=== PATIENT | male | born 1935 | race Asian ===

== ENCOUNTER 2016-11-10 13:08 | Inpatient (IN) | payer MEDICARE, OTHER ==
[~2016-11-10] VITALS: Ht 162.6 cm; Wt 56.8 kg
[2016-11-10] MEDS ORDERED: SOD CHLORIDE 0.9% 1,000 ML IV STA ×3 (13:12→15:03)
[2016-11-10] MEDS ORDERED: CEFEPIME 2GM/50 ML (PMX) 50 ML IVPB STA (13:12)
[2016-11-10] MEDS ORDERED: ACETAMINOPHEN 325 MG SUPP PR ONE (13:30)
[2016-11-10] MEDS ORDERED: ACETAMINOPHEN 650 MG SUPP PR ONE (13:30)
[2016-11-10] MEDS ORDERED: VANCOMYCIN 1 GM (PMX) 250 ML IVPB ONE (13:30)
[2016-11-10] MEDS ORDERED: ACET-2047 PO (13:56)
[2016-11-10] MEDS ORDERED: HYDR-906 PO (13:58)
[2016-11-10 13:59] LABS: ADD SCAN DIFF NO
[2016-11-10] MEDS ORDERED: MAG355OR14 PO (14:00)
[2016-11-10] MEDS ORDERED: ALBU2.5V3 NEB (14:00)
[2016-11-10] MEDS ORDERED: BISA5TAB6 PO (14:01)
[2016-11-10] MEDS ORDERED: CLON0.252 PO (14:02)
[2016-11-10] MEDS ORDERED: ESCI10TA PO (14:02)
[2016-11-10] MEDS ORDERED: ETHA400T25 PO (14:03)
[2016-11-10 14:04] LABS: ABNORMAL IP MESSAGE 1; HEMATOCRIT 39.6 % (42.0-52.0); MEAN CORPUSCULAR HEMOGLOBIN 32.9 pg (29.0-33.0); MEAN CORPUSCULAR HGB CONC 30.3 g/dl (32.0-37.0); MEAN CORPUSCULAR VOLUME 108.5 fl (82.0-101.0); MEAN PLATELET VOLUME 10.3 fl (7.4-10.4); PLATELET COUNT 328 10^3/UL (140-415); RED BLOOD COUNT 3.65 10^6/ul (4.70-6.10); RED CELL DISTRIBUTION WIDTH 15.4 % (11.5-14.5)
[2016-11-10] MEDS ORDERED: HAL1 PO (14:05)
[2016-11-10] MEDS ORDERED: INSU100V3 IJ (14:06)
[2016-11-10] MEDS ORDERED: IPRA3AMP INHALATION (14:08)
[2016-11-10] MEDS ORDERED: TEMA7.5C PO (14:10)
[2016-11-10 14:12] LABS: ADD UMIC YES; URINE BILIRUBIN (Dip) 1+ (NEGATIVE); URINE BLOOD (Dip) NEGATIVE (NEGATIVE); URINE COLOR AMBER (YELLOW); URINE GLUCOSE (Dip) NEGATIVE (NEGATIVE); URINE KETONES (Dip) NEGATIVE (NEGATIVE); URINE LEUKOCYTE ESTERASE (Dip) NEGATIVE (NEGATIVE); URINE NITRITE (Dip) NEGATIVE (NEGATIVE); URINE TOTAL PROTEIN (Dip) 1+ (NEGATIVE); URINE UROBILINOGEN (Dip) 1.0 E.U./dL (0.1-1.0)
[2016-11-10] MEDS ORDERED: ONDA4TAB8 PO (14:14)
[2016-11-10] MEDS ORDERED: POTA10TA37 PO (14:14)
[2016-11-10] MEDS ORDERED: [UNRECOGNIZED DRUG - CODE] PO (14:16)
[2016-11-10] MEDS ORDERED: SELE5CAP8 PO (14:17)
[2016-11-10 14:18] LABS: INR 1.07; PROTIME 13.9 Sec (12.2-14.2); PT RATIO 1.1
[2016-11-10] MEDS ORDERED: MAGN400O4 PO (14:18)
[2016-11-10 14:19] LABS: PARTIAL THROMBOPLASTIN TIME 32.5 Sec (25.0-35.0)
[2016-11-10] MEDS ORDERED: LEVA1.25 INHALATION (14:19)
[2016-11-10] MEDS ORDERED: LACT20SO2 PO (14:19)
[2016-11-10 14:20] LABS: AMMONIA < 9 umol/l (9-30)
[2016-11-10] MEDS ORDERED: POLY17PO6 PO (14:21)
[2016-11-10] MEDS ORDERED: PYRI50TA14 PO (14:22)
[2016-11-10] MEDS ORDERED: [UNRECOGNIZED DRUG - CODE] IVPB (14:22)
[2016-11-10 14:23] LABS: ALBUMIN/GLOBULIN RATIO 1.21; BILIRUBIN,INDIRECT 0.8 mg/dl (0-1.1); BILIRUBIN,TOTAL 0.8 mg/dl (0.2-1.3); CALCIUM 9.5 mg/dl (8.4-10.2); CREATININE 2.02 mg/dl (0.61-1.24); POTASSIUM 4.8 mmol/L (3.5-5.1); TOTAL PROTEIN 7.3 g/dl (6.1-8.1)
[2016-11-10] MEDS ORDERED: METF500T4 PO (14:23)
[2016-11-10] MEDS ORDERED: PYRA500T11 PO (14:23)
[2016-11-10] MEDS ORDERED: ISON300T72 PO (14:26)
[2016-11-10] MEDS ORDERED: ESOM40CA PO (14:30)
[2016-11-10 14:33] LABS: TROPONIN-I 0.028 ng/ml (0.00-0.12)
--- NOTE | 2016-11-10 14:39 | RADRPT ---
PROCEDURE: XR Chest. CLINICAL INDICATION: Shortness of breath. TECHNIQUE: A single portable view of the chest was obtained. COMPARISON: None FINDINGS: The aorta is tortuous and atherosclerotic. The cardiomediastinal silhouette is otherwise within nor mal limits. Prominence of the pulmonary vascularity is seen. Bibasilar air space disease is noted. No pleural effusion or pneumothorax is identified. The soft tissues and osseous structures demonst rate benign age related senescent changes. IMPRESSION: 1. Bibasilar air space disease which may represent infiltrates. Continued chest x-ray follow-up to resolution is suggested. 2. Prominence of the pulmonary vascularity. RPTAT: HPNM Physician Pino Date Time Electronically viewed and signed by Physician Pino on 11/10/2016 14:38 /
[2016-11-10 14:48] LABS: BACTERIA,URINE FEW; ICTOTEST NEGATIVE (NEGATIVE); URINE RBCS NONE SEEN /HPF (0)
--- NOTE | 2016-11-10 15:00 | RADRPT ---
PROCEDURE: CT Head without contrast. CLINICAL INDICATION: Sepsis with headaches TECHNIQUE: The study was performed utilizing a GE 64-slice multidetector CT scanner. Direct spiral axial CT images of the brain were obtained from the vertex to the skull base without contrast. Karoline nal and sagittal reformatted images are provided. The CTDI vol is 86.76 mGy and the DLP is 900.2 a m Gy-cm. The images were reviewed on a PACS workstation. COMPARISON: No prior studies are available for comparison. FINDINGS: Mild to moderate diffuse atrophy is seen with a compensatory ventricular enlargement. Mild white ma tter disease in the periventricular and deep white matter is seen. The castellon-white matter differenti ation is maintained. No intra or extra-axial fluid collection or mass effect or shift in the midlin e structures is seen. The visualized paranasal sinuses, mastoid air cells, orbits, and calvarium ar e unremarkable. Vascular calcifications are seen. IMPRESSION: 1. No acute intracranial pathology. 2. Mild to moderate diffuse volume loss and mild chronic microvascular ischemic changes. RPTAT: HPNM Physician Pino Date Time Electronically viewed and signed by Physician Pino on 11/10/2016 15:00 /
[2016-11-10 15:15] VITALS: TEMP 97.6
[2016-11-10 15:24] LABS: ANISOCYTOSIS 1+; MONOCYTE # 0.4 10^3/ul (0.3-0.9); NEUTROPHIL # 3.9 10^3/ul (1.6-7.5); PLATELET ESTIMATE PLT APPEAR ADEQUATE
[2016-11-10] MEDS ORDERED: LIDOCAINE 1% (MDV) 20 ML INJ SC ONE (15:30)
--- NOTE | 2016-11-10 16:34 | ERA ---
ER Documentation Chief Complaint Date/Time DATE: 11/10/16 TIME: 16:34 Chief Complaint FROM [facility], C/O ALTERED MORE THAN USUSAL HPI Patient is a 81-year-old male who presents altered. Please note that the history and physical exam is limited secondary to the patient's altered mental status. The patient was brought in by ambulance from [facility]. The patient was more altered than usual as of 1 hour ago. I cannot obtain history otherwise. ROS All systems reviewed and are negative except as per history of present illness. Medications Home Meds Reported Medications Esomeprazole Mag Trihydrate (Nexium) 40 Mg Capsule.dr, 40 MG PO DAILY, #30 CAP 11/10/16 Isoniazid* (Isoniazid*) 300 Mg Tablet, 300 MG PO DAILY, TAB 11/10/16 Metformin Hcl* (Metformin Hcl*) 500 Mg Tablet, 500 MG PO WITH BREAKFAST DINNE, # 30 TAB 11/10/16 Pyrazinamide* (Pyrazinamide*) 500 Mg Tablet, 1500 MG PO DAILY, TAB 11/10/16 Pyridoxine Hcl* (Pyridoxine Hcl*) 50 Mg Tablet, 50 MG PO DAILY, TAB 11/10/16 Rifampin* (Rifampin*) 600 Mg Vial, 600 MG IVPB Q24H, VIAL DILUTE IN NS 100 ML 11/10/16 Polyethylene Glycol* (Miralax*) 17 Gm Powd.pack, 17 GM PO DAILY Y for CONSTIPATION, #30 PACKET 11/10/16 Lactulose* (Lactulose*) 20 Gm/30 Ml Solution, 20 GM PO DAILY Y for CONSTIPATION , ML 11/10/16 Levalbuterol Hcl* (Levalbuterol Hcl*) 1.25 Mg/0.5 Ml Vial.neb, 1.25 MG INHALATION Q6 Y for SHORTNESS OF BREATH, VIAL 11/10/16 Magnesium Hydroxide* (Milk Of Magnesia*) 400 Mg/5 Ml Oral.susp, 30 ML PO Q12H Y for CONSTIPATION, ML 11/10/16 Selegiline Hcl* (Selegiline Hcl*) 5 Mg Capsule, 5 MG PO WITH BREAKFAST LUNCH, CAP 11/10/16 Nut.tx.gluc.intoler,Lac-Fr,Reg (BOOST GLUCOSE CONTROL) 237 Ml Liquid, 237 ML PO TID LACTOSE FREE 11/10/16 Ondansetron Hcl* (Zofran*) 4 Mg Tablet, 4 MG PO Q6H Y for NAUSEA AND OR VOMITING , TAB 11/10/16 Potassium Chloride* (K-Dur*) 10 Meq Tab.prt.sr, 10 MEQ PO DAILY, TAB 11/10/16 Temazepam* (Temazepam*) 7.5 Mg Capsule, 7.5 MG PO HS Y for INSOMNIA, CAP 11/10/16 Ipratropium-Albuterol (Ipratropium-Albuterol) 0.5-3 Mg/3 Ml Ampul.neb, 3 ML INHALATION Q6 Y for SHORTNESS OF BREATH, #30 VIAL 11/10/16 Insulin Regular, Human (Humulin R) 100 Unit/1 Ml Vial, 0 IJ AC MEALS AND BEDTIME , VIAL SLIDING SCALE NO SCALE PROVIDED 11/10/16 Haloperidol* (Haldol*) 1 Mg Tab, 3 MG PO TID, TAB IM IF PT REFUSES ORAL 11/10/16 Ethambutol HCl* (Myambutol*) 400 Mg Tablet, 400 MG PO DAILY 11/10/16 Escitalopram Oxalate* (Lexapro*) 10 Mg Tablet, 10 MG PO DAILY, #30 TAB 11/10/16 Clonazepam (Clonazepam) 0.25 Mg Tab.rapdis, 0.25 MG PO Q6 Y for ANXIETY 11/10/16 Bisacodyl* (Bisacodyl*) 5 Mg Tablet.dr, 5 MG PO DAILY Y for CONSTIPATION, TAB 11/10/16 Albuterol Sulfate* (Albuterol Sulfate* Neb) 0.083%-3 Ml Neb, 2.5 MG NEB Q4 Y for WHEEZING AND SOB, #30 VIAL 11/10/16 Mag Hydrox/Al Hydrox/Simeth (Maalox Advanced Suspension) 355 Ml Oral.susp, 30 ML PO Q4 Y for INDIGESTION 11/10/16 Hydrocodone/Acetaminophen ([place] 5-325 Tablet) 1 Each Tablet, 1 EACH PO Q6 Y for PAIN LEVEL 6-10, TAB 11/10/16 Acetaminophen* (Acetaminophen*) 650 Mg Tablet, 650 MG PO Q6H Y for MILD PAIN LEVEL 1-3, #30 TAB 11/10/16 Allergies Allergies: Coded Allergies: No Known Allergy (Unverified , 11/10/16) PMhx/Soc Medical and Surgical Hx: Unable to obtain Hx Alcohol Use: No Hx Substance Use: No Hx Tobacco Use: No Smoking Status: Former smoker FmHx Unable to obtain Physical Exam Vitals Vital Signs Date Time Temp Pulse Resp B/P Pulse Ox O2 Delivery O2 Flow Rate FiO2 11/10/16 15:15 97.6 107 14 90/63 97 Nasal Cannula 2.0 11/10/16 14:15 101.5 117 26 92/59 100 Nasal Cannula 2.0 11/10/16 13:45 129 21 68/51 100 Room Air 11/10/16 13:30 Nasal Cannula 2 11/10/16 13:22 101.5 129 27 127/101 94 Physical Exam Const: Ill-appearing Head: Atraumatic Eyes: Normal Conjunctiva ENT: Normal External Ears, Nose and Mouth. Neck: Full range of motion..~ No meningismus. Resp: Decreased breath sounds bilaterally, tachypnea Cardio: Regular rate and rhythm, no murmurs Abd: Soft, non tender, non distended. Normal bowel sounds Skin: Pale Back: No midline or flank tenderness Ext: No cyanosis, or edema Neur: Awake but not following commands or speaking Result Diagram: 11/10/16 1335 11/10/16 1335 Results 24 hrs Laboratory Tests Test 11/10/16 13:35 11/10/16 13:45 White Blood Count 6.010^3/ul Red Blood Count 3.6510^6/ul Hemoglobin 12.0g/dl Hematocrit 39.6% Mean Corpuscular Volume 108.5fl Mean Corpuscular Hemoglobin 32.9pg Mean Corpuscular Hemoglobin Concent 30.3g/dl Red Cell Distribution Width 15.4% Platelet Count 85200^3/UL Mean Platelet Volume 10.3fl Neutrophils % 65.0% Band Neutrophils % 9.0% Lymphocytes % 17.0% Reactive Lymphocytes % 3.0% Monocytes % 6.0% Eosinophils % % Neutrophils # 3.910^3/ul Lymphocytes # 1.010^3/ul Monocytes # 0.410^3/ul Eosinophils # 10^3/ul Platelet Estimate PLT APPEAR ADEQUATE Anisocytosis 1+ Macrocytosis 2+ Prothrombin Time 13.9Sec Prothrombin Time Ratio 1.1 INR International Normalized Ratio 1.07 Activated Partial Thromboplast Time 32.5Sec Sodium Level 149mmol/L Potassium Level 4.8mmol/L Chloride Level 110mmol/L Carbon Dioxide Level 19mmol/L Anion Gap 25 Blood Urea Nitrogen 65mg/dl Creatinine 2.02mg/dl Glucose Level 193mg/dl Lactic Acid Level 12.0mmol/L Calcium Level 9.5mg/dl Total Bilirubin 0.8mg/dl Direct Bilirubin 0.00mg/dl Indirect Bilirubin 0.8mg/dl Aspartate Amino Transf (AST/SGOT) 47IU/L Alanine Aminotransferase (ALT/SGPT) 14IU/L Alkaline Phosphatase 82IU/L Ammonia < 9umol/l Troponin I 0.028ng/ml Total Protein 7.3g/dl Albumin 4.0g/dl Globulin 3.30g/dl Albumin/Globulin Ratio 1.21 Urine Color WENDY Urine Clarity SLIGHTLY CLOUDY Urine pH 5.0 Urine Specific [place] 1.025 Urine Ketones NEGATIVE Urine Nitrite NEGATIVE Urine Bilirubin 1+ Urine Ictotest NEGATIVE Urine Urobilinogen 1.0 E.U./dL Urine Leukocyte Esterase NEGATIVE Urine Microscopic RBC NONE SEEN/HPF Urine Microscopic WBC 0-2/HPF Urine Epithelial Cells OCCASIONAL Urine Bacteria FEW Urine Hemoglobin NEGATIVE Urine Glucose NEGATIVE% Urine Total Protein 1+ Current Medications Medications (Trade) Dose Ordered Sig/Evin Route PRN Reason Start Time Stop Time Status Last Admin Dose Admin Cefepime HCl 50 ml @ 100 mls/hr ONCE STAT IVPB 11/10/16 13:12 11/10/16 13:41 DC 11/10/16 13:38 Vancomycin HCl 250 ml @ 125 mls/hr ONCE ONCE IVPB 11/10/16 13:30 11/10/16 15:29 DC 11/10/16 14:16 Sodium Chloride 1,000 ml @ 1,000 mls/hr Q1H STAT IV 11/10/16 13:12 11/10/16 14:11 DC 11/10/16 13:31 Sodium Chloride (NS) 1,000 ml @ 1,000 mls/hr Q1H STAT IV 11/10/16 13:12 11/10/16 14:11 DC 11/10/16 13:31 Acetaminophen (Tylenol Supp) 650 mg ONCE ONCE AR 11/10/16 13:30 11/10/16 13:31 DC 11/10/16 13:32 Acetaminophen 325 mg 325 mg STK-MED ONCE AR 11/10/16 13:30 11/10/16 13:31 DC Sodium Chloride (NS) 1,000 ml @ 1,000 mls/hr Q1H STAT IV 11/10/16 15:03 11/10/16 16:02 DC 11/10/16 15:23 Lidocaine (Xylocaine 1% (Mdv) 20 ml) 20 ml ONCE ONCE SC 11/10/16 15:30 11/10/16 15:31 DC Procedures/MDM EKG read by me: Rate/Rhythm: Regular rate and rhythm at a normal rate Intervals: Normal Impression: No evidence of ischemia or arrhythmia Chest x-ray shows pneumonia per radiology. CT head negative per radiology. Admit MDM: Patient's infectious symptoms have not stabilized and the patient is at risk of rapid decompensation. The patient will be admitted for careful hydration, antibiotic therapy, and infectious source control. Severe Sepsis criteria: Infectious source: Pneumonia End organ damage indicated by: Lactate greater than 2 Sepsis Management: Time of recognition of sepsis: 13:35 Within 3 hours of recognition: Blood cultures x 2 before broad-spectrum antibiotics: Yes 30 ml/kg NS bolus Completed Initial lactate 12.0 Repeat lactate pending Time of recognition of septic shock: 13:35 Septic Shock Assessment: Any lactic acid > 4.0 yes Persistent hypotension (SBP < 90 or 40 mmHg drop, MAP < 65) despite 30 mL/kg IV fluid bolus No Volume Re-assessment for Septic Shock (post 30 ml/kg bolus): Temp 97.6, BP 90/63, HR 107, RR 14, Pox 97% Heart tachycardic rate Lungs decreased breath sounds bilaterally Skin pale Cap Refill Less than 2 seconds Peripheral pulses Radially present Persistent Hypotension Treatment: Comfort care No Central line PICC line placed Vasopressor started Not required I considered further perfusion assessment with CVP measurement, SCVO2, bedside ultrasound volume assessment, passive leg raise, trial of further fluid bolus. And proceeded with 30 ml/kg fluid bolus of NSS, broad spectrum antibiotics, and admission. Accepting Care Team Current data and ongoing care discussed. Admitting Physician: Dr. Gaytan General Dentist(s): None Outstanding Data: Culture results and repeat lactic acid Critical Care: Critical care time 45 minutes excluding all billable procedures Emergent fluid management while maintaining close respiratory support. Provision of immediate and broad-spectrum antibiotic therapy. Simultaneous assessment for possible sources in order to direct targeted therapy. Consideration for invasive and chemical support to prevent cardiopulmonary collapse. Departure Diagnosis: Primary Impression: Pneumonia Qualified Code: J18.9 - Pneumonia of both lungs due to infectious organism, unspecified part of lung Additional Impressions: Altered level of consciousness Septic shock Anemia Qualified Code: D64.9 - Anemia, unspecified type Acute renal failure Qualified Code: N17.9 - Acute renal failure, unspecified acute renal failure type Dehydration Condition: Serious JOSHUA BERGERON MD Nov 10, 2016 16:34
--- NOTE | 2016-11-10 16:48 | CONS ---
DATE OF ADMISSION: 11/10/2016 DATE OF CONSULTATION: 11/10/2016 TYPE OF CONSULTATION: Pulmonary. REASON FOR CONSULTATION: Bilateral pneumonia. HISTORY OF PRESENT ILLNESS: This is an elderly 81-year-old gentleman transferred from [facility] for increasing shortness of breath, orthopnea, PND, found to have worsening mentation on admission. Chest x-ray demonstrating bilateral pneumonia with also a component of vascular congest ion. The patient is nonverbal, unable to give me further details. Makes eye contact but history is limited. PAST MEDICAL HISTORY: Per chart includes history of UTIs, possible dementia, questionable dysphagia . MEDICATIONS: Per chart. ALLERGIES: NONE. SOCIAL HISTORY: Nonsmoker, no alcohol, no history of drug use. FAMILY HISTORY: Noncontributory. SYSTEMS REVIEW: A 12-point review of systems currently unable to perform. PHYSICAL EXAMINATION: GENERAL: Elderly-appearing gentleman, comfortable at rest, no acute distress. VITAL SIGNS: Temperature 98, temperature max however was 101.5, pulse is 100, blood pressure 90/63, O2 saturation 96% on 2 L nasal cannula. HEENT: Dry mucous membranes. Pupils equal and reactive to light. NECK: Supple. CARDIAC: S1, S2, no added sounds or murmurs. CHEST: Diminished air entry bilaterally. ABDOMEN: Soft, nontender. No guarding or rebound. EXTREMITIES: No cyanosis, clubbing, or edema. NEUROLOGIC: Generalized weakness. LABORATORY DATA: White count 6, hemoglobin 12, platelets of 328. Lactic acid was 12. BUN 65, crea tinine 2.01. INR was 1.07. Urinalysis was unremarkable. Chest x-ray was reviewed, shows bilateral infiltrates. IMPRESSION AND PLAN: 1. Severe lactic acidosis. 2. Likely healthcare-associated pneumonia. 3. Mild hypoxemia. 4. History of possible underlying dementia. 5. History of urinary tract infections, UA is unremarkable. Patient will need: 1. Aggressive volume resuscitation. 2. Broad-spectrum antibiotic coverage. 3. Aspiration precautions. 4. Speech therapy evaluation. 5. DVT and GI prophylaxis. 6. In addition, the patient will need serial lactic acid and as stated aggressive volume resuscitat ion. Dictated By: DESHAUN SALGADO MD SV/PITER Conf#: [id number] DID#: [id number]
[2016-11-10] MEDS: SOD CHLORIDE 0.9% 1,000 ML IV SCH ×2 (17:13→20:00)
[2016-11-10] MEDS ORDERED: IPRATROPIUM (HFA) 12.9 GM INHALER INH PRN (17:30)
[2016-11-10] MEDS ORDERED: ALBUTEROL HFA 8 GM INHALER INH PRN (17:30)
[2016-11-10] MEDS ORDERED: HYDROCODONE/APAP (5/325) TAB PO PRN ×2 (17:30)
[2016-11-10] MEDS ORDERED: LEVALBUTEROL (NEB) 1.25 MG/0.5 ML AMP INH PRN (17:30)
[2016-11-10] MEDS ORDERED: ALBUTEROL 0.083% (NEB) 2.5 MG/3 ML AMP NEB PRN (17:30)
[2016-11-10] MEDS ORDERED: ACETAMINOPHEN 325 MG TAB PO PRN ×2 (17:30)
[2016-11-10] MEDS ORDERED: ONDANSETRON 4 MG INJ IV PRN (17:30)
[2016-11-10] MEDS ORDERED: SOD CHLORIDE 0.9% 500 ML IV ONE (17:30)
[2016-11-10] MEDS ORDERED: morphine 2 MG INJ IV PRN (17:30)
[2016-11-10] MEDS ORDERED: DOCUSATE SODIUM 100 MG CAP PO PRN (17:30)
[2016-11-10] MEDS ORDERED: BISACODYL (EC) 5 MG TAB PO PRN (17:30)
[2016-11-10] MEDS ORDERED: LORAZEPAM 2 MG INJ IV PRN (17:30)
[2016-11-10] MEDS ORDERED: NITROGLYCERIN (SL) 0.4 MG TAB SL PRN (17:30)
[2016-11-10] MEDS ORDERED: ALBUTEROL/IPRATROPIUM (NEB) 3 ML AMP INH PRN (17:30)
[2016-11-10] MEDS ORDERED: RIFAMPIN 600 MG IVPB SCH (17:30)
[2016-11-10 18:45] LABS: ADD SCAN DIFF NO
[2016-11-10 18:52] LABS: ABNORMAL IP MESSAGE 1; HEMATOCRIT 29.8 % (42.0-52.0); HEMOGLOBIN 9.8 g/dl (14.0-18.0); MEAN CORPUSCULAR HEMOGLOBIN 34.5 pg (29.0-33.0); MEAN CORPUSCULAR HGB CONC 32.9 g/dl (32.0-37.0); MEAN CORPUSCULAR VOLUME 104.9 fl (82.0-101.0); MEAN PLATELET VOLUME 9.9 fl (7.4-10.4); PLATELET COUNT 273 10^3/UL (140-415); RED BLOOD COUNT 2.84 10^6/ul (4.70-6.10); RED CELL DISTRIBUTION WIDTH 15.2 % (11.5-14.5); WHITE BLOOD COUNT 6.4 10^3/ul (4.8-10.8)
--- NOTE | 2016-11-10 18:58 | RADRPT ---
PROCEDURE: XR Chest. CLINICAL INDICATION: Check PICC line position. TECHNIQUE: Single frontal view. COMPARISON: 11/10/2016. 1427 hours. FINDINGS: There is a left arm PICC line with the tip in the lower superior vena cava. There is mild patchy ai r space disease at both lung bases, unchanged. The lungs are otherwise clear. The heart size is normal. There is calcification in the aorta consistent with atherosclerosis. There is no pleural effusion. There is no pneumothorax. IMPRESSION: 1. Satisfactory position of left arm PICC line. 2. Unchanged appearance of the lungs. 3. Atherosclerosis. RPTAT: QQ .Matthias Justin MD, MD Date Time Electronically viewed and signed by .Matthias Justin MD, MD on 11/10/2016 18:58 .R/
[2016-11-10 19:11] LABS: INR 1.13; PROTIME 14.5 Sec (12.2-14.2); PT RATIO 1.1
[2016-11-10 19:17] LABS: ALBUMIN 2.8 g/dl (3.3-4.9); ALBUMIN/GLOBULIN RATIO 0.96; BILIRUBIN,INDIRECT 0.4 mg/dl (0-1.1); BILIRUBIN,TOTAL 0.4 mg/dl (0.2-1.3); CALCIUM 7.9 mg/dl (8.4-10.2); CREATININE 1.46 mg/dl (0.61-1.24); POTASSIUM 3.5 mmol/L (3.5-5.1); TOTAL PROTEIN 5.7 g/dl (6.1-8.1)
[2016-11-10 19:28] LABS: TROPONIN-I 0.018 ng/ml (0.00-0.12)
[2016-11-10 19:38] LABS: AADO2 Arterial 57.6 mmHg (7.0-24.0); Allen Test ACCEPTAB; Arterial Base Excess -5.1 mmol/L (-3.0-3); Arterial COHb 0.3 % (0.0-3.0); Arterial Fraction of Oxyhgb 84.2 % (93.0-99.0); Arterial MetHb 0.3 % (0.0-1.5); MODE ROOM AIR
[2016-11-10 19:44] LABS: ANISOCYTOSIS 1+; HYPOCHROMASIA 1+; LYMPHOCYTES # 0.4 10^3/ul (0.8-2.9); MONOCYTE # 0.3 10^3/ul (0.3-0.9); NEUTROPHIL # 3.3 10^3/ul (1.6-7.5); PLATELET ESTIMATE PLT APPEAR ADEQUATE
[2016-11-10] MEDS: RIFAMPIN 600 MG in SOD CHLORIDE 0.9% 100 ML IVPB SCH (19:50)
[2016-11-10] MEDS ORDERED: SOD CHLORIDE 0.9% 100 ML ONE (20:01)
[2016-11-10] MEDS ORDERED: DOBUTamine/D5W 1 MG/ML DRIP 250 ML IV SCH (20:45)
--- NOTE | 2016-11-10 20:56 | RADRPT ---
PROCEDURE: Ultrasound guidance for placement of needle in left upper extremity vein. CLINICAL INDICATION: PICC placement. TECHNIQUE: Limited sonography of the left upper extremity was performed. Ultrasound images were recorded and st ored in the patient's medical record. COMPARISON: Chest radiograph of the same day. FINDINGS: The ultrasound images demonstrate a patent left upper extremity vein. The PICC line was inserted by the PICC line nurse. IMPRESSION: 1. Ultrasound guidance for a needle placement in a left upper extremity vein. 2. The visualized left upper extremity vein is patent. RPTAT: HH .Leyla Bishop MD, Date Time Electronically viewed and signed by .Leyla Bishop MD, on 11/10/2016 20:55 .N/
[2016-11-10] MEDS: HALOPERIDOL 1 MG TAB PO SCH (21:00)
[2016-11-10] MEDS ORDERED: SOD CHLORIDE 0.9% 500 ML IV STA (21:01)
[2016-11-10] MEDS ORDERED: CEFEPIME 2GM/50 ML (PMX) 50 ML IVPB SCH (22:00)
[2016-11-10] MEDS: SOD CHLORIDE 0.45% 1,000 ML IV SCH (22:49)
[2016-11-11] VITALS (32 sets, daily range): BP systolic 70–108; BP diastolic 51–83; PULSE 80–115; RESP 14–23; Ht 162.6 cm; Wt 56.8 kg
--- NOTE | 2016-11-11 04:06 | HP ---
DATE OF ADMISSION: 11/10/2016 CONSULTATIONS: 1. Nephrology. 2. Infectious disease. REASON FOR ADMISSION: Altered mental status. NOTATION: Great amount of information was obtained from the patient's chart, ER doctor and EMS. Th is is the first time the patient has been admitted to [facility]. The patient is not able to provide me with any information. HISTORY OF PRESENT ILLNESS: This is an 81-year-old gentleman with past medical history of debility, depression, GERD, TB, diabetes mellitus, hypertension, chronic constipation, and insomnia who was t [facility] the [facility] for debility, continued medical manage ment and physical therapy and was found to have decreased p.o. intake. The patient has been found t o become more altered than usual and was transferred to [facility] for evaluation. Upon arrival to ER, the patient was found to have a temperature of 101.5, pulse 129, respiration 2 1, blood pressure 68/51, oxygen saturation 100%. He was treated with IV fluid bolus, cefepime, vanc omycin and normal saline. His chest x-ray demonstrated pulmonary vascularity infiltrate bilaterally . Pulmonology was consulted. CT of the brain showed no acute intracranial pathology, mild to moder ate diffuse volume loss, and mild chronic microvascular ischemic changes. No family at the bedside. At this time, the patient is lying in bed comfortably without any acute distress. He is awake, al ert, but not responding to any questions or following commands. PAST MEDICAL AND SURGICAL HISTORY: As above per HPI. MEDICATIONS: 1. Tylenol. 2. Albuterol. 3. DuoNeb. 4. Bisacodyl. 5. Klonopin. 6. Lexapro. 7. Nexium 8. Myambutol. 9. Haldol. 10. [place]. 11. Insulin. 12. Isoniazid. 13. Lactulose. 14. Maalox. 15. Milk of magnesia. 16. Metformin. 17. Boost glucose 18. Zofran. 19. MiraLax. 20. K-Dur. 21. Pyrazinamide. 22. Pyridoxine. 23. Rifampin. 24. Selegiline. 25. Temazepam. ALLERGIES: NO KNOWN DRUG ALLERGIES. FAMILY HISTORY: Noncontributory secondary to advanced age. SOCIAL HISTORY: He resides at a [facility] facility. Former smoker. REVIEW OF SYSTEMS: Not obtainable except what was stated above. PHYSICAL EXAMINATION: VITAL SIGNS: At this time, temperature 97.6, pulse 101, respirations 16, blood pressure 80/58, oxyg en 94%. GENERAL APPEARANCE: The patient is lying in bed comfortably. He is very cachectic and underweight. EYES AND ENT: Conjunctivae and lids are normal. Pupils are normal. Extraocular normal. Hearing g rossly normal. Lips, teeth and gums are normal. Oral mucosa is mildly dry. NECK: Supple. Trachea is midline. No lymphadenopathy. RESPIRATORY: Effort is normal. Clear to auscultation bilaterally. CARDIOVASCULAR: Normal S1, S2. Regular rhythm and rate. No murmur, no bruits, no edema. Peripher al pulses and radial pulses palpable. Cap refill is normal. CHEST: Normal expansion of thorax during inspiration. The patient is very cachectic and underweigh t that all the ribs are seen during the examination. GASTROINTESTINAL: Abdomen is soft, nontender, not distended. Bowel sounds present. No guarding, n o rebound. GENITOURINARY: Leal in place. The patient wears diaper. MUSCULOSKELETAL: Upper and lower extremities with severe muscle wasting and very frail. NEUROLOGIC: He is awake, alert. LABORATORY WORK: WBC 6.0, hemoglobin 12.0, hematocrit 39.6, MCV 108.5, platelets 328. Sodium 149, potassium 4.8, chloride 110, bicarbonate 19, BUN 65, creatinine 2.02, glucose 193, lactic acid 12, A ST 47. Ammonia level less than 9. ASSESSMENT AND PLAN: 1. Encephalopathy, likely secondary to pneumonia versus severe dehydration. CT of the brain does n ot show any acute finding. 2. Severe dehydration, likely secondary to decreased p.o. intake. 3. Acute renal insufficiency as above. 4. Sepsis. Infectious disease doctor has been consulted. He has been placed on cefepime. 5. History of tuberculosis. Continue TB medications. Infectious disease doctor has been consulted . 6. Bilateral pneumonia, on cefepime. Pulmonology has been consulted. 7. History of essential hypertension. Blood pressure medication has been placed on hold secondary to patient's sepsis and hypotension. 8. Cachexia. We will consult social service and have a family meeting and then possible PEG tube p lacement versus hospice. 9. Major depression. Continue Lexapro. 10. Diabetes mellitus. Place the patient on insulin sliding scale. At this time, we will hold met formin secondary to sepsis and elevated lactic acid. 11. Deep venous thrombosis prophylaxis on SCDs. We will continue to monitor patient closely. Furt her recommendations, management, and treatment as per clinical course. PROGNOSIS: Poor. Dictated By: JOSE DE JESUS KNOWLES/PITER Conf#: [id number] DID#: [id number]
[2016-11-11 05:12] LABS: ADD SCAN DIFF NO
[2016-11-11 05:17] LABS: ABNORMAL IP MESSAGE 1; HEMATOCRIT 30.1 % (42.0-52.0); HEMOGLOBIN 9.5 g/dl (14.0-18.0); MEAN CORPUSCULAR HEMOGLOBIN 33.5 pg (29.0-33.0); MEAN CORPUSCULAR HGB CONC 31.6 g/dl (32.0-37.0); MEAN PLATELET VOLUME 10.1 fl (7.4-10.4); PLATELET COUNT 271 10^3/UL (140-415); RED BLOOD COUNT 2.84 10^6/ul (4.70-6.10); RED CELL DISTRIBUTION WIDTH 15.3 % (11.5-14.5); WHITE BLOOD COUNT 7.9 10^3/ul (4.8-10.8)
[2016-11-11 05:40] LABS: ALBUMIN 2.6 g/dl (3.3-4.9)
[2016-11-11 05:41] LABS: POTASSIUM 3.3 mmol/L (3.5-5.1)
[2016-11-11 05:42] LABS: CALCIUM 8.1 mg/dl (8.4-10.2); CREATININE 1.17 mg/dl (0.61-1.24)
[2016-11-11 05:43] LABS: ALBUMIN/GLOBULIN RATIO 1.04; BILIRUBIN,DIRECT 0.6 mg/dl (0.00-0.20); BILIRUBIN,INDIRECT 0.8 mg/dl (0-1.1); BILIRUBIN,TOTAL 1.4 mg/dl (0.2-1.3); CREATININE 1.13 mg/dl (0.61-1.24); TOTAL PROTEIN 5.1 g/dl (6.1-8.1)
[2016-11-11 05:44] LABS: CALCIUM 7.9 mg/dl (8.4-10.2)
--- NOTE | 2016-11-11 05:48 | CONS ---
DATE OF ADMISSION: 11/10/2016 DATE OF CONSULTATION: 11/10/2016 TYPE OF CONSULTATION: Infectious disease. REASON FOR CONSULTATION: Antibiotic management. HISTORY OF PRESENT ILLNESS: Dragan Slade is an 81-year-old gentleman admitted with bilateral pneumoni a and being seen for antibiotic management. The patient was transferred from a senior care faci l[facility] for increasing shortness of breath, orthopnea and PND, as well as worsening mentation. Chest x -ray shows bilateral pneumonia and also a component of vascular congestion. He is nonverbal. He young s a history of UTIs, dementia and questionable dysphagia. The patient is also on antituberculous me dications including INH, pyrazinamide, rifampin, and he is taking Pyridoxine as well. The patient w as not taking medication and was brought to the hospital. PAST MEDICAL HISTORY: Operations unknown. FAMILY HISTORY: Noncontributory. SOCIAL HISTORY: He does not smoke, drink or abuse drugs. He was a former smoker. ALLERGIES: NONE TO PENICILLIN, SULFA OR FOODS. MEDICATIONS: Per chart. REVIEW OF SYSTEMS: As per HPI. PHYSICAL EXAMINATION: GENERAL: The patient is an elderly-appearing male, who has an altered level of consciousness and is nonverbal. SKIN: Without generalized rash. HEENT: Within normal limits. NECK: Supple. LYMPH NODES: None palpable. CHEST: Decreased breath sounds at the bases. HEART: Without murmur or gallop. ABDOMEN: Soft, nontender, without organosplenomegaly or masses. EXTREMITIES: Without cyanosis, clubbing, or edema. RECTAL AND GENITAL EXAM: Deferred. NEUROLOGIC EVALUATION: No focal neurological abnormalities. Unable to follow commands or to speak. LABORATORY: On admission his white count was 6.0, H and H of 12 and 39.6, platelet count 328,000. B UN and creatinine 65/2.02. The patient was started on vancomycin and cefepime. He should also be on INH, rifampin, and pyrazi namide. His chest x-ray shows bibasilar air space disease which may represent infiltrates. Continu e chest x-ray and followup to resolution is suggested. Prominence of pulmonary vascular congestion. His medications include, as noted, INH, pyrazinamide and rifampin. Will continue him on his curre nt therapy. I will dictate my findings to the hospitalist and to Dr. Gutierrez. Dictated By: TANISHA LAZO MD, JD/PITER Conf#: [id number] [facility]#: [id number]
[2016-11-11] MEDS: PANTOPRAZOLE (EC) 40 MG TAB PO SCH (06:30)
[2016-11-11] MEDS ORDERED: NORepinephrine 8MG/250 ML (PMX 250 ML IV SCH (07:30)
[2016-11-11] MEDS ORDERED: SOD CHLORIDE 0.9% 1,000 ML IV ONE (07:30)
[2016-11-11] MEDS: POTASSIUM CHLORIDE 250 ML IVPB SCH ×2 (08:14→13:03)
[2016-11-11] MEDS: SOD CHLORIDE 0.45% 1,000 ML IV SCH (08:15)
[2016-11-11] MEDS ORDERED: PYRAZINAMIDE 500 MG TAB PO SCH (09:00)
[2016-11-11] MEDS: ESCITALOPRAM 10 MG TAB PO SCH (09:47)
[2016-11-11] MEDS: ETHAMBUTOL 400 MG TAB PO SCH (09:47)
[2016-11-11] MEDS: PYRIDOXINE 50 MG TAB PO SCH (09:48)
[2016-11-11] MEDS: ISONIAZID 300 MG TAB PO SCH (09:48)
[2016-11-11] MEDS: HALOPERIDOL 1 MG TAB PO SCH ×3 (09:48→20:20)
[2016-11-11 09:51] LABS: IRON 11 ug/dl (35-150)
--- NOTE | 2016-11-11 09:53 | CONS ---
Date/Time of Note Date/Time of Note DATE: 11/11/16 TIME: 09:53 Assessment/Plan Assessment/Plan Chief Complaint/Hosp Course ID PROGRESS NOTE CURRENT ABX=> "(Rifampin+ INH + Ethambutol + Pyridoxine) [NOTE: [facility] TB DC' D PYRAZINAMIDE]. s/p Vanco IV + Cefepime * Patient is known to me from lengthy admission where he was diagnosed, remained many weeks on TB isolation, initiated on anti-TB meds, had NGT placed due to refusal to take PO Meds (severe Psych/Dementia debility). Eventually, was cleared for DC to SNF on TB meds, now admitted for recurrent pulmonary sxs, SOB, pulm edema, orthopnea, acute encephalopathy * CT BRAIN: IMPRESSION:1. No acute intracranial pathology. 2. Mild to moderate diffuse volume loss and mild chronic microvascular ischemic changes. 24H INTERVAL SUMMARY * Resting comfortably, no fevers VSS, 81 yo M, nonverbal PHYSICAL EXAMINATION: GENERAL: VSS, NAD, Afebrile HEENT: Unremarkable NECK: Supple, trachea midline. CHEST: Rise symmetrical, without dyspnea on observation HEART: Pulse RRR ABDOMEN: Soft EXTREMITIES: Warm ID ASSESSMENT 81 yo Irish M PMHx Psych/Schizophrenia/MDD w/paranoid/agitative features + vascular dementia w/ grave disability/debility admit with: 1. Acute hypoxic respiratory distress w/pulmonary sepsis and severe lactic acidosis 2. Acute encephalopathy on chronic Psych debility + microvascular dementia w/ refusal to take PO Meds at [facility] 3. Pulmonary Edema, Recurrent HCAP, Hx of tobacco - suspect underlying COPD exacerbation as well 4. (+)Recent Dx MTB work up completed at [facility]-> Due to his refusal to take PO Meds, NGT was placed for [facility] TB compliance. 5. Dehydration w/Cachexia => hx of refusal of PO intake requiring NGT in past 6. Acute renal failure 7. Hx of UTI 8. Anemia MRSA Nares -> pending INVASIVES: PIV ABX ALLERGY: KNDA CURRENT ABX: Rifampin+ INH + Ethambutol + Pyridoxine =>NOTE: [facility] TB DC'D PYRAZINAMIDE ID RECOMMENDATIONS 1. Continue current ABX -> Cefepime DC'd by renal ? Will defer to pulmonary * Patient is well-known to Dr. Kathleen's ID team s/p lengthy admission to [facility] where he was Dx with MTB and remained on isolation for many weeks with NGT placed for TB med compliance prior to being cleared by [facility] TB for DC to SNF. [facility] TB with recs to continue: Rifampin+ INH + Ethambutol + Pyridoxine =>NOTE: [facility] TB DC'D PYRAZINAMIDE 2. PROGNOSIS: Poor per hospitalist notes Palliative care consulted Transferred to telemetry floor . Problems: Consultation Date/Type/Reason Admit Date/Time Nov 10, 2016 at 15:06 Initial Consult Date Exam/Review of Systems Vital Signs Vitals Vital Signs Date Time Temp Pulse Resp B/P Pulse Ox O2 Delivery O2 Flow Rate FiO2 11/11/16 08:00 99.6 101 19 87/54 100 Nasal Cannula 11/11/16 02:00 4.0 Intake and Output 11/10/16 11/10/16 11/11/16 15:00 23:00 07:00 Intake Total 50 ml 2000 ml 320 ml Output Total 275 ml Balance 50 ml 2000 ml 45 ml Results Result Diagram: 11/11/16 0415 11/11/16 0415 Results 24 hrs Laboratory Tests Test 11/10/16 13:30 11/10/16 13:34 11/10/16 13:35 11/10/16 13:45 Urine Osmolality 517 Urine Random Sodium Blood Gas Specimen Source Blood arterial Arterial Blood Date Drawn 11/10/2016 1:27:00 PM Arterial Blood pH (Temp corrected) 7.381 Arterial Blood pCO2 (Temp correct) 32.8 L Arterial Blood pO2 (Temp corrected) 52.9 *L Arterial Blood HCO3 19.0 L Arterial Blood Base Excess -5.1 L Arterial Blood Oxygen Saturation 84.7 L Rolando Test ACCEPTAB Arterial Blood Gas Puncture Site Right Brachial Arterial Blood Carboxyhemoglobin 0.3 Arterial Blood Methemoglobin 0.3 Blood Gas A-a O2 Differential 57.6 H Oxyhemoglobin Percent 84.2 L Total Hemoglobin 13.0 Blood Gas Temperature 37.0 Blood Gas Modality ROOM AIR FiO2 21.0 Blood Gas Critical Value Read Back DR. BERGERON Blood Gas Notified Whom Gina Blood Gas Notified Time 11/10/2016 1:41:00 PM White Blood Count 6.0 Red Blood Count 3.65 L Hemoglobin 12.0 L Hematocrit 39.6 L Mean Corpuscular Volume 108.5 H Mean Corpuscular Hemoglobin 32.9 Mean Corpuscular Hemoglobin Concent 30.3 L Red Cell Distribution Width 15.4 H Platelet Count 328 Mean Platelet Volume 10.3 Neutrophils % 65.0 Band Neutrophils % 9.0 H Lymphocytes % 17.0 Reactive Lymphocytes % 3.0 Monocytes % 6.0 Eosinophils % Neutrophils # 3.9 Lymphocytes # 1.0 Monocytes # 0.4 Eosinophils # Platelet Estimate PLT APPEAR ADEQUATE Anisocytosis 1+ Macrocytosis 2+ Prothrombin Time 13.9 Prothrombin Time Ratio 1.1 INR International Normalized Ratio 1.07 Activated Partial Thromboplast Time 32.5 Sodium Level 149 H Potassium Level 4.8 Chloride Level 110 Carbon Dioxide Level 19 L Anion Gap 25 H Blood Urea Nitrogen 65 H Creatinine 2.02 H Glucose Level 193 Lactic Acid Level 12.0 *H Calcium Level 9.5 Total Bilirubin 0.8 Direct Bilirubin 0.00 Indirect Bilirubin 0.8 Aspartate Amino Transf (AST/SGOT) 47 H Alanine Aminotransferase (ALT/SGPT) 14 Alkaline Phosphatase 82 Ammonia < 9 L Troponin I 0.028 Total Protein 7.3 Albumin 4.0 Globulin 3.30 H Albumin/Globulin Ratio 1.21 Urine Color WENDY Urine Clarity SLIGHTLY CLOUDY Urine pH 5.0 Urine Specific [place] 1.025 Urine Ketones NEGATIVE Urine Nitrite NEGATIVE Urine Bilirubin 1+ H Urine Ictotest NEGATIVE Urine Urobilinogen 1.0 E.U./dL Urine Leukocyte Esterase NEGATIVE Urine Microscopic RBC NONE SEEN Urine Microscopic WBC 0-2 Urine Epithelial Cells OCCASIONAL Urine Bacteria FEW Urine Hemoglobin NEGATIVE Urine Glucose NEGATIVE Urine Total Protein 1+ H Test 11/10/16 18:40 11/10/16 20:15 11/10/16 20:30 11/10/16 23:50 White Blood Count 6.4 Red Blood Count 2.84 #L Hemoglobin 9.8 L Hematocrit 29.8 #L Mean Corpuscular Volume 104.9 H Mean Corpuscular Hemoglobin 34.5 H Mean Corpuscular Hemoglobin Concent 32.9 Red Cell Distribution Width 15.2 H Platelet Count 273 Mean Platelet Volume 9.9 Neutrophils % 51.0 Band Neutrophils % 38.0 H Lymphocytes % 6.0 L Reactive Lymphocytes % 1.0 Monocytes % 4.0 Eosinophils % Neutrophils # 3.3 Lymphocytes # 0.4 L Monocytes # 0.3 Eosinophils # Platelet Estimate PLT APPEAR ADEQUATE Hypochromasia 1+ Anisocytosis 1+ Macrocytosis 1+ Prothrombin Time 14.5 H Prothrombin Time Ratio 1.1 INR International Normalized Ratio 1.13 Activated Partial Thromboplast Time 37.0 H Sodium Level 149 H Potassium Level 3.5 Chloride Level 118 H Carbon Dioxide Level 24 Anion Gap 11 # Blood Urea Nitrogen 57 H Creatinine 1.46 H Glucose Level 141 # Lactic Acid Level 1.4 1.7 1.6 Calcium Level 7.9 L Total Bilirubin 0.4 Direct Bilirubin 0.00 Indirect Bilirubin 0.4 Aspartate Amino Transf (AST/SGOT) 40 Alanine Aminotransferase (ALT/SGPT) 28 Alkaline Phosphatase 65 Lactate Dehydrogenase 499 Troponin I 0.018 Total Protein 5.7 #L Albumin 2.8 #L Globulin 2.90 Albumin/Globulin Ratio 0.96 Prostate Specific Antigen 0.3 Test 11/11/16 04:15 White Blood Count 7.9 # Red Blood Count 2.84 L Hemoglobin 9.5 L Hematocrit 30.1 L Mean Corpuscular Volume 106.0 H Mean Corpuscular Hemoglobin 33.5 H Mean Corpuscular Hemoglobin Concent 31.6 L Red Cell Distribution Width 15.3 H Platelet Count 271 Mean Platelet Volume 10.1 Neutrophils % Eosinophils % Neutrophils # Eosinophils # Sodium Level 154 H Potassium Level 3.0 L Chloride Level 117 H Carbon Dioxide Level 23 Anion Gap 17 H Blood Urea Nitrogen 45 H Creatinine 1.17 Glucose Level 107 Calcium Level 8.1 L Magnesium Level 2.0 Total Bilirubin 1.4 H Direct Bilirubin 0.60 #H Indirect Bilirubin 0.8 Aspartate Amino Transf (AST/SGOT) 47 H Alanine Aminotransferase (ALT/SGPT) 23 Alkaline Phosphatase 60 Total Protein 5.1 L Albumin 2.6 L Globulin 2.50 Albumin/Globulin Ratio 1.04 Medications Medications Current Medications Sodium Chloride (1/2 NS) 1,000 ml @ 120 mls/hr Q8H20M IV Last administered on 11/10/16t 22:49; Admin Dose 80 MLS/HR; Start 11/10/16 at 17:13 Ondansetron HCl (Zofran Inj) 4 mg Q6H PRN IV NAUSEA AND/OR VOMITING; Start 11/10 at 17:30 Nitroglycerin (Nitroglycerin (Sl Tab) 0.4 Mg) 1 tab Q5M PRN SL CHEST PAIN; Start 11/10/16 at 17:30 Acetaminophen (Tylenol Tab) 650 mg Q6H PRN PO PAIN LEVEL 1-3 OR FEVER; Start at 17:30 Acetaminophen/ Hydrocodone Bitart ([place] (5/325)) 1 tab Q6H PRN PO PAIN LEVEL 4 -6; Start 11/10/16 at 17:30 Morphine Sulfate (morphine) 2 mg Q4H PRN IV PAIN LEVEL 7-10; Start 11/10/16 at 17:30 Lorazepam (Ativan) 1 mg Q2H PRN IV ANXIETY; Start 11/10/16 at 17:30 Docusate Sodium (Colace) 100 mg Q12H PRN PO CONSTIPATION; Start 11/10/16 at 17: 30 Pantoprazole (Protonix Tab) 40 mg DAILY@06 PO Last administered on 11/11/16 06: 30; Admin Dose 40 MG; Start 11/11/16 at 06:00 Bisacodyl (Dulcolax) 5 mg DAILY PRN PO CONSTIPATION; Start 11/10/16 at 17:30 Escitalopram Oxalate (Lexapro) 10 mg DAILY PO Last administered on 11/11/16 09: 47; Admin Dose 10 MG; Start 11/11/16 at 09:00 Ethambutol HCl (Myambutol) 400 mg DAILY PO Last administered on 11/11/16 09:47 ; Admin Dose 400 MG; Start 11/11/16 at 09:00 Haloperidol (Haldol) 3 mg TID PO Last administered on 11/11/16 09:48; Admin Dose 3 MG; Start 11/10/16 at 21:00 Isoniazid (Isoniazid) 300 mg DAILY PO Last administered on 11/11/16 09:48; Admin Dose 300 MG; Start 11/11/16 at 09:00 Pyrazinamide (Pyrazinamide) 1,500 mg DAILY PO Last administered on 11/11/16 09: 49; Admin Dose 1,500 MG; Start 11/11/16 at 09:00 Pyridoxine HCl (Vitamin B6) 50 mg DAILY PO Last administered on 11/11/16 09:48 ; Admin Dose 50 MG; Start 11/11/16 at 09:00 Clonazepam 0.25 mg 0.25 mg Q6H PRN PO ANXIETY; Start 11/10/16 at 17:30 Rifampin/Sodium Chloride (Rifampin/NS) 100 ml @ 200 mls/hr Q24H IVPB Last administered on 11/10/16 19:50; Admin Dose 200 MLS/HR; Start 11/10/16 at 20:00 IV Flush 10 ml 10 ml PRN PRN IV IV PROTOCOL; Start 11/10/16 at 19:30 Potassium Chloride 250 ml @ 62.5 mls/hr Q4H IVPB Last administered on 08:14; Admin Dose 62.5 MLS/HR; Start 11/11/16 at 07:00; Stop 11/11/16 at 14: 59 Norepinephrine 250 ml @ 1.875 mls/ hr TITRATE IV ; Start 11/11/16 at 07:30; Stop 11/11/16 at 12:00 Norepinephrine/ Dextrose (Levophed/D5W) 500 ml @ 1.87 mls/hr TITRATE IV ; Start 11/11/16 at 12:00 PALMIRA ALFARO NP Nov 11, 2016 09:53
[2016-11-11 10:00] LABS: TOTAL IRON BINDING CAPACITY 173 ug/dl (241-421)
[2016-11-11] MEDS ORDERED: DEXTROSE 5% 1,000 ML IV SCH (10:00)
[2016-11-11 10:04] LABS: LYMPHOCYTES # 0.8 10^3/ul (0.8-2.9); MONOCYTE # 0.2 10^3/ul (0.3-0.9); MYELOCYTES # 0.1; NEUTROPHIL # 2.6 10^3/ul (1.6-7.5)
--- NOTE | 2016-11-11 10:17 | CONS ---
DATE OF ADMISSION: 11/10/2016 DATE OF CONSULTATION: 11/11/2016 TYPE OF CONSULTATION: Nephrology. Dear Dr. Gaytan: Thank you for allowing us to participate in the care of this 81-year-old male who is unable to provide history. Information obtained from the hospital record. The patient apparently has carried diagnosis of dementia and was presented to the emergency room yesterday with altered mental status. He has been a resident of the long term where he has been maintained on INH, pyrazinamide, pyridoxine, rifampin, Lactulose, MiraLax, [place], albuterol, magnesium hydroxide Temazepam, Haldol, Bisacodyl and some other p.r.n. medications. Workup has shown patient to have elevated BUN and creatinine. Nephrology consultation therefore kindly requested. Hospital records reveal a urinalysis specific gravity 1.025, bilirubin is 1+ and there is 0 to 2 white cells, 1+ protein, urine osmolarity is 517 and urine sodium is sent out. The rest of the past history is elicited from the patient's chart. The patient' s current regimen includes initially dobutamine which has been since discontinued. He is on antibiotic therapy, cefepime, and rifampin and IV fluids at 80 mL per hour, vancomycin, Klonopin, Haldol, Protonix and pyridoxine. The additional workup done here so far includes white count initially of 6000 and presently 7.9, hematocrit has dropped from 39.6 to 30 and the BUN and creatinine was 65 and 2.02 at the time of admission with a lactic acid being very high of 12 which has since normalized. His BUN and creatinine today is 45 and 1.17. The sodium has risen to 154. The bilirubin is 1.4 and albumin is 2.6 , magnesium 2, calcium is 8.1. Intake and output has been closely monitored. The patient although very little urine volume was elicited via Leal catheter. Weight is 56.82 kilograms. PHYSICAL EXAMINATION: GENERAL: The patient is rather nonverbal, does not answer any questions is awake, however. VITAL SIGNS: His blood pressure has been on the low side presently in the range of 85/65. He is not on any pressors. Heart rate is up to 112, the respiration is 22. HEENT: EAR, NOSE, THROAT: Unremarkable. NECK: Supple. No jugular venous distention. CHEST: Increased AP diameter. LUNGS: Clear. HEART: Regular rhythm, S1 unremarkable. ABDOMEN: Flat, soft. G-tube is in place. GENITALIA: Leal catheter draining urine. EXTREMITIES: No cyanosis, clubbing, edema. SKIN: sacral decubitii. IMPRESSION: 1. Dementia. 2. Question of pneumonia. 3. Rule out sepsis, may be improving. 4. Acute kidney injury, most likely prerenal in nature. See discussion below. 5. Anemia. This patient has been well hydrated with the hematocrit dropping from 39% to 30% , suggesting a picture of dilution, and although this may represent his real hemoglobin and hematocrit status. Serum sodium, however, has risen and presently is 154 with potassium being 3.0, which is being replaced. His albumin is 2..6 and I would urgently start the patient on the tube feeding at this point. The patient also will need careful fluid management and I will increase the IV fluids for the time being to improve the serum sodium as well as the blood pressures, especially since the possibility of initial sepsis syndrome cannot be ruled out at the present time. Hopefully, this patient's condition will continue to improve, although his baseline status may be marginal at best, and I will be happy to follow the patient along with you. Please allow me to thank you once again. Sincerely, Dictated By: JORI PALM/PITER Conf#: [id number] DID#: [id number] MTDD
--- NOTE | 2016-11-11 11:11 | PN ---
Date/Time of Note Date/Time of Note DATE: 11/11/16 TIME: 11:02 Assessment/Plan VTE Prophylaxis VTE Prophylaxis Intervention: SCD's Lines/Catheters IV Catheter Type (from [facility] PICC Line Central line still needed: Yes Urinary Cath still in place: Yes Reason Cath still needed: other (indicate) Assessment/Plan Chief Complaint/Hosp Course ASSESSMENT AND PLAN: 1. Encephalopathy, likely secondary to pneumonia versus severe dehydration. CT of the brain does not show any acute finding. Improving 2. Severe dehydration, likely secondary to decreased p.o. intake. Continue IV fluids, improving 3. Acute renal insufficiency as above. 4. Sepsis. Infectious disease doctor has been consulted. Continue cefepime. 5. History of tuberculosis. Continue TB medications. Infectious disease doctor has been consulted. 6. Bilateral pneumonia, on cefepime. Pulmonology has been consulted. 7. History of essential hypertension. Blood pressure medication has been placed on hold secondary to patient's sepsis and hypotension. 8. Cachexia. We will consult social service and have a family meeting and then possible PEG tube placement versus hospice. 9. Major depression. Continue Lexapro. 10. Diabetes mellitus. Place the patient on insulin sliding scale. At this time, we will hold metformin secondary to sepsis and elevated lactic acid. 11. Deep venous thrombosis prophylaxis on SCDs. We will continue to monitor patient closely. Further recommendations, management, and treatment as per clinical course. PROGNOSIS: Poor. Palliative care consulted Transferred to telemetry floor Problems: Subjective 24 Hr Interval Summary Free Text/Dictation Patient is more awake and alert Minimal p.o. intake Vitals are stable Has not required any pressors Exam/Review of Systems Vital Signs Vitals Vital Signs Date Time Temp Pulse Resp B/P Pulse Ox O2 Delivery O2 Flow Rate FiO2 11/11/16 10:00 97 19 93/56 100 Nasal Cannula 11/11/16 08:00 99.6 11/11/16 02:00 4.0 Intake and Output 11/10/16 11/10/16 11/11/16 15:00 23:00 07:00 Intake Total 50 ml 2000 ml 320 ml Output Total 275 ml Balance 50 ml 2000 ml 45 ml Exam General: The patient is cachectic, Not in acute distress. HEENT: Atraumatic, normocephalic. The pupils are equal and round . Neck: Supple with full range of motion. Chest: Normal expansion of the thorax during inspiration Lungs: Clear to auscultation bilaterally Heart: Normal S1-S2, Regular rhythm and rate. Abdomen: Soft , nontender, nondistended , bowel sounds are present. Extremities: Severe muscle wasting, no edema no cyanosis Neurologic: The patient is awake, alert Results Result Diagram: 11/11/16 0415 11/11/16 0415 Results 24 hrs Laboratory Tests Test 11/10/16 13:30 11/10/16 13:34 11/10/16 13:35 11/10/16 13:45 Urine Osmolality 517 Urine Random Sodium Blood Gas Specimen Source Blood arterial Arterial Blood Date Drawn 11/10/2016 1:27:00 PM Arterial Blood pH (Temp corrected) 7.381 Arterial Blood pCO2 (Temp correct) 32.8 L Arterial Blood pO2 (Temp corrected) 52.9 *L Arterial Blood HCO3 19.0 L Arterial Blood Base Excess -5.1 L Arterial Blood Oxygen Saturation 84.7 L Rolando Test ACCEPTAB Arterial Blood Gas Puncture Site Right Brachial Arterial Blood Carboxyhemoglobin 0.3 Arterial Blood Methemoglobin 0.3 Blood Gas A-a O2 Differential 57.6 H Oxyhemoglobin Percent 84.2 L Total Hemoglobin 13.0 Blood Gas Temperature 37.0 Blood Gas Modality ROOM AIR FiO2 21.0 Blood Gas Critical Value Read Back DR. BERGERON Blood Gas Notified Whom Gina Blood Gas Notified Time 11/10/2016 1:41:00 PM White Blood Count 6.0 Red Blood Count 3.65 L Hemoglobin 12.0 L Hematocrit 39.6 L Mean Corpuscular Volume 108.5 H Mean Corpuscular Hemoglobin 32.9 Mean Corpuscular Hemoglobin Concent 30.3 L Red Cell Distribution Width 15.4 H Platelet Count 328 Mean Platelet Volume 10.3 Neutrophils % 65.0 Band Neutrophils % 9.0 H Lymphocytes % 17.0 Reactive Lymphocytes % 3.0 Monocytes % 6.0 Eosinophils % Neutrophils # 3.9 Lymphocytes # 1.0 Monocytes # 0.4 Eosinophils # Platelet Estimate PLT APPEAR ADEQUATE Anisocytosis 1+ Macrocytosis 2+ Prothrombin Time 13.9 Prothrombin Time Ratio 1.1 INR International Normalized Ratio 1.07 Activated Partial Thromboplast Time 32.5 Sodium Level 149 H Potassium Level 4.8 Chloride Level 110 Carbon Dioxide Level 19 L Anion Gap 25 H Blood Urea Nitrogen 65 H Creatinine 2.02 H Glucose Level 193 Lactic Acid Level 12.0 *H Calcium Level 9.5 Total Bilirubin 0.8 Direct Bilirubin 0.00 Indirect Bilirubin 0.8 Aspartate Amino Transf (AST/SGOT) 47 H Alanine Aminotransferase (ALT/SGPT) 14 Alkaline Phosphatase 82 Ammonia < 9 L Troponin I 0.028 Total Protein 7.3 Albumin 4.0 Globulin 3.30 H Albumin/Globulin Ratio 1.21 Urine Color WENDY Urine Clarity SLIGHTLY CLOUDY Urine pH 5.0 Urine Specific [place] 1.025 Urine Ketones NEGATIVE Urine Nitrite NEGATIVE Urine Bilirubin 1+ H Urine Ictotest NEGATIVE Urine Urobilinogen 1.0 E.U./dL Urine Leukocyte Esterase NEGATIVE Urine Microscopic RBC NONE SEEN Urine Microscopic WBC 0-2 Urine Epithelial Cells OCCASIONAL Urine Bacteria FEW Urine Hemoglobin NEGATIVE Urine Glucose NEGATIVE Urine Total Protein 1+ H Test 11/10/16 18:40 11/10/16 20:15 11/10/16 20:30 11/10/16 23:50 White Blood Count 6.4 Red Blood Count 2.84 #L Hemoglobin 9.8 L Hematocrit 29.8 #L Mean Corpuscular Volume 104.9 H Mean Corpuscular Hemoglobin 34.5 H Mean Corpuscular Hemoglobin Concent 32.9 Red Cell Distribution Width 15.2 H Platelet Count 273 Mean Platelet Volume 9.9 Neutrophils % 51.0 Band Neutrophils % 38.0 H Lymphocytes % 6.0 L Reactive Lymphocytes % 1.0 Monocytes % 4.0 Eosinophils % Neutrophils # 3.3 Lymphocytes # 0.4 L Monocytes # 0.3 Eosinophils # Platelet Estimate PLT APPEAR ADEQUATE Hypochromasia 1+ Anisocytosis 1+ Macrocytosis 1+ Prothrombin Time 14.5 H Prothrombin Time Ratio 1.1 INR International Normalized Ratio 1.13 Activated Partial Thromboplast Time 37.0 H Sodium Level 149 H Potassium Level 3.5 Chloride Level 118 H Carbon Dioxide Level 24 Anion Gap 11 # Blood Urea Nitrogen 57 H Creatinine 1.46 H Glucose Level 141 # Lactic Acid Level 1.4 1.7 1.6 Calcium Level 7.9 L Total Bilirubin 0.4 Direct Bilirubin 0.00 Indirect Bilirubin 0.4 Aspartate Amino Transf (AST/SGOT) 40 Alanine Aminotransferase (ALT/SGPT) 28 Alkaline Phosphatase 65 Lactate Dehydrogenase 499 Troponin I 0.018 Total Protein 5.7 #L Albumin 2.8 #L Globulin 2.90 Albumin/Globulin Ratio 0.96 Prostate Specific Antigen 0.3 Test 11/11/16 04:15 11/11/16 09:24 White Blood Count 7.9 # Red Blood Count 2.84 L Hemoglobin 9.5 L Hematocrit 30.1 L Mean Corpuscular Volume 106.0 H Mean Corpuscular Hemoglobin 33.5 H Mean Corpuscular Hemoglobin Concent 31.6 L Red Cell Distribution Width 15.3 H Platelet Count 271 Mean Platelet Volume 10.1 Neutrophils % 33.0 L Band Neutrophils % 53.0 H Lymphocytes % 10.0 L Monocytes % 2.0 Eosinophils % Metamyelocytes % 1.0 H Myelocytes % 1.0 H Neutrophils # 2.6 Lymphocytes # 0.8 Monocytes # 0.2 L Eosinophils # Metamyelocytes # 0.1 Myelocytes # 0.1 Macrocytosis 1+ Sodium Level 154 H Potassium Level 3.0 L Chloride Level 117 H Carbon Dioxide Level 23 Anion Gap 17 H Blood Urea Nitrogen 45 H Creatinine 1.17 Glucose Level 107 Calcium Level 8.1 L Magnesium Level 2.0 Total Bilirubin 1.4 H Direct Bilirubin 0.60 #H Indirect Bilirubin 0.8 Aspartate Amino Transf (AST/SGOT) 47 H Alanine Aminotransferase (ALT/SGPT) 23 Alkaline Phosphatase 60 Total Protein 5.1 L Albumin 2.6 L Globulin 2.50 Albumin/Globulin Ratio 1.04 Iron Level 11 L Total Iron Binding Capacity 173 L Percent Iron Saturation 6 L Medications Medications Current Medications Ondansetron HCl (Zofran Inj) 4 mg Q6H PRN IV NAUSEA AND/OR VOMITING; Start 11/10 at 17:30 Nitroglycerin (Nitroglycerin (Sl Tab) 0.4 Mg) 1 tab Q5M PRN SL CHEST PAIN; Start 11/10/16 at 17:30 Acetaminophen (Tylenol Tab) 650 mg Q6H PRN PO PAIN LEVEL 1-3 OR FEVER; Start at 17:30 Acetaminophen/ Hydrocodone Bitart ([place] (5/325)) 1 tab Q6H PRN PO PAIN LEVEL 4 -6; Start 11/10/16 at 17:30 Morphine Sulfate (morphine) 2 mg Q4H PRN IV PAIN LEVEL 7-10; Start 11/10/16 at 17:30 Lorazepam (Ativan) 1 mg Q2H PRN IV ANXIETY; Start 11/10/16 at 17:30 Docusate Sodium (Colace) 100 mg Q12H PRN PO CONSTIPATION; Start 11/10/16 at 17: 30 Pantoprazole (Protonix Tab) 40 mg DAILY@06 PO Last administered on 11/11/16 06: 30; Admin Dose 40 MG; Start 11/11/16 at 06:00 Bisacodyl (Dulcolax) 5 mg DAILY PRN PO CONSTIPATION; Start 11/10/16 at 17:30 Escitalopram Oxalate (Lexapro) 10 mg DAILY PO Last administered on 11/11/16 09: 47; Admin Dose 10 MG; Start 11/11/16 at 09:00 Ethambutol HCl (Myambutol) 400 mg DAILY PO Last administered on 11/11/16 09:47 ; Admin Dose 400 MG; Start 11/11/16 at 09:00 Haloperidol (Haldol) 3 mg TID PO Last administered on 11/11/16 09:48; Admin Dose 3 MG; Start 11/10/16 at 21:00 Isoniazid (Isoniazid) 300 mg DAILY PO Last administered on 11/11/16 09:48; Admin Dose 300 MG; Start 11/11/16 at 09:00 Pyrazinamide (Pyrazinamide) 1,500 mg DAILY PO Last administered on 11/11/16 09: 49; Admin Dose 1,500 MG; Start 11/11/16 at 09:00 Pyridoxine HCl (Vitamin B6) 50 mg DAILY PO Last administered on 11/11/16 09:48 ; Admin Dose 50 MG; Start 11/11/16 at 09:00 Clonazepam 0.25 mg 0.25 mg Q6H PRN PO ANXIETY; Start 11/10/16 at 17:30 Rifampin/Sodium Chloride (Rifampin/NS) 100 ml @ 200 mls/hr Q24H IVPB Last administered on 11/10/16 19:50; Admin Dose 200 MLS/HR; Start 11/10/16 at 20:00 IV Flush 10 ml 10 ml PRN PRN IV IV PROTOCOL; Start 11/10/16 at 19:30 Potassium Chloride 250 ml @ 62.5 mls/hr Q4H IVPB Last administered on 08:14; Admin Dose 62.5 MLS/HR; Start 11/11/16 at 07:00; Stop 11/11/16 at 14: 59 Norepinephrine 250 ml @ 1.875 mls/ hr TITRATE IV ; Start 11/11/16 at 07:30; Stop 11/11/16 at 12:00 Norepinephrine 16 mg/Dextrose 500 ml @ 1.87 mls/hr TITRATE IV ; Start 11/11/16 at 12:00 Potassium Chloride/Dextrose (D5W + KCl 20 Meq) 1,000 ml @ 100 mls/hr Q10H IV ; Start 11/11/16 at 11:00; Status UNJOSE DE JESUS RYAN MD Nov 11, 2016 11:11
[2016-11-11 14:30] LABS: CALCIUM 7.6 mg/dl (8.4-10.2); CREATININE 1.02 mg/dl (0.61-1.24); POTASSIUM 3.7 mmol/L (3.5-5.1)
[2016-11-11] MEDS: D5W + KCL 20 MEQ 1,000 ML IV SCH (16:02)
--- NOTE | 2016-11-11 17:35 | CONS ---
DATE OF ADMISSION: 11/10/2016 DATE OF CONSULTATION: 11/11/2016 HISTORY OF PRESENT ILLNESS: This is an 81-year-old gentleman who was admitted to the intensive care unit at [facility] altered secondary to pneumonia. Neurological workup has been done which shows no acute pathology. He has had multiple fluid and electrolyte abnormalities which have been corrected by Dr. Earle Gaytan. He is on broad spectrum IV antibiotic coverage. PAST MEDICAL HISTORY: Significant for patient who has a history of baseline dementia and debility, type 2 diabetes, hypertension. All this information is obtained from the patient's medical record. The patient is a non-historian. MEDICATIONS: Please refer to reconciliation sheets. ALLERGIES: NO KNOWN DRUG ALLERGIES. MAJOR MEDICAL PROBLEMS IN THE PAST: As per history of present illness. SOCIAL HISTORY: [facility] a [facility] facility. There are no family members that are dameon ilable at his bedside at this time. FAMILY HISTORY: Unknown. REVIEW OF SYSTEMS: Cannot be obtained from the patient. PHYSICAL EXAMINATION: GENERAL: Shows a cachectic-appearing male who is in no major acute distress, who is somnolent on ex amination, but easily arousable. VITAL SIGNS: Blood pressure 97/66, pulse 90 and regular, respirations of 17, temperature 98.1 degre es, 100% saturation on 2 liters FIO2. HEENT: He is normocephalic, atraumatic. Anicteric, acyanotic. CHEST: Shows bilateral clear breath sounds throughout both lung elizabeth. COR: S1, S2, without S3, S4, murmur, gallop, rub. Normal rate, normal rhythm. ABDOMEN: Grossly benign. LABORATORY TESTS: White blood cell count 7.9, hemoglobin 9.5, hematocrit 30.1, MCV of 106, platelet count 271,000. Chemistries: Serum sodium 148, potassium 3.7, chloride 121, bicarbonate 22, BUN of 36, creatinine 1.02, blood sugar 212. ASSESSMENT AND PLAN: This is an elderly gentleman with advanced dementia, appears to be delirium on dementia, who was admitted to [facility] in the intensive care unit with physical findings and laboratory tests consistent with pneumonia. 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 Goals of care will be discussed. I will contact family memcarol rs and schedule a family conference. On the chart next of kin is listed as being Basil Perez. Psyc hosocial issues unknown at this time. The patient is a full code. There is no that are read nancy available. There is no obvious pain management issue at this time. [employer]ish affiliation unkno [email or web address]. Cultural unknown at this time. I will contact family members and outline a plan of care. A fo llowup note will be done at that time. Dictated By: NALLELY GRAY MD LP/NTS Conf#: [id number] DID#: [id number]
--- NOTE | 2016-11-11 19:32 | CONS ---
Date/Time of Note Date/Time of Note DATE: 11/11/16 TIME: 19:30 Consult Date/Type/Reason Admit Date/Time Nov 10, 2016 at 15:06 Initial Consult Date Subjective No events. Objective Vital Signs Date Time Temp Pulse Resp B/P Pulse Ox O2 Delivery O2 Flow Rate FiO2 11/11/16 18:00 85 15 97/59 100 Nasal Cannula 11/11/16 16:51 2.0 28 11/11/16 16:00 98.1 Intake and Output 11/10/16 11/10/16 11/11/16 15:00 23:00 07:00 Intake Total 50 ml 2000 ml 320 ml Output Total 275 ml Balance 50 ml 2000 ml 45 ml Exam HEENT: Neck supple; no JVD; no LAD CVS: RRR, S1 and S2 CHEST: rhonchi b/l ABD: Soft, NT, + BS EXT: No c/c/e Results/Medications Result Diagram: 11/11/16 0415 11/11/16 1405 Results 24 hrs Laboratory Tests Test 11/10/16 20:15 11/10/16 20:30 11/10/16 23:50 11/11/16 04:15 Lactic Acid Level 1.7 1.6 Prostate Specific Antigen 0.3 White Blood Count 7.9 # Red Blood Count 2.84 L Hemoglobin 9.5 L Hematocrit 30.1 L Mean Corpuscular Volume 106.0 H Mean Corpuscular Hemoglobin 33.5 H Mean Corpuscular Hemoglobin Concent 31.6 L Red Cell Distribution Width 15.3 H Platelet Count 271 Mean Platelet Volume 10.1 Neutrophils % 33.0 L Band Neutrophils % 53.0 H Lymphocytes % 10.0 L Monocytes % 2.0 Eosinophils % Metamyelocytes % 1.0 H Myelocytes % 1.0 H Neutrophils # 2.6 Lymphocytes # 0.8 Monocytes # 0.2 L Eosinophils # Metamyelocytes # 0.1 Myelocytes # 0.1 Macrocytosis 1+ Sodium Level 154 H Potassium Level 3.0 L Chloride Level 117 H Carbon Dioxide Level 23 Anion Gap 17 H Blood Urea Nitrogen 45 H Creatinine 1.17 Glucose Level 107 Calcium Level 8.1 L Magnesium Level 2.0 Total Bilirubin 1.4 H Direct Bilirubin 0.60 #H Indirect Bilirubin 0.8 Aspartate Amino Transf (AST/SGOT) 47 H Alanine Aminotransferase (ALT/SGPT) 23 Alkaline Phosphatase 60 Total Protein 5.1 L Albumin 2.6 L Globulin 2.50 Albumin/Globulin Ratio 1.04 Test 11/11/16 09:24 11/11/16 14:05 Iron Level 11 L Total Iron Binding Capacity 173 L Percent Iron Saturation 6 L Sodium Level 148 H Potassium Level 3.7 Chloride Level 121 H Carbon Dioxide Level 22 Anion Gap 9 # Blood Urea Nitrogen 36 H Creatinine 1.02 Glucose Level 212 # Calcium Level 7.6 L Medications Current Medications Ondansetron HCl (Zofran Inj) 4 mg Q6H PRN IV NAUSEA AND/OR VOMITING; Start 11/10 at 17:30 Nitroglycerin (Nitroglycerin (Sl Tab) 0.4 Mg) 1 tab Q5M PRN SL CHEST PAIN; Start 11/10/16 at 17:30 Acetaminophen (Tylenol Tab) 650 mg Q6H PRN PO PAIN LEVEL 1-3 OR FEVER; Start at 17:30 Acetaminophen/ Hydrocodone Bitart ([place] (5/325)) 1 tab Q6H PRN PO PAIN LEVEL 4 -6; Start 11/10/16 at 17:30 Morphine Sulfate (morphine) 2 mg Q4H PRN IV PAIN LEVEL 7-10; Start 11/10/16 at 17:30 Lorazepam (Ativan) 1 mg Q2H PRN IV ANXIETY; Start 11/10/16 at 17:30 Docusate Sodium (Colace) 100 mg Q12H PRN PO CONSTIPATION; Start 11/10/16 at 17: 30 Pantoprazole (Protonix Tab) 40 mg DAILY@06 PO Last administered on 11/11/16 06: 30; Admin Dose 40 MG; Start 11/11/16 at 06:00 Bisacodyl (Dulcolax) 5 mg DAILY PRN PO CONSTIPATION; Start 11/10/16 at 17:30 Escitalopram Oxalate (Lexapro) 10 mg DAILY PO Last administered on 11/11/16 09: 47; Admin Dose 10 MG; Start 11/11/16 at 09:00 Ethambutol HCl (Myambutol) 400 mg DAILY PO Last administered on 11/11/16 09:47 ; Admin Dose 400 MG; Start 11/11/16 at 09:00 Haloperidol (Haldol) 3 mg TID PO Last administered on 11/11/16 12:50; Admin Dose 3 MG; Start 11/10/16 at 21:00 Isoniazid (Isoniazid) 300 mg DAILY PO Last administered on 11/11/16 09:48; Admin Dose 300 MG; Start 11/11/16 at 09:00 Pyridoxine HCl (Vitamin B6) 50 mg DAILY PO Last administered on 11/11/16 09:48 ; Admin Dose 50 MG; Start 11/11/16 at 09:00 Clonazepam 0.25 mg 0.25 mg Q6H PRN PO ANXIETY; Start 11/10/16 at 17:30 Rifampin/Sodium Chloride (Rifampin/NS) 100 ml @ 200 mls/hr Q24H IVPB Last administered on 11/10/16 19:50; Admin Dose 200 MLS/HR; Start 11/10/16 at 20:00 IV Flush 10 ml 10 ml PRN PRN IV IV PROTOCOL; Start 11/10/16 at 19:30 Norepinephrine 16 mg/Dextrose 500 ml @ 1.87 mls/hr TITRATE IV ; Start 11/11/16 at 12:00 Potassium Chloride/Dextrose (D5W + KCl 20 Meq) 1,000 ml @ 100 mls/hr Q10H IV Last administered on 11/11/16 16:02; Admin Dose 100 MLS/HR; Start 11/11/16 at 12: 30 Assessment/Plan Additional Assessment/Plan IMPRESSION: 1. Severe lactic acidosis. 2. Likely healthcare-associated pneumonia. 3. Mild hypoxemia. 4. Dementia. RECS: 1. Aspiration precautions 2. Broad-spectrum antibiotic coverage. 3. Aspiration precautions. 4. Speech therapy evaluation. 5. Palliative Care CARMELA GOMEZ MD Nov 11, 2016 19:31
[2016-11-11] MEDS: RIFAMPIN 600 MG in SOD CHLORIDE 0.9% 100 ML IVPB SCH (20:20)
[2016-11-12] VITALS (24 sets, daily range): BP systolic 90–130; BP diastolic 56–82; PULSE 73–104; RESP 12–22
[2016-11-12] MEDS: D5W + KCL 20 MEQ 1,000 ML IV SCH (01:18)
[2016-11-12 04:43] LABS: ADD SCAN DIFF NO
[2016-11-12 04:53] LABS: ABNORMAL IP MESSAGE 1; HEMATOCRIT 27.8 % (42.0-52.0); HEMOGLOBIN 9.1 g/dl (14.0-18.0); MEAN CORPUSCULAR HEMOGLOBIN 34.1 pg (29.0-33.0); MEAN CORPUSCULAR HGB CONC 32.7 g/dl (32.0-37.0); MEAN CORPUSCULAR VOLUME 104.1 fl (82.0-101.0); MEAN PLATELET VOLUME 10.2 fl (7.4-10.4); PLATELET COUNT 253 10^3/UL (140-415); RED BLOOD COUNT 2.67 10^6/ul (4.70-6.10); RED CELL DISTRIBUTION WIDTH 15.2 % (11.5-14.5); WHITE BLOOD COUNT 11.7 10^3/ul (4.8-10.8)
[2016-11-12 04:58] LABS: POTASSIUM 3.2 mmol/L (3.5-5.1)
[2016-11-12 05:00] LABS: ALBUMIN 2.2 g/dl (3.3-4.9); POTASSIUM 3.5 mmol/L (3.5-5.1)
[2016-11-12 05:01] LABS: CREATININE 0.84 mg/dl (0.61-1.24)
[2016-11-12 05:02] LABS: BILIRUBIN,INDIRECT 0.6 mg/dl (0-1.1); BILIRUBIN,TOTAL 0.6 mg/dl (0.2-1.3); CALCIUM 8.2 mg/dl (8.4-10.2); CREATININE 0.78 mg/dl (0.61-1.24)
[2016-11-12 05:03] LABS: ALBUMIN/GLOBULIN RATIO 0.88; CALCIUM 8.1 mg/dl (8.4-10.2); TOTAL PROTEIN 4.7 g/dl (6.1-8.1)
[2016-11-12] MEDS ORDERED: POTASSIUM CHLORIDE 250 ML IVPB ONE (06:00)
[2016-11-12] MEDS: PANTOPRAZOLE (EC) 40 MG TAB PO SCH (06:09)
[2016-11-12] MEDS ORDERED: POTASSIUM CHLORIDE 40 MEQ in SOD CHLORIDE 0.9% 1,000 ML IV SCH (08:00)
[2016-11-12] MEDS: PYRIDOXINE 50 MG TAB PO SCH (09:57)
[2016-11-12] MEDS: HALOPERIDOL 1 MG TAB PO SCH ×3 (09:57→20:59)
[2016-11-12] MEDS: ESCITALOPRAM 10 MG TAB PO SCH (09:57)
[2016-11-12] MEDS: ISONIAZID 300 MG TAB PO SCH (09:57)
[2016-11-12] MEDS: ETHAMBUTOL 400 MG TAB PO SCH (09:57)
[2016-11-12 10:16] LABS: EOSINOPHILS # 0.2 10^3/ul (0.0-0.5); LYMPHOCYTES # 0.5 10^3/ul (0.8-2.9); MONOCYTE # 0.1 10^3/ul (0.3-0.9); NEUTROPHIL # 9.8 10^3/ul (1.6-7.5)
--- NOTE | 2016-11-12 10:42 | PN ---
Date/Time of Note Date/Time of Note DATE: 11/12/16 TIME: 10:33 Assessment/Plan VTE Prophylaxis VTE Prophylaxis Intervention: SCD's Lines/Catheters IV Catheter Type (from Nrs): PICC Line Central line still needed: Yes Urinary Cath still in place: Yes Reason Cath still needed: other (indicate) Assessment/Plan Chief Complaint/Hosp Course ASSESSMENT AND PLAN: 1. Encephalopathy, likely secondary to pneumonia versus severe dehydration. CT of the brain does not show any acute finding. 2. Severe dehydration, likely secondary to decreased p.o. intake. Continue IV fluids, improving 3. Acute renal insufficiency as above. 4. Diabetes mellitus. Continue insulin sliding scale. hold metformin secondary to sepsis and elevated lactic acid. 5. History of tuberculosis. Continue TB medications. Infectious disease doctor has been consulted. Continue current antibiotics: Rifampin+ INH + Ethambutol + Pyridoxine =>NOTE: [facility] TB DC'D PYRAZINAMIDE 6. Bilateral pneumonia, cefepime has been discontinued by renal. Pulmonology has been consulted. 7. History of essential hypertension. Blood pressure medication has been placed on hold secondary to patient's sepsis and hypotension. 8. Cachexia. We will consult social service , continue PEG tube feeding, versus hospice. 9. Major depression. Continue Lexapro. Deep venous thrombosis prophylaxis on SCDs. We will continue to monitor patient closely. Further recommendations, management, and treatment as per clinical course. PROGNOSIS: Guarded Palliative care consulted Continue to monitor in ICU secondary to hypotension Problems: Subjective 24 Hr Interval Summary Free Text/Dictation No acute changes Patient continues to be aphasic and does not respond to verbal stimuli He is easily arousable and awake , response to pain stimuli sternal rub Tolerating PEG tube feeding at 30 cc/h Exam/Review of Systems Vital Signs Vitals Vital Signs Date Time Temp Pulse Resp B/P Pulse Ox O2 Delivery O2 Flow Rate FiO2 11/12/16 08:00 85 11/12/16 06:00 20 99/63 98 Nasal Cannula 11/12/16 05:51 2.0 11/12/16 04:00 97.3 11/11/16 16:51 28 Intake and Output 11/11/16 11/11/16 11/12/16 15:00 23:00 07:00 Intake Total 1000 ml 1510 ml 1180 ml Output Total 600 ml 800 ml 750 ml Balance 400 ml 710 ml 430 ml Exam General: The patient is cachectic, Not in acute distress. HEENT: Atraumatic, normocephalic. The pupils are equal and round . Neck: Supple Chest: Normal Lungs: Clear to auscultation bilaterally Heart: Normal S1-S2, Regular rhythm and rate. Abdomen: Soft , nontender, nondistended , bowel sounds are present. PEG tube in place Extremities: Normal to inspection, no edema no cyanosis Neurologic: The patient is awake, Results Result Diagram: 11/12/16 0400 11/12/16 0400 Results 24 hrs Laboratory Tests Test 11/11/16 14:05 11/12/16 04:00 Sodium Level 148 H 146 H Potassium Level 3.7 3.2 L Chloride Level 121 H 113 H Carbon Dioxide Level 22 22 Anion Gap 9 # 14 Blood Urea Nitrogen 36 H 28 H Creatinine 1.02 0.84 Glucose Level 212 # 171 Calcium Level 7.6 L 8.2 L White Blood Count 11.7 #H Red Blood Count 2.67 L Hemoglobin 9.1 L Hematocrit 27.8 L Mean Corpuscular Volume 104.1 H Mean Corpuscular Hemoglobin 34.1 H Mean Corpuscular Hemoglobin Concent 32.7 Red Cell Distribution Width 15.2 H Platelet Count 253 Mean Platelet Volume 10.2 Neutrophils % 84.0 H Band Neutrophils % 9.0 H Lymphocytes % 4.0 L Monocytes % 1.0 Eosinophils % 2.0 Neutrophils # 9.8 H Lymphocytes # 0.5 L Monocytes # 0.1 L Eosinophils # 0.2 Differential Comment MANUAL DIFF Total Bilirubin 0.6 Direct Bilirubin 0.00 # Indirect Bilirubin 0.6 Aspartate Amino Transf (AST/SGOT) 28 Alanine Aminotransferase (ALT/SGPT) 28 Alkaline Phosphatase 104 # Total Protein 4.7 L Albumin 2.2 L Globulin 2.50 Albumin/Globulin Ratio 0.88 Medications Medications Current Medications Ondansetron HCl (Zofran Inj) 4 mg Q6H PRN IV NAUSEA AND/OR VOMITING; Start 11/10 at 17:30 Nitroglycerin (Nitroglycerin (Sl Tab) 0.4 Mg) 1 tab Q5M PRN SL CHEST PAIN; Start 11/10/16 at 17:30 Acetaminophen (Tylenol Tab) 650 mg Q6H PRN PO PAIN LEVEL 1-3 OR FEVER; Start at 17:30 Acetaminophen/ Hydrocodone Bitart ([place] (5/325)) 1 tab Q6H PRN PO PAIN LEVEL 4 -6; Start 11/10/16 at 17:30 Morphine Sulfate (morphine) 2 mg Q4H PRN IV PAIN LEVEL 7-10; Start 11/10/16 at 17:30 Lorazepam (Ativan) 1 mg Q2H PRN IV ANXIETY; Start 11/10/16 at 17:30 Docusate Sodium (Colace) 100 mg Q12H PRN PO CONSTIPATION; Start 11/10/16 at 17: 30 Pantoprazole (Protonix Tab) 40 mg DAILY@06 PO Last administered on 11/12/16 06: 09; Admin Dose 40 MG; Start 11/11/16 at 06:00 Bisacodyl (Dulcolax) 5 mg DAILY PRN PO CONSTIPATION; Start 11/10/16 at 17:30 Escitalopram Oxalate (Lexapro) 10 mg DAILY PO Last administered on 11/12/16 09: 57; Admin Dose 10 MG; Start 11/11/16 at 09:00 Ethambutol HCl (Myambutol) 400 mg DAILY PO Last administered on 11/12/16 09:57 ; Admin Dose 400 MG; Start 11/11/16 at 09:00 Haloperidol (Haldol) 3 mg TID PO Last administered on 11/12/16 09:57; Admin Dose 3 MG; Start 11/10/16 at 21:00 Isoniazid (Isoniazid) 300 mg DAILY PO Last administered on 11/12/16 09:57; Admin Dose 300 MG; Start 11/11/16 at 09:00 Pyridoxine HCl (Vitamin B6) 50 mg DAILY PO Last administered on 11/12/16 09:57 ; Admin Dose 50 MG; Start 11/11/16 at 09:00 Clonazepam 0.25 mg 0.25 mg Q6H PRN PO ANXIETY; Start 11/10/16 at 17:30 Rifampin/Sodium Chloride (Rifampin/NS) 100 ml @ 200 mls/hr Q24H IVPB Last administered on 11/11/16 20:20; Admin Dose 200 MLS/HR; Start 11/10/16 at 20:00 IV Flush 10 ml 10 ml PRN PRN IV IV PROTOCOL; Start 11/10/16 at 19:30 Norepinephrine 16 mg/Dextrose 500 ml @ 1.87 mls/hr TITRATE IV ; Start 11/11/16 at 12:00 Potassium Chloride/Sodium Chloride (KCl/NS) 1,020 ml @ 100 mls/hr [id number] IV Last administered on 11/12/16t 08:00; Admin Dose 100 MLS/HR; Start 11/12/16 at 08: 00 JOSE DE JESUS OMER MD Nov 12, 2016 10:42
[2016-11-12] MEDS ORDERED: POTASSIUM CHLORIDE (SR) 20 MEQ TAB PO SCH (11:00)
[2016-11-12] MEDS: 1/2 NS + KCL 20 MEQ 1,000 ML IV SCH ×2 (11:52→20:36)
--- NOTE | 2016-11-12 13:44 | CONS ---
Date/Time of Note Date/Time of Note DATE: 11/12/16 TIME: 13:41 Consult Date/Type/Reason Admit Date/Time Nov 10, 2016 at 15:06 Type of Consultation: Pulm/CCM Subjective No events overnight. Objective Vital Signs Date Time Temp Pulse Resp B/P Pulse Ox O2 Delivery O2 Flow Rate FiO2 11/12/16 12:00 78 11/12/16 08:00 Nasal Cannula 3.0 11/12/16 06:00 20 99/63 98 11/12/16 04:00 97.3 11/11/16 16:51 28 Intake and Output 11/11/16 11/11/16 11/12/16 15:00 23:00 07:00 Intake Total 1000 ml 1510 ml 1180 ml Output Total 600 ml 800 ml 750 ml Balance 400 ml 710 ml 430 ml Exam HEENT: Neck supple; no JVD; no LAD CVS: RRR, S1 and S2 CHEST: rhonchi b/l ABD: Soft, NT, + BS EXT: No c/c/e Results/Medications Result Diagram: 11/12/16 0400 11/12/16 0400 Results 24 hrs Laboratory Tests Test 11/11/16 14:05 11/12/16 04:00 Sodium Level 148 H 146 H Potassium Level 3.7 3.2 L Chloride Level 121 H 113 H Carbon Dioxide Level 22 22 Anion Gap 9 # 14 Blood Urea Nitrogen 36 H 28 H Creatinine 1.02 0.84 Glucose Level 212 # 171 Calcium Level 7.6 L 8.2 L White Blood Count 11.7 #H Red Blood Count 2.67 L Hemoglobin 9.1 L Hematocrit 27.8 L Mean Corpuscular Volume 104.1 H Mean Corpuscular Hemoglobin 34.1 H Mean Corpuscular Hemoglobin Concent 32.7 Red Cell Distribution Width 15.2 H Platelet Count 253 Mean Platelet Volume 10.2 Neutrophils % 84.0 H Band Neutrophils % 9.0 H Lymphocytes % 4.0 L Monocytes % 1.0 Eosinophils % 2.0 Neutrophils # 9.8 H Lymphocytes # 0.5 L Monocytes # 0.1 L Eosinophils # 0.2 Differential Comment MANUAL DIFF Total Bilirubin 0.6 Direct Bilirubin 0.00 # Indirect Bilirubin 0.6 Aspartate Amino Transf (AST/SGOT) 28 Alanine Aminotransferase (ALT/SGPT) 28 Alkaline Phosphatase 104 # Total Protein 4.7 L Albumin 2.2 L Globulin 2.50 Albumin/Globulin Ratio 0.88 Medications Current Medications Ondansetron HCl (Zofran Inj) 4 mg Q6H PRN IV NAUSEA AND/OR VOMITING; Start 11/10 at 17:30 Nitroglycerin (Nitroglycerin (Sl Tab) 0.4 Mg) 1 tab Q5M PRN SL CHEST PAIN; Start 11/10/16 at 17:30 Acetaminophen (Tylenol Tab) 650 mg Q6H PRN PO PAIN LEVEL 1-3 OR FEVER; Start at 17:30 Acetaminophen/ Hydrocodone Bitart ([place] (5/325)) 1 tab Q6H PRN PO PAIN LEVEL 4 -6; Start 11/10/16 at 17:30 Morphine Sulfate (morphine) 2 mg Q4H PRN IV PAIN LEVEL 7-10; Start 11/10/16 at 17:30 Lorazepam (Ativan) 1 mg Q2H PRN IV ANXIETY; Start 11/10/16 at 17:30 Docusate Sodium (Colace) 100 mg Q12H PRN PO CONSTIPATION; Start 11/10/16 at 17: 30 Pantoprazole (Protonix Tab) 40 mg DAILY@06 PO Last administered on 11/12/16 06: 09; Admin Dose 40 MG; Start 11/11/16 at 06:00 Bisacodyl (Dulcolax) 5 mg DAILY PRN PO CONSTIPATION; Start 11/10/16 at 17:30 Escitalopram Oxalate (Lexapro) 10 mg DAILY PO Last administered on 11/12/16 09: 57; Admin Dose 10 MG; Start 11/11/16 at 09:00 Ethambutol HCl (Myambutol) 400 mg DAILY PO Last administered on 11/12/16 09:57 ; Admin Dose 400 MG; Start 11/11/16 at 09:00 Haloperidol (Haldol) 3 mg TID PO Last administered on 11/12/16 12:02; Admin Dose 3 MG; Start 11/10/16 at 21:00 Isoniazid (Isoniazid) 300 mg DAILY PO Last administered on 11/12/16 09:57; Admin Dose 300 MG; Start 11/11/16 at 09:00 Pyridoxine HCl (Vitamin B6) 50 mg DAILY PO Last administered on 11/12/16 09:57 ; Admin Dose 50 MG; Start 11/11/16 at 09:00 Clonazepam 0.25 mg 0.25 mg Q6H PRN PO ANXIETY; Start 11/10/16 at 17:30 Rifampin/Sodium Chloride (Rifampin/NS) 100 ml @ 200 mls/hr Q24H IVPB Last administered on 11/11/16 20:20; Admin Dose 200 MLS/HR; Start 11/10/16 at 20:00 IV Flush 10 ml 10 ml PRN PRN IV IV PROTOCOL; Start 11/10/16 at 19:30 Norepinephrine 16 mg/Dextrose 500 ml @ 1.87 mls/hr TITRATE IV ; Start 11/11/16 at 12:00 Potassium Chloride/Sodium Chloride (1/2 NS + KCl 20 Meq) 1,000 ml @ 100 mls/hr Q10H IV Last administered on 11/12/16 11:52; Admin Dose 100 MLS/HR; Start at 10:30 Potassium Chloride (Klor-Con 20) 20 meq BID PO Last administered on 11/12/16 11 :52; Admin Dose 20 MEQ; Start 11/12/16 at 11:00; Stop 11/14/16 at 10:59 Assessment/Plan Additional Assessment/Plan IMPRESSION: 1. Lactic acidosis due to intravascular volume depletion 2. Likely healthcare-associated pneumonia. 3. Mild hypoxemia. 4. Dementia. 5. H/O TB RECS: 1. Aspiration precautions 2. Broad-spectrum antibiotic coverage--> with plans to de-escalate 3. Nutrition consult 4. Speech therapy evaluation. 5. Palliative Care CARMELA GOMEZ MD Nov 12, 2016 13:44
[2016-11-12] MEDS ORDERED: GLUCAGON 1 MG INJ IM PRN (16:30)
[2016-11-12] MEDS ORDERED: HYPOGLYCEMIA PROTOCOL when Glucose is <70 mg/dL or symptomatic <90 mg/dL. XX ONE (16:30)
[2016-11-12] MEDS ORDERED: GLUCOSE GEL 15 GRAM TUBE PO PRN ×2 (16:30)
[2016-11-12] MEDS ORDERED: Discontinue Glyburide, Glipizide, and/or Glimepiride prior to starting Insulin XX ONE (16:30)
[2016-11-12] MEDS ORDERED: GLUCOSE GEL 15 GRAM TUBE BUCCAL PRN (16:30)
[2016-11-12] MEDS ORDERED: DEXTROSE 50% 50 ML SYRINGE IV PRN ×2 (16:30)
[2016-11-12] MEDS: INSULIN ASPART [NOVOLOG] 3 ML PEN SC SCH (18:13)
--- NOTE | 2016-11-12 18:58 | CONS ---
Date/Time of Note Date/Time of Note DATE: 11/12/16 TIME: 18:54 Assessment/Plan Assessment/Plan Additional Assessment/Plan Will continue present Rx for now. Pt is tolerating Tube Feeding Consultation Date/Type/Reason Admit Date/Time Nov 10, 2016 at 15:06 Initial Consult Date Type of Consultation: renal 24 HR Interval Summary Subjective hx not possible: pt non-verbal Constitutional: requiring O2 Exam/Review of Systems Vital Signs Vitals Vital Signs Date Time Temp Pulse Resp B/P Pulse Ox O2 Delivery O2 Flow Rate FiO2 11/12/16 18:00 76 17 108/65 100 Nasal Cannula 3.0 11/12/16 16:00 97.8 11/11/16 16:51 28 Intake and Output 11/11/16 11/11/16 11/12/16 15:00 23:00 07:00 Intake Total 1000 ml 1510 ml 1310 ml Output Total 600 ml 800 ml 850 ml Balance 400 ml 710 ml 460 ml Exam Eyes open but no further response Constitutional: non-verbal Psych: confusion Head: normocephalic Eyes: PERRL ENMT: nl external ears & nose Neck: supple Respiratory: normal air movement Cardiovascular: regular rate and rhythm Musculoskeletal: nl extremities to inspection Extremities: normal pulses Neurological: SECURITIES CLERK II-XII intact Additional Comments Renal fn continues to improve Results Result Diagram: 11/12/16 0400 11/12/16 0400 Results 24 hrs Laboratory Tests Test 11/12/16 04:00 11/12/16 18:12 White Blood Count 11.7 #H Red Blood Count 2.67 L Hemoglobin 9.1 L Hematocrit 27.8 L Mean Corpuscular Volume 104.1 H Mean Corpuscular Hemoglobin 34.1 H Mean Corpuscular Hemoglobin Concent 32.7 Red Cell Distribution Width 15.2 H Platelet Count 253 Mean Platelet Volume 10.2 Neutrophils % 84.0 H Band Neutrophils % 9.0 H Lymphocytes % 4.0 L Monocytes % 1.0 Eosinophils % 2.0 Neutrophils # 9.8 H Lymphocytes # 0.5 L Monocytes # 0.1 L Eosinophils # 0.2 Differential Comment MANUAL DIFF Sodium Level 146 H Potassium Level 3.2 L Chloride Level 113 H Carbon Dioxide Level 22 Anion Gap 14 Blood Urea Nitrogen 28 H Creatinine 0.84 Glucose Level 171 Calcium Level 8.2 L Total Bilirubin 0.6 Direct Bilirubin 0.00 # Indirect Bilirubin 0.6 Aspartate Amino Transf (AST/SGOT) 28 Alanine Aminotransferase (ALT/SGPT) 28 Alkaline Phosphatase 104 # Total Protein 4.7 L Albumin 2.2 L Globulin 2.50 Albumin/Globulin Ratio 0.88 Bedside Glucose 177 Medications Medications Current Medications Ondansetron HCl (Zofran Inj) 4 mg Q6H PRN IV NAUSEA AND/OR VOMITING; Start 11/10 at 17:30 Nitroglycerin (Nitroglycerin (Sl Tab) 0.4 Mg) 1 tab Q5M PRN SL CHEST PAIN; Start 11/10/16 at 17:30 Acetaminophen (Tylenol Tab) 650 mg Q6H PRN PO PAIN LEVEL 1-3 OR FEVER; Start at 17:30 Acetaminophen/ Hydrocodone Bitart ([place] (5/325)) 1 tab Q6H PRN PO PAIN LEVEL 4 -6; Start 11/10/16 at 17:30 Morphine Sulfate (morphine) 2 mg Q4H PRN IV PAIN LEVEL 7-10; Start 11/10/16 at 17:30 Lorazepam (Ativan) 1 mg Q2H PRN IV ANXIETY; Start 11/10/16 at 17:30 Docusate Sodium (Colace) 100 mg Q12H PRN PO CONSTIPATION; Start 11/10/16 at 17: 30 Pantoprazole (Protonix Tab) 40 mg DAILY@06 PO Last administered on 11/12/16 06: 09; Admin Dose 40 MG; Start 11/11/16 at 06:00 Bisacodyl (Dulcolax) 5 mg DAILY PRN PO CONSTIPATION; Start 11/10/16 at 17:30 Escitalopram Oxalate (Lexapro) 10 mg DAILY PO Last administered on 11/12/16 09: 57; Admin Dose 10 MG; Start 11/11/16 at 09:00 Ethambutol HCl (Myambutol) 400 mg DAILY PO Last administered on 11/12/16 09:57 ; Admin Dose 400 MG; Start 11/11/16 at 09:00 Haloperidol (Haldol) 3 mg TID PO Last administered on 11/12/16 12:02; Admin Dose 3 MG; Start 11/10/16 at 21:00 Isoniazid (Isoniazid) 300 mg DAILY PO Last administered on 11/12/16 09:57; Admin Dose 300 MG; Start 11/11/16 at 09:00 Pyridoxine HCl (Vitamin B6) 50 mg DAILY PO Last administered on 11/12/16 09:57 ; Admin Dose 50 MG; Start 11/11/16 at 09:00 Clonazepam 0.25 mg 0.25 mg Q6H PRN PO ANXIETY; Start 11/10/16 at 17:30 Rifampin/Sodium Chloride (Rifampin/NS) 100 ml @ 200 mls/hr Q24H IVPB Last administered on 11/11/16 20:20; Admin Dose 200 MLS/HR; Start 11/10/16 at 20:00 IV Flush 10 ml 10 ml PRN PRN IV IV PROTOCOL; Start 11/10/16 at 19:30 Norepinephrine 16 mg/Dextrose 500 ml @ 1.87 mls/hr TITRATE IV ; Start 11/11/16 at 12:00 Potassium Chloride/Sodium Chloride (1/2 NS + KCl 20 Meq) 1,000 ml @ 100 mls/hr Q10H IV Last administered on 11/12/16 11:52; Admin Dose 100 MLS/HR; Start at 10:30 Potassium Chloride (Klor-Con 20) 20 meq BID PO Last administered on 11/12/16 11 :52; Admin Dose 20 MEQ; Start 11/12/16 at 11:00; Stop 11/14/16 at 10:59 Insulin Aspart (Novolog Insulin Pen) NOVOLOG *MILD* ALGORI... Q6 SC Last administered on 11/12/16 18:13; Admin Dose 1 UNIT; Start 11/12/16 at 18:00 Miscellaneous Information 1 ea NOTE XX ; Start 11/12/16 at 16:30 Glucose (Glutose) 15 gm Q15M PRN PO DECREASED GLUCOSE; Start 11/12/16 at 16:30 Glucose (Glutose) 22.5 gm Q15M PRN PO DECREASED GLUCOSE; Start 11/12/16 at 16:30 Dextrose (D50w Syringe) 25 ml Q15M PRN IV DECREASED GLUCOSE; Start 11/12/16 at 16:30 Dextrose (D50w Syringe) 50 ml Q15M PRN IV DECREASED GLUCOSE; Start 11/12/16 at 16:30 Glucagon (Glucagen) 1 mg Q15M PRN IM DECREASED GLUCOSE; Start 11/12/16 at 16:30 Glucose (Glutose) 15 gm Q15M PRN BUCCAL DECREASED GLUCOSE; Start 11/12/16 at 16: 30 JORI LAUREN MD Nov 12, 2016 18:58
--- NOTE | 2016-11-12 19:21 | CONS ---
Date/Time of Note Date/Time of Note DATE: 11/12/16 TIME: 19:12 Assessment/Plan Assessment/Plan Chief Complaint/Hosp Course ID PROGRESS NOTE CURRENT ABX=> "(Rifampin+ INH + Ethambutol + Pyridoxine) [NOTE: [facility] TB DC' D PYRAZINAMIDE]. s/p Vanco IV s/p Cefepime-> DC'd 11/10/16 by renal ? NEW MICRO RESULTS: 11/10/16-1345 Rcvd: 11/10/16-1359 Source: CATHETER U Sp Descrip: URINE CULTURE Preliminary Organism 1 ENTEROCOCCUS SPECIES COLONY COUNT 30,000 - 40,000 CFU/ml * Patient is known to me from lengthy admission where he was diagnosed, remained many weeks on TB isolation, initiated on anti-TB meds, had NGT placed due to refusal to take PO Meds (severe Psych/Dementia debility). Eventually, was cleared for DC to SNF on TB meds, now admitted for recurrent pulmonary sxs, SOB, pulm edema, orthopnea, acute encephalopathy * CT BRAIN: IMPRESSION:1. No acute intracranial pathology. 2. Mild to moderate diffuse volume loss and mild chronic microvascular ischemic changes. 24H INTERVAL SUMMARY * Resting comfortably, no fevers VSS, 81 yo M, nonverbal PHYSICAL EXAMINATION: GENERAL: VSS, NAD, Afebrile HEENT: Unremarkable NECK: Supple, trachea midline. CHEST: Rise symmetrical, without dyspnea on observation HEART: Pulse RRR ABDOMEN: Soft EXTREMITIES: Warm ID ASSESSMENT 81 yo [place] M PMHx Psych/Schizophrenia/MDD w/paranoid/agitative features + vascular dementia w/ grave disability/debility admit with: 1. Acute hypoxic respiratory distress w/pulmonary sepsis and severe lactic acidosis 2. Acute encephalopathy on chronic Psych debility + microvascular dementia w/ refusal to take PO Meds at [facility] 3. Pulmonary Edema, Recurrent HCAP, Hx of tobacco - suspect underlying COPD exacerbation as well 4. (+)Recent Dx MTB work up completed at [facility]-> Due to his refusal to take PO Meds, NGT was placed for [facility] TB compliance. 5. Dehydration w/Cachexia => hx of refusal of PO intake requiring NGT in past 6. Acute renal failure 7. Hx of UTI -> Urine cx w/low colony count Enterococcus final ID pending ? prostatitis ? 8. Anemia MRSA Nares -> pending INVASIVES: PIV ABX ALLERGY: KNDA CURRENT ABX: Rifampin+ INH + Ethambutol + Pyridoxine =>NOTE: [facility] TB DC'D PYRAZINAMIDE START UNASYN to cover concern Enterococcal UTI HCAP GNR coverage w/Cefepime DC'd by renal - if no improvement, consider alternative GNR coverage Levaquin ? s/p Vanco IV s/p Cefepime-> DC'd 11/10/16 by renal ? ID RECOMMENDATIONS 1. Continue current ABX for MTB + Start Unasyn to cover Enterococcal UTI and PNA , HCAP Cefepime RX DC'd - consider alternative such as Levaquin IV if no improvement. * AVOID renal toxic meds -> Vanco DC'd -- Patient w/history of refusing PO MEDS -- would Rx IV ABX whenever possible which is more acceptable to the patient and leads to less agitation. * Patient is well-known to Dr. Kathleen's ID team s/p lengthy admission to [facility] where he was Dx with MTB and remained on isolation for many weeks with NGT placed for TB med compliance prior to being cleared by [facility] TB for DC to SNF. [facility] TB with recs to continue: Rifampin+ INH + Ethambutol + Pyridoxine =>NOTE: [facility] TB DC'D PYRAZINAMIDE 2. PROGNOSIS: Poor per hospitalist notes Palliative care consulted Transferred to telemetry floor . Problems: Consultation Date/Type/Reason Admit Date/Time Nov 10, 2016 at 15:06 Type of Consultation: ID Exam/Review of Systems Vital Signs Vitals Vital Signs Date Time Temp Pulse Resp B/P Pulse Ox O2 Delivery O2 Flow Rate FiO2 11/12/16 18:00 76 17 108/65 100 Nasal Cannula 3.0 11/12/16 16:00 97.8 11/11/16 16:51 28 Intake and Output 11/11/16 11/11/16 11/12/16 15:00 23:00 07:00 Intake Total 1000 ml 1510 ml 1310 ml Output Total 600 ml 800 ml 850 ml Balance 400 ml 710 ml 460 ml Results Result Diagram: 11/12/16 0400 11/12/16 0400 Results 24 hrs Laboratory Tests Test 11/12/16 04:00 11/12/16 18:12 White Blood Count 11.7 #H Red Blood Count 2.67 L Hemoglobin 9.1 L Hematocrit 27.8 L Mean Corpuscular Volume 104.1 H Mean Corpuscular Hemoglobin 34.1 H Mean Corpuscular Hemoglobin Concent 32.7 Red Cell Distribution Width 15.2 H Platelet Count 253 Mean Platelet Volume 10.2 Neutrophils % 84.0 H Band Neutrophils % 9.0 H Lymphocytes % 4.0 L Monocytes % 1.0 Eosinophils % 2.0 Neutrophils # 9.8 H Lymphocytes # 0.5 L Monocytes # 0.1 L Eosinophils # 0.2 Differential Comment MANUAL DIFF Sodium Level 146 H Potassium Level 3.2 L Chloride Level 113 H Carbon Dioxide Level 22 Anion Gap 14 Blood Urea Nitrogen 28 H Creatinine 0.84 Glucose Level 171 Calcium Level 8.2 L Total Bilirubin 0.6 Direct Bilirubin 0.00 # Indirect Bilirubin 0.6 Aspartate Amino Transf (AST/SGOT) 28 Alanine Aminotransferase (ALT/SGPT) 28 Alkaline Phosphatase 104 # Total Protein 4.7 L Albumin 2.2 L Globulin 2.50 Albumin/Globulin Ratio 0.88 Bedside Glucose 177 Medications Medications Current Medications Ondansetron HCl (Zofran Inj) 4 mg Q6H PRN IV NAUSEA AND/OR VOMITING; Start 11/10 at 17:30 Nitroglycerin (Nitroglycerin (Sl Tab) 0.4 Mg) 1 tab Q5M PRN SL CHEST PAIN; Start 11/10/16 at 17:30 Acetaminophen (Tylenol Tab) 650 mg Q6H PRN PO PAIN LEVEL 1-3 OR FEVER; Start at 17:30 Acetaminophen/ Hydrocodone Bitart ([place] (5/325)) 1 tab Q6H PRN PO PAIN LEVEL 4 -6; Start 11/10/16 at 17:30 Morphine Sulfate (morphine) 2 mg Q4H PRN IV PAIN LEVEL 7-10; Start 11/10/16 at 17:30 Lorazepam (Ativan) 1 mg Q2H PRN IV ANXIETY; Start 11/10/16 at 17:30 Docusate Sodium (Colace) 100 mg Q12H PRN PO CONSTIPATION; Start 11/10/16 at 17: 30 Pantoprazole (Protonix Tab) 40 mg DAILY@06 PO Last administered on 11/12/16 06: 09; Admin Dose 40 MG; Start 11/11/16 at 06:00 Bisacodyl (Dulcolax) 5 mg DAILY PRN PO CONSTIPATION; Start 11/10/16 at 17:30 Escitalopram Oxalate (Lexapro) 10 mg DAILY PO Last administered on 11/12/16 09: 57; Admin Dose 10 MG; Start 11/11/16 at 09:00 Ethambutol HCl (Myambutol) 400 mg DAILY PO Last administered on 11/12/16 09:57 ; Admin Dose 400 MG; Start 11/11/16 at 09:00 Haloperidol (Haldol) 3 mg TID PO Last administered on 11/12/16 12:02; Admin Dose 3 MG; Start 11/10/16 at 21:00 Isoniazid (Isoniazid) 300 mg DAILY PO Last administered on 11/12/16 09:57; Admin Dose 300 MG; Start 11/11/16 at 09:00 Pyridoxine HCl (Vitamin B6) 50 mg DAILY PO Last administered on 11/12/16 09:57 ; Admin Dose 50 MG; Start 11/11/16 at 09:00 Clonazepam 0.25 mg 0.25 mg Q6H PRN PO ANXIETY; Start 11/10/16 at 17:30 Rifampin/Sodium Chloride (Rifampin/NS) 100 ml @ 200 mls/hr Q24H IVPB Last administered on 11/11/16 20:20; Admin Dose 200 MLS/HR; Start 11/10/16 at 20:00 IV Flush 10 ml 10 ml PRN PRN IV IV PROTOCOL; Start 11/10/16 at 19:30 Norepinephrine 16 mg/Dextrose 500 ml @ 1.87 mls/hr TITRATE IV ; Start 11/11/16 at 12:00 Potassium Chloride/Sodium Chloride (1/2 NS + KCl 20 Meq) 1,000 ml @ 100 mls/hr Q10H IV Last administered on 11/12/16 11:52; Admin Dose 100 MLS/HR; Start at 10:30 Potassium Chloride (Klor-Con 20) 20 meq BID PO Last administered on 11/12/16 11 :52; Admin Dose 20 MEQ; Start 11/12/16 at 11:00; Stop 11/14/16 at 10:59 Insulin Aspart (Novolog Insulin Pen) NOVOLOG *MILD* ALGORI... Q6 SC Last administered on 11/12/16 18:13; Admin Dose 1 UNIT; Start 11/12/16 at 18:00 Miscellaneous Information 1 ea NOTE XX ; Start 11/12/16 at 16:30 Glucose (Glutose) 15 gm Q15M PRN PO DECREASED GLUCOSE; Start 11/12/16 at 16:30 Glucose (Glutose) 22.5 gm Q15M PRN PO DECREASED GLUCOSE; Start 11/12/16 at 16:30 Dextrose (D50w Syringe) 25 ml Q15M PRN IV DECREASED GLUCOSE; Start 11/12/16 at 16:30 Dextrose (D50w Syringe) 50 ml Q15M PRN IV DECREASED GLUCOSE; Start 11/12/16 at 16:30 Glucagon (Glucagen) 1 mg Q15M PRN IM DECREASED GLUCOSE; Start 11/12/16 at 16:30 Glucose (Glutose) 15 gm Q15M PRN BUCCAL DECREASED GLUCOSE; Start 11/12/16 at 16: 30 PALMIRA ALFARO NP Nov 12, 2016 19:21
[2016-11-12] MEDS: RIFAMPIN 600 MG in SOD CHLORIDE 0.9% 100 ML IVPB SCH (19:49)
[2016-11-12] MEDS: AMPICILLIN/SULB 3 GM/NS (PMX) 100 ML IVPB SCH (20:37)
[2016-11-12] MEDS: POTASSIUM CHLORIDE 20 MEQ POWDER FOR ORAL SOLN GTB SCH (21:39)
[2016-11-12] MEDS: clonAZEPAM 0.5 MG TAB PO PRN (22:08)
[2016-11-13] VITALS (19 sets, daily range): BP systolic 89–118; BP diastolic 52–81; PULSE 79–107; RESP 16–23
[2016-11-13] MEDS: INSULIN ASPART [NOVOLOG] 3 ML PEN SC SCH ×4 (00:42→18:00)
[2016-11-13] MEDS: AMPICILLIN/SULB 3 GM/NS (PMX) 100 ML IVPB SCH ×3 (01:52→11:28)
[2016-11-13] MEDS: clonAZEPAM 0.5 MG TAB PO PRN (04:21)
[2016-11-13 04:54] LABS: ADD SCAN DIFF NO
[2016-11-13 05:04] LABS: BASOPHILS % 0.1 % (0.0-2.0); EOSINOPHILS # 0.4 10^3/ul (0.0-0.5); EOSINOPHILS % 2.9 % (0.0-7.0); HEMATOCRIT 27.3 % (42.0-52.0); HEMOGLOBIN 8.9 g/dl (14.0-18.0); LYMPHOCYTES # 0.9 10^3/ul (0.8-2.9); LYMPHOCYTES % 6.3 % (15.0-51.0); MEAN CORPUSCULAR HEMOGLOBIN 33.6 pg (29.0-33.0); MEAN CORPUSCULAR HGB CONC 32.6 g/dl (32.0-37.0); MEAN PLATELET VOLUME 10.3 fl (7.4-10.4); MONOCYTE # 0.4 10^3/ul (0.3-0.9); MONOCYTES % 2.5 % (0.0-11.0); NEUTROPHIL # 12.5 10^3/ul (1.6-7.5); NEUTROPHILS % 87.4 % (39.0-77.0); PLATELET COUNT 202 10^3/UL (140-415); RED BLOOD COUNT 2.65 10^6/ul (4.70-6.10); WHITE BLOOD COUNT 14.3 10^3/ul (4.8-10.8)
[2016-11-13 05:20] LABS: POTASSIUM 3.4 mmol/L (3.5-5.1)
[2016-11-13 05:23] LABS: CREATININE 0.61 mg/dl (0.61-1.24)
[2016-11-13] MEDS: PANTOPRAZOLE (EC) 40 MG TAB PO SCH (06:14)
[2016-11-13] MEDS: 1/2 NS + KCL 20 MEQ 1,000 ML IV SCH ×2 (07:20→20:32)
[2016-11-13] MEDS ORDERED: INSULIN ASPART [NOVOLOG] 3 ML PEN SC SCH (07:35)
[2016-11-13] MEDS: HALOPERIDOL 1 MG TAB PO SCH ×3 (09:30→21:39)
[2016-11-13] MEDS: PYRIDOXINE 50 MG TAB PO SCH (09:30)
[2016-11-13] MEDS: ISONIAZID 300 MG TAB PO SCH (09:30)
[2016-11-13] MEDS: POTASSIUM CHLORIDE 20 MEQ POWDER FOR ORAL SOLN GTB SCH ×2 (09:30→21:40)
[2016-11-13] MEDS: ESCITALOPRAM 10 MG TAB PO SCH (09:30)
[2016-11-13] MEDS: ETHAMBUTOL 400 MG TAB PO SCH (09:30)
--- NOTE | 2016-11-13 09:55 | PN ---
Date/Time of Note Date/Time of Note DATE: 11/13/16 TIME: 09:49 Assessment/Plan VTE Prophylaxis VTE Prophylaxis Intervention: SCD's Lines/Catheters IV C[facility]ter Type (from [facility]): PICC Line Central line still needed: Yes Urinary Cath still in place: Yes Reason Cath still needed: other (indicate) Assessment/Plan Chief Complaint/Hosp Course ASSESSMENT AND PLAN: 1. Encephalopathy, likely secondary to pneumonia versus severe dehydration. CT of the brain does not show any acute finding. 2. Severe dehydration, likely secondary to decreased p.o. intake. Continue IV fluids, improving 3. Acute renal insufficiency as above. 4. Diabetes mellitus. Continue insulin sliding scale. hold metformin secondary to sepsis and elevated lactic acid. 5. History of tuberculosis. Continue TB medications. Infectious disease doctor has been consulted. Continue current antibiotics: Rifampin+ INH + Ethambutol + Pyridoxine =>NOTE: [facility] TB DC'D PYRAZINAMIDE 6. Bilateral pneumonia, cefepime has been discontinued by renal. Pulmonology has been consulted. 7. History of essential hypertension. Blood pressure medication has been placed on hold secondary to patient's sepsis and hypotension. 8. Cachexia. We will consult social service , continue PEG tube feeding, versus hospice. 9. Major depression. Continue Lexapro. Deep venous thrombosis prophylaxis on SCDs. We will continue to monitor patient closely. Further recommendations, management, and treatment as per clinical course. PROGNOSIS: Guarded Palliative care consulted Transfer to telemetry Problems: Subjective 24 Hr Interval Summary Free Text/Dictation Patient is more awake and alert Tolerating PEG tube feeding Exam/Review of Systems Vital Signs Vitals Vital Signs Date Time Temp Pulse Resp B/P Pulse Ox O2 Delivery O2 Flow Rate FiO2 11/13/16 08:00 87 11/13/16 07:00 23 108/68 100 Room Air 11/13/16 00:00 99.0 11/12/16 22:00 2.0 11/11/16 16:51 28 Intake and Output 11/12/16 11/12/16 11/13/16 15:00 23:00 07:00 Intake Total 1940 ml 1880 ml 1640 ml Output Total 795 ml 1070 ml 1170 ml Balance 1145 ml 810 ml 470 ml Exam General: The patient is cachectic, not in acute distress. HEENT: Atraumatic, normocephalic. The pupils are equal and round . Neck: Supple Chest: Normal expansion of the thorax during inspiration Lungs: Clear to auscultation bilaterally Heart: Normal S1-S2, Regular rhythm and rate. GI: Abdomen is soft, nontender, nondistended , PEG tube in place Extremities: Normal to inspection, no edema no cyanosis Neurologic: ,The patient is awake, alert Results Result Diagram: 11/13/16 0400 11/13/16 0400 Results 24 hrs Laboratory Tests Test 11/12/16 18:12 11/13/16 00:34 11/13/16 04:00 11/13/16 06:24 Bedside Glucose 177 148 190 White Blood Count 14.3 #H Red Blood Count 2.65 L Hemoglobin 8.9 L Hematocrit 27.3 L Mean Corpuscular Volume 103.0 H Mean Corpuscular Hemoglobin 33.6 H Mean Corpuscular Hemoglobin Concent 32.6 Red Cell Distribution Width 15.0 H Platelet Count 202 # Mean Platelet Volume 10.3 Neutrophils % 87.4 H Lymphocytes % 6.3 L Monocytes % 2.5 Eosinophils % 2.9 Basophils % 0.1 Nucleated Red Blood Cells % 0.0 Neutrophils # 12.5 H Lymphocytes # 0.9 Monocytes # 0.4 Eosinophils # 0.4 Basophils # 0.0 Nucleated Red Blood Cells # 0.0 Sodium Level 136 Potassium Level 3.4 L Chloride Level 107 Carbon Dioxide Level 22 Anion Gap 10 Blood Urea Nitrogen 18 # Creatinine 0.61 Glucose Level 157 Calcium Level 8.0 L Magnesium Level 1.7 Medications Medications Current Medications Ondansetron HCl (Zofran Inj) 4 mg Q6H PRN IV NAUSEA AND/OR VOMITING; Start 11/10 at 17:30 Nitroglycerin (Nitroglycerin (Sl Tab) 0.4 Mg) 1 tab Q5M PRN SL CHEST PAIN; Start 11/10/16 at 17:30 Acetaminophen (Tylenol Tab) 650 mg Q6H PRN PO PAIN LEVEL 1-3 OR FEVER; Start at 17:30 Acetaminophen/ Hydrocodone Bitart ([place] (5/325)) 1 tab Q6H PRN PO PAIN LEVEL 4 -6; Start 11/10/16 at 17:30 Morphine Sulfate (morphine) 2 mg Q4H PRN IV PAIN LEVEL 7-10; Start 11/10/16 at 17:30 Lorazepam (Ativan) 1 mg Q2H PRN IV ANXIETY; Start 11/10/16 at 17:30 Docusate Sodium (Colace) 100 mg Q12H PRN PO CONSTIPATION; Start 11/10/16 at 17: 30 Pantoprazole (Protonix Tab) 40 mg DAILY@06 PO Last administered on 11/13/16 06 :14; Admin Dose 40 MG; Start 11/11/16 at 06:00 Bisacodyl (Dulcolax) 5 mg DAILY PRN PO CONSTIPATION; Start 11/10/16 at 17:30 Escitalopram Oxalate (Lexapro) 10 mg DAILY PO Last administered on 11/13/16 09 :30; Admin Dose 10 MG; Start 11/11/16 at 09:00 Ethambutol HCl (Myambutol) 400 mg DAILY PO Last administered on 11/13/16 09:30 ; Admin Dose 400 MG; Start 11/11/16 at 09:00 Haloperidol (Haldol) 3 mg TID PO Last administered on 11/13/16 09:30; Admin Dose 3 MG; Start 11/10/16 at 21:00 Isoniazid (Isoniazid) 300 mg DAILY PO Last administered on 11/13/16 09:30; Admin Dose 300 MG; Start 11/11/16 at 09:00 Pyridoxine HCl (Vitamin B6) 50 mg DAILY PO Last administered on 11/13/16 09:30 ; Admin Dose 50 MG; Start 11/11/16 at 09:00 Clonazepam 0.25 mg 0.25 mg Q6H PRN PO ANXIETY Last administered on 11/13/16 04 :21; Admin Dose 0.25 MG; Start 11/10/16 at 17:30 Rifampin/Sodium Chloride (Rifampin/NS) 100 ml @ 200 mls/hr Q24H IVPB Last administered on 11/12/16 19:49; Admin Dose 200 MLS/HR; Start 11/10/16 at 20:00 IV Flush 10 ml 10 ml PRN PRN IV IV PROTOCOL; Start 11/10/16 at 19:30 Norepinephrine 16 mg/Dextrose 500 ml @ 1.87 mls/hr TITRATE IV ; Start 11/11/16 at 12:00 Potassium Chloride/Sodium Chloride (1/2 NS + KCl 20 Meq) 1,000 ml @ 60 mls/hr [id number] IV Last administered on 11/13/16 07:20; Admin Dose 100 MLS/HR; Start 11/12/16 at 10:30 Miscellaneous Information 1 ea NOTE XX ; Start 11/12/16 at 16:30 Glucose (Glutose) 15 gm Q15M PRN PO DECREASED GLUCOSE; Start 11/12/16 at 16:30 Glucose (Glutose) 22.5 gm Q15M PRN PO DECREASED GLUCOSE; Start 11/12/16 at 16:30 Dextrose (D50w Syringe) 25 ml Q15M PRN IV DECREASED GLUCOSE; Start 11/12/16 at 16:30 Dextrose (D50w Syringe) 50 ml Q15M PRN IV DECREASED GLUCOSE; Start 11/12/16 at 16:30 Glucagon (Glucagen) 1 mg Q15M PRN IM DECREASED GLUCOSE; Start 11/12/16 at 16:30 Glucose 15 gm 15 gm Q15M PRN BUCCAL DECREASED GLUCOSE; Start 11/12/16 at 16:30 Ampicillin Sodium/ Sulbactam Sodium (Unasyn 3gm/NS (Pmx)) 100 ml @ 100 mls/hr Q6 IVPB Last administered on 11/13/16 06:14; Admin Dose 100 MLS/HR; Start 11/12 at 20:10 Potassium Chloride (Potassium Chloride Pwd/Soln) 20 meq BID GTB Last administered on 11/13/16 09:30; Admin Dose 20 MEQ; Start 11/12/16 at 21:00; Stop 11/14/16 at 09:01 Insulin Glargine (Lantus) 10 unit DAILY@20 SC ; Start 11/13/16 at 20:00 Diagnostic Test (Pha) (Accu-Chek) 1 ea 02 XX ; Start 11/14/16 at 02:00 Insulin Aspart NOVOLOG *MILD* ALGORITHM Q6 SC ; Start 11/13/16 at 12:00 Potassium Chloride/Sodium Chloride (KCl/NS) 110 ml @ 55 mls/hr ONCE ONCE IVPB ; Start 11/13/16 at 10:00; Stop 11/13/16 at 11:59; Status JOSE DE JESUS CAMPOS MD Nov 13, 2016 09:54
[2016-11-13] MEDS ORDERED: POTASSIUM CHLORIDE 20 MEQ in SOD CHLORIDE 0.9% 100 ML IVPB ONE (10:00)
[2016-11-13] MEDS ORDERED: POTASSIUM CHLORIDE 50 ML IVPB SCH (10:00)
--- NOTE | 2016-11-13 11:48 | CONS ---
Date/Time of Note Date/Time of Note DATE: 11/13/16 TIME: 11:46 Assessment/Plan Assessment/Plan Additional Assessment/Plan Assessment and recommendations; patient admitted with intravascular volume depletion status post rehydration with stable hemodynamics. 2. History of pulmonary fibrosis. Currently on anti-tuberculosis medications 3. Dementia. 4. Ostomy superimposed bacterial pneumonia. Continue current treatment. Patient will transfer to the medical floor. Consultation Date/Type/Reason Admit Date/Time Nov 10, 2016 at 15:06 Initial Consult Date Type of Consultation: Pulmonary/critical care 24 HR Interval Summary Free Text/Dictation Condition remains stable. Has remained hemodynamically stable. Awake currently in no distress. General exam; elderly male, awake and currently in no distress. Exam/Review of Systems Vital Signs Vitals Vital Signs Date Time Temp Pulse Resp B/P Pulse Ox O2 Delivery O2 Flow Rate FiO2 11/13/16 09:00 89 21 106/72 100 Room Air 11/13/16 08:00 99.2 11/13/16 08:00 2.0 11/11/16 16:51 28 Intake and Output 11/12/16 11/12/16 11/13/16 15:00 23:00 07:00 Intake Total 1940 ml 1880 ml 1640 ml Output Total 795 ml 1070 ml 1170 ml Balance 1145 ml 810 ml 470 ml Exam H EENT exam is; supple neck, no G. No lymphadenopathy. Midline trachea. No thyromegaly. Patient has lower teeth but is edentulous in the upper jaw. Has bilateral intraocular lens implants. No thyromegaly. Chest examined; diminished but clear breath sounds bilaterally. No added sound. S1-S2 audible, no murmurs. Regular rhythm. Abdomen examination; soft, G-tube in place. Bowel sounds audible. Nondistended abdomen. Nontender. No organomegaly. Extremity exam is; no peripheral edema. No clubbing. Pulses 1+ bilaterally. PAYROLL TECHNICIAN examination; patient is awake. Results Result Diagram: 11/13/16 0400 11/13/16 0400 Results 24 hrs Laboratory Tests Test 11/12/16 18:12 11/13/16 00:34 11/13/16 04:00 11/13/16 06:24 Bedside Glucose 177 148 190 White Blood Count 14.3 #H Red Blood Count 2.65 L Hemoglobin 8.9 L Hematocrit 27.3 L Mean Corpuscular Volume 103.0 H Mean Corpuscular Hemoglobin 33.6 H Mean Corpuscular Hemoglobin Concent 32.6 Red Cell Distribution Width 15.0 H Platelet Count 202 # Mean Platelet Volume 10.3 Neutrophils % 87.4 H Lymphocytes % 6.3 L Monocytes % 2.5 Eosinophils % 2.9 Basophils % 0.1 Nucleated Red Blood Cells % 0.0 Neutrophils # 12.5 H Lymphocytes # 0.9 Monocytes # 0.4 Eosinophils # 0.4 Basophils # 0.0 Nucleated Red Blood Cells # 0.0 Sodium Level 136 Potassium Level 3.4 L Chloride Level 107 Carbon Dioxide Level 22 Anion Gap 10 Blood Urea Nitrogen 18 # Creatinine 0.61 Glucose Level 157 Calcium Level 8.0 L Magnesium Level 1.7 Test 11/13/16 11:38 Bedside Glucose 193 Medications Medications Current Medications Ondansetron HCl (Zofran Inj) 4 mg Q6H PRN IV NAUSEA AND/OR VOMITING; Start 11/10 at 17:30 Nitroglycerin (Nitroglycerin (Sl Tab) 0.4 Mg) 1 tab Q5M PRN SL CHEST PAIN; Start 11/10/16 at 17:30 Acetaminophen (Tylenol Tab) 650 mg Q6H PRN PO PAIN LEVEL 1-3 OR FEVER; Start at 17:30 Acetaminophen/ Hydrocodone Bitart ([place] (5/325)) 1 tab Q6H PRN PO PAIN LEVEL 4 -6; Start 11/10/16 at 17:30 Morphine Sulfate (morphine) 2 mg Q4H PRN IV PAIN LEVEL 7-10; Start 11/10/16 at 17:30 Lorazepam (Ativan) 1 mg Q2H PRN IV ANXIETY; Start 11/10/16 at 17:30 Docusate Sodium (Colace) 100 mg Q12H PRN PO CONSTIPATION; Start 11/10/16 at 17: 30 Pantoprazole (Protonix Tab) 40 mg DAILY@06 PO Last administered on 11/13/16 06 :14; Admin Dose 40 MG; Start 11/11/16 at 06:00 Bisacodyl (Dulcolax) 5 mg DAILY PRN PO CONSTIPATION; Start 11/10/16 at 17:30 Escitalopram Oxalate (Lexapro) 10 mg DAILY PO Last administered on 11/13/16 09 :30; Admin Dose 10 MG; Start 11/11/16 at 09:00 Ethambutol HCl (Myambutol) 400 mg DAILY PO Last administered on 11/13/16 09:30 ; Admin Dose 400 MG; Start 11/11/16 at 09:00 Haloperidol (Haldol) 3 mg TID PO Last administered on 11/13/16 09:30; Admin Dose 3 MG; Start 11/10/16 at 21:00 Isoniazid (Isoniazid) 300 mg DAILY PO Last administered on 11/13/16 09:30; Admin Dose 300 MG; Start 11/11/16 at 09:00 Pyridoxine HCl (Vitamin B6) 50 mg DAILY PO Last administered on 11/13/16 09:30 ; Admin Dose 50 MG; Start 11/11/16 at 09:00 Clonazepam 0.25 mg 0.25 mg Q6H PRN PO ANXIETY Last administered on 11/13/16 04 :21; Admin Dose 0.25 MG; Start 11/10/16 at 17:30 Rifampin/Sodium Chloride (Rifampin/NS) 100 ml @ 200 mls/hr Q24H IVPB Last administered on 11/12/16 19:49; Admin Dose 200 MLS/HR; Start 11/10/16 at 20:00 IV Flush 10 ml 10 ml PRN PRN IV IV PROTOCOL; Start 11/10/16 at 19:30 Norepinephrine 16 mg/Dextrose 500 ml @ 1.87 mls/hr TITRATE IV ; Start 11/11/16 at 12:00 Potassium Chloride/Sodium Chloride (1/2 NS + KCl 20 Meq) 1,000 ml @ 60 mls/hr [id number] IV Last administered on 11/13/16 07:20; Admin Dose 100 MLS/HR; Start 11/12/16 at 10:30 Miscellaneous Information 1 ea NOTE XX ; Start 11/12/16 at 16:30 Glucose (Glutose) 15 gm Q15M PRN PO DECREASED GLUCOSE; Start 11/12/16 at 16:30 Glucose (Glutose) 22.5 gm Q15M PRN PO DECREASED GLUCOSE; Start 11/12/16 at 16:30 Dextrose (D50w Syringe) 25 ml Q15M PRN IV DECREASED GLUCOSE; Start 11/12/16 at 16:30 Dextrose (D50w Syringe) 50 ml Q15M PRN IV DECREASED GLUCOSE; Start 11/12/16 at 16:30 Glucagon (Glucagen) 1 mg Q15M PRN IM DECREASED GLUCOSE; Start 11/12/16 at 16:30 Glucose 15 gm 15 gm Q15M PRN BUCCAL DECREASED GLUCOSE; Start 11/12/16 at 16:30 Ampicillin Sodium/ Sulbactam Sodium (Unasyn 3gm/NS (Pmx)) 100 ml @ 100 mls/hr Q6 IVPB Last administered on 11/13/16 11:28; Admin Dose 100 MLS/HR; Start 11/12 at 20:10 Potassium Chloride (Potassium Chloride Pwd/Soln) 20 meq BID GTB Last administered on 11/13/16 09:30; Admin Dose 20 MEQ; Start 11/12/16 at 21:00; Stop 11/14/16 at 09:01 Diagnostic Test (Pha) (Accu-Chek) 1 ea 02 XX ; Start 11/14/16 at 02:00 Insulin Aspart NOVOLOG *MILD* ALGORITHM Q6 SC Last administered on 11/13/16 11 :40; Admin Dose 2 UNIT; Start 11/13/16 at 12:00 Potassium Chloride (KCl 20 MEQ/50 ML SW) 50 ml @ 25 mls/hr ONCE IVPB Last administered on 11/13/16 11:27; Admin Dose 25 MLS/HR; Start 11/13/16 at 10:00; Stop 11/13/16 at 11:59 TEAGAN NAVAS Nov 13, 2016 11:48
[2016-11-13] MEDS ORDERED: VANCOMYCIN IV PER PHARMACY XX SCH (12:30)
--- NOTE | 2016-11-13 12:33 | PN ---
DATE: 11/13/2016 SUBJECTIVE: No acute events. The patient is lethargic, looks comfortable, no fevers. VITAL SIGNS: Temperature 99.2, pulse 89, respirations 20, blood pressure 113/81, saturation 100 on 2 liters nasal cannula. LABORATORY: WBC 14.8, H and H 8.9 and 27.3, platelets 202, neutrophils 87.4. No bands. BUN 18, cr eatinine 0.61. MICROBIOLOGY: Blood cultures remain negative. Urine culture growing enterococcus species susceptib le to ampicillin. INDWELLINGS: PEG, Leal and PICC lines placed on nasal #7. DIAGNOSTICS: CT of the chest on admission revealed no acute intracranial pathology. ANTIMICROBIALS: Patient is on: 1. Unasyn. 2. Ethambutol. 3. INH. 4. Pyridoxine. 5. Rifampin. PHYSICAL EXAMINATION: GENERAL: This is a fragile, elderly man who is in no distress. HEENT: Head atraumatic, normocephalic. Sclerae anicteric. Buccal mucosa dry. NECK: Supple. CHEST: Rise symmetrical. Breath sounds diminished at the bases. HEART: S1, S2. ABDOMEN: Soft. Bowel tones present. EXTREMITIES: Without cyanosis. ASSESSMENT: 1. Sepsis with acute encephalopathy. 2. Urinary tract infection. 3. Possible healthcare-associated pneumonia. 4. Pulmonary tuberculosis, patient is in treatment. 5. Failure to thrive. 6. Severe depression. PLAN: The patient remains stable. We are going to start him on vancomycin and Zosyn for healthcare -associated pneumonia. Continue anti-TB drugs, discontinue isolation. Follow pulmonary recommendat ions. Dictated By: FABI IRVING NUCLEAR POWERPLANT SUPERVISOR for TANISHA ADAIR/PITER Conf#: [id number] DID#: [id number]
[2016-11-13] MEDS ORDERED: VANCOMYCIN 1.5 GM in SOD CHLORIDE 0.9% 250 ML IVPB SCH (14:00)
[2016-11-13] MEDS: PIPER-TAZO 3.375 GM IV (PMX) 100 ML IVPB SCH ×2 (14:26→21:52)
[2016-11-13] MEDS ORDERED: INSULIN GLARGINE [LANtus] 3 ML PEN SC SCH (20:00)
[2016-11-13] MEDS: RIFAMPIN 600 MG in SOD CHLORIDE 0.9% 100 ML IVPB SCH (20:29)
[2016-11-14] VITALS (12 sets, daily range): BP systolic 94–137; BP diastolic 55–87; PULSE 78–109; RESP 16–18
[2016-11-14] MEDS ORDERED: ACCU-CHEK XX SCH (02:00)
[2016-11-14] MEDS: ACCU-CHEK XX SCH (02:01)
[2016-11-14] MEDS: PANTOPRAZOLE (EC) 40 MG TAB PO SCH (05:49)
[2016-11-14] MEDS: PIPER-TAZO 3.375 GM IV (PMX) 100 ML IVPB SCH ×3 (05:49→21:57)
[2016-11-14] MEDS: INSULIN ASPART [NOVOLOG] 3 ML PEN SC SCH ×5 (05:51→23:56)
[2016-11-14] MEDS: PYRIDOXINE 50 MG TAB PO SCH (08:42)
[2016-11-14] MEDS: POTASSIUM CHLORIDE 20 MEQ POWDER FOR ORAL SOLN GTB SCH (08:42)
[2016-11-14] MEDS: ISONIAZID 300 MG TAB PO SCH (08:42)
[2016-11-14] MEDS: ETHAMBUTOL 400 MG TAB PO SCH (08:42)
[2016-11-14] MEDS: HALOPERIDOL 1 MG TAB PO SCH ×3 (08:42→21:03)
[2016-11-14] MEDS: ESCITALOPRAM 10 MG TAB PO SCH (08:42)
[2016-11-14 10:45] LABS: ADD SCAN DIFF NO
[2016-11-14 10:49] LABS: BASOPHILS % 0.3 % (0.0-2.0); EOSINOPHILS # 0.1 10^3/ul (0.0-0.5); EOSINOPHILS % 0.8 % (0.0-7.0); HEMATOCRIT 26.5 % (42.0-52.0); HEMOGLOBIN 9.2 g/dl (14.0-18.0); LYMPHOCYTES % 8.6 % (15.0-51.0); MEAN CORPUSCULAR HEMOGLOBIN 34.6 pg (29.0-33.0); MEAN CORPUSCULAR HGB CONC 34.7 g/dl (32.0-37.0); MEAN CORPUSCULAR VOLUME 99.6 fl (82.0-101.0); MEAN PLATELET VOLUME 10.5 fl (7.4-10.4); MONOCYTE # 0.6 10^3/ul (0.3-0.9); MONOCYTES % 4.9 % (0.0-11.0); NEUTROPHIL # 9.6 10^3/ul (1.6-7.5); NEUTROPHILS % 84.5 % (39.0-77.0); PLATELET COUNT 193 10^3/UL (140-415); RED BLOOD COUNT 2.66 10^6/ul (4.70-6.10); RED CELL DISTRIBUTION WIDTH 14.4 % (11.5-14.5); WHITE BLOOD COUNT 11.3 10^3/ul (4.8-10.8)
[2016-11-14 11:03] LABS: CALCIUM 7.9 mg/dl (8.4-10.2); CREATININE 0.66 mg/dl (0.61-1.24); POTASSIUM 3.9 mmol/L (3.5-5.1)
[2016-11-14] MEDS: 1/2 NS + KCL 20 MEQ 1,000 ML IV SCH ×2 (13:37→22:00)
--- NOTE | 2016-11-14 13:40 | CONS ---
Date/Time of Note Date/Time of Note DATE: 11/14/16 TIME: 13:38 Assessment/Plan Assessment/Plan Chief Complaint/Hosp Course SUBJECTIVE: No acute events. The patient is awake, looks comfortable, no fevers. MICROBIOLOGY: Blood cultures remain negative. Urine culture growing enterococcus species susceptible to ampicillin. INDWELLINGS: PEG, Leal and PICC DIAGNOSTICS: CT of the chest on admission revealed no acute intracranial pathology. ANTIMICROBIALS: Patient is on: 1. Vanco and Zosyn. 2. Ethambutol. 3. INH. 4. Pyridoxine. 5. Rifampin. PHYSICAL EXAMINATION: GENERAL: This is a fragile, elderly man who is in no distress. HEENT: Head atraumatic, normocephalic. Sclerae anicteric. Buccal mucosa dry. NECK: Supple. CHEST: Rise symmetrical. Breath sounds diminished at the bases. HEART: S1, S2. ABDOMEN: Soft. Bowel tones present. EXTREMITIES: Without cyanosis. ASSESSMENT: 1. Sepsis with acute encephalopathy==> resolving. 2. Urinary tract infection. 3. Healthcare-associated pneumonia, possible aspiration. 4. Pulmonary tuberculosis, patient is in treatment. 5. Failure to thrive. 6. Severe depression. PLAN: Improving. Continue present care, abx and anti-TB drugs. Follow pulmonary recommendations. DW staff Problems: Consultation Date/Type/Reason Admit Date/Time Nov 10, 2016 at 15:06 Initial Consult Date Type of Consultation: ID Exam/Review of Systems Vital Signs Vitals Vital Signs Date Time Temp Pulse Resp B/P Pulse Ox O2 Delivery O2 Flow Rate FiO2 11/14/16 12:20 89 11/14/16 11:26 98.2 18 107/58 94 11/14/16 08:15 Nasal Cannula 2.0 11/11/16 16:51 28 Intake and Output 11/13/16 11/13/16 11/14/16 15:00 23:00 07:00 Intake Total 1240 ml 1170 ml 1540 ml Output Total 1275 ml 200 ml 480 ml Balance -35 ml 970 ml 1060 ml Results Result Diagram: 11/14/16 1025 11/14/16 1025 Results 24 hrs Laboratory Tests Test 11/13/16 19:15 11/14/16 00:35 11/14/16 05:51 11/14/16 10:25 Bedside Glucose 124 160 155 White Blood Count 11.3 #H Red Blood Count 2.66 L Hemoglobin 9.2 L Hematocrit 26.5 L Mean Corpuscular Volume 99.6 Mean Corpuscular Hemoglobin 34.6 H Mean Corpuscular Hemoglobin Concent 34.7 Red Cell Distribution Width 14.4 Platelet Count 193 Mean Platelet Volume 10.5 H Neutrophils % 84.5 H Lymphocytes % 8.6 L Monocytes % 4.9 Eosinophils % 0.8 Basophils % 0.3 Nucleated Red Blood Cells % 0.0 Neutrophils # 9.6 H Lymphocytes # 1.0 Monocytes # 0.6 Eosinophils # 0.1 Basophils # 0.0 Nucleated Red Blood Cells # 0.0 Sodium Level 133 L Potassium Level 3.9 Chloride Level 107 Carbon Dioxide Level 22 Anion Gap 8 Blood Urea Nitrogen 13 Creatinine 0.66 Glucose Level 152 Calcium Level 7.9 L Test 11/14/16 12:53 Bedside Glucose 180 Medications Medications Current Medications Ondansetron HCl (Zofran Inj) 4 mg Q6H PRN IV NAUSEA AND/OR VOMITING; Start 11/10 at 17:30 Nitroglycerin (Nitroglycerin (Sl Tab) 0.4 Mg) 1 tab Q5M PRN SL CHEST PAIN; Start 11/10/16 at 17:30 Acetaminophen (Tylenol Tab) 650 mg Q6H PRN PO PAIN LEVEL 1-3 OR FEVER; Start at 17:30 Acetaminophen/ Hydrocodone Bitart ([place] (5/325)) 1 tab Q6H PRN PO PAIN LEVEL 4 -6; Start 11/10/16 at 17:30 Morphine Sulfate (morphine) 2 mg Q4H PRN IV PAIN LEVEL 7-10; Start 11/10/16 at 17:30 Lorazepam (Ativan) 1 mg Q2H PRN IV ANXIETY; Start 11/10/16 at 17:30 Docusate Sodium (Colace) 100 mg Q12H PRN PO CONSTIPATION; Start 11/10/16 at 17: 30 Pantoprazole (Protonix Tab) 40 mg DAILY@06 PO Last administered on 11/14/16t 05 :49; Admin Dose 40 MG; Start 11/11/16 at 06:00 Bisacodyl (Dulcolax) 5 mg DAILY PRN PO CONSTIPATION; Start 11/10/16 at 17:30 Escitalopram Oxalate (Lexapro) 10 mg DAILY PO Last administered on 11/14/16 08 :42; Admin Dose 10 MG; Start 11/11/16 at 09:00 Ethambutol HCl (Myambutol) 400 mg DAILY PO Last administered on 11/14/16 08:42 ; Admin Dose 400 MG; Start 11/11/16 at 09:00 Haloperidol (Haldol) 3 mg TID PO Last administered on 11/14/16 13:02; Admin Dose 3 MG; Start 11/10/16 at 21:00 Isoniazid (Isoniazid) 300 mg DAILY PO Last administered on 11/14/16 08:42; Admin Dose 300 MG; Start 11/11/16 at 09:00 Pyridoxine HCl (Vitamin B6) 50 mg DAILY PO Last administered on 11/14/16 08:42 ; Admin Dose 50 MG; Start 11/11/16 at 09:00 Clonazepam 0.25 mg 0.25 mg Q6H PRN PO ANXIETY Last administered on 11/13/16 04 :21; Admin Dose 0.25 MG; Start 11/10/16 at 17:30 Rifampin/Sodium Chloride (Rifampin/NS) 100 ml @ 200 mls/hr Q24H IVPB Last administered on 11/13/16 20:29; Admin Dose 200 MLS/HR; Start 11/10/16 at 20:00 IV Flush 10 ml 10 ml PRN PRN IV IV PROTOCOL; Start 11/10/16 at 19:30 Norepinephrine 16 mg/Dextrose 500 ml @ 1.87 mls/hr TITRATE IV ; Start 11/11/16 at 12:00; Status Future Hold Potassium Chloride/Sodium Chloride (1/2 NS + KCl 20 Meq) 1,000 ml @ 60 mls/hr [id number] IV Last administered on 11/13/16 20:32; Admin Dose 60 MLS/HR; Start at 10:30 Miscellaneous Information 1 ea NOTE XX ; Start 11/12/16 at 16:30 Glucose (Glutose) 15 gm Q15M PRN PO DECREASED GLUCOSE; Start 11/12/16 at 16:30 Glucose (Glutose) 22.5 gm Q15M PRN PO DECREASED GLUCOSE; Start 11/12/16 at 16:30 Dextrose (D50w Syringe) 25 ml Q15M PRN IV DECREASED GLUCOSE; Start 11/12/16 at 16:30 Dextrose (D50w Syringe) 50 ml Q15M PRN IV DECREASED GLUCOSE; Start 11/12/16 at 16:30 Glucagon (Glucagen) 1 mg Q15M PRN IM DECREASED GLUCOSE; Start 11/12/16 at 16:30 Glucose (Glutose) 15 gm Q15M PRN BUCCAL DECREASED GLUCOSE; Start 11/12/16 at 16: 30 Diagnostic Test (Pha) (Accu-Chek) 1 ea 02 XX Last administered on 11/14/16 02: 01; Admin Dose 1 EA; Start 11/14/16 at 02:00 Insulin Aspart NOVOLOG *MILD* ALGORITHM Q6 SC Last administered on 11/14/16 13 :06; Admin Dose 1 UNIT; Start 11/13/16 at 12:00 Piperacillin Sod/ Tazobactam Sod 100 ml @ 200 mls/hr Q8 IVPB Last administered on 11/14/16 13:37; Admin Dose 200 MLS/HR; Start 11/13/16 at 14:00 Vancomycin HCl (Vancocin) 250 ml @ 125 mls/hr Q24H IVPB ; Start 11/14/16 at 14: 00 FABI IRVING NP Nov 14, 2016 13:40
--- NOTE | 2016-11-14 13:56 | PDOCDIS ---
Discharge Instructions CONDITION Patient Condition: Stable HOME CARE INSTRUCTIONS: Special Diet: Tube feed/ Glucerna ACTIVITY: Activity Restrictions: Special Exercises JOSE DE JESUS OMER MD Nov 14, 2016 13:56
--- NOTE | 2016-11-14 13:59 | PN ---
DATE: 11/14/2016 PALLIATIVE CARE PROGRESS NOTE The patient is to be discharged back to half-way facility today. I have tried to contact jens cruz as well as nursing staff, as well as case management; the number that is listed in patient's katalina rt, there is not an answering service on machine. Therefore, unfortunately, the patient is going ba ck without addressing ongoing level of care in the future or family members input about patient's qu ality of life at this point. We will remain available from a palliative care standpoint in the even t that the patient is readmitted at some future time. Dictated By: NALLELY GRAY MD LP/NTS Conf#: [id number] DID#: [id number]
[2016-11-14] MEDS: VANCOMYCIN 1 GM in NS 250 ML IVPB SCH (14:16)
--- NOTE | 2016-11-14 15:19 | DS ---
DATE OF ADMISSION: 11/10/2016 DATE OF DISCHARGE: 11/14/2016 CONSULTANTS: 1. Dr. Zachariah Gutierrez. 2. Dr. Kathleen. 3. Dr. Strong. 4. Dr. Singleton DIAGNOSES: 1. Encephalopathy, likely secondary to pneumonia versus dehydration. CT of the head does not show any acute finding. Improved. 2. Severe dehydration secondary to decreased p.o. intake. Continue IV fluid. 3. Acute renal insufficiency as above. 4. Diabetes mellitus, on insulin sliding scale. Restart metformin. 5. History of tuberculosis. The patient is off isolation. Continue medications 6. Bilateral pneumonia, on Zosyn. 7. History of essential hypertension, well controlled on medical management. 8. Cachexia. Continue PEG tube feeding. 9. Major depression. Continue Lexapro. 10. PEG tube feeding. 11. Hypercalcemia, likely secondary to hypoalbuminemia. Continue Prosure. 12. Hypernatremia, resolved. MEDICATIONS: 1. Tylenol. 2. ____ sulfate. 3. Bisacodyl. 4. Clonazepam. 5. Lexapro. 6. Nexium. 7. ____albuterol. 8. Haldol. 9. Virgil. 10. Humulin R. 11. Isoniazid. 12. Lactulose. 13. Metformin. 14. Boost. 15. Zofran. 16. MiraLax. 17. K-Dur. 18. Pyrazinamide. 19. Pyridoxine. 20. Rifampin. 21. Selegiline. 22. Temazepam. ALLERGIES: NO KNOWN DRUG ALLERGIES. HOSPITAL COURSE: This is an 81-year-old gentleman with past medical history of debility, depression , GERD, TB which has been treated and resides at jail facility and off isolation, diabete s mellitus, hypertension, chronic constipation, and insomnia who has been [facility] for debility, continued medical management and physical therapy, wa s found to have decreased p.o. intake and lethargy and weight loss and has become more altered than usual. He was transferred to [facility]. He was found to have temperature 101.5, pulse 129, respirations 21, blood pressure 68/51, oxygen saturation 100%. He was treated with IV f luids, cefepime, vancomycin, normal saline. He was found to have pulmonary vascular infiltrates ronel aterally. Pulmonology was consulted. CT of the brain showed no acute intracranial pathology. He w as transferred to ICU, where he was continued on aggressive IV fluid. His blood pressure started to improve. His initial labs, he was found to be severely dehydrated with BUN of 65, creatinine 2.02, sodium 149, lactic acid of 12. Lactic acid started to improve significantly to 1.4. The elevated lactic acid was likely secondary to severe dehydration. His creatinine started to improve. Nephrol ogy, pulmonology, infectious disease doctors were consulted. As per infectious disease, the patient has been off isolation while he was at the jail facility. He TB medication has been con tinued. Regarding his blood pressure, his blood pressure is well controlled. Today, his blood pres sure is 107/58, temperature 98.2, pulse 65, respirations 18, ____ 94. He has been able to tolerate PEG tube feeding. Also have placed the patient on free water flushes. His labs has been improving significantly with sodium of 133, potassium 3.9, chloride 107, bicarbonate 22, BUN 13, creatinine 0. 66, glucose 152, calcium 7.9. WBC 11.3, hemoglobin 9.2, hematocrit 26.5, platelets 193. At this time, the patient is in good condition to be transferred back to jail facility wi th a close followup with infectious disease doctor and his primary care physician. Dictated By: JOSE DE JESUS OMER MD PN/NTS Conf#: [id number] DID#: [id number]
[2016-11-14] MEDS: RIFAMPIN 600 MG in SOD CHLORIDE 0.9% 100 ML IVPB SCH (21:04)
[2016-11-14] MEDS ORDERED: ACETAMINOPHEN 650MG/20.3ML CUP PO PRN (21:30)
[2016-11-15] VITALS (10 sets, daily range): BP systolic 87–108; BP diastolic 51–63; PULSE 70–86; RESP 18–19
[2016-11-15] MEDS: ACCU-CHEK XX SCH (02:00)
[2016-11-15] MEDS: PIPER-TAZO 3.375 GM IV (PMX) 100 ML IVPB SCH ×2 (05:30→15:12)
[2016-11-15] MEDS: INSULIN ASPART [NOVOLOG] 3 ML PEN SC SCH ×3 (05:35→18:00)
[2016-11-15] MEDS ORDERED: LANSOPRAZOLE 30 MG CAP GTB SCH (06:00)
[2016-11-15] MEDS: 1/2 NS + KCL 20 MEQ 1,000 ML IV SCH ×2 (06:00→16:45)
[2016-11-15 08:24] LABS: ADD SCAN DIFF NO
[2016-11-15] MEDS: PYRIDOXINE 50 MG TAB PO SCH (08:31)
[2016-11-15] MEDS: ISONIAZID 300 MG TAB PO SCH (08:31)
[2016-11-15] MEDS: HALOPERIDOL 1 MG TAB PO SCH ×2 (08:31→13:00)
[2016-11-15] MEDS: ESCITALOPRAM 10 MG TAB PO SCH (08:31)
[2016-11-15] MEDS: ETHAMBUTOL 400 MG TAB PO SCH (08:31)
[2016-11-15 08:35] LABS: BASOPHILS % 0.2 % (0.0-2.0); EOSINOPHILS # 0.3 10^3/ul (0.0-0.5); HEMOGLOBIN 8.3 g/dl (14.0-18.0); LYMPHOCYTES # 0.8 10^3/ul (0.8-2.9); LYMPHOCYTES % 11.7 % (15.0-51.0); MEAN CORPUSCULAR HEMOGLOBIN 33.3 pg (29.0-33.0); MEAN CORPUSCULAR HGB CONC 33.2 g/dl (32.0-37.0); MEAN CORPUSCULAR VOLUME 100.4 fl (82.0-101.0); MEAN PLATELET VOLUME 10.3 fl (7.4-10.4); MONOCYTE # 0.5 10^3/ul (0.3-0.9); MONOCYTES % 6.8 % (0.0-11.0); NEUTROPHIL # 4.9 10^3/ul (1.6-7.5); NEUTROPHILS % 75.2 % (39.0-77.0); PLATELET COUNT 182 10^3/UL (140-415); RED BLOOD COUNT 2.49 10^6/ul (4.70-6.10); RED CELL DISTRIBUTION WIDTH 14.5 % (11.5-14.5); WHITE BLOOD COUNT 6.6 10^3/ul (4.8-10.8)
[2016-11-15 08:48] LABS: CALCIUM 7.8 mg/dl (8.4-10.2); CREATININE 0.63 mg/dl (0.61-1.24); POTASSIUM 3.5 mmol/L (3.5-5.1)
--- NOTE | 2016-11-15 16:27 | CONS ---
Date/Time of Note Date/Time of Note DATE: 11/15/16 TIME: 16:26 Assessment/Plan Assessment/Plan Chief Complaint/Hosp Course SUBJECTIVE: No acute events. The patient is awake, looks comfortable, no fevers. MICROBIOLOGY: Blood cultures remain negative. Urine culture growing enterococcus species susceptible to ampicillin. INDWELLINGS: PEG, Leal and PICC DIAGNOSTICS: CT of the chest on admission revealed no acute intracranial pathology. ANTIMICROBIALS: Patient is on: 1. Vanco and Zosyn. 2. Ethambutol. 3. INH. 4. Pyridoxine. 5. Rifampin. PHYSICAL EXAMINATION: GENERAL: This is a fragile, elderly man who is in no distress. HEENT: Head atraumatic, normocephalic. Sclerae anicteric. Buccal mucosa dry. NECK: Supple. CHEST: Rise symmetrical. Breath sounds diminished at the bases. HEART: S1, S2. ABDOMEN: Soft. Bowel tones present. EXTREMITIES: Without cyanosis. ASSESSMENT: 1. Sepsis with acute encephalopathy==> resolving. 2. Urinary tract infection. 3. Healthcare-associated pneumonia, possible aspiration. 4. Pulmonary tuberculosis, patient is in treatment. 5. Failure to thrive. 6. Severe depression. PLAN: Remains stable. Continue present care, abx and anti-TB drugs. DW staff Problems: Consultation Date/Type/Reason Admit Date/Time Nov 10, 2016 at 15:06 Type of Consultation: ID Exam/Review of Systems Vital Signs Vitals Vital Signs Date Time Temp Pulse Resp B/P Pulse Ox O2 Delivery O2 Flow Rate FiO2 11/15/16 16:01 98.0 86 19 87/51 95 11/15/16 08:10 Nasal Cannula 2.0 11/11/16 16:51 28 Intake and Output 11/14/16 11/14/16 11/15/16 15:00 23:00 07:00 Intake Total 1160 ml 1300 ml Output Total 2200 ml 1550 ml Balance -1040 ml -250 ml Results Result Diagram: 11/15/16 0800 11/15/16 0800 Results 24 hrs Laboratory Tests Test 11/14/16 18:36 11/14/16 23:54 11/15/16 05:24 11/15/16 08:00 Bedside Glucose 170 159 177 White Blood Count 6.6 # Red Blood Count 2.49 L Hemoglobin 8.3 L Hematocrit 25.0 L Mean Corpuscular Volume 100.4 Mean Corpuscular Hemoglobin 33.3 H Mean Corpuscular Hemoglobin Concent 33.2 Red Cell Distribution Width 14.5 Platelet Count 182 Mean Platelet Volume 10.3 Neutrophils % 75.2 Lymphocytes % 11.7 L Monocytes % 6.8 Eosinophils % 5.0 Basophils % 0.2 Nucleated Red Blood Cells % 0.0 Neutrophils # 4.9 Lymphocytes # 0.8 Monocytes # 0.5 Eosinophils # 0.3 Basophils # 0.0 Nucleated Red Blood Cells # 0.0 Sodium Level 135 Potassium Level 3.5 Chloride Level 106 Carbon Dioxide Level 24 Anion Gap 9 Blood Urea Nitrogen 16 Creatinine 0.63 Glucose Level 171 Calcium Level 7.8 L Test 11/15/16 08:10 11/15/16 12:23 Lab Scanned Report REFERENCE LAB Bedside Glucose 190 Medications Medications Current Medications Ondansetron HCl (Zofran Inj) 4 mg Q6H PRN IV NAUSEA AND/OR VOMITING; Start 11/10 at 17:30 Nitroglycerin (Nitroglycerin (Sl Tab) 0.4 Mg) 1 tab Q5M PRN SL CHEST PAIN; Start 11/10/16 at 17:30 Acetaminophen/ Hydrocodone Bitart ([place] (5/325)) 1 tab Q6H PRN PO PAIN LEVEL 4 -6; Start 11/10/16 at 17:30 Morphine Sulfate (morphine) 2 mg Q4H PRN IV PAIN LEVEL 7-10; Start 11/10/16 at 17:30 Lorazepam (Ativan) 1 mg Q2H PRN IV ANXIETY; Start 11/10/16 at 17:30 Docusate Sodium (Colace) 100 mg Q12H PRN PO CONSTIPATION; Start 11/10/16 at 17: 30 Bisacodyl (Dulcolax) 5 mg DAILY PRN PO CONSTIPATION; Start 11/10/16 at 17:30 Escitalopram Oxalate (Lexapro) 10 mg DAILY PO Last administered on 11/15/16 08 :31; Admin Dose 10 MG; Start 11/11/16 at 09:00 Ethambutol HCl (Myambutol) 400 mg DAILY PO Last administered on 11/15/16 08:31 ; Admin Dose 400 MG; Start 11/11/16 at 09:00 Haloperidol (Haldol) 3 mg TID PO Last administered on 11/15/16 13:00; Admin Dose 3 MG; Start 11/10/16 at 21:00 Isoniazid (Isoniazid) 300 mg DAILY PO Last administered on 11/15/16 08:31; Admin Dose 300 MG; Start 11/11/16 at 09:00 Pyridoxine HCl (Vitamin B6) 50 mg DAILY PO Last administered on 11/15/16 08:31 ; Admin Dose 50 MG; Start 11/11/16 at 09:00 Clonazepam 0.25 mg 0.25 mg Q6H PRN PO ANXIETY Last administered on 11/13/16 04 :21; Admin Dose 0.25 MG; Start 11/10/16 at 17:30 Rifampin/Sodium Chloride (Rifampin/NS) 100 ml @ 200 mls/hr Q24H IVPB Last administered on 11/14/16 21:04; Admin Dose 200 MLS/HR; Start 11/10/16 at 20:00 IV Flush 10 ml 10 ml PRN PRN IV IV PROTOCOL; Start 11/10/16 at 19:30 Norepinephrine 16 mg/Dextrose 500 ml @ 1.87 mls/hr TITRATE IV ; Start 11/11/16 at 12:00; Status Future Hold Potassium Chloride/Sodium Chloride (1/2 NS + KCl 20 Meq) 1,000 ml @ 60 mls/hr [id number] IV Last administered on 11/14/16 22:00; Admin Dose 60 MLS/HR; Start at 10:30 Miscellaneous Information 1 ea NOTE XX ; Start 11/12/16 at 16:30 Glucose (Glutose) 15 gm Q15M PRN PO DECREASED GLUCOSE; Start 11/12/16 at 16:30 Glucose (Glutose) 22.5 gm Q15M PRN PO DECREASED GLUCOSE; Start 11/12/16 at 16:30 Dextrose (D50w Syringe) 25 ml Q15M PRN IV DECREASED GLUCOSE; Start 11/12/16 at 16:30 Dextrose (D50w Syringe) 50 ml Q15M PRN IV DECREASED GLUCOSE; Start 11/12/16 at 16:30 Glucagon (Glucagen) 1 mg Q15M PRN IM DECREASED GLUCOSE; Start 11/12/16 at 16:30 Glucose (Glutose) 15 gm Q15M PRN BUCCAL DECREASED GLUCOSE; Start 4/9/17 at 16: 30 Insulin Aspart NOVOLOG *MILD* ALGORITHM Q6 SC Last administered on 11/15/16 12 :59; Admin Dose 2 UNIT; Start 11/13/16 at 12:00 Piperacillin Sod/ Tazobactam Sod 100 ml @ 200 mls/hr Q8 IVPB Last administered on 11/15/16 15:12; Admin Dose 200 MLS/HR; Start 11/13/16 at 14:00 Vancomycin HCl (Vancocin) 250 ml @ 125 mls/hr Q24H IVPB Last administered on 14:16; Admin Dose 125 MLS/HR; Start 11/14/16 at 14:00 Acetaminophen (Tylenol Liquid) 650 mg Q6H PRN PO PAIN LEVEL 1-3 OR FEVER Last administered on 11/14/16 21:56; Admin Dose 650 MG; Start 11/14/16 at 21:30 Lansoprazole (Prevacid) 30 mg DAILY@06 GTB Last administered on 11/15/16 05:30 ; Admin Dose 30 MG; Start 11/15/16 at 06:00 Miscellaneous Information (*Rx Drug Level Order Reminder*) VANCO TROUGH @ 1, 300 ON... ONCE ONCE XX ; Start 11/16/16 at 13:00; Stop 11/16/16 at 13:01 FABI IRVING NP Nov 15, 2016 16:27
--- NOTE | 2016-11-15 16:40 | PN ---
Date/Time of Note Date/Time of Note DATE: 11/15/16 TIME: 16:37 Assessment/Plan VTE Prophylaxis VTE Prophylaxis Intervention: other Lines/Catheters IV C[facility]ter Type (from [facility] PICC Line Central line still needed: Yes Urinary Cath still in place: Yes Reason Cath still needed: other (indicate) Assessment/Plan Chief Complaint/Hosp Course ASSESSMENT AND PLAN: 1. Encephalopathy, likely secondary to pneumonia versus severe dehydration. CT of the brain does not show any acute finding. 2. Severe dehydration, likely secondary to decreased p.o. intake. Continue IV fluids, improving 3. Acute renal insufficiency as above. 4. Diabetes mellitus. Continue insulin sliding scale. hold metformin secondary to sepsis and elevated lactic acid. 5. History of tuberculosis. Continue TB medications. Infectious disease doctor has been consulted. Continue current antibiotics: Rifampin+ INH + Ethambutol + Pyridoxine =>NOTE: [facility] TB DC'D PYRAZINAMIDE 6. Bilateral pneumonia, cefepime has been discontinued by renal. Pulmonology has been consulted. 7. History of essential hypertension. Blood pressure medication has been placed on hold secondary to patient's sepsis and hypotension. 8. Cachexia. We will consult social service , continue PEG tube feeding, versus hospice. 9. Major depression. Continue Lexapro. Patient discharge was held yesterday secondary to head of infectious disease patient was not clear as there is standpoint to be discharged back to alf facility. Although at this time as per infectious disease doctor patient is medically stable and he is not contagious Discharge to alf facility Problems: Subjective 24 Hr Interval Summary Free Text/Dictation No acute changes Patient is more arousable Tolerating PEG tube feeding Patient has been clear as per infectious disease to return back to alf facility Exam/Review of Systems Vital Signs Vitals Vital Signs Date Time Temp Pulse Resp B/P Pulse Ox O2 Delivery O2 Flow Rate FiO2 11/15/16 16:33 83 11/15/16 16:01 98.0 19 87/51 95 11/15/16 08:10 Nasal Cannula 2.0 11/11/16 16:51 28 Intake and Output 11/14/16 11/14/16 11/15/16 15:00 23:00 07:00 Intake Total 1160 ml 1300 ml Output Total 2200 ml 1550 ml Balance -1040 ml -250 ml Exam General: The patient is underweight, Not in acute distress. HEENT: Atraumatic, normocephalic. The pupils are equal and round . Neck: Supple with full range of motion. Chest: Normal expansion of the thorax during inspiration Lungs: Clear to auscultation bilaterally Heart: Normal S1-S2, Regular rhythm and rate. Abdomen: Soft , nontender, nondistended , bowel sounds are present. PEG tube in place Extremities: Severe muscle wasting bilateral lower extremity, no edema no cyanosis Neurologic: He is arousable,The patient is awake Results Result Diagram: 11/15/16 0800 11/15/16 0800 Results 24 hrs Laboratory Tests Test 11/14/16 18:36 11/14/16 23:54 11/15/16 05:24 11/15/16 08:00 Bedside Glucose 170 159 177 White Blood Count 6.6 # Red Blood Count 2.49 L Hemoglobin 8.3 L Hematocrit 25.0 L Mean Corpuscular Volume 100.4 Mean Corpuscular Hemoglobin 33.3 H Mean Corpuscular Hemoglobin Concent 33.2 Red Cell Distribution Width 14.5 Platelet Count 182 Mean Platelet Volume 10.3 Neutrophils % 75.2 Lymphocytes % 11.7 L Monocytes % 6.8 Eosinophils % 5.0 Basophils % 0.2 Nucleated Red Blood Cells % 0.0 Neutrophils # 4.9 Lymphocytes # 0.8 Monocytes # 0.5 Eosinophils # 0.3 Basophils # 0.0 Nucleated Red Blood Cells # 0.0 Sodium Level 135 Potassium Level 3.5 Chloride Level 106 Carbon Dioxide Level 24 Anion Gap 9 Blood Urea Nitrogen 16 Creatinine 0.63 Glucose Level 171 Calcium Level 7.8 L Test 11/15/16 08:10 11/15/16 12:23 Lab Scanned Report REFERENCE LAB Bedside Glucose 190 Medications Medications Current Medications Ondansetron HCl (Zofran Inj) 4 mg Q6H PRN IV NAUSEA AND/OR VOMITING; Start 11/10 at 17:30 Nitroglycerin (Nitroglycerin (Sl Tab) 0.4 Mg) 1 tab Q5M PRN SL CHEST PAIN; Start 11/10/16 at 17:30 Acetaminophen/ Hydrocodone Bitart ([place] (5/325)) 1 tab Q6H PRN PO PAIN LEVEL 4 -6; Start 11/10/16 at 17:30 Morphine Sulfate (morphine) 2 mg Q4H PRN IV PAIN LEVEL 7-10; Start 11/10/16 at 17:30 Lorazepam (Ativan) 1 mg Q2H PRN IV ANXIETY; Start 11/10/16 at 17:30 Docusate Sodium (Colace) 100 mg Q12H PRN PO CONSTIPATION; Start 11/10/16 at 17: 30 Bisacodyl (Dulcolax) 5 mg DAILY PRN PO CONSTIPATION; Start 11/10/16 at 17:30 Escitalopram Oxalate (Lexapro) 10 mg DAILY PO Last administered on 11/15/16 08 :31; Admin Dose 10 MG; Start 11/11/16 at 09:00 Ethambutol HCl (Myambutol) 400 mg DAILY PO Last administered on 11/15/16 08:31 ; Admin Dose 400 MG; Start 11/11/16 at 09:00 Haloperidol (Haldol) 3 mg TID PO Last administered on 11/15/16 13:00; Admin Dose 3 MG; Start 11/10/16 at 21:00 Isoniazid (Isoniazid) 300 mg DAILY PO Last administered on 11/15/16 08:31; Admin Dose 300 MG; Start 11/11/16 at 09:00 Pyridoxine HCl (Vitamin B6) 50 mg DAILY PO Last administered on 11/15/16 08:31 ; Admin Dose 50 MG; Start 11/11/16 at 09:00 Clonazepam 0.25 mg 0.25 mg Q6H PRN PO ANXIETY Last administered on 11/13/16 04 :21; Admin Dose 0.25 MG; Start 11/10/16 at 17:30 Rifampin/Sodium Chloride (Rifampin/NS) 100 ml @ 200 mls/hr Q24H IVPB Last administered on 11/14/16 21:04; Admin Dose 200 MLS/HR; Start 11/10/16 at 20:00 IV Flush 10 ml 10 ml PRN PRN IV IV PROTOCOL; Start 11/10/16 at 19:30 Norepinephrine 16 mg/Dextrose 500 ml @ 1.87 mls/hr TITRATE IV ; Start 11/11/16 at 12:00; Status Future Hold Potassium Chloride/Sodium Chloride (1/2 NS + KCl 20 Meq) 1,000 ml @ 60 mls/hr [id number] IV Last administered on 11/14/16 22:00; Admin Dose 60 MLS/HR; Start at 10:30 Miscellaneous Information 1 ea NOTE XX ; Start 11/12/16 at 16:30 Glucose (Glutose) 15 gm Q15M PRN PO DECREASED GLUCOSE; Start 11/12/16 at 16:30 Glucose (Glutose) 22.5 gm Q15M PRN PO DECREASED GLUCOSE; Start 11/12/16 at 16:30 Dextrose (D50w Syringe) 25 ml Q15M PRN IV DECREASED GLUCOSE; Start 11/12/16 at 16:30 Dextrose (D50w Syringe) 50 ml Q15M PRN IV DECREASED GLUCOSE; Start 11/12/16 at 16:30 Glucagon (Glucagen) 1 mg Q15M PRN IM DECREASED GLUCOSE; Start 11/12/16 at 16:30 Glucose (Glutose) 15 gm Q15M PRN BUCCAL DECREASED GLUCOSE; Start 11/12/16 at 16: 30 Insulin Aspart NOVOLOG *MILD* ALGORITHM Q6 SC Last administered on 11/15/16 12 :59; Admin Dose 2 UNIT; Start 11/13/16 at 12:00 Piperacillin Sod/ Tazobactam Sod 100 ml @ 200 mls/hr Q8 IVPB Last administered on 11/15/16 15:12; Admin Dose 200 MLS/HR; Start 11/13/16 at 14:00 Vancomycin HCl (Vancocin) 250 ml @ 125 mls/hr Q24H IVPB Last administered on 14:16; Admin Dose 125 MLS/HR; Start 11/14/16 at 14:00 Acetaminophen (Tylenol Liquid) 650 mg Q6H PRN PO PAIN LEVEL 1-3 OR FEVER Last administered on 11/14/16 21:56; Admin Dose 650 MG; Start 11/14/16 at 21:30 Lansoprazole (Prevacid) 30 mg DAILY@06 GTB Last administered on 11/15/16 05:30 ; Admin Dose 30 MG; Start 11/15/16 at 06:00 Miscellaneous Information (*Rx Drug Level Order Reminder*) VANCO TROUGH @ 1, 300 ON... ONCE ONCE XX ; Start 11/16/16 at 13:00; Stop 11/16/16 at 13:01 JOSE DE JESUS OMER MD Nov 15, 2016 16:40
[2016-11-15] MEDS: VANCOMYCIN 1 GM in NS 250 ML IVPB SCH (16:45)
== END 2016-11-15 20:20 | DRG 871 ==
LOC: E/R 13:08 → ICU 15:06 → TEL 11-13 14:50
PROVIDERS: ADMIT Family Medicine; ATTEND Family Medicine
PROC: 02HV33Z Insertion of Infusion Device into Superior Vena Cava, Percutaneous Approach (ICD-10-PCS; principal; 2016-11-10)
PROC: B548ZZA Ultrasonography of Superior Vena Cava, Guidance (ICD-10-PCS; 2016-11-10)
DX: A41.9 Sepsis, unspecified organism (principal); J18.9 Pneumonia, unspecified organism; N17.9 Acute kidney failure, unspecified; E87.0 Hyperosmolality and hypernatremia; E46 Unspecified protein-calorie malnutrition; E87.2 Acidosis; R64 Cachexia; A15.9 Respiratory tuberculosis unspecified; N39.0 Urinary tract infection, site not specified; E86.0 Dehydration; F01.50 Vascular dementia, unspecified severity, without behavioral disturbance, psychotic disturbance, mood disturbance, and anxiety; E11.9 Type 2 diabetes mellitus without complications; I10 Essential (primary) hypertension; K21.9 Gastro-esophageal reflux disease without esophagitis; K59.00 Constipation, unspecified; F32.9 Major depressive disorder, single episode, unspecified; Z68.21 Body mass index [BMI] 21.0-21.9, adult; Z87.440 Personal history of urinary (tract) infections; D64.9 Anemia, unspecified; E83.52 Hypercalcemia; Y95 Nosocomial condition; R62.7 Adult failure to thrive; G94 Other disorders of brain in diseases classified elsewhere; Z87.891 Personal history of nicotine dependence; R09.02 Hypoxemia; Z93.1 Gastrostomy status
CPT/HCPCS: 36415; 36569; 36600; 70450; 71010; 76937; 80048; 80053; 81001; 81003; 82140; 82803; 82962; 83540; 83605; 83615; 83735; 83935; 84153; 84154; 84300; 84484; 85025; 85610; 85730; 87040; 87081; 87086; 93005; 96361; 96365; 96375; C1769; J0295; J0692; J1250; J1815; J2543; J3370; J3480; J7030; J7040; J7050; J7060; J7070

== ENCOUNTER 2016-11-24 21:42 | Inpatient (IN) | payer MEDICARE, OTHER ==
[~2016-11-24] VITALS: Ht 160 cm; Wt 54.7 kg
[~2016-11-24 21:42] MED LIST: ACET-2047 GTB; ALBU2.5V3 NEB; BISA5TAB6 PEG; CLON0.252 GTB; ESCI10TA GTB; ESOM40CA GTB; ETHA400T25 PO; HAL1 PO; HYDR-906 GTB; INSU100V3 IJ; IPRA3AMP INHALATION; ISON300T72 GTB; LACT20SO2 GTB; METF500T4 GTB; ONDA4TAB8 GTB; POLY17PO6 GTB; POTA10TA37 PO; PYRA500T11 GTB; PYRI50TA14 GTB; SELE5CAP8 PO; TEMA7.5C GTB; [UNRECOGNIZED DRUG - CODE] IVPB; [UNRECOGNIZED DRUG - CODE] PO
[2016-11-24] MEDS ORDERED: PIPER-TAZO 3.375 GM IV (PMX) 100 ML IVPB STA (21:48)
[2016-11-24] MEDS ORDERED: SOD CHLORIDE 0.9% 1,000 ML IV ONE ×2 (22:00)
[2016-11-24] MEDS ORDERED: VANCOMYCIN 1 GM (PMX) 250 ML IVPB ONE (22:00)
[2016-11-24] MEDS ORDERED: ACETAMINOPHEN 650 MG SUPP PR ONE ×2 (22:15→22:30)
[2016-11-24] MEDS ORDERED: RIFA300C3 GTB (22:21)
[2016-11-24] MEDS ORDERED: DOCU-159 GTB (22:22)
[2016-11-24] MEDS ORDERED: HAL120L GTB (22:26)
[2016-11-24] MEDS ORDERED: HAL5I IM (22:26)
[2016-11-24] MEDS ORDERED: LACTINEX GTB (22:28)
[2016-11-24] MEDS ORDERED: MULT-105 GTB (22:29)
[2016-11-24] MEDS ORDERED: NOVO3I SC (22:32)
[2016-11-24 22:50] LABS: ADD SCAN DIFF NO
[2016-11-24 23:01] LABS: AADO2 Arterial 577.5 mmHg (7.0-24.0); Allen Test ACCEPTAB; Arterial Base Excess 1.4 mmol/L (-3.0-3); Arterial COHb 0.2 % (0.0-3.0); Arterial Fraction of Oxyhgb 96.1 % (93.0-99.0); Arterial HCO3 25.2 mmol/L (22.0-26.0); Arterial MetHb 0.6 % (0.0-1.5); Arterial Total Hemglobin 9.5 g/dl (12.0-18.0); MODE MASK - NRB
[2016-11-24 23:03] LABS: ABNORMAL IP MESSAGE 1; HEMOGLOBIN 9.7 g/dl (14.0-18.0); MEAN CORPUSCULAR HEMOGLOBIN 32.9 pg (29.0-33.0); MEAN CORPUSCULAR HGB CONC 32.3 g/dl (32.0-37.0); MEAN CORPUSCULAR VOLUME 101.7 fl (82.0-101.0); MEAN PLATELET VOLUME 9.1 fl (7.4-10.4); PLATELET COUNT 719 10^3/UL (140-415); RED BLOOD COUNT 2.95 10^6/ul (4.70-6.10); RED CELL DISTRIBUTION WIDTH 14.1 % (11.5-14.5); WHITE BLOOD COUNT 11.4 10^3/ul (4.8-10.8)
[2016-11-24 23:10] LABS: ADD UMIC YES; URINE BILIRUBIN (Dip) NEGATIVE (NEGATIVE); URINE BLOOD (Dip) TRACE (NEGATIVE); URINE COLOR LT. YELLOW (YELLOW); URINE KETONES (Dip) NEGATIVE (NEGATIVE); URINE LEUKOCYTE ESTERASE (Dip) NEGATIVE (NEGATIVE); URINE NITRITE (Dip) NEGATIVE (NEGATIVE); URINE TOTAL PROTEIN (Dip) TRACE (NEGATIVE); URINE UROBILINOGEN (Dip) 0.2 E.U./dL (0.1-1.0)
--- NOTE | 2016-11-24 23:16 | RADRPT ---
PROCEDURE: XR Chest. CLINICAL INDICATION: Possible sepsis. TECHNIQUE: Single frontal view of the chest. COMPARISON: 11/10/2016. FINDINGS: Cardiomegaly and atherosclerotic calcifications in the thoracic aorta. Bilateral patchy air space disease with nodular features, left greater than right. Airspace disease is greatest at the left lung base. Small left pleural effusion. Recommend CT correlation for furthe r evaluation of nodular features in the bilateral lungs. No signs of pneumothorax are seen. Demineralization limits evaluation of fine osseous detail. Wilmot tion of right humerus and glenoid fossa compatible chronic rotator cuff tear. Otherwise, the osseou s structures and soft tissues are unremarkable. IMPRESSION: 1. Bilateral patchy air space disease, left greater than right, and greatest at the left lung base. 2. Nodular features seen throughout the bilateral lungs, and recommend CT correlation. RPTAT: UU Physician July Date Time Electronically viewed and signed by Physician July on 11/24/2016 23:16 RS/
[2016-11-24] MEDS: NORepinephrine 8MG/250 ML (PMX 250 ML IV SCH (23:19)
[2016-11-24 23:22] LABS: INR 1.08; PT RATIO 1.1
[2016-11-24 23:23] LABS: PARTIAL THROMBOPLASTIN TIME 38.7 Sec (25.0-35.0)
[2016-11-24 23:26] LABS: ALBUMIN 2.6 g/dl (3.3-4.9); ALBUMIN/GLOBULIN RATIO 0.86; BILIRUBIN,INDIRECT 0.1 mg/dl (0-1.1); BILIRUBIN,TOTAL 0.1 mg/dl (0.2-1.3); CALCIUM 7.3 mg/dl (8.4-10.2); CREATININE 0.64 mg/dl (0.61-1.24); POTASSIUM 3.2 mmol/L (3.5-5.1); TOTAL PROTEIN 5.6 g/dl (6.1-8.1)
[2016-11-24 23:28] LABS: SQUAMOUS EPITHELIAL CELL,UR RARE; URINE RBCS 0-2 /HPF (0)
[2016-11-24 23:39] LABS: TROPONIN-I 0.533 ng/ml (0.00-0.12)
[2016-11-25] VITALS (68 sets, daily range): BP systolic 76–126; BP diastolic 53–86; PULSE 90–124; RESP 20–33; TEMP 101; Ht 160 cm; Wt 54.7 kg
[2016-11-25 00:26] LABS: LYMPHOCYTES # 0.6 10^3/ul (0.8-2.9); MONOCYTE # 0.2 10^3/ul (0.3-0.9); NEUTROPHIL # 6.7 10^3/ul (1.6-7.5); PLATELET ESTIMATE PLT APPEAR INCREASED
--- NOTE | 2016-11-25 00:52 | HP ---
Date/Time of Note Date/Time of Note DATE: 11/25/16 TIME: 00:05 Assessment/Plan VTE Prophylaxis VTE Prophylaxis Intervention: anti-embolic stocking Assessment/Plan Assessment/Plan 1) Septic shock due to Pneumonia with elevated WBCs 11.4 - ADMIT to ICU - Fluid Resuscitaation - Continue Levophed for pressure support - IV Antibiotics - AM Labs - CBC (serial), CMP (serial), Lactic Acid, LDH, PT/PTT, Troponin ( serial) 2) Healthcare-associated pneumonia 3) Lactic acidosis, 5,1 4) Hypokalemia, 3,2 - Replacement and monitoring 5) Elevated Troponin - VA vs sepis 6) Anemia 7) Thrombocytosis, 709 8) Abnormal EKG with Prolonged QT interval HPI/ROS Admit Date/Time Admit Date/Time 11/24/16 2248 Hx of Present Illness History as per ER Physician as there si no family and patient is non-verbal at baseline.. This 81-year-old nonverbal at baseline male was sent from [facility], [facility], via Ambulance for being hypotensive with fever and desaturation to 88% on room air. Arrived on Non-Rebreather Mask. He had recent pneumonia. Also, has a diagnosis of tuberculosis for which he is still on the antibiotic regimen. He is a full code patient who is debilitated and suffers from diabetes as well as muscle wasting. ER Course per ER Physician: Healthcare associated pneumonia with septic shock. Patient was immediately given IV fluid and treated with vancomycin and Zosyn. Pressure remained low. Central line was placed and patient was given Levophed. A nonrebreather mask patient was saturating 100% was decided not to intubate. Patient's lactic acid is very high. Levophed did correct the patient 's blood pressure and is then able to give him a low-dose of morphine for apparent discomfort. Mildly elevated troponin likely associated with sepsis. Patient was given a rectal aspirin. Also had mildly decreased potassium and was treated with 20 mg once IV potassium. Patient's vital signs did improve in the emergency room I spoke with Dr. Santana, who saw the patient at bedside, who will be admitting the patient to the ICU. Central line placement note, right femoral vein: Ultrasound guidance was used. Area was cleaned with ChloraPrep full gown mask drapes were used, 7 Spanish triple-lumen catheter was easily inserted into the left femoral vein under ultrasound guidance using Seldinger technique. There is good blood flow to all ports and good blood return. Patient tolerated procedure with no complications. Images saved in chart. Patient's infectious symptoms have not stabilized and the patient is at risk of rapid decompensation. The patient will be admitted for careful hydration, antibiotic therapy, and infectious source control. ROS Subjective hx not possible: pt non-verbal, pt critical status PMH/Family/Social Past Surgical History PMhx/Soc TB, COPD ) HTN, anemia) depression ) Social History Smoking Status: Unknown if ever smoked Exam/Review of Systems Vital Signs Vitals Vital Signs Date Time Temp Pulse Resp B/P Pulse Ox O2 Delivery O2 Flow Rate FiO2 11/24/16 23:13 107 22 101/85 98 Non Rebreather 15.0 11/24/16 21:52 101.4 Exam Exam General: Elderly, cachectic male in moderate respiratory distress Eyes: Sclera White HENT: Normocephalic/Atraumatic, Dry Mucus Membranes Neck: Supple, Trachea Midline Cardiovascular: Normal Rate, Regular Rhythm, Normal S1 and S2, No Murmur, No Extra Sounds. Radial pulse +1/4. No pedal Edema. Pulmonary: Bilateral rhonchorous breath sounds and decreased breath sounds throughout, tachypnea Gastrointestinal: Scaphoid, Normoactive Bowel Sounds, Soft, Non-Tender/Non- Distended, No Hepatosplenomegaly Appreciated, No Pulsatile Masses Urogenital: Deferred Musculoskeletal: Poor Muscle Bulk and Tone Neurological: Awake and alert, opens eyes, responds to pain, spontaneous extremity movements and head movements Integumentary: Pale, Normal Moisture and Temperature, Poor Turgor, No Jaundice , No Rash Lymphatic: No Cervical Lymphadenopathy Psychiatric: Not able to assess Labs Result Diagram: 11/24/16220911/24/162209 Medications Medications Home Meds Reported Medications Insulin Aspart* (Novolog Insulin Pen*) 100 Unit/Ml Soln, 0 SC .SLIDING SCALE AC , EA IF 131-160=2 UNITS, 161-200=3 UNITS, 201-250=6 UNITS, 251-300=9 UNITS, 301-350=12 UNITS, 351-400=15 UNITS, IF BS>400 CALL MD. 11/24/16 Multivitamin with Minerals (Multivitamins with Minerals) 1 Each Tablet, 1 EACH GTB DAILY, TAB 11/24/16 Lactobacillus Acidophilus* (Lactinex*) 1 Tab Chew, 1 TAB GTB TID, TAB 11/24/16 Haloperidol (Haloperidol) 2 Mg/Ml Soln, 3 MG GTB TID 11/24/16 Docusate Sodium* (Docusate Sodium*) 100 Mg Capsule, 100 MG GTB Q12H, #60 CAP 11/24/16 Rifampin* (Rifampin*) 300 Mg Capsule, 600 MG GTB DAILY, CAP TB UNTIL04/07/17 CLARIFIED 11/24/16 Esomeprazole Mag Trihydrate (Nexium) 40 Mg Capsule.dr, 40 MG GTB DAILY, #30 CAP 11/10/16 Isoniazid* (Isoniazid*) 300 Mg Tablet, 300 MG GTB DAILY, TAB 11/10/16 Metformin Hcl* (Metformin Hcl*) 500 Mg Tablet, 500 MG GTB WITH BREAKFAST DINNE, #30 TAB 11/10/16 Pyrazinamide* (Pyrazinamide*) 500 Mg Tablet, 1500 MG GTB DAILY, TAB CLARIFIED UNTIL 12/06/16 11/10/16 Pyridoxine Hcl* (Pyridoxine Hcl*) 50 Mg Tablet, 50 MG GTB DAILY, TAB 11/10/16 Polyethylene Glycol* (Miralax*) 17 Gm Powd.pack, 17 GM GTB Q24H Y for CONSTIPATION, #30 PACKET 11/10/16 Lactulose* (Lactulose*) 20 Gm/30 Ml Solution, 20 GM GTB DAILY Y for CONSTIPATION , ML 11/10/16 Ondansetron Hcl* (Zofran*) 4 Mg Tablet, 4 MG GTB Q6H Y for NAUSEA AND OR VOMITING, TAB 11/10/16 Temazepam* (Temazepam*) 7.5 Mg Capsule, 7.5 MG GTB HS Y for INSOMNIA, CAP 11/10/16 Ipratropium-Albuterol (Ipratropium-Albuterol) 0.5-3 Mg/3 Ml Ampul.neb, 3 ML INHALATION Q6 Y for SHORTNESS OF BREATH, #30 VIAL Q2H VIA MASK NEEDED FOR SOB/WEEZING 11/10/16 Escitalopram Oxalate* (Lexapro*) 10 Mg Tablet, 10 MG GTB DAILY, #30 TAB 11/10/16 Clonazepam (Clonazepam) 0.25 Mg Tab.rapdis, 0.25 MG GTB Q6 Y for ANXIETY 11/10/16 Bisacodyl* (Bisacodyl*) 5 Mg Tablet.dr, 5 MG PEG DAILY Y for CONSTIPATION, TAB 11/10/16 Hydrocodone/Acetaminophen (Kite 5-325 Tablet) 1 Each Tablet, 1 EACH GTB Q6 for PAIN LEVEL 4-10/10, TAB 11/10/16 Acetaminophen* (Acetaminophen*) 650 Mg Tablet, 650 MG GTB Q6H Y for MILD PAIN LEVEL 1-3, #30 TAB 11/10/16 Current Medications Medications (Trade) Dose Ordered Sig/Evin Route PRN Reason Start Time Stop Time Status Last Admin Dose Admin Vancomycin HCl 250 ml @ 125 mls/hr ONCE ONCE IVPB 11/24/16 22:00 11/24/16 23:59 DC 11/24/16 22:00 Piperacillin Sod/ Tazobactam Sod 100 ml @ 200 mls/hr ONCE STAT IVPB 11/24/16 21:48 11/24/16 22:17 DC 11/24/16 22:18 Sodium Chloride 1,000 ml @ 1,000 mls/hr Q1H ONCE IV 11/24/16 22:00 11/24/16 22:59 DC 11/24/16 22:18 Sodium Chloride (NS) 1,000 ml @ 1,000 mls/hr Q1H ONCE IV 11/24/16 22:00 11/24/16 22:59 DC 11/24/16 22:18 Acetaminophen (Tylenol Supp) 650 mg STK-MED ONCE MS 11/24/16 22:15 11/24/16 22:16 DC Acetaminophen 650 mg 650 mg ONCE ONCE MS 11/24/16 22:30 11/24/16 22:31 DC 11/24/16 22:28 Norepinephrine (Levophed) 250 ml @ 1.875 mls/ hr TITRATE IV 11/24/16 22:30 11/24/16 23:19 Morphine Sulfate (morphine) 2 mg ONCE ONCE IV 11/25/16 00:00 11/25/16 00:01 DC 11/25/16 00:05 Aspirin 300 mg 300 mg ONCE ONCE MS 11/25/16 01:30 11/25/16 01:32 DC 11/25/16 02:10 Potassium Chloride 20 meq/ Sodium Chloride 110 ml @ 55 mls/hr ONCE ONCE IVPB 11/25/16 01:30 11/25/16 03:29 Magnesium Sulfate (Magnesium Sulfate 2 Gm/50 ml) 50 ml @ 25 mls/hr ONCE ONCE IVPB 11/25/16 01:30 11/25/16 03:29 11/25/16 02:09 Heparin Sodium (Porcine) 4000 unit 4,000 unit ONCE ONCE IV 11/25/16 01:32 11/25/16 01:33 DC 11/25/16 02:08 Heparin Sodium (Porcine) 250 ml @ 7 mls/hr TITRATE IV 11/25/16 01:32 11/25/16 02:09 Sodium Chloride (NS) 1,000 ml @ 125 mls/hr Q8H IV 11/25/16 01:53 Metoclopramide HCl (Reglan) 10 mg Q6H PRN IV NAUSEA AND/OR VOMITING 11/25/16 02:00 Albuterol/ Ipratropium (Duoneb) 3 ml Q6H RESP THERAPY NEB 11/25/16 02:00 Acetaminophen (Tylenol Liquid) 650 mg Q6H PRN PO PAIN LEVEL 1-3 OR FEVER 11/25/16 02:00 Morphine Sulfate (morphine) 2 mg Q4H PRN IV PAIN LEVEL 7-10 11/25/16 02:00 Famotidine 20 mg 20 mg Q12 IV 11/25/16 09:00 Sodium Chloride 1,000 ml @ 1,000 mls/hr Q1H IV 11/25/16 01:53 11/25/16 03:52 Dobutamine HCl/ Dextrose 250 ml @ 8.523 mls/ hr TITRATE IV 11/25/16 02:00 Procedures Procedures Laboratory Tests Test 11/24/16 22:10 11/24/16 22:30 11/24/16 22:35 White Blood Count 11.410^3/ul Red Blood Count 2.9510^6/ul Hemoglobin 9.7g/dl Hematocrit 30.0% Mean Corpuscular Volume 101.7fl Mean Corpuscular Hemoglobin 32.9pg Mean Corpuscular Hemoglobin Concent 32.3g/dl Red Cell Distribution Width 14.1% Platelet Count 03670^3/UL Mean Platelet Volume 9.1fl Neutrophils % 59.0% Band Neutrophils % 33.0% Lymphocytes % 5.0% Monocytes % 2.0% Eosinophils % % Metamyelocytes % 1.0% Neutrophils # 6.710^3/ul Lymphocytes # 0.610^3/ul Monocytes # 0.210^3/ul Eosinophils # 10^3/ul Metamyelocytes # 0.1 Platelet Estimate PLT APPEAR INCREASED Prothrombin Time 14.0Sec Prothrombin Time Ratio 1.1 INR International Normalized Ratio 1.08 Activated Partial Thromboplast Time 38.7Sec Sodium Level 135mmol/L Potassium Level 3.2mmol/L Chloride Level 106mmol/L Carbon Dioxide Level 22mmol/L Anion Gap 10 Blood Urea Nitrogen 28mg/dl Creatinine 0.64mg/dl Glucose Level 163mg/dl Lactic Acid Level 5.1mmol/L Calcium Level 7.3mg/dl Total Bilirubin 0.1mg/dl Direct Bilirubin 0.00mg/dl Indirect Bilirubin 0.1mg/dl Aspartate Amino Transf (AST/SGOT) 36IU/L Alanine Aminotransferase (ALT/SGPT) 23IU/L Alkaline Phosphatase 93IU/L Troponin I 0.533ng/ml Total Protein 5.6g/dl Albumin 2.6g/dl Globulin 3.00g/dl Albumin/Globulin Ratio 0.86 Blood Gas Specimen Source Blood arterial Arterial Blood Date Drawn 11/24/2016 10:55:31 PM Arterial Blood pH (Temp corrected) 7.454 Arterial Blood pCO2 (Temp correct) 36.8mmhg Arterial Blood pO2 (Temp corrected) 98.7mmHG Arterial Blood HCO3 25.2mmol/L Arterial Blood Base Excess 1.4mmol/L Arterial Blood Oxygen Saturation 96.9mmHG Rolando Test ACCEPTAB Arterial Blood Gas Puncture Site Right Radial Arterial Blood Carboxyhemoglobin 0.2% Arterial Blood Methemoglobin 0.6% Blood Gas A-a O2 Differential 577.5mmHg Oxyhemoglobin Percent 96.1% Total Hemoglobin 9.5g/dl Blood Gas Temperature 37.0C Blood Gas Modality MASK - NRB FiO2 100.0% Blood Gas Notified Whom MG Blood Gas Notified Time 11/24/2016 11:00:59 PM Urine Color LT. YELLOW Urine Clarity CLEAR Urine pH 6.0 Urine Specific [place] 1.010 Urine Ketones NEGATIVE Urine Nitrite NEGATIVE Urine Bilirubin NEGATIVE Urine Urobilinogen 0.2 E.U./dL Urine Leukocyte Esterase NEGATIVE Urine Microscopic RBC 0-2/HPF Urine Microscopic WBC NONE SEEN/HPF Urine Squamous Epithelial Cells RARE Urine Yeast OCCASIONAL Urine Hemoglobin TRACE Urine Glucose 0.1%% Urine Total Protein TRACE EKG: Interpretation per ER Physician: Sinus tachycardia rate of 125, indeterminate axis, inverted T waves in leads V3 through V6 as well as ST depressions in leads V4 and V5, no ST elevations. Concerning for ischemia, prolonged QTC of 603. PROCEDURE: XR Chest. CLINICAL INDICATION: Possible sepsis. TECHNIQUE: Single frontal view of the chest. COMPARISON: 11/10/2016. FINDINGS: Cardiomegaly and atherosclerotic calcifications in the thoracic aorta. Bilateral patchy air space disease with nodular features, left greater than right. Airspace disease is greatest at the left lung base. Small left pleural effusion. Recommend CT correlation for further evaluation of nodular features in the bilateral lungs. No signs of pneumothorax are seen. Demineralization limits evaluation of fine osseous detail. Elevation of right humerus and glenoid fossa compatible chronic rotator cuff tear. Otherwise, the osseous structures and soft tissues are unremarkable. IMPRESSION: 1. Bilateral patchy air space disease, left greater than right, and greatest at the left lung base. 2. Nodular features seen throughout the bilateral lungs, and recommend CT correlation. MELVIN SANTANA DO Nov 25, 2016 00:15 No signs of pneumothorax are seen. Demineralization limits evaluation of fine osseous detail. Elevation of right humerus and glenoid fossa compatible chronic rotator cuff tear. Otherwise, the osseous structures and soft tissues are unremarkable. IMPRESSION: 1. Bilateral patchy air space disease, left greater than right, and greatest at the left lung base. 2. Nodular features seen throughout the bilateral lungs, and recommend CT correlation. MELVIN SANTANA DO Nov 25, 2016 00:15 PMH/Family/Social Social History Smoking Status: Unknown if ever smoked Exam/Review of Systems Vital Signs Vitals Vital Signs Date Time Temp Pulse Resp B/P Pulse Ox O2 Delivery O2 Flow Rate FiO2 11/24/16 23:13 107 22 101/85 98 Non Rebreather 15.0 11/24/16 21:52 101.4 Exam Exam General: Eyes: Sclera White, EOMI HENT: Normocephalic/Atraumatic, External Ears/Nose Normal, Moist Mucus Membranes Neck: Supple, Trachea Midline Cardiovascular: Normal Rate, Regular Rhythm, Normal S1 and S2, No Murmur, No Extra Sounds. Radial pulse +2/4. No pedal Edema. Pulmonary: Clear to Auscultation Bilaterally, Normal Respiratory Effort, No Rales, Rhonchi or Wheezes Gastrointestinal: Normoactive Bowel Sounds, Soft, Non-Tender/Non-Distended, No Hepatosplenomegaly Appreciated, No Pulsatile Masses Urogenital: Deferred Musculoskeletal: Normal Muscle Bulk and Tone Neurological: CN II - XII Grossly Intact, Non-Focal, Speech Normal Integumentary: Normal Moisture and Temperature, Good Turgor, No Jaundice, No Rash Lymphatic: No Cervical Lymphadenopathy Psychiatric: Appropriate Mood and Affect, Good Eye Contact Labs Result Diagram: 11/24/16 22111/24/16 221 Medications Medications Current Medications Norepinephrine (Levophed) 250 ml @ 1.875 mls/ hr TITRATE IV Last administered on 11/24/16t 23:19; Admin Dose 18.75 MLS/HR; Start 11/24/16 at 22:30 Procedures Procedures PROCEDURE: XR Chest. CLINICAL INDICATION: Possible sepsis. TECHNIQUE: Single frontal view of the chest. COMPARISON: 11/10/2016. FINDINGS: Cardiomegaly and atherosclerotic calcifications in the thoracic aorta. Bilateral patchy air space disease with nodular features, left greater than right. Airspace disease is greatest at the left lung base. Small left pleural effusion. Recommend CT correlation for further evaluation of nodular features in the bilateral lungs. No signs of pneumothorax are seen. Demineralization limits evaluation of fine osseous detail. Elevation of right humerus and glenoid fossa compatible chronic rotator cuff tear. Otherwise, the osseous structures and soft tissues are unremarkable.
--- NOTE | 2016-11-25 01:19 | ERA ---
ER Documentation Chief Complaint Date/Time DATE: 11/25/16 TIME: 01:04 Chief Complaint MOLINA RA81,from [facility],fever,hypotension,hypoxia,on NRM upon arriva HPI This 81-year-old nonverbal at baseline male was [facility] for being hypotensive with fever and desaturation to 88% on room air. She had recent pneumonia. 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 Is a full code patient who is debilitated and suffers from diabetes as well as muscle wasting. ROS Unobtainable. Medications Home Meds Reported Medications Insulin Aspart* (Novolog Insulin Pen*) 100 Unit/Ml Soln, 0 SC .SLIDING SCALE AC , EA IF 131-160=2 UNITS, 161-200=3 UNITS, 201-250=6 UNITS, 251-300=9 UNITS, 301-350=12 UNITS, 351-400=15 UNITS, IF BS>400 CALL MD. 11/24/16 Multivitamin with Minerals (Multivitamins with Minerals) 1 Each Tablet, 1 EACH GTB DAILY, TAB 11/24/16 Lactobacillus Acidophilus* (Lactinex*) 1 Tab Chew, 1 TAB GTB TID, TAB 11/24/16 Haloperidol (Haloperidol) 2 Mg/Ml Soln, 3 MG GTB TID 11/24/16 Docusate Sodium* (Docusate Sodium*) 100 Mg Capsule, 100 MG GTB Q12H, #60 CAP 11/24/16 Rifampin* (Rifampin*) 300 Mg Capsule, 600 MG GTB DAILY, CAP TB UNTIL04/07/17 CLARIFIED 11/24/16 Esomeprazole Mag Trihydrate (Nexium) 40 Mg Capsule.dr, 40 MG GTB DAILY, #30 CAP 11/10/16 Isoniazid* (Isoniazid*) 300 Mg Tablet, 300 MG GTB DAILY, TAB 11/10/16 Metformin Hcl* (Metformin Hcl*) 500 Mg Tablet, 500 MG GTB WITH BREAKFAST DINNE, #30 TAB 11/10/16 Pyrazinamide* (Pyrazinamide*) 500 Mg Tablet, 1500 MG GTB DAILY, TAB CLARIFIED UNTIL 12/06/16 11/10/16 Pyridoxine Hcl* (Pyridoxine Hcl*) 50 Mg Tablet, 50 MG GTB DAILY, TAB 11/10/16 Polyethylene Glycol* (Miralax*) 17 Gm Powd.pack, 17 GM GTB Q24H Y for CONSTIPATION, #30 PACKET 11/10/16 Lactulose* (Lactulose*) 20 Gm/30 Ml Solution, 20 GM GTB DAILY Y for CONSTIPATION , ML 11/10/16 Ondansetron Hcl* (Zofran*) 4 Mg Tablet, 4 MG GTB Q6H Y for NAUSEA AND OR VOMITING, TAB 11/10/16 Temazepam* (Temazepam*) 7.5 Mg Capsule, 7.5 MG GTB HS Y for INSOMNIA, CAP 11/10/16 Ipratropium-Albuterol (Ipratropium-Albuterol) 0.5-3 Mg/3 Ml Ampul.neb, 3 ML INHALATION Q6 Y for SHORTNESS OF BREATH, #30 VIAL Q2H VIA MASK NEEDED FOR SOB/WEEZING 11/10/16 Escitalopram Oxalate* (Lexapro*) 10 Mg Tablet, 10 MG GTB DAILY, #30 TAB 11/10/16 Clonazepam (Clonazepam) 0.25 Mg Tab.rapdis, 0.25 MG GTB Q6 Y for ANXIETY 11/10/16 Bisacodyl* (Bisacodyl*) 5 Mg Tablet.dr, 5 MG PEG DAILY Y for CONSTIPATION, TAB 11/10/16 Hydrocodone/Acetaminophen ([place] 5-325 Tablet) 1 Each Tablet, 1 EACH GTB Q6 for PAIN LEVEL 4-05/15, TAB 11/10/16 Acetaminophen* (Acetaminophen*) 650 Mg Tablet, 650 MG GTB Q6H Y for MILD PAIN LEVEL 1-3, #30 TAB 11/10/16 Discontinued Reported Medications Haloperidol* (Haldol* Lactate) 5 Mg/Ml Soln, 2 MG IM Q6H Y for AGITATION, MG 11/24/16 Rifampin* (Rifampin*) 600 Mg Vial, 600 MG IVPB Q24H, VIAL DILUTE IN NS 100 ML 11/10/16 Selegiline Hcl* (Selegiline Hcl*) 5 Mg Capsule, 5 MG PO WITH BREAKFAST LUNCH, CAP 11/10/16 Nut.tx.gluc.intoler,Lac-Fr,Reg (BOOST GLUCOSE CONTROL) 237 Ml Liquid, 237 ML PO TID LACTOSE FREE 11/10/16 Potassium Chloride* (K-Dur*) 10 Meq Tab.prt.sr, 10 MEQ PO DAILY, TAB 11/10/16 Insulin Regular, Human (Humulin R) 100 Unit/1 Ml Vial, 0 IJ AC MEALS AND BEDTIME , VIAL SLIDING SCALE NO SCALE PROVIDED 11/10/16 Haloperidol* (Haldol*) 1 Mg Tab, 3 MG PO TID, TAB IM IF PT REFUSES ORAL 11/10/16 Ethambutol HCl* (Myambutol*) 400 Mg Tablet, 400 MG PO DAILY 11/10/16 Albuterol Sulfate* (Albuterol Sulfate* Neb) 0.083%-3 Ml Neb, 2.5 MG NEB Q4 Y for WHEEZING AND SOB, #30 VIAL 11/10/16 Allergies Allergies: Coded Allergies: No Known Allergy (Unverified , 11/24/16) PMhx/Soc History of Surgery: No Anesthesia Reaction: No Hx Neurological Disorder: No Hx Respiratory Disorders: No (TB, COPD ) Hx Cardiac Disorders: Yes (HTN, anemia) Hx Psychiatric Problems: Yes (depression ) Hx Miscellaneous Medical Probl: No Hx Alcohol Use: No Hx Substance Use: No Hx Tobacco Use: No Smoking Status: Unknown if ever smoked Physical Exam Vitals Vital Signs Date Time Temp Pulse Resp B/P Pulse Ox O2 Delivery O2 Flow Rate FiO2 11/25/16 01:07 95 22 94/67 99 Non Rebreather 11/25/16 00:06 101 22 99/71 99 Non Rebreather 11/24/16 23:13 107 22 101/85 98 Non Rebreather 15.0 11/24/16 22:42 115 66/52 99 Non Rebreather 15.0 11/24/16 22:00 Simple Mask 15 11/24/16 21:52 101.4 133 22 68/50 93 Physical Exam Const: [] Moderate distress, tachypneic, diaphoretic, cachectic appearing emaciated male Head: Atraumatic Eyes: Normal Conjunctiva ENT: Normal External Ears, Nose and Mouth. Neck: Full range of motion..~ No meningismus. Resp: Bilateral rhonchorous breath sounds and decreased breath sounds, tachypnea Cardio: Regular tachycardia, no murmurs Abd: Soft, no apparent tender, scaphoid abdomen, non distended. Normal bowel sounds Skin: No petechiae or rashes, diaphoretic, pale, warm to the touch Back: No midline or flank tenderness Ext: No cyanosis, or edema, diffuse atrophy, distal pulses are faint. Neur: Awake and alert, opens eyes, responds to pain, spontaneous extremity movements and head movements. Psych: Normal Mood and Affect Result Diagram: 11/24/16220911/24/162209 Results 24 hrs Laboratory Tests Test 11/24/16 22:10 11/24/16 22:30 11/24/16 22:35 White Blood Count 11.410^3/ul Red Blood Count 2.9510^6/ul Hemoglobin 9.7g/dl Hematocrit 30.0% Mean Corpuscular Volume 101.7fl Mean Corpuscular Hemoglobin 32.9pg Mean Corpuscular Hemoglobin Concent 32.3g/dl Red Cell Distribution Width 14.1% Platelet Count 25703^3/UL Mean Platelet Volume 9.1fl Neutrophils % 59.0% Band Neutrophils % 33.0% Lymphocytes % 5.0% Monocytes % 2.0% Eosinophils % % Metamyelocytes % 1.0% Neutrophils # 6.710^3/ul Lymphocytes # 0.610^3/ul Monocytes # 0.210^3/ul Eosinophils # 10^3/ul Metamyelocytes # 0.1 Platelet Estimate PLT APPEAR INCREASED Prothrombin Time 14.0Sec Prothrombin Time Ratio 1.1 INR International Normalized Ratio 1.08 Activated Partial Thromboplast Time 38.7Sec Sodium Level 135mmol/L Potassium Level 3.2mmol/L Chloride Level 106mmol/L Carbon Dioxide Level 22mmol/L Anion Gap 10 Blood Urea Nitrogen 28mg/dl Creatinine 0.64mg/dl Glucose Level 163mg/dl Lactic Acid Level 5.1mmol/L Calcium Level 7.3mg/dl Total Bilirubin 0.1mg/dl Direct Bilirubin 0.00mg/dl Indirect Bilirubin 0.1mg/dl Aspartate Amino Transf (AST/SGOT) 36IU/L Alanine Aminotransferase (ALT/SGPT) 23IU/L Alkaline Phosphatase 93IU/L Troponin I 0.533ng/ml Total Protein 5.6g/dl Albumin 2.6g/dl Globulin 3.00g/dl Albumin/Globulin Ratio 0.86 Blood Gas Specimen Source Blood arterial Arterial Blood Date Drawn 11/24/2016 10:55:31 PM Arterial Blood pH (Temp corrected) 7.454 Arterial Blood pCO2 (Temp correct) 36.8mmhg Arterial Blood pO2 (Temp corrected) 98.7mmHG Arterial Blood HCO3 25.2mmol/L Arterial Blood Base Excess 1.4mmol/L Arterial Blood Oxygen Saturation 96.9mmHG Rolando Test ACCEPTAB Arterial Blood Gas Puncture Site Right Radial Arterial Blood Carboxyhemoglobin 0.2% Arterial Blood Methemoglobin 0.6% Blood Gas A-a O2 Differential 577.5mmHg Oxyhemoglobin Percent 96.1% Total Hemoglobin 9.5g/dl Blood Gas Temperature 37.0C Blood Gas Modality MASK - NRB FiO2 100.0% Blood Gas Notified Whom MG Blood Gas Notified Time 11/24/2016 11:00:59 PM Urine Color LT. YELLOW Urine Clarity CLEAR Urine pH 6.0 Urine Specific [place] 1.010 Urine Ketones NEGATIVE Urine Nitrite NEGATIVE Urine Bilirubin NEGATIVE Urine Urobilinogen 0.2 E.U./dL Urine Leukocyte Esterase NEGATIVE Urine Microscopic RBC 0-2/HPF Urine Microscopic WBC NONE SEEN/HPF Urine Squamous Epithelial Cells RARE Urine Yeast OCCASIONAL Urine Hemoglobin TRACE Urine Glucose 0.1%% Urine Total Protein TRACE Current Medications Medications (Trade) Dose Ordered Sig/Evin Route PRN Reason Start Time Stop Time Status Last Admin Dose Admin Vancomycin HCl 250 ml @ 125 mls/hr ONCE ONCE IVPB 11/24/16 22:00 11/24/16 23:59 DC 11/24/16 22:00 Piperacillin Sod/ Tazobactam Sod 100 ml @ 200 mls/hr ONCE STAT IVPB 11/24/16 21:48 11/24/16 22:17 DC 11/24/16 22:18 Sodium Chloride 1,000 ml @ 1,000 mls/hr Q1H ONCE IV 11/24/16 22:00 11/24/16 22:59 DC 11/24/16 22:18 Sodium Chloride (NS) 1,000 ml @ 1,000 mls/hr Q1H ONCE IV 11/24/16 22:00 11/24/16 22:59 DC 11/24/16 22:18 Acetaminophen (Tylenol Supp) 650 mg STK-MED ONCE OK 11/24/16 22:15 11/24/16 22:16 DC Acetaminophen 650 mg 650 mg ONCE ONCE OK 11/24/16 22:30 11/24/16 22:31 DC 11/24/16 22:28 Norepinephrine (Levophed) 250 ml @ 1.875 mls/ hr TITRATE IV 11/24/16 22:30 11/24/16 23:19 Morphine Sulfate (morphine) 2 mg ONCE ONCE IV 11/25/16 00:00 11/25/16 00:01 DC 11/25/16 00:05 Aspirin 300 mg 300 mg ONCE ONCE OK 11/25/16 01:30 11/25/16 01:32 DC 11/25/16 02:10 Potassium Chloride 20 meq/ Sodium Chloride 110 ml @ 55 mls/hr ONCE ONCE IVPB 11/25/16 01:30 11/25/16 03:29 Magnesium Sulfate (Magnesium Sulfate 2 Gm/50 ml) 50 ml @ 25 mls/hr ONCE ONCE IVPB 11/25/16 01:30 11/25/16 03:29 11/25/16 02:09 Heparin Sodium (Porcine) 4000 unit 4,000 unit ONCE ONCE IV 11/25/16 01:32 11/25/16 01:33 DC 11/25/16 02:08 Heparin Sodium (Porcine) 250 ml @ 7 mls/hr TITRATE IV 11/25/16 01:32 11/25/16 02:09 Sodium Chloride (NS) 1,000 ml @ 125 mls/hr Q8H IV 11/25/16 01:53 Metoclopramide HCl (Reglan) 10 mg Q6H PRN IV NAUSEA AND/OR VOMITING 11/25/16 02:00 Albuterol/ Ipratropium (Duoneb) 3 ml Q6H RESP THERAPY NEB 11/25/16 02:00 Acetaminophen (Tylenol Liquid) 650 mg Q6H PRN PO PAIN LEVEL 1-3 OR FEVER 11/25/16 02:00 Morphine Sulfate (morphine) 2 mg Q4H PRN IV PAIN LEVEL 7-10 11/25/16 02:00 Famotidine 20 mg 20 mg Q12 IV 11/25/16 09:00 Sodium Chloride 1,000 ml @ 1,000 mls/hr Q1H IV 11/25/16 01:53 11/25/16 03:52 Dobutamine HCl/ Dextrose 250 ml @ 8.523 mls/ hr TITRATE IV 11/25/16 02:00 Procedures/MDM Healthcare associated pneumonia with septic shock. Patient was immediately given IV fluid and treated with vancomycin and Zosyn. Pressure remained low. Central line was placed and patient was given Levophed. A nonrebreather mask patient was saturating 100% was decided not to intubate. Patient's lactic acid is very high. Levophed did correct the patient's blood pressure and is then able to give him a low-dose of morphine for apparent discomfort. Mildly elevated troponin likely associated with sepsis. Patient was given a rectal aspirin. Also had mildly decreased potassium and was treated with 20 mg once IV potassium. Patient's vital signs did improve in the emergency room I spoke with Dr. Wilson, who saw the patient at bedside, who will be admitting the patient to the ICU. EKG interpretation: Sinus tachycardia rate of 125, indeterminate axis, inverted T waves in leads V3 through V6 as well as ST depressions in leads V4 and V5, no ST elevations. Concerning for ischemia, prolonged QTC of 603. front desk monitor interpretation: Sinus tachycardia improved with fluids, no other arrhythmias Chest x-ray interpretation: Diffuse patchy airspace disease concerning for pneumonia, acute or chronic, no pneumothorax, no widened mediastinum, no fractures. Central line placement note, right femoral vein: Ultrasound guidance was used. Area was cleaned with ChloraPrep full gown mask drapes were used, 7 [place] triple-lumen catheter was easily inserted into the left femoral vein under ultrasound guidance using Seldinger technique. There is good blood flow to all ports and good blood return. Patient tolerated procedure with no complications. Images saved in chart. Critical care time 41 minutes: This includes treatment of debilitated septic patient in septic shock, treatment of unstable vital signs, careful fluid administration, early antibiotic administration, chart reviewed, discussion with admitting DrArminda, multiple visits the patient's bedside to assess cardiopulmonary status. This does not include any billed procedures such as the central line. Patient's infectious symptoms have not stabilized and the patient is at risk of rapid decompensation. The patient will be admitted for careful hydration, antibiotic therapy, and infectious source control. Perfusion Reassessment for Septic Shock: Time 0114 Temp 100.8, Pulse 94, RR 22, BP 114/54 Heart Exam: Normal sinus rhythm without arrhythmia Lung Exam: Mild rhonchorous breath sounds diffusely, mild tachypnea Capillary Refill: Less than 1 second Peripheral Pulses: Radially present Skin: , pale Departure Diagnosis: Primary Impression: Septic shock Additional Impressions: Healthcare-associated pneumonia Lactic acidosis Hypokalemia Non-ST elevation myocardial infarction (NSTEMI) Thrombocytosis Prolonged QT interval Condition: Critical ELIDA JONES DO Nov 25, 2016 01:15
[2016-11-25] MEDS ORDERED: ASPIRIN 300 MG SUPP PR ONE (01:30)
[2016-11-25] MEDS ORDERED: MAGNESIUM SULFATE 2 GM/50 ML 50 ML IVPB ONE (01:30)
[2016-11-25] MEDS ORDERED: POTASSIUM CHLORIDE 20 MEQ in SOD CHLORIDE 0.9% 100 ML IVPB ONE (01:30)
[2016-11-25] MEDS ORDERED: HEPARIN 1000 UNITS/ML 10 ML INJ IV ONE (01:32)
[2016-11-25] MEDS ORDERED: DOBUTamine/D5W 1 MG/ML DRIP 250 ML IV SCH (02:00)
[2016-11-25] MEDS ORDERED: METOCLOPRAMIDE 10 MG INJ IV PRN (02:00)
[2016-11-25] MEDS ORDERED: ALBUTEROL/IPRATROPIUM (NEB) 3 ML AMP NEB SCH (02:00)
[2016-11-25] MEDS: HEPARIN 25000 UNITS/250 ML 250 ML IV SCH (02:09)
[2016-11-25] MEDS: SOD CHLORIDE 0.9% 1,000 ML IV SCH ×5 (02:29→17:30)
[2016-11-25] MEDS ORDERED: morphine 2 MG INJ IV ONE ×2 (03:30)
[2016-11-25 05:37] LABS: ADD SCAN DIFF NO
[2016-11-25 05:47] LABS: ABNORMAL IP MESSAGE 1; HEMATOCRIT 25.2 % (42.0-52.0); HEMOGLOBIN 8.2 g/dl (14.0-18.0); MEAN CORPUSCULAR HEMOGLOBIN 32.9 pg (29.0-33.0); MEAN CORPUSCULAR HGB CONC 32.5 g/dl (32.0-37.0); MEAN CORPUSCULAR VOLUME 101.2 fl (82.0-101.0); PLATELET COUNT 574 10^3/UL (140-415); RED BLOOD COUNT 2.49 10^6/ul (4.70-6.10); RED CELL DISTRIBUTION WIDTH 13.8 % (11.5-14.5); WHITE BLOOD COUNT 6.5 10^3/ul (4.8-10.8)
[2016-11-25] MEDS: NORepinephrine 8MG/250 ML (PMX 250 ML IV SCH ×2 (05:50→10:31)
[2016-11-25 05:59] LABS: INR 1.22; PROTIME 15.5 Sec (12.2-14.2); PT RATIO 1.2
[2016-11-25 06:17] LABS: ALBUMIN 2.4 g/dl (3.3-4.9); ALBUMIN/GLOBULIN RATIO 0.82; BILIRUBIN,INDIRECT 0.1 mg/dl (0-1.1); BILIRUBIN,TOTAL 0.1 mg/dl (0.2-1.3); CALCIUM 7.4 mg/dl (8.4-10.2); CREATININE 0.73 mg/dl (0.61-1.24); POTASSIUM 3.9 mmol/L (3.5-5.1); TOTAL PROTEIN 5.3 g/dl (6.1-8.1)
[2016-11-25 06:28] LABS: TROPONIN-I 0.478 ng/ml (0.00-0.12)
[2016-11-25 06:39] LABS: PARTIAL THROMBOPLASTIN TIME 114.2 Sec (25.0-35.0)
[2016-11-25] MEDS: FAMOTIDINE 20 MG INJ IV SCH ×2 (08:54→20:43)
[2016-11-25] MEDS ORDERED: PHENYLephrine 20MG IN 250 ML 250 ML IV SCH (09:00)
[2016-11-25] MEDS ORDERED: DEXTROSE 50% 50 ML SYRINGE IV PRN ×2 (09:00)
[2016-11-25] MEDS ORDERED: GLUCAGON 1 MG INJ IM PRN (09:00)
[2016-11-25] MEDS ORDERED: GLUCOSE GEL 15 GRAM TUBE BUCCAL PRN (09:00)
[2016-11-25] MEDS ORDERED: GLUCOSE GEL 15 GRAM TUBE PO PRN ×2 (09:00)
[2016-11-25] MEDS: INSULIN ASPART [NOVOLOG] 3 ML PEN SC SCH ×4 (10:00→20:48)
[2016-11-25] MEDS: LEVALBUTEROL (NEB) 0.31 MG/3 ML AMP HHN SCH ×3 (10:05→20:28)
--- NOTE | 2016-11-25 10:28 | CONS ---
Date/Time of Note Date/Time of Note DATE: 11/25/16 TIME: 08:49 Assessment/Plan Assessment/Plan Chief Complaint/Hosp Course ID PROGRESS NOTE CURRENT ABX=> Vanco IV + Zosyn 11/24/16 ED Pulmonary MTB Rx: Rifampin+ INH + Ethambutol + Pyridoxine [NOTE: [facility] TB DC 'D PYRAZINAMIDE]. HPI/VPH HOSPITAL COURSE 81 yo M admitted to [facility] ICU via ED after transferred from SNF for recurrent hypoxic respiratory distress, aspiration pneumonia with sepsis, lactic acidosis , hypotension, fevers, (+)Troponin leak. ADDITIONAL PMHx treated at [facility]: Grave debility w/anorexia/cachexia, generalized weakness, fall risk with unsteady gait , anemia, DMT2, recurrent UTI, possible prostatitis, urinary retention, presumptive DM autonomic neuropathies of gastroparesis w/GERD, neurogenic bladder, and recent Dx of pulmonary MTB at [facility] in treatment with anti-TB meds since August 2016. Indwelling PEG placed at some time between end of October 2016 for anti-TB med compliance, nutrition. * 11/24/16 CXR IN ED: IMPRESSION: 1. Bilateral patchy air space disease, left greater than right, and greatest at the left lung base. 2. Nodular features seen throughout the bilateral lungs, and recommend CT correlation. 24H INTERVAL SUMMARY * 81 yo M -> (+) frail appearing on 100% NRB FM w/congested cough. Patient opens eyes, non-verbal. * Fevers >104.+ on admission with WBC 11.4 => now improved on ABX. * 11/25/16 0530 11/25/16 0530 RECENT PULMONARY TB TREATMENT HISTORY * Patient is well known to "Tony Kathleen MD" ID consultants me from lengthy prior admission to [facility] for active pulmonary TB with hemoptysis, weight loss, night sweats, with (+)AFB sputum, he required lengthy isolation for TB @ [facility] due to baseline Psych (Schizophrenia)/Senile-Vascular Dementia Dx w/paranoid- agitative features, including refusal to consume PO anti-TB meds, food, and liquids. For this reason, an NGT was placed on 09/19/16, patient was admitted to [facility] med-surg TB isolation w/24H sitter and soft wrist restraints as required per [facility] anti-TB and [facility] Infection Control TB medication compliance. He possibly was put on 5150 hold (my memory fails me as to the exact date of admission - My memory tells me there were 2 separate admissions (one possibly to [facility]) -- I believe it was around the Holiday time period) . * [facility] TB surveillance DC HIGHLIGHTS: After many weeks (~2-3 months), patient was cleared for DC from [facility] TB isolation with 3(-)AFB sputum samples and was cleared for DC to SNF by [facility] TB on 10/10/2016. At the time of DC , [facility] TB Control had advised discontinuation of Pyrazinamide, with continuation of Rifampin + INH + Ethambutol + Pyrodoxine (B6). * [facility] admission 11/10/16: Subsequently, the patient was admitted to [facility] hospital from the SNF on 11/10/16 for recurrent HCAP aspiration PNA, pulmonary sepsis.He presented w/acute hypoxic respiratory distress w/pulmonary sepsis, hypotension, bilateral HCAP, lactic acidosis, acute encephalopathy. * During this admission his prognosis was deemed poor per inpatient pulmonary critical care hospitalist team he was seen by Dr. Kathleen ID team with recommendation to continue anti-TB meds per [facility] recommendations to complete 9 mos course. The patient was initiated on Cefepime ABX per Dr. Sawyer and Dr. Kathleen ID recommendations, which was quickly DC'd by renal Dr. Strong for unclear reasons, and ID team deferred HCAP PSAR coverage ABX decision to pulmonary team. 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 At some point, the patient had a PEG placed. * 11/10/[address] [facility] [address] BRAIN: IMPRESSION:1. No acute intracranial pathology. 2. Mild to moderate diffuse volume loss and mild chronic microvascular ischemic changes. * Vet now re-admitted to [facility] ICU with recurrent aspiration PNA, pulmonary sepsis , seen in the ICU. PHYSICAL EXAMINATION: GENERAL: Chronic ill, 81 yo M, acute hypoxic respiratory failure on 100% O2 via FM, (+)laryngeal + audible rhonchi chest congestion w/(+)wheeze HEENT: FM secure NECK: Supple, trachea midline. CHEST: Rise symmetrical (+)Rhonchi/(+)Wheeze HEART: Pulse RRR ABDOMEN: Soft, peg, thin : normal M EXTREMITIES: Warm, moves extremities SKIN: Stage II sacral -- see photos ID ASSESSMENT 81 yo Maltese M PMHx Senile-Vascular Dementia/Psych/MDD w/paranoid/agitative features + vascular dementia w/ grave disability/debility admit with: 1. Acute hypoxic respiratory distress w/pulmonary sepsis, fevers >104.+, hypotension, severe lactic acidosis, (+)Troponin leak 2. Acute encephalopathy on chronic Psych debility + microvascular dementia w/ refusal to take PO Meds at [facility], requiring PEG 3. 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 COPD Emphysema/reactive airway w/wheezing exacerbation on chronic pulmonary fibrosis * Hx of long-term + recent tobacco 4. (+)Recent Dx MTB work up completed at [facility]-> Due to his refusal to take PO Meds, NGT was placed for [facility] TB compliance. 5. Dehydration w/Cachexia => hx of refusal of PO intake requiring NGT/eventual PEG placement in past 6. DMT2 w/suspected complication of DM autonomic neuropathies: Gastroparesis/ Neurogenic bladder 7. GERD 8. s/p recent Acute renal failure due to meds + sepsis + dehydration -> S.Creatinine improved this admission 8. Hx of UTIs with urinary retention requiring Leal ?BPH vs Neurogenic bladder 9. Anemia chronic (-)MRSA Nares 11/11/16 INVASIVES: PICC = present on admission, FC, Peg ABX ALLERGY: KNDA CURRENT ABX: Rifampin+ INH + Ethambutol + Pyridoxine =>NOTE: [facility] TB DC'D PYRAZINAMIDE => Vanco IV + Zosyn 11/24/16 ED ID RECOMMENDATIONS 1. FOR ASPIRATION PNA: Continue Vanco IV + Merrem for hx of ASP PNA = AVOID Zosyn due to Hx of KIM with prior Vanco/Zosyn combo. 2. FOR PULMONARY MTB: Patient in treatment since ~August 2016 = [facility] Infection Control Nurse can contact [facility] if exact dates are needed. * Patient is well-known to Dr. Kathleen's ID team s/p lengthy admission to [facility] where he was Dx with MTB and remained on isolation for many weeks with NGT placed for TB med compliance prior to being cleared by [facility] TB for DC to SNF on 10/10/16. [facility] TB with recs to continue: Rifampin+ INH + Ethambutol + Pyridoxine =>NOTE: [facility] TB DC'D PYRAZINAMIDE * Per ID client care consultant standpoint, logically there appears no indication to continue the patient on MTB isolation precautions w/caveat that patient has been compliant with anti-TB meds at SNF. Nevertheless, ID does NOT hold authority for TB clearance recommendations from [facility], this is the responsibility and authority of [facility] Infection Control Staff. Any inquiries from [facility] nursing staff should be directed toward [facility] Infection Control Policy and [facility] TB surveillance recommendations. 3. PROGNOSIS: Poor per hospitalist notes and palliative care consult last admission [facility] * Thank you for referring back to "Team MD Frannie" ID Consultants who will continue to follow the patient closely with you as follow up to Dr. Kathleen's initial consultation note of 11/10/16. . . Problems: Consultation Date/Type/Reason Admit Date/Time Nov 24, 2016 at 23:51 Initial Consult Date Type of Consultation: ID Exam/Review of Systems Vital Signs Vitals Vital Signs Date Time Temp Pulse Resp B/P Pulse Ox O2 Delivery O2 Flow Rate FiO2 11/25/16 07:30 104 27 111/65 98 11/25/16 07:00 Non Rebreather 11/25/16 06:23 15.0 11/25/16 02:00 101.0 Intake and Output 11/24/16 11/24/16 11/25/16 15:00 23:00 07:00 Intake Total 2212.5 ml Output Total 400 ml Balance 1812.5 ml Results Result Diagram: 11/25/16 0530 11/25/16 0530 Results 24 hrs Laboratory Tests Test 11/24/16 22:10 11/24/16 22:30 11/24/16 22:35 11/25/16 05:30 White Blood Count 11.4 #H 6.5 # Red Blood Count 2.95 L 2.49 L Hemoglobin 9.7 L 8.2 L Hematocrit 30.0 L 25.2 L Mean Corpuscular Volume 101.7 H 101.2 H Mean Corpuscular Hemoglobin 32.9 32.9 Mean Corpuscular Hemoglobin Concent 32.3 32.5 Red Cell Distribution Width 14.1 13.8 Platelet Count 719 #H 574 #H Mean Platelet Volume 9.1 9.0 Neutrophils % 59.0 Band Neutrophils % 33.0 H Lymphocytes % 5.0 L Monocytes % 2.0 Eosinophils % Metamyelocytes % 1.0 H Neutrophils # 6.7 Lymphocytes # 0.6 L Monocytes # 0.2 L Eosinophils # Metamyelocytes # 0.1 Platelet Estimate PLT APPEAR INCREASED Prothrombin Time 14.0 15.5 H Prothrombin Time Ratio 1.1 1.2 INR International Normalized Ratio 1.08 1.22 Activated Partial Thromboplast Time 38.7 H 114.2 *H Sodium Level 135 137 Potassium Level 3.2 L 3.9 Chloride Level 106 109 Carbon Dioxide Level 22 23 Anion Gap 10 9 Blood Urea Nitrogen 28 H 27 H Creatinine 0.64 0.73 Glucose Level 163 190 Lactic Acid Level 5.1 *H 2.1 Calcium Level 7.3 L 7.4 L Total Bilirubin 0.1 L 0.1 L Direct Bilirubin 0.00 0.00 Indirect Bilirubin 0.1 0.1 Aspartate Amino Transf (AST/SGOT) 36 29 Alanine Aminotransferase (ALT/SGPT) 23 21 Alkaline Phosphatase 93 85 Troponin I 0.533 *H 0.478 *H Total Protein 5.6 L 5.3 L Albumin 2.6 L 2.4 L Globulin 3.00 2.90 Albumin/Globulin Ratio 0.86 0.82 Blood Gas Specimen Source Blood arterial Arterial Blood Date Drawn 11/24/2016 10:55:31 PM Arterial Blood pH (Temp corrected) 7.454 H Arterial Blood pCO2 (Temp correct) 36.8 Arterial Blood pO2 (Temp corrected) 98.7 H Arterial Blood HCO3 25.2 Arterial Blood Base Excess 1.4 Arterial Blood Oxygen Saturation 96.9 Rolando Test ACCEPTAB Arterial Blood Gas Puncture Site Right Radial Arterial Blood Carboxyhemoglobin 0.2 Arterial Blood Methemoglobin 0.6 Blood Gas A-a O2 Differential 577.5 H Oxyhemoglobin Percent 96.1 Total Hemoglobin 9.5 L Blood Gas Temperature 37.0 Blood Gas Modality MASK - NRB FiO2 100.0 Blood Gas Notified Whom MG Blood Gas Notified Time 11/24/2016 11:00:59 PM Urine Color LT. YELLOW Urine Clarity CLEAR Urine pH 6.0 Urine Specific [place] 1.010 Urine Ketones NEGATIVE Urine Nitrite NEGATIVE Urine Bilirubin NEGATIVE Urine Urobilinogen 0.2 E.U./dL Urine Leukocyte Esterase NEGATIVE Urine Microscopic RBC 0-2 Urine Microscopic WBC NONE SEEN Urine Squamous Epithelial Cells RARE Urine Yeast OCCASIONAL Urine Hemoglobin TRACE Urine Glucose 0.1% H Urine Total Protein TRACE Lactate Dehydrogenase 432 Medications Medications Current Medications Norepinephrine 250 ml @ 1.875 mls/ hr TITRATE IV Last administered on 05:50; Admin Dose 52.5 MLS/HR; Start 11/24/16 at 22:30 Heparin Sodium (Porcine) 250 ml @ 7 mls/hr TITRATE IV Last administered on 11/25 02:09; Admin Dose 7 MLS/HR; Start 11/25/16 at 01:32 Sodium Chloride (NS) 1,000 ml @ 125 mls/hr Q8H IV Last administered on 06:53; Admin Dose 125 MLS/HR; Start 11/25/16 at 01:53 Metoclopramide HCl (Reglan) 10 mg Q6H PRN IV NAUSEA AND/OR VOMITING; Start at 02:00 Acetaminophen (Tylenol Liquid) 650 mg Q6H PRN PO PAIN LEVEL 1-3 OR FEVER; Start 11/25/16 at 02:00 Morphine Sulfate (morphine) 2 mg Q4H PRN IV PAIN LEVEL 7-10; Start 11/25/16 at 02:00 Famotidine 20 mg 20 mg Q12 IV ; Start 11/25/16 at 09:00 Dobutamine HCl/ Dextrose 250 ml @ 8.523 mls/ hr TITRATE IV ; Start 11/25/16 at 02:00 Insulin Aspart (Novolog Insulin Pen) NOVOLOG *MILD* ALGORI... Q4 SC ; Start at 09:00 Miscellaneous Information (* Miscellaneous Pharmacy Order) HYPOGLYCEMIA PROTOCOL w... ONCE ONCE XX ; Start 11/25/16 at 09:00; Stop 11/25/16 at 09:01 Miscellaneous Information (* Miscellaneous Pharmacy Order) Discontinue Glyburide , Glipizide,... ONCE ONCE XX ; Start 11/25/16 at 09:00; Stop 11/25/16 at 09:01 Miscellaneous Information (* Miscellaneous Pharmacy Order) Discontinue all previ... ONCE ONCE XX ; Start 11/25/16 at 09:00; Stop 11/25/16 at 09:01 Miscellaneous Information 1 ea NOTE XX ; Start 11/25/16 at 09:00 Glucose (Glutose) 15 gm Q15M PRN PO DECREASED GLUCOSE; Start 11/25/16 at 09:00 Glucose (Glutose) 22.5 gm Q15M PRN PO DECREASED GLUCOSE; Start 11/25/16 at 09: 00 Dextrose (D50w Syringe) 25 ml Q15M PRN IV DECREASED GLUCOSE; Start 11/25/16 at 09:00 Dextrose (D50w Syringe) 50 ml Q15M PRN IV DECREASED GLUCOSE; Start 11/25/16 at 09:00 Glucagon (Glucagen) 1 mg Q15M PRN IM DECREASED GLUCOSE; Start 11/25/16 at 09:00 Glucose (Glutose) 15 gm Q15M PRN BUCCAL DECREASED GLUCOSE; Start 11/25/16 at 09 :00 PALMIRA ALFARO NP Nov 25, 2016 09:06
[2016-11-25] MEDS ORDERED: VANCOMYCIN IV PER PHARMACY XX SCH (10:30)
[2016-11-25] MEDS ORDERED: ISONIAZID 300 MG TAB PO ONE (10:30)
[2016-11-25 11:08] LABS: BASOPHIL # 0.1 10^3/ul (0.0-0.1); LYMPHOCYTES # 0.9 10^3/ul (0.8-2.9); MONOCYTE # 0.1 10^3/ul (0.3-0.9); NEUTROPHIL # 2.2 10^3/ul (1.6-7.5)
[2016-11-25 11:09] LABS: PLATELET ESTIMATE PLT APPEAR INCREASED
[2016-11-25] MEDS: MEROPENEM 1 GM/100 ML (PMX) 100 ML IVPB SCH ×2 (11:44→20:43)
[2016-11-25] MEDS ORDERED: PHENYLephrine 40 MG in DEXTROSE 5% 496 ML IV SCH (12:00)
[2016-11-25] MEDS: PYRIDOXINE 50 MG TAB GTB SCH (12:52)
[2016-11-25] MEDS: ISONIAZID 300 MG TAB GTB SCH (12:52)
[2016-11-25] MEDS: ETHAMBUTOL 400 MG TAB GTB SCH (12:52)
[2016-11-25] MEDS: RIFAMPIN 300 MG CAP PEG SCH (12:53)
--- NOTE | 2016-11-25 14:19 | CONS ---
DATE OF ADMISSION: 11/24/2016 DATE OF CONSULTATION: 11/25/2016 TYPE OF CONSULTATION: Pulmonary. PRIMARY PHYSICIAN: Gerald Rodriges MD. REASON FOR CONSULTATION: Respiratory insufficiency. HISTORY OF PRESENT ILLNESS: Briefly, this is an 81-year-old gentleman with a past medical history n otable for COPD, chronic encephalopathy, diabetes, recent diagnosis, back in August, of active pulm onary TB, hospitalized at an outside hospital and on treatment with [facility]; who presented last night f rom his nursing facility with fevers and evidence of septic shock, possibly emanating from an acute pneumonic source. PAST MEDICAL HISTORY: In addition to what is noted above, history of renal failure, history of UTIs , neurogenic bladder, anemia. ALLERGIES: NONE. MEDICATIONS: Please see MAR. SOCIAL HISTORY: Resident of a penitentiary facility. No tobacco, alcohol, or illicit drug use. FAMILY HISTORY: Noncontributory. REVIEW OF SYSTEMS: As noted in the HPI. PHYSICAL EXAMINATION: VITAL SIGNS: Heart rate is 105, oxygen saturation is 100% on 15L nonrebreather, afebrile but temper ature maximum of 100.1. HEENT: Normocephalic, atraumatic. Mild accessory muscle use. NECK: No jugular venous distention. CARDIOVASCULAR: Tachycardic, S1 and S2. CHEST: Coarse rhonchi heard bilaterally. ABDOMEN: Soft, nontender, no hepatosplenomegaly. EXTREMITIES: No cyanosis, clubbing, or edema. LABORATORY DATA: Chest x-ray shows evidence of volume loss in the left upper lung zone, as well as multifocal airspace opacities bilaterally. WBC 6.5, hemoglobin is 8.2. Lactic acid was 5.1, subseq uently 2.3. Troponins peaked at 0.53. ABG: pH is 745, pCO2 of 40, pO2 of 99. IMPRESSION: 1. Hypoxemic respiratory insufficiency, likely secondary to a multifocal aspiration versus [facility] re-associated pneumonia, in a patient with underlying existing restrictive and possibly obstructive lung disease. 2. Shock, likely septic, possibly due to a pneumonic source; however, must rule out a catheter-rela kami bloodstream infection, given his PICC line. 3. History of pulmonary TB, on treatment. RECOMMENDATIONS: 1. Antibiotic coverage, as per ID recommendations. 2. Strict aspiration precautions. 3. Obtain a CT chest without contrast to better elucidate his pathology. 4. Obtain a stat ABG. 5. We will monitor closely for need for noninvasive positive pressure ventilation versus intubation . Dictated By: CARMELA GOMEZ MD NK/NTS Conf#: [id number] DID#: [id number] CC: GERALD RODRIGES MD; DESHAUN SALGADO MD;*End*
[2016-11-25 15:57] LABS: AADO2 Arterial 619.1 mmHg (7.0-24.0); Arterial Base Excess -3.2 mmol/L (-3.0-3); Arterial COHb 0.2 % (0.0-3.0); Arterial Fraction of Oxyhgb 92.4 % (93.0-99.0); Arterial HCO3 20.2 mmol/L (22.0-26.0); Arterial MetHb 0.5 % (0.0-1.5); Arterial Total Hemglobin 7.8 g/dl (12.0-18.0); MODE MASK - NRB
[2016-11-25 19:20] LABS: PHOSPHORUS 2.1 mg/dl (2.5-4.9)
[2016-11-25 19:40] LABS: TROPONIN-I 0.494 ng/ml (0.00-0.12)
[2016-11-25] MEDS ORDERED: HEPARIN 1000 UNITS/ML 10 ML INJ IV PRN (22:30)
[2016-11-25] MEDS: VANCOMYCIN 1 GM in NS 250 ML IVPB SCH (22:33)
[2016-11-26] VITALS (75 sets, daily range): BP systolic 85–126; BP diastolic 54–97; PULSE 91–126; RESP 21–35
[2016-11-26] MEDS: INSULIN ASPART [NOVOLOG] 3 ML PEN SC SCH ×6 (01:00→20:55)
[2016-11-26] MEDS: LEVALBUTEROL (NEB) 0.31 MG/3 ML AMP HHN SCH ×4 (01:46→20:30)
[2016-11-26 03:36] LABS: ADD SCAN DIFF NO
[2016-11-26 03:58] LABS: ABNORMAL IP MESSAGE 1; HEMATOCRIT 25.2 % (42.0-52.0); HEMOGLOBIN 8.4 g/dl (14.0-18.0); MEAN CORPUSCULAR HEMOGLOBIN 33.5 pg (29.0-33.0); MEAN CORPUSCULAR HGB CONC 33.3 g/dl (32.0-37.0); MEAN CORPUSCULAR VOLUME 100.4 fl (82.0-101.0); MEAN PLATELET VOLUME 9.2 fl (7.4-10.4); PLATELET COUNT 579 10^3/UL (140-415); RED BLOOD COUNT 2.51 10^6/ul (4.70-6.10); RED CELL DISTRIBUTION WIDTH 14.1 % (11.5-14.5); WHITE BLOOD COUNT 11.7 10^3/ul (4.8-10.8)
[2016-11-26 04:11] LABS: CREATININE 0.67 mg/dl (0.61-1.24)
[2016-11-26 04:12] LABS: CALCIUM 7.5 mg/dl (8.4-10.2)
[2016-11-26 04:20] LABS: POTASSIUM 2.8 mmol/L (3.5-5.1)
[2016-11-26 04:52] LABS: AADO2 Arterial 612.8 mmHg (7.0-24.0); Arterial Base Excess -6.8 mmol/L (-3.0-3); Arterial COHb 0.3 % (0.0-3.0); Arterial Fraction of Oxyhgb 92.3 % (93.0-99.0); Arterial HCO3 17.4 mmol/L (22.0-26.0); Arterial MetHb 0.5 % (0.0-1.5); Arterial Total Hemglobin 9.4 g/dl (12.0-18.0); MODE MASK - NRB
[2016-11-26] MEDS: SOD CHLORIDE 0.9% 1,000 ML IV SCH ×3 (05:08→16:10)
[2016-11-26] MEDS: POTASSIUM CHLORIDE 50 ML IVPB PRN ×6 (05:43→18:26)
[2016-11-26] MEDS: ISONIAZID 300 MG TAB GTB SCH (08:33)
[2016-11-26] MEDS: HEPARIN 25000 UNITS/250 ML 250 ML IV SCH (08:47)
[2016-11-26] MEDS: FAMOTIDINE 20 MG INJ IV SCH (09:42)
[2016-11-26] MEDS: MEROPENEM 1 GM/100 ML (PMX) 100 ML IVPB SCH ×2 (09:42→20:13)
[2016-11-26] MEDS: ETHAMBUTOL 400 MG TAB GTB SCH (09:43)
[2016-11-26] MEDS: RIFAMPIN 300 MG CAP PEG SCH (09:43)
[2016-11-26] MEDS: PYRIDOXINE 50 MG TAB GTB SCH (09:43)
[2016-11-26 10:09] LABS: LYMPHOCYTES # 0.7 10^3/ul (0.8-2.9); MONOCYTE # 0.4 10^3/ul (0.3-0.9); NEUTROPHIL # 6.1 10^3/ul (1.6-7.5)
[2016-11-26 10:10] LABS: PLATELET ESTIMATE PLT APPEAR INCREASED
--- NOTE | 2016-11-26 12:31 | CONS ---
Date/Time of Note Date/Time of Note DATE: 11/26/16 TIME: 12:25 Consult Date/Type/Reason Admit Date/Time Nov 24, 2016 at 23:51 Initial Consult Date Type of Consultation: Pulm/CCM Subjective Remains on a NRM. CT chest reviewed--> with extensive fibrotic disease with superimposed airspace consolidation; a very dilated esophagus Objective Vital Signs Date Time Temp Pulse Resp B/P Pulse Ox O2 Delivery O2 Flow Rate FiO2 11/26/16 12:00 Non Rebreather 11/26/16 12:00 110 11/26/16 11:30 28 118/76 80 11/26/16 09:05 15.0 11/26/16 08:00 98.8 11/25/16 15:21 97 Intake and Output 11/25/16 11/25/16 11/26/16 15:00 23:00 07:00 Intake Total 1247.800 ml 986.980 ml 731.5 ml Output Total 680 ml 590 ml 310 ml Balance 567.800 ml 396.980 ml 421.5 ml Exam HEENT: Normocephalic, atraumatic. Mild accessory muscle use. NECK: No jugular venous distention. CARDIOVASCULAR: Tachycardic, S1 and S2. CHEST: Coarse rhonchi heard bilaterally. ABDOMEN: Soft, nontender, no hepatosplenomegaly. EXTREMITIES: No cyanosis, clubbing, or edema. Results/Medications Result Diagram: 11/26/16 0318 11/26/16 0318 Results 24 hrs Laboratory Tests Test 11/25/16 13:34 11/25/16 13:52 11/25/16 14:00 11/25/16 17:05 Blood Gas Specimen Source Blood arterial Arterial Blood Date Drawn 11/25/2016 3:28:32 PM Arterial Blood pH (Temp corrected) 7.454 H Arterial Blood pCO2 (Temp correct) 29.5 L Arterial Blood pO2 (Temp corrected) 64.4 L Arterial Blood HCO3 20.2 L Arterial Blood Base Excess -3.2 L Arterial Blood Oxygen Saturation 93.1 L Rolando Test N/A Arterial Blood Gas Puncture Site Right Brachial Arterial Blood Carboxyhemoglobin 0.2 Arterial Blood Methemoglobin 0.5 Blood Gas A-a O2 Differential 619.1 H Oxyhemoglobin Percent 92.4 L Total Hemoglobin 7.8 L Blood Gas Temperature 37.0 Blood Gas Actual Respiration Rate 20 Blood Gas Modality MASK - NRB FiO2 100.0 Blood Gas Critical Value Read Back KELLI KENDRICK Blood Gas Notified Whom SUNNI GIPSON Blood Gas Notified Time 11/25/2016 3:44:15 PM Bedside Glucose 153 Activated Partial Thromboplast Time 46.8 H Lactic Acid Level 2.0 1.7 Phosphorus Level 2.1 L Magnesium Level 2.0 Troponin I 0.494 *H Test 11/25/16 17:30 11/25/16 20:48 11/25/16 20:50 11/26/16 02:12 Bedside Glucose 135 120 Activated Partial Thromboplast Time 45.6 H Lactic Acid Level 1.9 1.9 Test 11/26/16 03:11 11/26/16 03:18 11/26/16 05:00 11/26/16 05:07 Bedside Glucose 115 140 White Blood Count 11.7 #H Red Blood Count 2.51 L Hemoglobin 8.4 L Hematocrit 25.2 L Mean Corpuscular Volume 100.4 Mean Corpuscular Hemoglobin 33.5 H Mean Corpuscular Hemoglobin Concent 33.3 Red Cell Distribution Width 14.1 Platelet Count 579 H Mean Platelet Volume 9.2 Neutrophils % 52.0 Band Neutrophils % 35.0 H Lymphocytes % 6.0 L Reactive Lymphocytes % 2.0 Monocytes % 3.0 Eosinophils % Metamyelocytes % 2.0 H Neutrophils # 6.1 Lymphocytes # 0.7 L Monocytes # 0.4 Eosinophils # Metamyelocytes # 0.2 Platelet Estimate PLT APPEAR INCREASED Large Platelets FEW Activated Partial Thromboplast Time 83.0 *H Sodium Level 143 Potassium Level 2.8 *L Chloride Level 112 H Carbon Dioxide Level 22 Anion Gap 12 Blood Urea Nitrogen 19 Creatinine 0.67 Glucose Level 117 # Lactic Acid Level 1.8 Calcium Level 7.5 L Blood Gas Specimen Source Blood arterial Arterial Blood Date Drawn 11/26/2016 4:20:04 AM Arterial Blood pH (Temp corrected) 7.380 Arterial Blood pCO2 (Temp correct) 30.1 L Arterial Blood pO2 (Temp corrected) 70.1 L Arterial Blood HCO3 17.4 L Arterial Blood Base Excess -6.8 L Arterial Blood Oxygen Saturation 93.0 L Rolando Test N/A Arterial Blood Gas Puncture Site Right Brachial Arterial Blood Carboxyhemoglobin 0.3 Arterial Blood Methemoglobin 0.5 Blood Gas A-a O2 Differential 612.8 H Oxyhemoglobin Percent 92.3 L Total Hemoglobin 9.4 L Blood Gas Temperature 37.0 Blood Gas Modality MASK - NRB FiO2 100.0 Blood Gas Notified Whom MM Blood Gas Notified Time 11/26/2016 4:51:57 AM Test 11/26/16 09:42 Bedside Glucose 140 Medications Current Medications Norepinephrine 250 ml @ 1.875 mls/ hr TITRATE IV Last administered on 10:31; Admin Dose 28.125 MLS/HR; Start 11/24/16 at 22:30 Heparin Sodium (Porcine) 250 ml @ 7 mls/hr TITRATE IV Last administered on 11/26 08:47; Admin Dose 9 MLS/HR; Start 11/25/16 at 01:32 Sodium Chloride (NS) 1,000 ml @ 125 mls/hr Q8H IV Last administered on 05:08; Admin Dose 125 MLS/HR; Start 11/25/16 at 01:53 Metoclopramide HCl (Reglan) 10 mg Q6H PRN IV NAUSEA AND/OR VOMITING; Start at 02:00 Acetaminophen (Tylenol Liquid) 650 mg Q6H PRN PO PAIN LEVEL 1-3 OR FEVER; Start 11/25/16 at 02:00 Morphine Sulfate (morphine) 2 mg Q4H PRN IV PAIN LEVEL 7-10; Start 11/25/16 at 02:00 Famotidine 20 mg 20 mg Q12 IV Last administered on 11/26/16 09:42; Admin Dose 20 MG; Start 11/25/16 at 09:00 Dobutamine HCl/ Dextrose 250 ml @ 8.523 mls/ hr TITRATE IV ; Start 11/25/16 at 02:00 Insulin Aspart (Novolog Insulin Pen) NOVOLOG *MILD* ALGORI... Q4 SC Last administered on 11/25/16 14:16; Admin Dose 1 UNIT; Start 11/25/16 at 09:00 Miscellaneous Information 1 ea NOTE XX ; Start 11/25/16 at 09:00 Glucose (Glutose) 15 gm Q15M PRN PO DECREASED GLUCOSE; Start 11/25/16 at 09:00 Glucose (Glutose) 22.5 gm Q15M PRN PO DECREASED GLUCOSE; Start 11/25/16 at 09: 00 Dextrose (D50w Syringe) 25 ml Q15M PRN IV DECREASED GLUCOSE; Start 11/25/16 at 09:00 Dextrose (D50w Syringe) 50 ml Q15M PRN IV DECREASED GLUCOSE; Start 11/25/16 at 09:00 Glucagon (Glucagen) 1 mg Q15M PRN IM DECREASED GLUCOSE; Start 11/25/16 at 09:00 Glucose 15 gm 15 gm Q15M PRN BUCCAL DECREASED GLUCOSE; Start 11/25/16 at 09:00 Phenylephrine HCl 40 mg/Dextrose 500 ml @ 75 mls/hr TITRATE IV ; Start at 12:00 Meropenem (Merrem 1 Gm/100 ml (Pmx)) 100 ml @ 200 mls/hr Q12 IVPB Last administered on 11/26/16 09:42; Admin Dose 200 MLS/HR; Start 11/25/16 at 11:00 Ethambutol HCl (Myambutol) 400 mg DAILY GTB Last administered on 11/26/16 09: 43; Admin Dose 400 MG; Start 11/25/16 at 10:30 Pyridoxine HCl (Vitamin B6) 50 mg DAILY GTB Last administered on 11/26/16 09: 43; Admin Dose 50 MG; Start 11/25/16 at 10:30 Rifampin 600 mg 600 mg DAILY PEG Last administered on 11/26/16 09:43; Admin Dose 600 MG; Start 11/25/16 at 10:30 Vancomycin HCl (Vancocin) 250 ml @ 125 mls/hr Q24H IVPB Last administered on 22:33; Admin Dose 125 MLS/HR; Start 11/25/16 at 22:00 Isoniazid (Isoniazid) 300 mg DAILY GTB Last administered on 11/26/16 08:33; Admin Dose 300 MG; Start 11/26/16 at 09:00 Heparin Sodium (Porcine) (Heparin (1000 Units/ml)) 3,300 unit PRN PRN IV PENDING LAB VALUE; Start 11/25/16 at 22:30 Assessment/Plan Additional Assessment/Plan IMPRESSION: 1. 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 2. Shock, likely septic, possibly due to a pneumonic source; however, must rule out a catheter-related bloodstream infection, given his PICC line. 3. History of pulmonary TB, on treatment. 4. Gm+ bacteremia--likely line-related RECOMMENDATIONS: 1. Antibiotic coverage, as per ID recommendations. 2. Strict aspiration precautions. 3. Maintain NPO 4. Maintain on NRM; Follow ABG and mental status with low threshold to intubated 5. Obtain prior imaging from [facility] 35 min cc time CARMELA GOMEZ MD Nov 26, 2016 12:31
--- NOTE | 2016-11-26 13:08 | CONS ---
Date/Time of Note Date/Time of Note DATE: 11/26/16 TIME: 13:02 Assessment/Plan Assessment/Plan Additional Assessment/Plan Sepsis Respiratory failure Pulmonary tuberculosis Pneumonia Mildly elevated troponin -Troponins mildly elevated and trending down. Likely secondary to sepsis and respiratory status. Patient n.p.o. Would order aspirin per rectum and switch to p.o. once able to take, statin as well if able to take p.o. medications. No beta-jacinta given current respiratory status. Antibiotics as per infectious disease. Consultation Date/Type/Reason Admit Date/Time Nov 24, 2016 at 23:51 Type of Consultation: cv Reason for Consultation Elevated troponin Hx of Present Illness This is an 81-year-old male with past medical history of pulmonary tuberculosis , encephalopathy who was admitted with sepsis and worsening respiratory status. Patient in ICU secondary to respiratory status. Currently on facemask. Unable to give history and information obtained from the chart. Laboratory studies demonstrated mildly elevated troponin for this reason cardiology consultation was requested. Unable to be performed at the current time given patient's mental status Past Medical History Tuberculosis Dementia Depression Medical History: diabetes Family History Significant Family History: no pertinent family hx Social History Smoking Status: Unknown if ever smoked Exam/Review of Systems Vital Signs Vitals Vital Signs Date Time Temp Pulse Resp B/P Pulse Ox O2 Delivery O2 Flow Rate FiO2 11/26/16 12:00 Non Rebreather 11/26/16 12:00 110 11/26/16 11:30 28 118/76 80 11/26/16 09:05 15.0 11/26/16 08:00 98.8 11/25/16 15:21 97 Intake and Output 11/25/16 11/25/16 11/26/16 15:00 23:00 07:00 Intake Total 1247.800 ml 986.980 ml 731.5 ml Output Total 680 ml 590 ml 310 ml Balance 567.800 ml 396.980 ml 421.5 ml Exam Sleeping but arousable, appears dyspneic, 100% nonrebreather mask Head: normocephalic Respiratory: other (Coarse breath sounds bilaterally with scattered rhonchi, no wheezing) Cardiovascular: other (S1-S2 heard), regular rate and rhythm (Tachycardic) Gastrointestinal: bowel sounds, non-tender, other (No guarding), soft Extremities: edema (Trace) Results Result Diagram: 11/26/16 0318 11/26/168 Results 24 hrs Laboratory Tests Test 11/25/16 13:34 11/25/16 13:52 11/25/16 14:00 11/25/16 17:05 Blood Gas Specimen Source Blood arterial Arterial Blood Date Drawn 11/25/2016 3:28:32 PM Arterial Blood pH (Temp corrected) 7.454 H Arterial Blood pCO2 (Temp correct) 29.5 L Arterial Blood pO2 (Temp corrected) 64.4 L Arterial Blood HCO3 20.2 L Arterial Blood Base Excess -3.2 L Arterial Blood Oxygen Saturation 93.1 L Rolando Test N/A Arterial Blood Gas Puncture Site Right Brachial Arterial Blood Carboxyhemoglobin 0.2 Arterial Blood Methemoglobin 0.5 Blood Gas A-a O2 Differential 619.1 H Oxyhemoglobin Percent 92.4 L Total Hemoglobin 7.8 L Blood Gas Temperature 37.0 Blood Gas Actual Respiration Rate 20 Blood Gas Modality MASK - NRB FiO2 100.0 Blood Gas Critical Value Read Back KELLI KENDRICK Blood Gas Notified Whom SUNNI GIPSON Blood Gas Notified Time 11/25/2016 3:44:15 PM Bedside Glucose 153 Activated Partial Thromboplast Time 46.8 H Lactic Acid Level 2.0 1.7 Phosphorus Level 2.1 L Magnesium Level 2.0 Troponin I 0.494 *H Test 11/25/16 17:30 11/25/16 20:48 11/25/16 20:50 11/26/16 02:12 Bedside Glucose 135 120 Activated Partial Thromboplast Time 45.6 H Lactic Acid Level 1.9 1.9 Test 11/26/16 03:11 11/26/16 03:18 11/26/16 05:00 11/26/16 05:07 Bedside Glucose 115 140 White Blood Count 11.7 #H Red Blood Count 2.51 L Hemoglobin 8.4 L Hematocrit 25.2 L Mean Corpuscular Volume 100.4 Mean Corpuscular Hemoglobin 33.5 H Mean Corpuscular Hemoglobin Concent 33.3 Red Cell Distribution Width 14.1 Platelet Count 579 H Mean Platelet Volume 9.2 Neutrophils % 52.0 Band Neutrophils % 35.0 H Lymphocytes % 6.0 L Reactive Lymphocytes % 2.0 Monocytes % 3.0 Eosinophils % Metamyelocytes % 2.0 H Neutrophils # 6.1 Lymphocytes # 0.7 L Monocytes # 0.4 Eosinophils # Metamyelocytes # 0.2 Platelet Estimate PLT APPEAR INCREASED Large Platelets FEW Activated Partial Thromboplast Time 83.0 *H Sodium Level 143 Potassium Level 2.8 *L Chloride Level 112 H Carbon Dioxide Level 22 Anion Gap 12 Blood Urea Nitrogen 19 Creatinine 0.67 Glucose Level 117 # Lactic Acid Level 1.8 Calcium Level 7.5 L Blood Gas Specimen Source Blood arterial Arterial Blood Date Drawn 11/26/2016 4:20:04 AM Arterial Blood pH (Temp corrected) 7.380 Arterial Blood pCO2 (Temp correct) 30.1 L Arterial Blood pO2 (Temp corrected) 70.1 L Arterial Blood HCO3 17.4 L Arterial Blood Base Excess -6.8 L Arterial Blood Oxygen Saturation 93.0 L Rolando Test N/A Arterial Blood Gas Puncture Site Right Brachial Arterial Blood Carboxyhemoglobin 0.3 Arterial Blood Methemoglobin 0.5 Blood Gas A-a O2 Differential 612.8 H Oxyhemoglobin Percent 92.3 L Total Hemoglobin 9.4 L Blood Gas Temperature 37.0 Blood Gas Modality MASK - NRB FiO2 100.0 Blood Gas Notified Whom MM Blood Gas Notified Time 11/26/2016 4:51:57 AM Test 11/26/16 09:42 11/26/16 12:43 Bedside Glucose 140 136 Medications Medications Current Medications Norepinephrine 250 ml @ 1.875 mls/ hr TITRATE IV Last administered on 10:31; Admin Dose 28.125 MLS/HR; Start 11/24/16 at 22:30 Heparin Sodium (Porcine) 250 ml @ 7 mls/hr TITRATE IV Last administered on 11/26 08:47; Admin Dose 9 MLS/HR; Start 11/25/16 at 01:32 Sodium Chloride (NS) 1,000 ml @ 125 mls/hr Q8H IV Last administered on 05:08; Admin Dose 125 MLS/HR; Start 11/25/16 at 01:53 Metoclopramide HCl (Reglan) 10 mg Q6H PRN IV NAUSEA AND/OR VOMITING; Start at 02:00 Acetaminophen (Tylenol Liquid) 650 mg Q6H PRN PO PAIN LEVEL 1-3 OR FEVER; Start 11/25/16 at 02:00 Morphine Sulfate (morphine) 2 mg Q4H PRN IV PAIN LEVEL 7-10; Start 11/25/16 at 02:00 Famotidine 20 mg 20 mg Q12 IV Last administered on 11/26/16 09:42; Admin Dose 20 MG; Start 11/25/16 at 09:00 Dobutamine HCl/ Dextrose 250 ml @ 8.523 mls/ hr TITRATE IV ; Start 11/25/16 at 02:00 Insulin Aspart (Novolog Insulin Pen) NOVOLOG *MILD* ALGORI... Q4 SC Last administered on 11/25/16 14:16; Admin Dose 1 UNIT; Start 11/25/16 at 09:00 Miscellaneous Information 1 ea NOTE XX ; Start 11/25/16 at 09:00 Glucose (Glutose) 15 gm Q15M PRN PO DECREASED GLUCOSE; Start 11/25/16 at 09:00 Glucose (Glutose) 22.5 gm Q15M PRN PO DECREASED GLUCOSE; Start 11/25/16 at 09: 00 Dextrose (D50w Syringe) 25 ml Q15M PRN IV DECREASED GLUCOSE; Start 11/25/16 at 09:00 Dextrose (D50w Syringe) 50 ml Q15M PRN IV DECREASED GLUCOSE; Start 11/25/16 at 09:00 Glucagon (Glucagen) 1 mg Q15M PRN IM DECREASED GLUCOSE; Start 11/25/16 at 09:00 Glucose 15 gm 15 gm Q15M PRN BUCCAL DECREASED GLUCOSE; Start 11/25/16 at 09:00 Phenylephrine HCl 40 mg/Dextrose 500 ml @ 75 mls/hr TITRATE IV ; Start at 12:00 Meropenem (Merrem 1 Gm/100 ml (Pmx)) 100 ml @ 200 mls/hr Q12 IVPB Last administered on 11/26/16 09:42; Admin Dose 200 MLS/HR; Start 11/25/16 at 11:00 Ethambutol HCl (Myambutol) 400 mg DAILY GTB Last administered on 11/26/16 09: 43; Admin Dose 400 MG; Start 11/25/16 at 10:30 Pyridoxine HCl (Vitamin B6) 50 mg DAILY GTB Last administered on 11/26/16 09: 43; Admin Dose 50 MG; Start 11/25/16 at 10:30 Rifampin 600 mg 600 mg DAILY PEG Last administered on 11/26/16 09:43; Admin Dose 600 MG; Start 11/25/16 at 10:30 Vancomycin HCl (Vancocin) 250 ml @ 125 mls/hr Q24H IVPB Last administered on 22:33; Admin Dose 125 MLS/HR; Start 11/25/16 at 22:00 Isoniazid (Isoniazid) 300 mg DAILY GTB Last administered on 11/26/16 08:33; Admin Dose 300 MG; Start 11/26/16 at 09:00 Heparin Sodium (Porcine) (Heparin (1000 Units/ml)) 3,300 unit PRN PRN IV PENDING LAB VALUE; Start 11/25/16 at 22:30 Procedures Procedures ECG done on the demonstrates sinus tachycardia at 125 beats per, QRS 80 ms , nonspecific STT wave abnormalities more so in lateral leads Oscar Maradiaga DO Nov 26, 2016 13:07
[2016-11-26 13:14] LABS: INR 1.37; PROTIME 16.9 Sec (12.2-14.2); PT RATIO 1.3
[2016-11-26 13:15] LABS: PARTIAL THROMBOPLASTIN TIME 45.6 Sec (25.0-35.0)
[2016-11-26] MEDS ORDERED: HEPARIN 5,000 UNIT/0.5 ML VIAL SC SCH (14:00)
[2016-11-26] MEDS ORDERED: HEPARIN 1000 UNITS/ML 10 ML INJ IV SCH (14:00)
--- NOTE | 2016-11-26 14:21 | RADRPT ---
PROCEDURE: CT Chest without contrast. CLINICAL INDICATION: Pneumonia TECHNIQUE: CT scan of the chest without contrast was performed. Coronal and sagittal reformatted images were obtained from the axial source images. The total exam CTDI equals 8 mGy and the total ex am DLP equals 301 mGy-cm. COMPARISON: Chest x-rays dating back to November 10, 2016 FINDINGS: There is dense consolidation in the posterior segment of the right upper lobe, the lingula and both lower lobes. There is volume loss in the lower lobes. Noted is fluid in the right major fissure wi th small volume of pleural effusion in the dependent portion of the pleural cavity. There is tracti on bronchiectasis in both lungs. No pneumothorax is identified. There are visible but nonpathologi matias enlarged mediastinal nodes. Thoracic aorta is without evidence of aneurysm. There are parks ry artery calcifications. Tiny pericardial effusion is present with mild cardiomegaly. No upper abdominal or adrenal mass is seen. Gastrostomy tube is present in the stomach. The osseous structures appear normal. IMPRESSION: Dense consolidation involving the right upper lobe, lingula and both lower lobes with volume loss in the lower lobes. Rule out multi focal pneumonia. Question aspiration. Small free flowing pleural effusions with fluid in the major fissure on the right. Coronary artery calcifications. Cardiomegaly with tiny pericardial effusion. Gastrostomy tube. .French Pierre MD, MD Date Time Electronically viewed and signed by .French Pierre MD, MD on 11/26/2016 14:20 .A/
[2016-11-26 15:09] LABS: CK-MB 2.24 ng/ml (0.0-2.4)
[2016-11-26 15:22] LABS: TROPONIN-I 0.182 ng/ml (0.00-0.12)
--- NOTE | 2016-11-26 16:49 | RADRPT ---
Echocardiogram Report Patient Name: CARLOS IBRAHIM Gender: Male Date: 1935 Study Date: 26-Nov-2016 Liquor Merchant: [facility] Location: 108 Ref. Physician: OSCAR BINGHAM Quality: Adequate Procedures: Transthoracic echocardiogram with complete 2D, M-Mode, and doppler examination. Indications: RESP. FAILURE. 2D/M Mode Doppler Measurement Value Normal Ranges Measurement Value Normal Ranges LVIDd 2D 5.2 3.5 - 5.6 cm AV Peak Rashad 1.1 m/sec LVIDs 2D 3.7 2.1 - 4.1 cm AV Peak PG 5.3 mmHg LVPWd 2D 1.1 0.6 - 1.1 cm LVOT Peak Rashad 1.1 m/sec IVSd 2D 1.0 0.6 - 1.1 cm LVOT Peak PG 4.7 mmHg AoR Diam 2D 3.3 2.0 - 3.7 cm TR Peak Rashad 3.7 m/sec EDV 2D 127.4 cm3 TR Peak PG 55.8 mmHg ESV 2D 52.5 cm3 Findings Left Ventricle: Normal left ventricular systolic function. Normal left ventricular cavity size. Normal left ventricular wall thickness. Ejection fraction is visually estimated at 60 %. Abnormal Diastolic Function. Right Ventricle: Normal right ventricular size. Normal right ventricular systolic function. Left Atrium: Upper limit of normal left atrial size. Right Atrium: The right atrium is normal in size. RA Pressure=3. Mitral Valve: Mild mitral leaflet calcification. Mild mitral annular calcification. Trace mitral regurgitation. Aortic Valve: Normal appearance of the aortic valve. No significant aortic stenosis or insufficiency. Tricuspid Valve: Normal appearance of the tricuspid valve. Estimated peak PA systolic pressure 65 mmHg. There is moderate tricuspid regurgitation. Pulmonic Valve: There is trace pulmonic regurgitation. Pericardium: Normal pericardium with no significant pericardial effusion. Aorta: Normal aortic root. IVC: Normal size and normal respiratory collapse consistent with normal right atrial pressure. Conclusions 1.Normal left ventricular systolic function. Normal left ventricular cavity size. Normal left ventricular wall thickness. Ejection fraction is visually estimated at 60 %. Abnormal Diastolic Function. 2.Normal right ventricular size. Normal right ventricular systolic function. 3.Upper limit of normal left atrial size. 4.The right atrium is normal in size. RA Pressure=3. 5.Normal appearance of the tricuspid valve. Estimated peak PA systolic pressure 65 mmHg. There is moderate tricuspid regurgitation. 6.No significant valvular stenosis or regurgitation seen of remaining visualized valves. 7.Normal pericardium with no significant pericardial effusion. Electronically Signed By: Oscar Bingham 26-Nov-2016 16:48:45 -0700 Patient Name: CARLOS IBRAHIM Study Date: 26-Nov-2016 [id number]
--- NOTE | 2016-11-26 17:07 | PN ---
Date/Time of Note Date/Time of Note DATE: 11/26/16 TIME: 16:58 Assessment/Plan VTE Prophylaxis VTE Prophylaxis Intervention: SCD's Assessment/Plan Chief Complaint/Hosp Course 1. Septic shock 2/2 HCAP -cont ABx 2. Acute Resp Failure 2/2 above -cont 02 3. Hypokalemia-repleted 4. Non-ST elevation myocardial infarction (NSTEMI)-type 2 from sepsis -Cards consult appreciated 5. Thrombocytosis-likely reactive PPx- SCD's Problems: Subjective 24 Hr Interval Summary Constitutional: disoriented Exam/Review of Systems Vital Signs Vitals Vital Signs Date Time Temp Pulse Resp B/P Pulse Ox O2 Delivery O2 Flow Rate FiO2 11/26/16 16:15 126 22 110/83 89 11/26/16 16:00 99.0 11/26/16 12:00 Non Rebreather 11/26/16 09:05 15.0 11/25/16 15:21 97 Intake and Output 11/25/16 11/25/16 11/26/16 15:00 23:00 07:00 Intake Total 1247.800 ml 986.980 ml 871.125 ml Output Total 680 ml 590 ml 350 ml Balance 567.800 ml 396.980 ml 521.125 ml Exam Psych: confusion Respiratory: clear to auscultation Cardiovascular: regular rate and rhythm Gastrointestinal: soft, No distended Musculoskeletal: nl extremities to inspection Results Result Diagram: 11/26/16 0318 11/26/16 1241 Results 24 hrs Laboratory Tests Test 11/25/16 17:05 11/25/16 17:30 11/25/16 20:48 11/25/16 20:50 Lactic Acid Level 1.7 1.9 Phosphorus Level 2.1 L Magnesium Level 2.0 Troponin I 0.494 *H Bedside Glucose 135 120 Activated Partial Thromboplast Time 45.6 H Test 11/26/16 02:12 11/26/16 03:11 11/26/16 03:18 11/26/16 05:00 Lactic Acid Level 1.9 1.8 Bedside Glucose 115 White Blood Count 11.7 #H Red Blood Count 2.51 L Hemoglobin 8.4 L Hematocrit 25.2 L Mean Corpuscular Volume 100.4 Mean Corpuscular Hemoglobin 33.5 H Mean Corpuscular Hemoglobin Concent 33.3 Red Cell Distribution Width 14.1 Platelet Count 579 H Mean Platelet Volume 9.2 Neutrophils % 52.0 Band Neutrophils % 35.0 H Lymphocytes % 6.0 L Reactive Lymphocytes % 2.0 Monocytes % 3.0 Eosinophils % Metamyelocytes % 2.0 H Neutrophils # 6.1 Lymphocytes # 0.7 L Monocytes # 0.4 Eosinophils # Metamyelocytes # 0.2 Platelet Estimate PLT APPEAR INCREASED Large Platelets FEW Activated Partial Thromboplast Time 83.0 *H Sodium Level 143 Potassium Level 2.8 *L Chloride Level 112 H Carbon Dioxide Level 22 Anion Gap 12 Blood Urea Nitrogen 19 Creatinine 0.67 Glucose Level 117 # Calcium Level 7.5 L Blood Gas Specimen Source Blood arterial Arterial Blood Date Drawn 11/26/2016 4:20:04 AM Arterial Blood pH (Temp corrected) 7.380 Arterial Blood pCO2 (Temp correct) 30.1 L Arterial Blood pO2 (Temp corrected) 70.1 L Arterial Blood HCO3 17.4 L Arterial Blood Base Excess -6.8 L Arterial Blood Oxygen Saturation 93.0 L Rolando Test N/A Arterial Blood Gas Puncture Site Right Brachial Arterial Blood Carboxyhemoglobin 0.3 Arterial Blood Methemoglobin 0.5 Blood Gas A-a O2 Differential 612.8 H Oxyhemoglobin Percent 92.3 L Total Hemoglobin 9.4 L Blood Gas Temperature 37.0 Blood Gas Modality MASK - NRB FiO2 100.0 Blood Gas Notified Whom MM Blood Gas Notified Time 11/26/2016 4:51:57 AM Test 11/26/16 05:07 11/26/16 09:42 11/26/16 12:41 11/26/16 12:43 Bedside Glucose 140 140 136 Prothrombin Time 16.9 H Prothrombin Time Ratio 1.3 INR International Normalized Ratio 1.37 Activated Partial Thromboplast Time 45.6 H Potassium Level 3.3 L Lactic Acid Level 1.7 Creatine Kinase 27 Creatine Kinase Index 8.3 Creatinine Kinase MB (Mass) 2.24 Troponin I 0.182 *H Test 11/26/16 16:13 Bedside Glucose 143 Medications Medications Current Medications Heparin Sodium (Porcine) 250 ml @ 7 mls/hr TITRATE IV Last administered on 11/26t 08:47; Admin Dose 9 MLS/HR; Start 11/25/16 at 01:32 Sodium Chloride (NS) 1,000 ml @ 125 mls/hr Q8H IV Last administered on 16:10; Admin Dose 125 MLS/HR; Start 11/25/16 at 01:53 Metoclopramide HCl (Reglan) 10 mg Q6H PRN IV NAUSEA AND/OR VOMITING; Start at 02:00 Acetaminophen (Tylenol Liquid) 650 mg Q6H PRN PO PAIN LEVEL 1-3 OR FEVER; Start 11/25/16 at 02:00 Morphine Sulfate 2 mg 2 mg Q4H PRN IV PAIN LEVEL 7-10; Start 11/25/16 at 02:00 Dobutamine HCl/ Dextrose 250 ml @ 8.523 mls/ hr TITRATE IV ; Start 11/25/16 at 02:00 Insulin Aspart (Novolog Insulin Pen) NOVOLOG *MILD* ALGORI... Q4 SC Last administered on 11/26/16 16:23; Admin Dose 1 UNIT; Start 11/25/16 at 09:00 Miscellaneous Information 1 ea NOTE XX ; Start 11/25/16 at 09:00 Glucose (Glutose) 15 gm Q15M PRN PO DECREASED GLUCOSE; Start 11/25/16 at 09:00 Glucose (Glutose) 22.5 gm Q15M PRN PO DECREASED GLUCOSE; Start 11/25/16 at 09: 00 Dextrose (D50w Syringe) 25 ml Q15M PRN IV DECREASED GLUCOSE; Start 11/25/16 at 09:00 Dextrose (D50w Syringe) 50 ml Q15M PRN IV DECREASED GLUCOSE; Start 11/25/16 at 09:00 Glucagon (Glucagen) 1 mg Q15M PRN IM DECREASED GLUCOSE; Start 11/25/16 at 09:00 Glucose 15 gm 15 gm Q15M PRN BUCCAL DECREASED GLUCOSE; Start 11/25/16 at 09:00 Phenylephrine HCl 40 mg/Dextrose 500 ml @ 75 mls/hr TITRATE IV ; Start at 12:00 Meropenem (Merrem 1 Gm/100 ml (Pmx)) 100 ml @ 200 mls/hr Q12 IVPB Last administered on 11/26/16 09:42; Admin Dose 200 MLS/HR; Start 11/25/16 at 11:00 Ethambutol HCl (Myambutol) 400 mg DAILY GTB Last administered on 11/26/16 09: 43; Admin Dose 400 MG; Start 11/25/16 at 10:30 Pyridoxine HCl (Vitamin B6) 50 mg DAILY GTB Last administered on 11/26/16 09: 43; Admin Dose 50 MG; Start 11/25/16 at 10:30 Rifampin 600 mg 600 mg DAILY PEG Last administered on 11/26/16 09:43; Admin Dose 600 MG; Start 11/25/16 at 10:30 Vancomycin HCl (Vancocin) 250 ml @ 125 mls/hr Q24H IVPB Last administered on 22:33; Admin Dose 125 MLS/HR; Start 11/25/16 at 22:00 Isoniazid (Isoniazid) 300 mg DAILY GTB Last administered on 11/26/16 08:33; Admin Dose 300 MG; Start 11/26/16 at 09:00 Heparin Sodium (Porcine) (Heparin (1000 Units/ml)) 3,300 unit PRN PRN IV PENDING LAB VALUE; Start 11/25/16 at 22:30 Aspirin (Aspirin) 300 mg DAILY [place] ; Start 11/27/16 at 09:00 Famotidine (Pepcid Iv) 20 mg DAILY IV ; Start 11/27/16 at 09:00 SAMPSON GUERRERO Nov 26, 2016 17:07
--- NOTE | 2016-11-26 19:06 | CONS ---
Date/Time of Note Date/Time of Note DATE: 11/26/16 TIME: 18:57 Assessment/Plan Assessment/Plan Chief Complaint/Hosp Course ID PROGRESS NOTE CURRENT ABX DAY #2=> Vanco IV + Merrem Pulmonary MTB Rx: Rifampin+ INH + Ethambutol + Pyridoxine [NOTE: [facility] TB DC 'D PYRAZINAMIDE]. 24H INTERVAL SUMMARY * 81 yo M -> (+) frail appearing on 100% NRB FM w/congested cough. Patient opens eyes, non-verbal. * Fevers >104.+ on admission -> resolving with WBC 11.8 * BLOOD CULTURE Preliminary BCULT GRAM BOTTLE 1 Gram positive cocci in clusters 1 of 2 bottles . seen on gram stain of the broth Organism 1 GRAM POSITIVE COCCI IN CLUSTER PHYSICAL EXAMINATION: GENERAL: Chronic ill, 81 yo M, acute hypoxic respiratory failure on 100% O2 via FM, (+)laryngeal + audible rhonchi chest congestion w/(+)wheeze HEENT: FM secure NECK: Supple, trachea midline. 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 Sepsis on admission with, fevers >104.+, hypotension, severe lactic acidosis , (+)Troponin leak * BCx (+)GPC 1/2 bottles 2. Acute hypoxic respiratory distress w/pulmonary sepsis 3. 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 COPD Emphysema/reactive airway w/wheezing exacerbation on chronic pulmonary fibrosis * Hx of long-term + recent tobacco 4. (+)Recent Dx MTB work up completed at [facility]-> Due to his refusal to take PO Meds, NGT was placed for [facility] TB compliance. * Anti-TB meds initiated end of AUG/Early SEP; however patient did not start daily ABX until SEP, 2016 5. Acute encephalopathy on chronic Psych debility + microvascular dementia w/ refusal to take PO Meds at [facility], requiring PEG 6. Dehydration w/Cachexia => hx of refusal of PO intake requiring NGT/eventual PEG placement in past 7. DMT2 w/suspected complication of DM autonomic neuropathies: Gastroparesis/ Neurogenic bladder 8. s/p recent Acute renal failure due to meds + sepsis + dehydration -> S.Creatinine improved this admission 9. Hx of UTIs with urinary retention requiring Leal ?BPH vs Neurogenic bladder 10.GERD 11. Anemia chronic (-)MRSA Nares 11/11/16 INVASIVES: PICC = present on admission, FC, Peg ABX ALLERGY: KNDA CURRENT ABX: Rifampin+ INH + Ethambutol + Pyridoxine =>NOTE: [facility] TB DC'D PYRAZINAMIDE => Vanco IV + Zosyn 11/24/16 ED ID RECOMMENDATIONS 1. ?Suspect PICC Line sepsis -> (+)GPC 1/2 bottles ?if drawn from PICC -> May need to change the line * Repeat BCx x1 via PICC 2. FOR ASPIRATION PNA/Pulmonary sepsis : Continue Vanco IV + Merrem for hx of ASP PNA * = AVOID Zosyn due to Hx of KIM with prior Vanco/Zosyn combo. 2. FOR PULMONARY MTB: Patient in treatment since ~August 2016 = [facility] Infection Control Nurse can contact [facility] if exact dates are needed. * Patient is well-known to Dr. Kathleen's ID team s/p lengthy admission to [facility] where he was Dx with MTB and remained on isolation for many weeks with NGT placed for TB med compliance prior to being cleared by [facility] TB for DC to SNF on 10/10/16. [facility] TB with recs to continue: Rifampin+ INH + Ethambutol + Pyridoxine =>NOTE: [facility] TB DC'D PYRAZINAMIDE * Per ID food consultant standpoint, logically there appears no indication to continue the patient on MTB isolation precautions w/caveat that patient has been compliant with anti-TB meds at SNF. Nevertheless, ID does NOT hold authority for TB clearance recommendations from [facility], this is the responsibility and authority of [facility] Infection Control Staff. Any inquiries from [facility] nursing staff should be directed toward [facility] Infection Control Policy and [facility] TB surveillance recommendations. 3. PROGNOSIS: Poor per hospitalist notes and palliative care consult last admission [facility] . . Problems: Consultation Date/Type/Reason Admit Date/Time Nov 24, 2016 at 23:51 Type of Consultation: ID Exam/Review of Systems Vital Signs Vitals Vital Signs Date Time Temp Pulse Resp B/P Pulse Ox O2 Delivery O2 Flow Rate FiO2 11/26/16 16:15 126 22 110/83 89 11/26/16 16:00 99.0 11/26/16 12:00 Non Rebreather 11/26/16 09:05 15.0 11/25/16 15:21 97 Intake and Output 11/25/16 11/25/16 11/26/16 15:00 23:00 07:00 Intake Total 1247.800 ml 986.980 ml 871.125 ml Output Total 680 ml 590 ml 350 ml Balance 567.800 ml 396.980 ml 521.125 ml Results Result Diagram: 11/26/16 0318 11/26/16 1241 Results 24 hrs Laboratory Tests Test 11/25/16 20:48 11/25/16 20:50 11/26/16 02:12 11/26/16 03:11 Bedside Glucose 120 115 Activated Partial Thromboplast Time 45.6 H Lactic Acid Level 1.9 1.9 Test 11/26/16 03:18 11/26/16 05:00 11/26/16 05:07 11/26/16 09:42 White Blood Count 11.7 #H Red Blood Count 2.51 L Hemoglobin 8.4 L Hematocrit 25.2 L Mean Corpuscular Volume 100.4 Mean Corpuscular Hemoglobin 33.5 H Mean Corpuscular Hemoglobin Concent 33.3 Red Cell Distribution Width 14.1 Platelet Count 579 H Mean Platelet Volume 9.2 Neutrophils % 52.0 Band Neutrophils % 35.0 H Lymphocytes % 6.0 L Reactive Lymphocytes % 2.0 Monocytes % 3.0 Eosinophils % Metamyelocytes % 2.0 H Neutrophils # 6.1 Lymphocytes # 0.7 L Monocytes # 0.4 Eosinophils # Metamyelocytes # 0.2 Platelet Estimate PLT APPEAR INCREASED Large Platelets FEW Activated Partial Thromboplast Time 83.0 *H Sodium Level 143 Potassium Level 2.8 *L Chloride Level 112 H Carbon Dioxide Level 22 Anion Gap 12 Blood Urea Nitrogen 19 Creatinine 0.67 Glucose Level 117 # Lactic Acid Level 1.8 Calcium Level 7.5 L Blood Gas Specimen Source Blood arterial Arterial Blood Date Drawn 11/26/2016 4:20:04 AM Arterial Blood pH (Temp corrected) 7.380 Arterial Blood pCO2 (Temp correct) 30.1 L Arterial Blood pO2 (Temp corrected) 70.1 L Arterial Blood HCO3 17.4 L Arterial Blood Base Excess -6.8 L Arterial Blood Oxygen Saturation 93.0 L Rolando Test N/A Arterial Blood Gas Puncture Site Right Brachial Arterial Blood Carboxyhemoglobin 0.3 Arterial Blood Methemoglobin 0.5 Blood Gas A-a O2 Differential 612.8 H Oxyhemoglobin Percent 92.3 L Total Hemoglobin 9.4 L Blood Gas Temperature 37.0 Blood Gas Modality MASK - NRB FiO2 100.0 Blood Gas Notified Whom MM Blood Gas Notified Time 11/26/2016 4:51:57 AM Bedside Glucose 140 140 Test 11/26/16 12:41 11/26/16 12:43 11/26/16 16:13 11/26/16 18:21 Prothrombin Time 16.9 H Prothrombin Time Ratio 1.3 INR International Normalized Ratio 1.37 Activated Partial Thromboplast Time 45.6 H Potassium Level 3.3 L Lactic Acid Level 1.7 Creatine Kinase 27 Creatine Kinase Index 8.3 Creatinine Kinase MB (Mass) 2.24 Troponin I 0.182 *H Bedside Glucose 136 143 139 Medications Medications Current Medications Heparin Sodium (Porcine) 250 ml @ 7 mls/hr TITRATE IV Last administered on 11/26 08:47; Admin Dose 9 MLS/HR; Start 11/25/16 at 01:32 Sodium Chloride (NS) 1,000 ml @ 125 mls/hr Q8H IV Last administered on 16:10; Admin Dose 125 MLS/HR; Start 11/25/16 at 01:53 Metoclopramide HCl (Reglan) 10 mg Q6H PRN IV NAUSEA AND/OR VOMITING; Start at 02:00 Acetaminophen (Tylenol Liquid) 650 mg Q6H PRN PO PAIN LEVEL 1-3 OR FEVER; Start 11/25/16 at 02:00 Morphine Sulfate 2 mg 2 mg Q4H PRN IV PAIN LEVEL 7-10; Start 11/25/16 at 02:00 Dobutamine HCl/ Dextrose 250 ml @ 8.523 mls/ hr TITRATE IV ; Start 11/25/16 at 02:00 Insulin Aspart (Novolog Insulin Pen) NOVOLOG *MILD* ALGORI... Q4 SC Last administered on 11/26/16 16:23; Admin Dose 1 UNIT; Start 11/25/16 at 09:00 Miscellaneous Information 1 ea NOTE XX ; Start 11/25/16 at 09:00 Glucose (Glutose) 15 gm Q15M PRN PO DECREASED GLUCOSE; Start 11/25/16 at 09:00 Glucose (Glutose) 22.5 gm Q15M PRN PO DECREASED GLUCOSE; Start 11/25/16 at 09: 00 Dextrose (D50w Syringe) 25 ml Q15M PRN IV DECREASED GLUCOSE; Start 11/25/16 at 09:00 Dextrose (D50w Syringe) 50 ml Q15M PRN IV DECREASED GLUCOSE; Start 11/25/16 at 09:00 Glucagon (Glucagen) 1 mg Q15M PRN IM DECREASED GLUCOSE; Start 11/25/16 at 09:00 Glucose 15 gm 15 gm Q15M PRN BUCCAL DECREASED GLUCOSE; Start 11/25/16 at 09:00 Phenylephrine HCl 40 mg/Dextrose 500 ml @ 75 mls/hr TITRATE IV ; Start at 12:00 Meropenem (Merrem 1 Gm/100 ml (Pmx)) 100 ml @ 200 mls/hr Q12 IVPB Last administered on 11/26/16 09:42; Admin Dose 200 MLS/HR; Start 11/25/16 at 11:00 Ethambutol HCl (Myambutol) 400 mg DAILY GTB Last administered on 11/26/16 09: 43; Admin Dose 400 MG; Start 11/25/16 at 10:30 Pyridoxine HCl (Vitamin B6) 50 mg DAILY GTB Last administered on 11/26/16 09: 43; Admin Dose 50 MG; Start 11/25/16 at 10:30 Rifampin 600 mg 600 mg DAILY PEG Last administered on 11/26/16 09:43; Admin Dose 600 MG; Start 11/25/16 at 10:30 Vancomycin HCl (Vancocin) 250 ml @ 125 mls/hr Q24H IVPB Last administered on 22:33; Admin Dose 125 MLS/HR; Start 11/25/16 at 22:00 Isoniazid (Isoniazid) 300 mg DAILY GTB Last administered on 11/26/16 08:33; Admin Dose 300 MG; Start 11/26/16 at 09:00 Heparin Sodium (Porcine) (Heparin (1000 Units/ml)) 3,300 unit PRN PRN IV PENDING LAB VALUE; Start 11/25/16 at 22:30 Aspirin (Aspirin) 300 mg DAILY MO ; Start 11/27/16 at 09:00 Famotidine (Pepcid Iv) 20 mg DAILY IV ; Start 11/27/16 at 09:00 PALMIRA ALFARO NP Nov 26, 2016 19:06
[2016-11-26] MEDS: morphine 2 MG INJ IV PRN (20:27)
[2016-11-26 20:43] LABS: INR 1.28; PROTIME 16.1 Sec (12.2-14.2); PT RATIO 1.3
[2016-11-26 21:20] LABS: PARTIAL THROMBOPLASTIN TIME 95.4 Sec (25.0-35.0)
[2016-11-26] MEDS ORDERED: NORepinephrine 8MG/250 ML (PMX 250 ML IV SCH (21:30)
[2016-11-26] MEDS ORDERED: NA BICARBONATE 8.4% 50 ML SYG IV STA ×2 (21:30→23:31)
[2016-11-26 21:33] LABS: Allen Test ACCEPTAB; Arterial COHb 0.3 % (0.0-3.0); Arterial Fraction of Oxyhgb 91.3 % (93.0-99.0); Arterial MetHb 0.5 % (0.0-1.5); Arterial Total Hemglobin 9.1 g/dl (12.0-18.0); MODE MASK - NRB
[2016-11-26 23:18] LABS: AADO2 Arterial 481.4 mmHg (7.0-24.0); Allen Test ACCEPTAB; Arterial COHb 0.2 % (0.0-3.0); Arterial Fraction of Oxyhgb 97.8 % (93.0-99.0); Arterial MetHb 0.7 % (0.0-1.5); Arterial Total Hemglobin 8.5 g/dl (12.0-18.0); Blood Gas IEPAP 15/5; Blood Gas PS 10; MODE MASK - BIPAP
[2016-11-27] VITALS (75 sets, daily range): BP systolic 75–150; BP diastolic 57–104; PULSE 94–123; RESP 20–34
[2016-11-27] MEDS: VANCOMYCIN 1 GM in NS 250 ML IVPB SCH (00:07)
[2016-11-27] MEDS: LEVALBUTEROL (NEB) 0.31 MG/3 ML AMP HHN SCH ×4 (01:31→20:02)
[2016-11-27] MEDS: ACETAMINOPHEN 650MG/20.3ML CUP PO PRN (01:42)
[2016-11-27] MEDS: SOD CHLORIDE 0.9% 1,000 ML IV SCH ×2 (01:53→18:24)
[2016-11-27] MEDS: INSULIN ASPART [NOVOLOG] 3 ML PEN SC SCH ×6 (01:54→20:55)
[2016-11-27] MEDS ORDERED: FUROSEMIDE 20 MG INJ IV ONE (03:00)
[2016-11-27 04:41] LABS: AADO2 Arterial 350.6 mmHg (7.0-24.0); Allen Test ACCEPTAB; Arterial Base Excess -6.5 mmol/L (-3.0-3); Arterial COHb 0.3 % (0.0-3.0); Arterial Fraction of Oxyhgb 96.6 % (93.0-99.0); Arterial HCO3 19.2 mmol/L (22.0-26.0); Arterial MetHb 0.6 % (0.0-1.5); Arterial Total Hemglobin 7.8 g/dl (12.0-18.0); Blood Gas IEPAP 15/5; MODE MASK - BIPAP
[2016-11-27] MEDS: morphine 2 MG INJ IV PRN (05:21)
[2016-11-27 06:26] LABS: ADD SCAN DIFF NO
[2016-11-27 06:36] LABS: HEMOGLOBIN 7.7 g/dl (14.0-18.0); MEAN CORPUSCULAR HGB CONC 32.1 g/dl (32.0-37.0); MEAN PLATELET VOLUME 9.3 fl (7.4-10.4); PLATELET COUNT 525 10^3/UL (140-415); RED BLOOD COUNT 2.33 10^6/ul (4.70-6.10); RED CELL DISTRIBUTION WIDTH 14.6 % (11.5-14.5); WHITE BLOOD COUNT 9.6 10^3/ul (4.8-10.8)
[2016-11-27 06:48] LABS: ALBUMIN 2.4 g/dl (3.3-4.9); POTASSIUM 3.2 mmol/L (3.5-5.1)
[2016-11-27 06:50] LABS: CREATININE 0.79 mg/dl (0.61-1.24); INR 1.25; PROTIME 15.8 Sec (12.2-14.2); PT RATIO 1.2
[2016-11-27 06:51] LABS: ALBUMIN/GLOBULIN RATIO 0.8; BILIRUBIN,INDIRECT 0.2 mg/dl (0-1.1); BILIRUBIN,TOTAL 0.2 mg/dl (0.2-1.3); CALCIUM 7.8 mg/dl (8.4-10.2); TOTAL PROTEIN 5.4 g/dl (6.1-8.1)
[2016-11-27 07:38] LABS: PARTIAL THROMBOPLASTIN TIME 72.9 Sec (25.0-35.0)
--- NOTE | 2016-11-27 07:56 | RADRPT ---
PROCEDURE: XR Chest. CLINICAL INDICATION: vent TECHNIQUE: Single frontal view of the chest was obtained. COMPARISON: Chest x-ray from 11/24/[address] chest from 11/26/2016 FINDINGS: There are multifocal patchy opacities in the left greater than right lungs which have increased sinc e the chest x-ray from 11/24/2016 although they are not significantly changed compared with the CT c hest from 11/26/2016, allowing for differences in modality. The aortic arch is calcified. Heart size is within normal limits. There is a retrocardiac opacity due to atelectasis, infiltrate, and / or a small effusion. There is decreased osseous mineralization. IMPRESSION: Multifocal patchy opacities in the left greater than right lungs, likely due to a multifocal pneumon ia, do not appear significantly changed compared with the GE chest from yesterday, allowing for diff erences in technique. Aortic atherosclerosis. Osseous demineralization. RPTAT: EE Physician [place] Date Time Electronically viewed and signed by Sam Mcgrath Physician on 11/27/2016 07:55 /
[2016-11-27] MEDS: POTASSIUM CHLORIDE 50 ML IVPB PRN ×7 (08:07→23:19)
[2016-11-27] MEDS: MEROPENEM 1 GM/100 ML (PMX) 100 ML IVPB SCH ×2 (08:08→20:51)
[2016-11-27] MEDS: ISONIAZID 300 MG TAB GTB SCH (08:08)
[2016-11-27] MEDS: ETHAMBUTOL 400 MG TAB GTB SCH (08:08)
[2016-11-27] MEDS: PYRIDOXINE 50 MG TAB GTB SCH (08:08)
[2016-11-27] MEDS: RIFAMPIN 300 MG CAP PEG SCH (08:08)
[2016-11-27] MEDS ORDERED: ASPIRIN 300 MG SUPP PR SCH (09:00)
[2016-11-27] MEDS: FAMOTIDINE 20 MG INJ IV SCH (09:29)
--- NOTE | 2016-11-27 11:02 | CONS ---
Date/Time of Note Date/Time of Note DATE: 11/27/16 TIME: 11:00 Consult Date/Type/Reason Admit Date/Time Nov 24, 2016 at 23:51 Initial Consult Date Type of Consultation: pulmonary ICU Subjective Patient continues BIPAP ventilation Awake alert oriented Appears comfortable at rest no acute distress Continues levo fed and heparin drips Objective Vital Signs Date Time Temp Pulse Resp B/P Pulse Ox O2 Delivery O2 Flow Rate FiO2 11/27/16 10:30 112 29 138/77 85 11/27/16 10:00 BIPAP 11/27/16 09:40 15.0 11/27/16 08:55 50 11/27/16 08:00 98.7 Intake and Output 11/26/16 11/26/16 11/27/16 15:00 23:00 07:00 Intake Total 1205.75 ml 1066.25 ml 876.00 ml Output Total 445 ml 285 ml 1000 ml Balance 760.75 ml 781.25 ml -124.00 ml Exam GENERAL: Elderly gentleman on BiPAP VITAL SIGNS: per chart NECK: Supple. No JVD or lymphadenopathy. CARDIAC EXAM: S1, S2. No added sounds or murmurs. CHEST: Diminished air entry bilaterally with few rales ABDOMEN: Soft, nontender. No guarding or rebound. EXTREMITIES: No cyanosis, clubbing or edema. NEUROLOGIC: Generalized weakness. No focal deficits. Results/Medications Result Diagram: 11/27/16 0530 11/27/16 0530 Results 24 hrs Laboratory Tests Test 11/26/16 12:41 11/26/16 12:43 11/26/16 16:13 11/26/16 18:21 Prothrombin Time 16.9 H Prothrombin Time Ratio 1.3 INR International Normalized Ratio 1.37 Activated Partial Thromboplast Time 45.6 H Potassium Level 3.3 L Lactic Acid Level 1.7 Creatine Kinase 27 Creatine Kinase Index 8.3 Creatinine Kinase MB (Mass) 2.24 Troponin I 0.182 *H Bedside Glucose 136 143 139 Test 11/26/16 20:05 11/26/16 20:15 11/26/16 21:11 11/26/16 21:45 Prothrombin Time 16.1 H Prothrombin Time Ratio 1.3 INR International Normalized Ratio 1.28 Activated Partial Thromboplast Time 95.4 *H Potassium Level 3.8 Lactic Acid Level 1.1 1.0 Bedside Glucose 133 Blood Gas Specimen Source Blood arterial Arterial Blood Date Drawn 11/26/2016 9:10:06 PM Arterial Blood pH (Temp corrected) 7.231 *L Arterial Blood pCO2 (Temp correct) 43.8 Arterial Blood pO2 (Temp corrected) 69.7 L Arterial Blood HCO3 18.0 L Arterial Blood Base Excess -9.0 L Arterial Blood Oxygen Saturation 92.0 L Rolando Test ACCEPTAB Arterial Blood Gas Puncture Site Right Radial Arterial Blood Carboxyhemoglobin 0.3 Arterial Blood Methemoglobin 0.5 Blood Gas A-a O2 Differential 462.0 H Oxyhemoglobin Percent 91.3 L Total Hemoglobin 9.1 L Blood Gas Temperature 37.0 Blood Gas Actual Respiration Rate 28 Blood Gas Modality MASK - NRB FiO2 81.0 Blood Gas Critical Value Read Back paula bravo rn Blood Gas Notified Whom cecilia herron rcp Blood Gas Notified Time 11/26/2016 9:32:40 PM Test 11/26/16 23:00 11/27/16 00:05 11/27/16 01:39 11/27/16 05:00 Blood Gas Specimen Source Blood arterial Blood arterial Arterial Blood Date Drawn 11/26/2016 11:05:57 PM 11/27/2016 4:35:56 AM Arterial Blood pH (Temp corrected) 7.296 *L 7.310 L Arterial Blood pCO2 (Temp correct) 39.8 39.1 Arterial Blood pO2 (Temp corrected) 191.8 H 106.5 H Arterial Blood HCO3 19.0 L 19.2 L Arterial Blood Base Excess -7.0 L -6.5 L Arterial Blood Oxygen Saturation 98.7 97.5 Rolando Test ACCEPTAB ACCEPTAB Arterial Blood Gas Puncture Site Right Brachial Right Radial Arterial Blood Carboxyhemoglobin 0.2 0.3 Arterial Blood Methemoglobin 0.7 0.6 Blood Gas A-a O2 Differential 481.4 H 350.6 H Oxyhemoglobin Percent 97.8 96.6 Total Hemoglobin 8.5 L 7.8 L Blood Gas Temperature 37.0 37.0 Blood Gas Respiration Rate 14.0 14.0 Blood Gas Actual Respiration Rate 25 30 Blood Gas Modality MASK - BIPAP MASK - BIPAP FiO2 100.0 70.0 Blood Gas Pressure Support 10 Blood Gas IPAP/EPAP Ratio 15 15 Blood Gas Critical Value Read Back paula bravo rn Blood Gas Notified Whom d ali ladle repairer BR Blood Gas Notified Time 11/26/2016 11:16:18 PM 11/27/2016 4:41:30 AM Bedside Glucose 159 160 Test 11/27/16 05:24 11/27/16 05:30 11/27/16 07:00 11/27/16 08:04 Bedside Glucose 187 172 White Blood Count 9.6 Red Blood Count 2.33 L Hemoglobin 7.7 L Hematocrit 24.0 L Mean Corpuscular Volume 103.0 H Mean Corpuscular Hemoglobin 33.0 Mean Corpuscular Hemoglobin Concent 32.1 Red Cell Distribution Width 14.6 H Platelet Count 525 H Mean Platelet Volume 9.3 Neutrophils % Eosinophils % Neutrophils # Eosinophils # Prothrombin Time 15.8 H Prothrombin Time Ratio 1.2 INR International Normalized Ratio 1.25 Activated Partial Thromboplast Time 72.9 *H Sodium Level 149 H Potassium Level 3.2 L Chloride Level 115 H Carbon Dioxide Level 23 Anion Gap 14 Blood Urea Nitrogen 20 Creatinine 0.79 Glucose Level 187 Calcium Level 7.8 L Total Bilirubin 0.2 Direct Bilirubin 0.00 Indirect Bilirubin 0.2 Aspartate Amino Transf (AST/SGOT) 25 Alanine Aminotransferase (ALT/SGPT) 19 Alkaline Phosphatase 67 Total Protein 5.4 L Albumin 2.4 L Globulin 3.00 Albumin/Globulin Ratio 0.80 Lactic Acid Level 1.3 Medications Current Medications Heparin Sodium (Porcine) 250 ml @ 7 mls/hr TITRATE IV Last administered on 11/26 08:47; Admin Dose 9 MLS/HR; Start 11/25/16 at 01:32 Sodium Chloride (NS) 1,000 ml @ 20 mls/hr Q24H IV Last administered on 01:53; Admin Dose 20 MLS/HR; Start 11/25/16 at 01:53 Metoclopramide HCl (Reglan) 10 mg Q6H PRN IV NAUSEA AND/OR VOMITING; Start at 02:00 Acetaminophen (Tylenol Liquid) 650 mg Q6H PRN PO PAIN LEVEL 1-3 OR FEVER Last administered on 11/27/16 01:42; Admin Dose 650 MG; Start 11/25/16 at 02:00 Morphine Sulfate 2 mg 2 mg Q4H PRN IV PAIN LEVEL 7-10 Last administered on 11/27 05:21; Admin Dose 2 MG; Start 11/25/16 at 02:00 Dobutamine HCl/ Dextrose 250 ml @ 8.523 mls/ hr TITRATE IV ; Start 11/25/16 at 02:00 Insulin Aspart (Novolog Insulin Pen) NOVOLOG *MILD* ALGORI... Q4 SC Last administered on 11/27/16 08:26; Admin Dose 1 UNIT; Start 11/25/16 at 09:00 Miscellaneous Information 1 ea NOTE XX ; Start 11/25/16 at 09:00 Glucose (Glutose) 15 gm Q15M PRN PO DECREASED GLUCOSE; Start 11/25/16 at 09:00 Glucose (Glutose) 22.5 gm Q15M PRN PO DECREASED GLUCOSE; Start 11/25/16 at 09: 00 Dextrose (D50w Syringe) 25 ml Q15M PRN IV DECREASED GLUCOSE; Start 11/25/16 at 09:00 Dextrose (D50w Syringe) 50 ml Q15M PRN IV DECREASED GLUCOSE; Start 11/25/16 at 09:00 Glucagon (Glucagen) 1 mg Q15M PRN IM DECREASED GLUCOSE; Start 11/25/16 at 09:00 Glucose 15 gm 15 gm Q15M PRN BUCCAL DECREASED GLUCOSE; Start 11/25/16 at 09:00 Phenylephrine HCl 40 mg/Dextrose 500 ml @ 75 mls/hr TITRATE IV ; Start at 12:00 Meropenem (Merrem 1 Gm/100 ml (Pmx)) 100 ml @ 200 mls/hr Q12 IVPB Last administered on 11/27/16 08:08; Admin Dose 200 MLS/HR; Start 11/25/16 at 11:00 Ethambutol HCl (Myambutol) 400 mg DAILY GTB Last administered on 11/27/16 08: 08; Admin Dose 400 MG; Start 11/25/16 at 10:30 Pyridoxine HCl (Vitamin B6) 50 mg DAILY GTB Last administered on 11/27/16 08: 08; Admin Dose 50 MG; Start 11/25/16 at 10:30 Rifampin 600 mg 600 mg DAILY PEG Last administered on 11/27/16 08:08; Admin Dose 600 MG; Start 11/25/16 at 10:30 Vancomycin HCl (Vancocin) 250 ml @ 125 mls/hr Q24H IVPB Last administered on 00:07; Admin Dose 125 MLS/HR; Start 11/25/16 at 22:00 Isoniazid (Isoniazid) 300 mg DAILY GTB Last administered on 11/27/16 08:08; Admin Dose 300 MG; Start 11/26/16 at 09:00 Heparin Sodium (Porcine) (Heparin (1000 Units/ml)) 3,300 unit PRN PRN IV PENDING LAB VALUE; Start 11/25/16 at 22:30 Famotidine 20 mg 20 mg DAILY IV Last administered on 11/27/16 09:29; Admin Dose 20 MG; Start 11/27/16 at 09:00 Norepinephrine/ Dextrose (Levophed/D5W) 500 ml @ 1.87 mls/hr TITRATE IV ; Start 11/26/16 at 22:00 Aspirin (Aspirin) 325 mg DAILY GTB ; Start 11/28/16 at 09:00 Assessment/Plan Chief Complaint/Hosp Course IMPRESSION: 1. 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 2. Shock, likely septic, possibly due to a pneumonic source; possible component of line sepsis 3. History of pulmonary TB, on treatment. 4. Gm+ bacteremia--likely line-related 5. Anemia likely of chronic disease RECOMMENDATIONS: 1. Antibiotic coverage, as per ID recommendations. 2. Strict aspiration precautions. 3. Maintain NPO, trial of high flow O2 4. Aspiration precautions 5. Obtain prior imaging from [facility] 6. Consider transfusion 1 unit packed red blood cells Disposition Continue ICU Discussed. Critical care time 40 minutes Problems: DESHAUN SALGADO MD, [facility] Nov 27, 2016 11:02
--- NOTE | 2016-11-27 12:50 | CONS ---
Date/Time of Note Date/Time of Note DATE: 11/27/16 TIME: 12:39 Assessment/Plan Assessment/Plan Chief Complaint/Hosp Course ID PROGRESS NOTE CURRENT ABX DAY #3 => Vanco IV + Merrem Pulmonary MTB Rx: Rifampin+ INH + Ethambutol + Pyridoxine [NOTE: [facility] TB DC 'D PYRAZINAMIDE]. 24H INTERVAL SUMMARY * 81 yo frail, thing M w/hypoxic resp failure has been on 100% NRB -> trial of O2 via NC this am * Appears weak w/dyspnea + sternal retractions, opens eyes, non-verbal. * CXR 11/27/16: Multifocal patchy opacities in the left greater than right lungs , likely due to a multifocal pneumonia, * Fevers >104.+ on admission -> resolving with WBC 9.6 == SUSPECT STAPH PNA = PICC LINE SEPSIS = LINE REMOVED * BLOOD CULTURE Preliminary BCULT GRAM BOTTLE 1 Gram positive cocci in clusters 1 of 2 bottles . seen on gram stain of the broth BCULT GRAM BOTTLE 2 Gram positive cocci in clusters 2 of 2 bottles . seen on gram stain of the broth Organism 1 STAPHYLOCOCCUS SPECIES PHYSICAL EXAMINATION: GENERAL: Chronic ill, 81 yo M, acute hypoxic respiratory failure on 100% O2 via FM, (+)laryngeal + audible rhonchi chest congestion w/(+)wheeze HEENT: FM secure NECK: Supple, trachea midline. 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 Sepsis on admission with, fevers >104.+, hypotension, severe lactic acidosis , (+)Troponin leak * BCx (+)GPC =STAPH 1/2 bottles = PICC LINE SEPSIS ON ADMIT = PICC DC'd in ED * FEM-TLC was placed in ED on 11/24/16 2. Acute hypoxic respiratory distress w/pulmonary sepsis = ongoing Aspiration Syndrome w/retained secretions * CXR 11/27/16: Multifocal patchy opacities in the left greater than right lungs , likely due to a multifocal pneumonia, 3. 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 COPD Emphysema/reactive airway w/wheezing exacerbation on chronic pulmonary fibrosis * Hx of long-term + recent tobacco 4. (+)Recent Dx MTB work up completed at [facility]-> Due to his refusal to take PO Meds, NGT was placed for [facility] TB compliance. * Anti-TB meds initiated end of AUG/Early SEP; however patient did not start daily ABX until SEP, 2016 5. Acute encephalopathy on chronic Psych debility + microvascular dementia w/ refusal to take PO Meds at [facility], requiring PEG 6. Dehydration w/Cachexia => hx of refusal of PO intake requiring NGT/eventual PEG placement in past 7. DMT2 w/suspected complication of DM autonomic neuropathies: Gastroparesis/ Neurogenic bladder 8. s/p recent Acute renal failure due to meds + sepsis + dehydration -> S.Creatinine improved this admission 9. Hx of UTIs with urinary retention requiring Leal ?BPH vs Neurogenic bladder 10.GERD 11. Anemia chronic (-)MRSA Nares 11/11/16 INVASIVES: R-FEM TLC, FC, Peg ABX ALLERGY: KNDA CURRENT ABX: Rifampin+ INH + Ethambutol + Pyridoxine =>NOTE: [facility] TB DC'D PYRAZINAMIDE => Vanco IV + Zosyn 11/24/16 ED ID RECOMMENDATIONS 1. PICC LINE SEPSIS ON ADMIT = PICC DC'd in ED => Now has FEM-TLC, may place new PICC 2. FOR ASPIRATION PNA/Pulmonary sepsis : Continue Vanco IV + Merrem for hx of ASP PNA * = AVOID Zosyn due to Hx of KIM with prior Vanco/Zosyn combo. 2. FOR PULMONARY MTB: Patient in treatment since ~August 2016 = [facility] Infection Control Nurse can contact [facility] if exact dates are needed. * Patient is well-known to Dr. Kathleen's ID team s/p lengthy admission to [facility] where he was Dx with MTB and remained on isolation for many weeks with NGT placed for TB med compliance prior to being cleared by [facility] TB for DC to SNF on 10/10/16. [facility] TB with recs to continue: Rifampin+ INH + Ethambutol + Pyridoxine =>NOTE: [facility] TB DC'D PYRAZINAMIDE * Per ID information technology consultant standpoint, logically there appears no indication to continue the patient on MTB isolation precautions w/caveat that patient has been compliant with anti-TB meds at [facility]. Nevertheless, ID does NOT hold authority for TB clearance recommendations from [facility], this is the responsibility and authority of [facility] Infection Control Staff. Any inquiries from [facility] nursing staff should be directed toward [facility] Infection Control Policy and [facility] TB surveillance recommendations. 3. PROGNOSIS: Poor per hospitalist notes and palliative care consult last admission [facility] . . Problems: Consultation Date/Type/Reason Admit Date/Time Nov 24, 2016 at 23:51 Type of Consultation: ID Exam/Review of Systems Vital Signs Vitals Vital Signs Date Time Temp Pulse Resp B/P Pulse Ox O2 Delivery O2 Flow Rate FiO2 11/27/16 12:09 95 80 11/27/16 12:00 105 11/27/16 11:15 29 111/81 11/27/16 10:00 BIPAP 11/27/16 09:40 15.0 11/27/16 08:00 98.7 Intake and Output 11/26/16 11/26/16 11/27/16 15:00 23:00 07:00 Intake Total 1205.75 ml 1066.25 ml 876.00 ml Output Total 445 ml 285 ml 1000 ml Balance 760.75 ml 781.25 ml -124.00 ml Results Result Diagram: 11/27/16 0530 11/27/16 0530 Results 24 hrs Laboratory Tests Test 11/26/16 12:41 11/26/16 12:43 11/26/16 16:13 11/26/16 18:21 Prothrombin Time 16.9 H Prothrombin Time Ratio 1.3 INR International Normalized Ratio 1.37 Activated Partial Thromboplast Time 45.6 H Potassium Level 3.3 L Lactic Acid Level 1.7 Creatine Kinase 27 Creatine Kinase Index 8.3 Creatinine Kinase MB (Mass) 2.24 Troponin I 0.182 *H Bedside Glucose 136 143 139 Test 11/26/16 20:05 11/26/16 20:15 11/26/16 21:11 11/26/16 21:45 Prothrombin Time 16.1 H Prothrombin Time Ratio 1.3 INR International Normalized Ratio 1.28 Activated Partial Thromboplast Time 95.4 *H Potassium Level 3.8 Lactic Acid Level 1.1 1.0 Bedside Glucose 133 Blood Gas Specimen Source Blood arterial Arterial Blood Date Drawn 11/26/2016 9:10:06 PM Arterial Blood pH (Temp corrected) 7.231 *L Arterial Blood pCO2 (Temp correct) 43.8 Arterial Blood pO2 (Temp corrected) 69.7 L Arterial Blood HCO3 18.0 L Arterial Blood Base Excess -9.0 L Arterial Blood Oxygen Saturation 92.0 L Rolando Test ACCEPTAB Arterial Blood Gas Puncture Site Right Radial Arterial Blood Carboxyhemoglobin 0.3 Arterial Blood Methemoglobin 0.5 Blood Gas A-a O2 Differential 462.0 H Oxyhemoglobin Percent 91.3 L Total Hemoglobin 9.1 L Blood Gas Temperature 37.0 Blood Gas Actual Respiration Rate 28 Blood Gas Modality MASK - NRB FiO2 81.0 Blood Gas Critical Value Read Back paula bravo rn Blood Gas Notified Whom cecilia herron rcp Blood Gas Notified Time 11/26/2016 9:32:40 PM Test 11/26/16 23:00 11/27/16 00:05 11/27/16 01:39 11/27/16 05:00 Blood Gas Specimen Source Blood arterial Blood arterial Arterial Blood Date Drawn 11/26/2016 11:05:57 PM 11/27/2016 4:35:56 AM Arterial Blood pH (Temp corrected) 7.296 *L 7.310 L Arterial Blood pCO2 (Temp correct) 39.8 39.1 Arterial Blood pO2 (Temp corrected) 191.8 H 106.5 H Arterial Blood HCO3 19.0 L 19.2 L Arterial Blood Base Excess -7.0 L -6.5 L Arterial Blood Oxygen Saturation 98.7 97.5 Rolando Test ACCEPTAB ACCEPTAB Arterial Blood Gas Puncture Site Right Brachial Right Radial Arterial Blood Carboxyhemoglobin 0.2 0.3 Arterial Blood Methemoglobin 0.7 0.6 Blood Gas A-a O2 Differential 481.4 H 350.6 H Oxyhemoglobin Percent 97.8 96.6 Total Hemoglobin 8.5 L 7.8 L Blood Gas Temperature 37.0 37.0 Blood Gas Respiration Rate 14.0 14.0 Blood Gas Actual Respiration Rate 25 30 Blood Gas Modality MASK - BIPAP MASK - BIPAP FiO2 100.0 70.0 Blood Gas Pressure Support 10 Blood Gas IPAP/EPAP Ratio 15/ 15/ Blood Gas Critical Value Read Back paula bravo rn Blood Gas Notified Whom cecilia herron rcp BR Blood Gas Notified Time 11/26/2016 11:16:18 PM 11/27/2016 4:41:30 AM Bedside Glucose 159 160 Test 11/27/16 05:24 11/27/16 05:30 11/27/16 07:00 11/27/16 08:04 Bedside Glucose 187 172 White Blood Count 9.6 Red Blood Count 2.33 L Hemoglobin 7.7 L Hematocrit 24.0 L Mean Corpuscular Volume 103.0 H Mean Corpuscular Hemoglobin 33.0 Mean Corpuscular Hemoglobin Concent 32.1 Red Cell Distribution Width 14.6 H Platelet Count 525 H Mean Platelet Volume 9.3 Neutrophils % Eosinophils % Neutrophils # Eosinophils # Prothrombin Time 15.8 H Prothrombin Time Ratio 1.2 INR International Normalized Ratio 1.25 Activated Partial Thromboplast Time 72.9 *H Sodium Level 149 H Potassium Level 3.2 L Chloride Level 115 H Carbon Dioxide Level 23 Anion Gap 14 Blood Urea Nitrogen 20 Creatinine 0.79 Glucose Level 187 Calcium Level 7.8 L Total Bilirubin 0.2 Direct Bilirubin 0.00 Indirect Bilirubin 0.2 Aspartate Amino Transf (AST/SGOT) 25 Alanine Aminotransferase (ALT/SGPT) 19 Alkaline Phosphatase 67 Total Protein 5.4 L Albumin 2.4 L Globulin 3.00 Albumin/Globulin Ratio 0.80 Lactic Acid Level 1.3 Medications Medications Current Medications Heparin Sodium (Porcine) 250 ml @ 7 mls/hr TITRATE IV Last administered on 11/26 08:47; Admin Dose 9 MLS/HR; Start 11/25/16 at 01:32 Sodium Chloride (NS) 1,000 ml @ 20 mls/hr Q24H IV Last administered on 01:53; Admin Dose 20 MLS/HR; Start 11/25/16 at 01:53 Metoclopramide HCl (Reglan) 10 mg Q6H PRN IV NAUSEA AND/OR VOMITING; Start at 02:00 Acetaminophen (Tylenol Liquid) 650 mg Q6H PRN PO PAIN LEVEL 1-3 OR FEVER Last administered on 11/27/16 01:42; Admin Dose 650 MG; Start 11/25/16 at 02:00 Morphine Sulfate 2 mg 2 mg Q4H PRN IV PAIN LEVEL 7-10 Last administered on 11/27 05:21; Admin Dose 2 MG; Start 11/25/16 at 02:00 Dobutamine HCl/ Dextrose 250 ml @ 8.523 mls/ hr TITRATE IV ; Start 11/25/16 at 02:00 Insulin Aspart (Novolog Insulin Pen) NOVOLOG *MILD* ALGORI... Q4 SC Last administered on 11/27/16 08:26; Admin Dose 1 UNIT; Start 11/25/16 at 09:00 Miscellaneous Information 1 ea NOTE XX ; Start 11/25/16 at 09:00 Glucose (Glutose) 15 gm Q15M PRN PO DECREASED GLUCOSE; Start 11/25/16 at 09:00 Glucose (Glutose) 22.5 gm Q15M PRN PO DECREASED GLUCOSE; Start 11/25/16 at 09: 00 Dextrose (D50w Syringe) 25 ml Q15M PRN IV DECREASED GLUCOSE; Start 11/25/16 at 09:00 Dextrose (D50w Syringe) 50 ml Q15M PRN IV DECREASED GLUCOSE; Start 11/25/16 at 09:00 Glucagon (Glucagen) 1 mg Q15M PRN IM DECREASED GLUCOSE; Start 11/25/16 at 09:00 Glucose 15 gm 15 gm Q15M PRN BUCCAL DECREASED GLUCOSE; Start 11/25/16 at 09:00 Phenylephrine HCl 40 mg/Dextrose 500 ml @ 75 mls/hr TITRATE IV ; Start at 12:00 Meropenem (Merrem 1 Gm/100 ml (Pmx)) 100 ml @ 200 mls/hr Q12 IVPB Last administered on 11/27/16 08:08; Admin Dose 200 MLS/HR; Start 11/25/16 at 11:00 Ethambutol HCl (Myambutol) 400 mg DAILY GTB Last administered on 11/27/16 08: 08; Admin Dose 400 MG; Start 11/25/16 at 10:30 Pyridoxine HCl (Vitamin B6) 50 mg DAILY GTB Last administered on 11/27/16 08: 08; Admin Dose 50 MG; Start 11/25/16 at 10:30 Rifampin 600 mg 600 mg DAILY PEG Last administered on 11/27/16 08:08; Admin Dose 600 MG; Start 11/25/16 at 10:30 Vancomycin HCl (Vancocin) 250 ml @ 125 mls/hr Q24H IVPB Last administered on 00:07; Admin Dose 125 MLS/HR; Start 11/25/16 at 22:00 Isoniazid (Isoniazid) 300 mg DAILY GTB Last administered on 11/27/16 08:08; Admin Dose 300 MG; Start 11/26/16 at 09:00 Heparin Sodium (Porcine) (Heparin (1000 Units/ml)) 3,300 unit PRN PRN IV PENDING LAB VALUE; Start 11/25/16 at 22:30 Famotidine 20 mg 20 mg DAILY IV Last administered on 11/27/16 09:29; Admin Dose 20 MG; Start 11/27/16 at 09:00 Norepinephrine/ Dextrose (Levophed/D5W) 500 ml @ 1.87 mls/hr TITRATE IV ; Start 11/26/16 at 22:00 Aspirin (Aspirin) 325 mg DAILY GTB ; Start 11/28/16 at 09:00 PALMIRA ALFARO [employer]AP[employer] MACHINE HAND Nov 27, 2016 12:50
[2016-11-27] MEDS ORDERED: LIDOCAINE 1% (MPF) 5 ML VIAL SC ONE (13:00)
[2016-11-27 13:10] LABS: INR 1.28; PROTIME 16.1 Sec (12.2-14.2); PT RATIO 1.3
[2016-11-27 13:25] LABS: PARTIAL THROMBOPLASTIN TIME 103.8 Sec (25.0-35.0)
[2016-11-27] MEDS: HEPARIN 25000 UNITS/250 ML 250 ML IV SCH (13:39)
[2016-11-27 13:41] LABS: LYMPHOCYTES # 0.8 10^3/ul (0.8-2.9); MONOCYTE # 0.1 10^3/ul (0.3-0.9); NEUTROPHIL # 6.7 10^3/ul (1.6-7.5)
--- NOTE | 2016-11-27 13:56 | PN ---
Date/Time of Note Date/Time of Note DATE: 11/27/16 TIME: 13:52 Assessment/Plan VTE Prophylaxis VTE Prophylaxis Intervention: SCD's Assessment/Plan Chief Complaint/Hosp Course 1. Septic shock 2/2 HCAP -cont ABx, continue pressors 2. Acute Resp Failure 2/2 above -cont 02, pulmonary consult appreciated 3. Hypokalemia-replete 4. Non-ST elevation myocardial infarction (NSTEMI)-type 2 from sepsis -Cards consult appreciated 5. Thrombocytosis-likely reactive 6. History of TB-patient has been cleared by [facility] infection control in the past -ID consult appreciated 7. Dementia with dysphasia -Resume PEG tube feeds PPx- SCD's Problems: Subjective 24 Hr Interval Summary Constitutional: disoriented Exam/Review of Systems Vital Signs Vitals Vital Signs Date Time Temp Pulse Resp B/P Pulse Ox O2 Delivery O2 Flow Rate FiO2 11/27/16 13:00 94 80 11/27/16 12:00 105 11/27/16 11:15 29 111/81 11/27/16 10:00 BIPAP 11/27/16 09:40 15.0 11/27/16 08:00 98.7 Intake and Output 11/26/16 11/26/16 11/27/16 15:00 23:00 07:00 Intake Total 1205.75 ml 1066.25 ml 876.00 ml Output Total 445 ml 285 ml 1000 ml Balance 760.75 ml 781.25 ml -124.00 ml Exam Psych: confusion Respiratory: clear to auscultation Cardiovascular: regular rate and rhythm Gastrointestinal: soft, No distended Musculoskeletal: nl extremities to inspection Results Result Diagram: 11/27/16 0530 11/27/16 1239 Results 24 hrs Laboratory Tests Test 11/26/16 16:13 11/26/16 18:21 11/26/16 20:05 11/26/16 20:15 Bedside Glucose 143 139 133 Prothrombin Time 16.1 H Prothrombin Time Ratio 1.3 INR International Normalized Ratio 1.28 Activated Partial Thromboplast Time 95.4 *H Potassium Level 3.8 Lactic Acid Level 1.1 Test 11/26/16 21:11 11/26/16 21:45 11/26/16 23:00 11/27/16 00:05 Blood Gas Specimen Source Blood arterial Blood arterial Arterial Blood Date Drawn 11/26/2016 9:10:06 PM 11/26/2016 11:05:57 PM Arterial Blood pH (Temp corrected) 7.231 *L 7.296 *L Arterial Blood pCO2 (Temp correct) 43.8 39.8 Arterial Blood pO2 (Temp corrected) 69.7 L 191.8 H Arterial Blood HCO3 18.0 L 19.0 L Arterial Blood Base Excess -9.0 L -7.0 L Arterial Blood Oxygen Saturation 92.0 L 98.7 Rolando Test ACCEPTAB ACCEPTAB Arterial Blood Gas Puncture Site Right Radial Right Brachial Arterial Blood Carboxyhemoglobin 0.3 0.2 Arterial Blood Methemoglobin 0.5 0.7 Blood Gas A-a O2 Differential 462.0 H 481.4 H Oxyhemoglobin Percent 91.3 L 97.8 Total Hemoglobin 9.1 L 8.5 L Blood Gas Temperature 37.0 37.0 Blood Gas Actual Respiration Rate 28 25 Blood Gas Modality MASK - NRB MASK - BIPAP FiO2 81.0 100.0 Blood Gas Critical Value Read Back paula bravo rn Blood Gas Notified Whom cecilia herron varnishing machine operator cecilia herron varnishing machine operator Blood Gas Notified Time 11/26/2016 9:32:40 PM 11/26/2016 11:16:18 PM Lactic Acid Level 1.0 Blood Gas Respiration Rate 14.0 Blood Gas Pressure Support 10 Blood Gas IPAP/EPAP Ratio 15 Bedside Glucose 159 Test 11/27/16 01:39 11/27/16 05:00 11/27/16 05:24 11/27/16 05:30 Bedside Glucose 160 187 Blood Gas Specimen Source Blood arterial Arterial Blood Date Drawn 11/27/2016 4:35:56 AM Arterial Blood pH (Temp corrected) 7.310 L Arterial Blood pCO2 (Temp correct) 39.1 Arterial Blood pO2 (Temp corrected) 106.5 H Arterial Blood HCO3 19.2 L Arterial Blood Base Excess -6.5 L Arterial Blood Oxygen Saturation 97.5 Rolando Test ACCEPTAB Arterial Blood Gas Puncture Site Right Radial Arterial Blood Carboxyhemoglobin 0.3 Arterial Blood Methemoglobin 0.6 Blood Gas A-a O2 Differential 350.6 H Oxyhemoglobin Percent 96.6 Total Hemoglobin 7.8 L Blood Gas Temperature 37.0 Blood Gas Respiration Rate 14.0 Blood Gas Actual Respiration Rate 30 Blood Gas Modality MASK - BIPAP FiO2 70.0 Blood Gas IPAP/EPAP Ratio 15/5 Blood Gas Notified Whom BR Blood Gas Notified Time 11/27/2016 4:41:30 AM White Blood Count 9.6 Red Blood Count 2.33 L Hemoglobin 7.7 L Hematocrit 24.0 L Mean Corpuscular Volume 103.0 H Mean Corpuscular Hemoglobin 33.0 Mean Corpuscular Hemoglobin Concent 32.1 Red Cell Distribution Width 14.6 H Platelet Count 525 H Mean Platelet Volume 9.3 Neutrophils % 70.0 Band Neutrophils % 20.0 H Lymphocytes % 8.0 L Monocytes % 1.0 Eosinophils % Promyelocytes % 1.0 H Neutrophils # 6.7 Lymphocytes # 0.8 Monocytes # 0.1 L Eosinophils # Promyelocytes # 0.1 Prothrombin Time 15.8 H Prothrombin Time Ratio 1.2 INR International Normalized Ratio 1.25 Activated Partial Thromboplast Time 72.9 *H Sodium Level 149 H Potassium Level 3.2 L Chloride Level 115 H Carbon Dioxide Level 23 Anion Gap 14 Blood Urea Nitrogen 20 Creatinine 0.79 Glucose Level 187 Calcium Level 7.8 L Total Bilirubin 0.2 Direct Bilirubin 0.00 Indirect Bilirubin 0.2 Aspartate Amino Transf (AST/SGOT) 25 Alanine Aminotransferase (ALT/SGPT) 19 Alkaline Phosphatase 67 Total Protein 5.4 L Albumin 2.4 L Globulin 3.00 Albumin/Globulin Ratio 0.80 Test 11/27/16 07:00 11/27/16 08:04 11/27/16 12:39 11/27/16 13:26 Lactic Acid Level 1.3 Bedside Glucose 172 169 Prothrombin Time 16.1 H Prothrombin Time Ratio 1.3 INR International Normalized Ratio 1.28 Activated Partial Thromboplast Time 103.8 *H Potassium Level 3.3 L Medications Medications Current Medications Heparin Sodium (Porcine) 250 ml @ 7 mls/hr TITRATE IV Last administered on 11/27 13:39; Admin Dose 9 MLS/HR; Start 11/25/16 at 01:32 Sodium Chloride (NS) 1,000 ml @ 20 mls/hr Q24H IV Last administered on 01:53; Admin Dose 20 MLS/HR; Start 11/25/16 at 01:53 Metoclopramide HCl (Reglan) 10 mg Q6H PRN IV NAUSEA AND/OR VOMITING; Start at 02:00 Acetaminophen (Tylenol Liquid) 650 mg Q6H PRN PO PAIN LEVEL 1-3 OR FEVER Last administered on 11/27/16 01:42; Admin Dose 650 MG; Start 11/25/16 at 02:00 Morphine Sulfate 2 mg 2 mg Q4H PRN IV PAIN LEVEL 7-10 Last administered on 11/27 05:21; Admin Dose 2 MG; Start 11/25/16 at 02:00 Dobutamine HCl/ Dextrose 250 ml @ 8.523 mls/ hr TITRATE IV ; Start 11/25/16 at 02:00 Insulin Aspart (Novolog Insulin Pen) NOVOLOG *MILD* ALGORI... Q4 SC Last administered on 11/27/16 13:29; Admin Dose 1 UNIT; Start 11/25/16 at 09:00 Miscellaneous Information 1 ea NOTE XX ; Start 11/25/16 at 09:00 Glucose (Glutose) 15 gm Q15M PRN PO DECREASED GLUCOSE; Start 11/25/16 at 09:00 Glucose (Glutose) 22.5 gm Q15M PRN PO DECREASED GLUCOSE; Start 11/25/16 at 09: 00 Dextrose (D50w Syringe) 25 ml Q15M PRN IV DECREASED GLUCOSE; Start 11/25/16 at 09:00 Dextrose (D50w Syringe) 50 ml Q15M PRN IV DECREASED GLUCOSE; Start 11/25/16 at 09:00 Glucagon (Glucagen) 1 mg Q15M PRN IM DECREASED GLUCOSE; Start 11/25/16 at 09:00 Glucose 15 gm 15 gm Q15M PRN BUCCAL DECREASED GLUCOSE; Start 11/25/16 at 09:00 Phenylephrine HCl 40 mg/Dextrose 500 ml @ 75 mls/hr TITRATE IV ; Start at 12:00 Meropenem (Merrem 1 Gm/100 ml (Pmx)) 100 ml @ 200 mls/hr Q12 IVPB Last administered on 11/27/16 08:08; Admin Dose 200 MLS/HR; Start 11/25/16 at 11:00 Ethambutol HCl (Myambutol) 400 mg DAILY GTB Last administered on 11/27/16 08: 08; Admin Dose 400 MG; Start 11/25/16 at 10:30 Pyridoxine HCl (Vitamin B6) 50 mg DAILY GTB Last administered on 11/27/16 08: 08; Admin Dose 50 MG; Start 11/25/16 at 10:30 Rifampin 600 mg 600 mg DAILY PEG Last administered on 11/27/16 08:08; Admin Dose 600 MG; Start 11/25/16 at 10:30 Vancomycin HCl (Vancocin) 250 ml @ 125 mls/hr Q24H IVPB Last administered on 00:07; Admin Dose 125 MLS/HR; Start 11/25/16 at 22:00 Isoniazid (Isoniazid) 300 mg DAILY GTB Last administered on 11/27/16 08:08; Admin Dose 300 MG; Start 11/26/16 at 09:00 Heparin Sodium (Porcine) (Heparin (1000 Units/ml)) 3,300 unit PRN PRN IV PENDING LAB VALUE; Start 11/25/16 at 22:30 Famotidine 20 mg 20 mg DAILY IV Last administered on 11/27/16 09:29; Admin Dose 20 MG; Start 11/27/16 at 09:00 Norepinephrine/ Dextrose (Levophed/D5W) 500 ml @ 1.87 mls/hr TITRATE IV ; Start 11/26/16 at 22:00 Aspirin (Aspirin) 325 mg DAILY GTB ; Start 11/28/16 at 09:00 SAMPSON GUERRERO Nov 27, 2016 13:56
--- NOTE | 2016-11-27 15:18 | CONS ---
Date/Time of Note Date/Time of Note DATE: 11/27/16 TIME: 15:15 Assessment/Plan Assessment/Plan Additional Assessment/Plan Sepsis Respiratory failure Pulmonary tuberculosis Pneumonia Mildly elevated troponin Preserved ejection fraction Moderate pulmonary hypertension Tricuspid regurgitation -Troponins continue to trend down, likely secondary to sepsis and respiratory failure. Continue aspirin, statin therapy if no contraindication. Antibiotics as per infectious disease, gentle IV diuretics when blood pressure is able to tolerate. Maintain potassium above 4.0 and magnesium above 2.0. Consultation Date/Type/Reason Admit Date/Time Nov 24, 2016 at 23:51 Initial Consult Date Type of Consultation: cv 24 HR Interval Summary Free Text/Dictation Patient seen and examined, no new cardiac issues as per nursing staff Exam/Review of Systems Vital Signs Vitals Vital Signs Date Time Temp Pulse Resp B/P Pulse Ox O2 Delivery O2 Flow Rate FiO2 11/27/16 15:07 93 100 11/27/16 14:05 114 28 11/27/16 11:15 111/81 11/27/16 10:00 BIPAP 11/27/16 09:40 15.0 11/27/16 08:00 98.7 Intake and Output 11/26/16 11/26/16 11/27/16 15:00 23:00 07:00 Intake Total 1205.75 ml 1066.25 ml 876.00 ml Output Total 445 ml 285 ml 1000 ml Balance 760.75 ml 781.25 ml -124.00 ml Exam Dyspneic, on high flow oxygen Constitutional: alert Head: normocephalic Respiratory: crackles/rales (No wheezing), other (Coarse breath sounds) Cardiovascular: other (S1-S2 heard), regular rate and rhythm (Tachycardic) Gastrointestinal: bowel sounds, non-tender, soft Extremities: other (No edema) Results Result Diagram: 11/27/16 0530 11/27/16 1239 Results 24 hrs Laboratory Tests Test 11/26/16 16:13 11/26/16 18:21 11/26/16 20:05 11/26/16 20:15 Bedside Glucose 143 139 133 Prothrombin Time 16.1 H Prothrombin Time Ratio 1.3 INR International Normalized Ratio 1.28 Activated Partial Thromboplast Time 95.4 *H Potassium Level 3.8 Lactic Acid Level 1.1 Test 11/26/16 21:11 11/26/16 21:45 11/26/16 23:00 11/27/16 00:05 Blood Gas Specimen Source Blood arterial Blood arterial Arterial Blood Date Drawn 11/26/2016 9:10:06 PM 11/26/2016 11:05:57 PM Arterial Blood pH (Temp corrected) 7.231 *L 7.296 *L Arterial Blood pCO2 (Temp correct) 43.8 39.8 Arterial Blood pO2 (Temp corrected) 69.7 L 191.8 H Arterial Blood HCO3 18.0 L 19.0 L Arterial Blood Base Excess -9.0 L -7.0 L Arterial Blood Oxygen Saturation 92.0 L 98.7 Rolando Test ACCEPTAB ACCEPTAB Arterial Blood Gas Puncture Site Right Radial Right Brachial Arterial Blood Carboxyhemoglobin 0.3 0.2 Arterial Blood Methemoglobin 0.5 0.7 Blood Gas A-a O2 Differential 462.0 H 481.4 H Oxyhemoglobin Percent 91.3 L 97.8 Total Hemoglobin 9.1 L 8.5 L Blood Gas Temperature 37.0 37.0 Blood Gas Actual Respiration Rate 28 25 Blood Gas Modality MASK - NRB MASK - BIPAP FiO2 81.0 100.0 Blood Gas Critical Value Read Back paula bravo rn Blood Gas Notified 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 d gopal shaikhp Blood Gas Notified Time 11/26/2016 9:32:40 PM 11/26/2016 11:16:18 PM Lactic Acid Level 1.0 Blood Gas Respiration Rate 14.0 Blood Gas Pressure Support 10 Blood Gas IPAP/EPAP Ratio 15/5 Bedside Glucose 159 Test 11/27/16 01:39 11/27/16 05:00 11/27/16 05:24 11/27/16 05:30 Bedside Glucose 160 187 Blood Gas Specimen Source Blood arterial Arterial Blood Date Drawn 11/27/2016 4:35:56 AM Arterial Blood pH (Temp corrected) 7.310 L Arterial Blood pCO2 (Temp correct) 39.1 Arterial Blood pO2 (Temp corrected) 106.5 H Arterial Blood HCO3 19.2 L Arterial Blood Base Excess -6.5 L Arterial Blood Oxygen Saturation 97.5 Rolando Test ACCEPTAB Arterial Blood Gas Puncture Site Right Radial Arterial Blood Carboxyhemoglobin 0.3 Arterial Blood Methemoglobin 0.6 Blood Gas A-a O2 Differential 350.6 H Oxyhemoglobin Percent 96.6 Total Hemoglobin 7.8 L Blood Gas Temperature 37.0 Blood Gas Respiration Rate 14.0 Blood Gas Actual Respiration Rate 30 Blood Gas Modality MASK - BIPAP FiO2 70.0 Blood Gas IPAP/EPAP Ratio 15/5 Blood Gas Notified Whom BR Blood Gas Notified Time 11/27/2016 4:41:30 AM White Blood Count 9.6 Red Blood Count 2.33 L Hemoglobin 7.7 L Hematocrit 24.0 L Mean Corpuscular Volume 103.0 H Mean Corpuscular Hemoglobin 33.0 Mean Corpuscular Hemoglobin Concent 32.1 Red Cell Distribution Width 14.6 H Platelet Count 525 H Mean Platelet Volume 9.3 Neutrophils % 70.0 Band Neutrophils % 20.0 H Lymphocytes % 8.0 L Monocytes % 1.0 Eosinophils % Promyelocytes % 1.0 H Neutrophils # 6.7 Lymphocytes # 0.8 Monocytes # 0.1 L Eosinophils # Promyelocytes # 0.1 Prothrombin Time 15.8 H Prothrombin Time Ratio 1.2 INR International Normalized Ratio 1.25 Activated Partial Thromboplast Time 72.9 *H Sodium Level 149 H Potassium Level 3.2 L Chloride Level 115 H Carbon Dioxide Level 23 Anion Gap 14 Blood Urea Nitrogen 20 Creatinine 0.79 Glucose Level 187 Calcium Level 7.8 L Total Bilirubin 0.2 Direct Bilirubin 0.00 Indirect Bilirubin 0.2 Aspartate Amino Transf (AST/SGOT) 25 Alanine Aminotransferase (ALT/SGPT) 19 Alkaline Phosphatase 67 Total Protein 5.4 L Albumin 2.4 L Globulin 3.00 Albumin/Globulin Ratio 0.80 Test 11/27/16 07:00 11/27/16 08:04 11/27/16 12:39 11/27/16 13:26 Lactic Acid Level 1.3 Bedside Glucose 172 169 Prothrombin Time 16.1 H Prothrombin Time Ratio 1.3 INR International Normalized Ratio 1.28 Activated Partial Thromboplast Time 103.8 *H Potassium Level 3.3 L Medications Medications Current Medications Heparin Sodium (Porcine) 250 ml @ 7 mls/hr TITRATE IV Last administered on 11/27 13:39; Admin Dose 9 MLS/HR; Start 11/25/16 at 01:32 Sodium Chloride (NS) 1,000 ml @ 20 mls/hr Q24H IV Last administered on 01:53; Admin Dose 20 MLS/HR; Start 11/25/16 at 01:53 Metoclopramide HCl (Reglan) 10 mg Q6H PRN IV NAUSEA AND/OR VOMITING; Start at 02:00 Acetaminophen (Tylenol Liquid) 650 mg Q6H PRN PO PAIN LEVEL 1-3 OR FEVER Last administered on 11/27/16 01:42; Admin Dose 650 MG; Start 11/25/16 at 02:00 Morphine Sulfate 2 mg 2 mg Q4H PRN IV PAIN LEVEL 7-10 Last administered on 11/27 05:21; Admin Dose 2 MG; Start 11/25/16 at 02:00 Dobutamine HCl/ Dextrose 250 ml @ 8.523 mls/ hr TITRATE IV ; Start 11/25/16 at 02:00 Insulin Aspart (Novolog Insulin Pen) NOVOLOG *MILD* ALGORI... Q4 SC Last administered on 11/27/16 13:29; Admin Dose 1 UNIT; Start 11/25/16 at 09:00 Miscellaneous Information 1 ea NOTE XX ; Start 11/25/16 at 09:00 Glucose (Glutose) 15 gm Q15M PRN PO DECREASED GLUCOSE; Start 11/25/16 at 09:00 Glucose (Glutose) 22.5 gm Q15M PRN PO DECREASED GLUCOSE; Start 11/25/16 at 09: 00 Dextrose (D50w Syringe) 25 ml Q15M PRN IV DECREASED GLUCOSE; Start 11/25/16 at 09:00 Dextrose (D50w Syringe) 50 ml Q15M PRN IV DECREASED GLUCOSE; Start 11/25/16 at 09:00 Glucagon (Glucagen) 1 mg Q15M PRN IM DECREASED GLUCOSE; Start 11/25/16 at 09:00 Glucose 15 gm 15 gm Q15M PRN BUCCAL DECREASED GLUCOSE; Start 11/25/16 at 09:00 Phenylephrine HCl 40 mg/Dextrose 500 ml @ 75 mls/hr TITRATE IV ; Start at 12:00 Meropenem (Merrem 1 Gm/100 ml (Pmx)) 100 ml @ 200 mls/hr Q12 IVPB Last administered on 11/27/16 08:08; Admin Dose 200 MLS/HR; Start 11/25/16 at 11:00 Ethambutol HCl (Myambutol) 400 mg DAILY GTB Last administered on 11/27/16 08: 08; Admin Dose 400 MG; Start 11/25/16 at 10:30 Pyridoxine HCl (Vitamin B6) 50 mg DAILY GTB Last administered on 11/27/16 08: 08; Admin Dose 50 MG; Start 11/25/16 at 10:30 Rifampin 600 mg 600 mg DAILY PEG Last administered on 11/27/16 08:08; Admin Dose 600 MG; Start 11/25/16 at 10:30 Vancomycin HCl (Vancocin) 250 ml @ 125 mls/hr Q24H IVPB Last administered on 00:07; Admin Dose 125 MLS/HR; Start 11/25/16 at 22:00 Isoniazid (Isoniazid) 300 mg DAILY GTB Last administered on 11/27/16 08:08; Admin Dose 300 MG; Start 11/26/16 at 09:00 Heparin Sodium (Porcine) (Heparin (1000 Units/ml)) 3,300 unit PRN PRN IV PENDING LAB VALUE; Start 11/25/16 at 22:30 Famotidine 20 mg 20 mg DAILY IV Last administered on 11/27/16 09:29; Admin Dose 20 MG; Start 11/27/16 at 09:00 Norepinephrine/ Dextrose (Levophed/D5W) 500 ml @ 1.87 mls/hr TITRATE IV ; Start 11/26/16 at 22:00 Aspirin (Aspirin) 325 mg DAILY GTB ; Start 11/28/16 at 09:00 Miscellaneous Information (*Rx Drug Level Order Reminder*) VANCOMYCIN TROUGH LEVEL... ONCE ONCE XX ; Start 11/28/16 at 21:00; Stop 11/28/16 at 21:01 Oscar Maradiaga DO Nov 27, 2016 15:18
[2016-11-27] MEDS: ATORVASTATIN 20 MG TAB PO SCH (20:52)
[2016-11-28] VITALS (78 sets, daily range): BP systolic 71–134; BP diastolic 48–106; PULSE 96–129; RESP 17–35
[2016-11-28] MEDS: INSULIN ASPART [NOVOLOG] 3 ML PEN SC SCH ×6 (01:05→21:00)
[2016-11-28] MEDS: LEVALBUTEROL (NEB) 0.31 MG/3 ML AMP HHN SCH ×5 (02:00→20:35)
[2016-11-28 04:46] LABS: ADD SCAN DIFF NO
[2016-11-28 04:59] LABS: BASOPHILS % 0.1 % (0.0-2.0); HEMATOCRIT 22.9 % (42.0-52.0); HEMOGLOBIN 7.5 g/dl (14.0-18.0); LYMPHOCYTES # 1.2 10^3/ul (0.8-2.9); LYMPHOCYTES % 9.3 % (15.0-51.0); MEAN CORPUSCULAR HEMOGLOBIN 32.8 pg (29.0-33.0); MEAN CORPUSCULAR HGB CONC 32.8 g/dl (32.0-37.0); MEAN PLATELET VOLUME 9.6 fl (7.4-10.4); MONOCYTES % 8.4 % (0.0-11.0); NEUTROPHILS % 80.6 % (39.0-77.0); PLATELET COUNT 443 10^3/UL (140-415); RED BLOOD COUNT 2.29 10^6/ul (4.70-6.10); RED CELL DISTRIBUTION WIDTH 14.8 % (11.5-14.5); WHITE BLOOD COUNT 12.4 10^3/ul (4.8-10.8)
[2016-11-28 05:05] LABS: POTASSIUM 3.7 mmol/L (3.5-5.1)
[2016-11-28 05:08] LABS: CREATININE 0.73 mg/dl (0.61-1.24)
[2016-11-28 05:09] LABS: CALCIUM 8.1 mg/dl (8.4-10.2)
[2016-11-28] MEDS: POTASSIUM CHLORIDE 50 ML IVPB PRN (06:57)
[2016-11-28] MEDS ORDERED: ASPIRIN 325 MG TAB GTB SCH (09:00)
[2016-11-28] MEDS: RIFAMPIN 300 MG CAP PEG SCH (09:13)
[2016-11-28] MEDS: ISONIAZID 300 MG TAB GTB SCH (09:13)
[2016-11-28] MEDS: ASPIRIN 81 MG TAB PO SCH (09:13)
[2016-11-28] MEDS: PYRIDOXINE 50 MG TAB GTB SCH (09:13)
[2016-11-28] MEDS: FAMOTIDINE 20 MG INJ IV SCH (09:13)
[2016-11-28] MEDS: MEROPENEM 1 GM/100 ML (PMX) 100 ML IVPB SCH ×2 (09:13→21:19)
[2016-11-28] MEDS: ETHAMBUTOL 400 MG TAB GTB SCH (09:43)
[2016-11-28] MEDS: VANCOMYCIN 600 MG in SOD CHLORIDE 0.9% 150 ML IVPB SCH (12:11)
--- NOTE | 2016-11-28 12:42 | CONS ---
Date/Time of Note Date/Time of Note DATE: 11/28/16 TIME: 12:40 Consult Date/Type/Reason Admit Date/Time Nov 24, 2016 at 23:51 Type of Consultation: pulmonary ICU Subjective Patient continues high flow O2 remained stable eyes open alert comfortable at rest no respiratory distress Objective Vital Signs Date Time Temp Pulse Resp B/P Pulse Ox O2 Delivery O2 Flow Rate FiO2 11/28/16 11:15 98 90 11/28/16 09:45 113 30 115/92 11/28/16 09:00 High Flow Nasal Cannula 11/28/16 08:00 98.0 11/27/16 11:50 15.0 Intake and Output 11/27/16 11/27/16 11/28/16 15:00 23:00 07:00 Intake Total 329.250 ml 585.62 ml Output Total 950 ml 275 ml Balance -620.750 ml 310.62 ml Exam GENERAL: Elderly gentleman on high flow oxygen VITAL SIGNS: per chart NECK: Supple. No JVD or lymphadenopathy. CARDIAC EXAM: S1, S2. No added sounds or murmurs. CHEST: Diminished air entry bilaterally with few rales ABDOMEN: Soft, nontender. No guarding or rebound. EXTREMITIES: No cyanosis, clubbing or edema. NEUROLOGIC: Generalized weakness. No focal deficits. Results/Medications Result Diagram: 11/28/16 0400 11/28/16 0400 Results 24 hrs Laboratory Tests Test 11/27/16 13:26 11/27/16 17:12 11/27/16 20:44 11/27/16 21:15 Bedside Glucose 169 120 170 Potassium Level 3.8 Vancomycin Level Trough 8.9 L Test 11/28/16 00:58 11/28/16 04:00 11/28/16 06:08 11/28/16 08:58 Bedside Glucose 148 193 177 White Blood Count 12.4 #H Red Blood Count 2.29 L Hemoglobin 7.5 L Hematocrit 22.9 L Mean Corpuscular Volume 100.0 Mean Corpuscular Hemoglobin 32.8 Mean Corpuscular Hemoglobin Concent 32.8 Red Cell Distribution Width 14.8 H Platelet Count 443 H Mean Platelet Volume 9.6 Neutrophils % 80.6 H Lymphocytes % 9.3 L Monocytes % 8.4 Eosinophils % 0.0 Basophils % 0.1 Nucleated Red Blood Cells % 0.0 Neutrophils # 10.0 H Lymphocytes # 1.2 Monocytes # 1.0 H Eosinophils # 0.0 Basophils # 0.0 Nucleated Red Blood Cells # 0.0 Sodium Level 153 H Potassium Level 3.7 Chloride Level 118 H Carbon Dioxide Level 24 Anion Gap 15 Blood Urea Nitrogen 25 H Creatinine 0.73 Glucose Level 135 # Calcium Level 8.1 L Medications Current Medications Sodium Chloride (NS) 1,000 ml @ 20 mls/hr Q24H IV Last administered on 18:24; Admin Dose 20 MLS/HR; Start 11/25/16 at 01:53 Metoclopramide HCl (Reglan) 10 mg Q6H PRN IV NAUSEA AND/OR VOMITING; Start at 02:00 Acetaminophen (Tylenol Liquid) 650 mg Q6H PRN PO PAIN LEVEL 1-3 OR FEVER Last administered on 11/27/16 01:42; Admin Dose 650 MG; Start 11/25/16 at 02:00 Morphine Sulfate (morphine) 2 mg Q4H PRN IV PAIN LEVEL 7-10 Last administered on 11/27/16 05:21; Admin Dose 2 MG; Start 11/25/16 at 02:00 Insulin Aspart (Novolog Insulin Pen) NOVOLOG *MILD* ALGORI... Q4 SC Last administered on 11/28/16 12:11; Admin Dose 2 UNIT; Start 11/25/16 at 09:00 Miscellaneous Information 1 ea NOTE XX ; Start 11/25/16 at 09:00 Glucose (Glutose) 15 gm Q15M PRN PO DECREASED GLUCOSE; Start 11/25/16 at 09:00 Glucose (Glutose) 22.5 gm Q15M PRN PO DECREASED GLUCOSE; Start 11/25/16 at 09: 00 Dextrose (D50w Syringe) 25 ml Q15M PRN IV DECREASED GLUCOSE; Start 11/25/16 at 09:00 Dextrose (D50w Syringe) 50 ml Q15M PRN IV DECREASED GLUCOSE; Start 11/25/16 at 09:00 Glucagon (Glucagen) 1 mg Q15M PRN IM DECREASED GLUCOSE; Start 11/25/16 at 09:00 Glucose 15 gm 15 gm Q15M PRN BUCCAL DECREASED GLUCOSE; Start 11/25/16 at 09:00 Phenylephrine HCl 40 mg/Dextrose 500 ml @ 75 mls/hr TITRATE IV ; Start at 12:00 Meropenem (Merrem 1 Gm/100 ml (Pmx)) 100 ml @ 200 mls/hr Q12 IVPB Last administered on 11/28/16 09:13; Admin Dose 200 MLS/HR; Start 11/25/16 at 11:00 Ethambutol HCl (Myambutol) 400 mg DAILY GTB Last administered on 11/28/16 09: 43; Admin Dose 400 MG; Start 11/25/16 at 10:30 Pyridoxine HCl (Vitamin B6) 50 mg DAILY GTB Last administered on 11/28/16 09: 13; Admin Dose 50 MG; Start 11/25/16 at 10:30 Rifampin (Rifampin) 600 mg DAILY PEG Last administered on 11/28/16 09:13; Admin Dose 600 MG; Start 11/25/16 at 10:30 Isoniazid (Isoniazid) 300 mg DAILY GTB Last administered on 11/28/16 09:13; Admin Dose 300 MG; Start 11/26/16 at 09:00 Famotidine 20 mg 20 mg DAILY IV Last administered on 11/28/16 09:13; Admin Dose 20 MG; Start 11/27/16 at 09:00 Norepinephrine/ Dextrose (Levophed/D5W) 500 ml @ 1.87 mls/hr TITRATE IV Last administered on 11/27/16 18:20; Admin Dose 5.62 MLS/HR; Start 11/26/16 at 22:00 Aspirin (Aspirin) 81 mg DAILY PO Last administered on 11/28/16 09:13; Admin Dose 81 MG; Start 11/28/16 at 09:00 Atorvastatin Calcium 20 mg 20 mg HS PO Last administered on 11/27/16 20:52; Admin Dose 20 MG; Start 11/27/16 at 21:00 Vancomycin HCl/ Sodium Chloride (Vancocin/NS) 150 ml @ 100 mls/hr Q12H IVPB Last administered on 11/28/16 12:11; Admin Dose 100 MLS/HR; Start 11/28/16 at 12:00 Assessment/Plan Chief Complaint/Hosp Course IMPRESSION: 1. 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 2. Shock, likely septic, possibly due to a pneumonic source; possible component of line sepsis 3. History of pulmonary TB, on treatment. 4. Gm+ bacteremia--likely line-related 5. Anemia likely of chronic disease RECOMMENDATIONS: 1. Antibiotic coverage, as per ID recommendations. 2. Strict aspiration precautions. 3. Maintain NPO, trial of high flow O2 4. Aspiration precautions 5. Obtain prior imaging from [facility] 6. Consider transfusion 1 unit packed red blood cells Disposition Continue ICU Discussed. Critical care time 40 minutes Consider palliative care consult Problems: DESHAUN SALGADO MD, [facility] Nov 28, 2016 12:42
--- NOTE | 2016-11-28 15:46 | CONS ---
Date/Time of Note Date/Time of Note DATE: 11/28/16 TIME: 15:40 Assessment/Plan Assessment/Plan Chief Complaint/Hosp Course ID PROGRESS NOTE CURRENT ABX DAY #4 => Vanco IV + Merrem Pulmonary MTB Rx: Rifampin+ INH + Ethambutol + Pyridoxine [NOTE: [facility] TB DC 'D PYRAZINAMIDE]. 24H INTERVAL SUMMARY * Per notes patient referred to Hospice per discussion with daughter who agreed -- patient is hospice appropriate * B/P still low == has been weaned off 100% NRB to supplemental O2 via FM with improvement in prior tachypnea * Patient with on and off acute on chronic pulmonary decompensation on and off since August 2016 * Appears weak w/dyspnea + sternal retractions, opens eyes, non-verbal, arousable, does not speak == poor quality of life * CXR 11/27/16: Multifocal patchy opacities in the left greater than right lungs , likely due to a multifocal pneumonia, * Fevers >104.+ on admission -> resolving with WBC 9.6 == SUSPECT STAPH PNA = PICC LINE SEPSIS = LINE REMOVED * BLOOD CULTURE Preliminary BCULT GRAM BOTTLE 1 Gram positive cocci in clusters 1 of 2 bottles . seen on gram stain of the broth BCULT GRAM BOTTLE 2 Gram positive cocci in clusters 2 of 2 bottles . seen on gram stain of the broth Organism 1 STAPHYLOCOCCUS SPECIES PHYSICAL EXAMINATION: GENERAL: Chronic ill, 81 yo M, acute hypoxic respiratory failure on 100% O2 via FM, (+)laryngeal + audible rhonchi chest congestion w/(+)wheeze HEENT: FM secure NECK: Supple, trachea midline. 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 Sepsis on admission with, fevers >104.+, hypotension, severe lactic acidosis , (+)Troponin leak * BCx (+)GPC =STAPH 1/2 bottles = PICC LINE SEPSIS ON ADMIT = PICC DC'd in ED * FEM-TLC was placed in ED on 11/24/16 2. Acute hypoxic respiratory distress w/pulmonary sepsis = ongoing Aspiration Syndrome w/retained secretions * CXR 11/27/16: Multifocal patchy opacities in the left greater than right lungs , likely due to a multifocal pneumonia, 3. 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 COPD Emphysema/reactive airway w/wheezing exacerbation on chronic pulmonary fibrosis * Hx of long-term + recent tobacco 4. (+)Recent Dx MTB work up completed at [facility]-> Due to his refusal to take PO Meds, NGT was placed for [facility] TB compliance. * Anti-TB meds initiated end of AUG/Early SEP; however patient did not start daily ABX until SEP, 2016 5. Acute encephalopathy on chronic Psych debility + microvascular dementia w/ refusal to take PO Meds at [facility], requiring PEG 6. Dehydration w/Cachexia => hx of refusal of PO intake requiring NGT/eventual PEG placement in past 7. DMT2 w/suspected complication of DM autonomic neuropathies: Gastroparesis/ Neurogenic bladder 8. s/p recent Acute renal failure due to meds + sepsis + dehydration -> S.Creatinine improved this admission 9. Hx of UTIs with urinary retention requiring Leal ?BPH vs Neurogenic bladder 10.GERD 11. Anemia chronic (-)MRSA Nares 11/11/16 INVASIVES: R-FEM TLC, FC, Peg ABX ALLERGY: KNDA CURRENT ABX: Rifampin+ INH + Ethambutol + Pyridoxine =>NOTE: [facility] TB DC'D PYRAZINAMIDE => Vanco IV + Zosyn 11/24/16 ED ID RECOMMENDATIONS Per notes patient referred to Hospice per discussion with daughter who agreed. * The patient is hospice appropriate, he has been struggling with pulmonary infection and sob since Aug 2016. * Poor quality of life w/progressive cachexia - severe dementia w/grave debility 1. PICC LINE SEPSIS ON ADMIT = PICC DC'd in ED => Now has FEM-TLC, may place new PICC 2. FOR ASPIRATION PNA/Pulmonary sepsis : Continue Vanco IV + Merrem for hx of ASP PNA * = AVOID Zosyn due to Hx of KIM with prior Vanco/Zosyn combo. 2. FOR PULMONARY MTB: Patient in treatment since ~August 2016 = [facility] Infection Control Nurse can contact [facility] if exact dates are needed. * Patient is well-known to Dr. Kathleen's ID team s/p lengthy admission to [facility] where he was Dx with MTB and remained on isolation for many weeks with NGT placed for TB med compliance prior to being cleared by [facility] TB for DC to SNF on 10/10/16. [facility] TB with recs to continue: Rifampin+ INH + Ethambutol + Pyridoxine =>NOTE: [facility] TB DC'D PYRAZINAMIDE * Per ID nurse consultant standpoint, logically there appears no indication to continue the patient on MTB isolation precautions w/caveat that patient has been compliant with anti-TB meds at SNF. Nevertheless, ID does NOT hold authority for TB clearance recommendations from [facility], this is the responsibility and authority of [facility] Infection Control Staff. Any inquiries from [facility] nursing staff should be directed toward [facility] Infection Control Policy and [facility] TB surveillance recommendations. 3. PROGNOSIS: Poor per hospitalist notes and palliative care consult last admission [facility] . . Problems: Consultation Date/Type/Reason Admit Date/Time Nov 24, 2016 at 23:51 Type of Consultation: ID Exam/Review of Systems Vital Signs Vitals Vital Signs Date Time Temp Pulse Resp B/P Pulse Ox O2 Delivery O2 Flow Rate FiO2 11/28/16 15:15 110 33 95/64 97 11/28/16 15:00 Mechanical Ventilator 11/28/16 13:26 80 11/28/16 12:00 98.3 11/27/16 11:50 15.0 Intake and Output 11/27/16 11/27/16 11/28/16 15:00 23:00 07:00 Intake Total 329.250 ml 585.62 ml Output Total 950 ml 275 ml Balance -620.750 ml 310.62 ml Results Result Diagram: 11/28/16 0400 11/28/16 0400 Results 24 hrs Laboratory Tests Test 11/27/16 17:12 11/27/16 20:44 11/27/16 21:15 11/28/16 00:58 Bedside Glucose 120 170 148 Potassium Level 3.8 Vancomycin Level Trough 8.9 L Test 11/28/16 04:00 11/28/16 06:08 11/28/16 08:58 11/28/16 13:24 White Blood Count 12.4 #H Red Blood Count 2.29 L Hemoglobin 7.5 L Hematocrit 22.9 L Mean Corpuscular Volume 100.0 Mean Corpuscular Hemoglobin 32.8 Mean Corpuscular Hemoglobin Concent 32.8 Red Cell Distribution Width 14.8 H Platelet Count 443 H Mean Platelet Volume 9.6 Neutrophils % 80.6 H Lymphocytes % 9.3 L Monocytes % 8.4 Eosinophils % 0.0 Basophils % 0.1 Nucleated Red Blood Cells % 0.0 Neutrophils # 10.0 H Lymphocytes # 1.2 Monocytes # 1.0 H Eosinophils # 0.0 Basophils # 0.0 Nucleated Red Blood Cells # 0.0 Sodium Level 153 H Potassium Level 3.7 Chloride Level 118 H Carbon Dioxide Level 24 Anion Gap 15 Blood Urea Nitrogen 25 H Creatinine 0.73 Glucose Level 135 # Calcium Level 8.1 L Bedside Glucose 193 177 152 Medications Medications Current Medications Sodium Chloride (NS) 1,000 ml @ 20 mls/hr Q24H IV Last administered on 18:24; Admin Dose 20 MLS/HR; Start 11/25/16 at 01:53 Metoclopramide HCl (Reglan) 10 mg Q6H PRN IV NAUSEA AND/OR VOMITING; Start at 02:00 Acetaminophen (Tylenol Liquid) 650 mg Q6H PRN PO PAIN LEVEL 1-3 OR FEVER Last administered on 11/27/16 01:42; Admin Dose 650 MG; Start 11/25/16 at 02:00 Morphine Sulfate (morphine) 2 mg Q4H PRN IV PAIN LEVEL 7-10 Last administered on 11/27/16 05:21; Admin Dose 2 MG; Start 11/25/16 at 02:00 Insulin Aspart (Novolog Insulin Pen) NOVOLOG *MILD* ALGORI... Q4 SC Last administered on 11/28/16 12:11; Admin Dose 2 UNIT; Start 11/25/16 at 09:00 Miscellaneous Information 1 ea NOTE XX ; Start 11/25/16 at 09:00 Glucose (Glutose) 15 gm Q15M PRN PO DECREASED GLUCOSE; Start 11/25/16 at 09:00 Glucose (Glutose) 22.5 gm Q15M PRN PO DECREASED GLUCOSE; Start 11/25/16 at 09: 00 Dextrose (D50w Syringe) 25 ml Q15M PRN IV DECREASED GLUCOSE; Start 11/25/16 at 09:00 Dextrose (D50w Syringe) 50 ml Q15M PRN IV DECREASED GLUCOSE; Start 11/25/16 at 09:00 Glucagon (Glucagen) 1 mg Q15M PRN IM DECREASED GLUCOSE; Start 11/25/16 at 09:00 Glucose 15 gm 15 gm Q15M PRN BUCCAL DECREASED GLUCOSE; Start 11/25/16 at 09:00 Phenylephrine HCl 40 mg/Dextrose 500 ml @ 75 mls/hr TITRATE IV ; Start at 12:00 Meropenem (Merrem 1 Gm/100 ml (Pmx)) 100 ml @ 200 mls/hr Q12 IVPB Last administered on 11/28/16 09:13; Admin Dose 200 MLS/HR; Start 11/25/16 at 11:00 Ethambutol HCl (Myambutol) 400 mg DAILY GTB Last administered on 11/28/16 09: 43; Admin Dose 400 MG; Start 11/25/16 at 10:30 Pyridoxine HCl (Vitamin B6) 50 mg DAILY GTB Last administered on 11/28/16 09: 13; Admin Dose 50 MG; Start 11/25/16 at 10:30 Rifampin (Rifampin) 600 mg DAILY PEG Last administered on 11/28/16 09:13; Admin Dose 600 MG; Start 11/25/16 at 10:30 Isoniazid (Isoniazid) 300 mg DAILY GTB Last administered on 11/28/16 09:13; Admin Dose 300 MG; Start 11/26/16 at 09:00 Famotidine 20 mg 20 mg DAILY IV Last administered on 11/28/16 09:13; Admin Dose 20 MG; Start 11/27/16 at 09:00 Norepinephrine/ Dextrose (Levophed/D5W) 500 ml @ 1.87 mls/hr TITRATE IV Last administered on 11/27/16 18:20; Admin Dose 5.62 MLS/HR; Start 11/26/16 at 22:00 Aspirin (Aspirin) 81 mg DAILY PO Last administered on 11/28/16 09:13; Admin Dose 81 MG; Start 11/28/16 at 09:00 Atorvastatin Calcium 20 mg 20 mg HS PO Last administered on 11/27/16 20:52; Admin Dose 20 MG; Start 11/27/16 at 21:00 Vancomycin HCl/ Sodium Chloride (Vancocin/NS) 150 ml @ 100 mls/hr Q12H IVPB Last administered on 11/28/16t 12:11; Admin Dose 100 MLS/HR; Start 11/28/16 at 12:00 PALMIRA ALFARO NP Nov 28, 2016 15:45
--- NOTE | 2016-11-28 17:58 | PN ---
Date/Time of Note Date/Time of Note DATE: 11/28/16 TIME: 17:48 Assessment/Plan VTE Prophylaxis VTE Prophylaxis Intervention: SCD's Assessment/Plan Chief Complaint/Hosp Course 1. Septic shock 2/2 HCAP -cont ABx, off pressors 2. Acute Resp Failure 2/2 above -cont 02, pulmonary consult appreciated 3. Hypokalemia-repleted 4. Non-ST elevation myocardial infarction (NSTEMI)-type 2 from sepsis -Cards consult appreciated 5. Thrombocytosis-likely reactive 6. History of TB-patient has been cleared by [facility] infection control in the past -ID consult appreciated 7. Dementia with dysphasia -Spoke to daughter today and family has decided to stop PEG tube feeds based on patient's previous wishes, they are also interested in inpatient hospice and have consulted hospice, will have another family conference in 2 days PPx- SCD's Problems: Subjective 24 Hr Interval Summary Subjective hx not possible: pt non-verbal Exam/Review of Systems Vital Signs Vitals Vital Signs Date Time Temp Pulse Resp B/P Pulse Ox O2 Delivery O2 Flow Rate FiO2 11/28/16 17:15 95 70 11/28/16 16:45 108 33 117/79 11/28/16 16:00 100.0 High Flow Nasal Cannula 11/27/16 11:50 15.0 Intake and Output 11/27/16 11/27/16 11/28/16 15:00 23:00 07:00 Intake Total 329.250 ml 585.62 ml Output Total 950 ml 275 ml Balance -620.750 ml 310.62 ml Exam Constitutional: non-verbal Respiratory: clear to auscultation Cardiovascular: regular rate and rhythm Gastrointestinal: soft, No distended Musculoskeletal: nl extremities to inspection Results Result Diagram: 11/28/16 0400 11/28/16 0400 Results 24 hrs Laboratory Tests Test 11/27/16 20:44 11/27/16 21:15 11/28/16 00:58 11/28/16 04:00 Bedside Glucose 170 148 Potassium Level 3.8 3.7 Vancomycin Level Trough 8.9 L White Blood Count 12.4 #H Red Blood Count 2.29 L Hemoglobin 7.5 L Hematocrit 22.9 L Mean Corpuscular Volume 100.0 Mean Corpuscular Hemoglobin 32.8 Mean Corpuscular Hemoglobin Concent 32.8 Red Cell Distribution Width 14.8 H Platelet Count 443 H Mean Platelet Volume 9.6 Neutrophils % 80.6 H Lymphocytes % 9.3 L Monocytes % 8.4 Eosinophils % 0.0 Basophils % 0.1 Nucleated Red Blood Cells % 0.0 Neutrophils # 10.0 H Lymphocytes # 1.2 Monocytes # 1.0 H Eosinophils # 0.0 Basophils # 0.0 Nucleated Red Blood Cells # 0.0 Sodium Level 153 H Chloride Level 118 H Carbon Dioxide Level 24 Anion Gap 15 Blood Urea Nitrogen 25 H Creatinine 0.73 Glucose Level 135 # Calcium Level 8.1 L Test 11/28/16 06:08 11/28/16 08:58 11/28/16 13:24 11/28/16 17:29 Bedside Glucose 193 177 152 161 Medications Medications Current Medications Sodium Chloride (NS) 1,000 ml @ 20 mls/hr Q24H IV Last administered on 18:24; Admin Dose 20 MLS/HR; Start 11/25/16 at 01:53 Metoclopramide HCl (Reglan) 10 mg Q6H PRN IV NAUSEA AND/OR VOMITING; Start at 02:00 Acetaminophen (Tylenol Liquid) 650 mg Q6H PRN PO PAIN LEVEL 1-3 OR FEVER Last administered on 11/27/16 01:42; Admin Dose 650 MG; Start 11/25/16 at 02:00 Morphine Sulfate (morphine) 2 mg Q4H PRN IV PAIN LEVEL 7-10 Last administered on 11/27/16 05:21; Admin Dose 2 MG; Start 11/25/16 at 02:00 Insulin Aspart (Novolog Insulin Pen) NOVOLOG *MILD* ALGORI... Q4 SC Last administered on 11/28/16 17:30; Admin Dose 1 UNIT; Start 11/25/16 at 09:00 Miscellaneous Information 1 ea NOTE XX ; Start 11/25/16 at 09:00 Glucose (Glutose) 15 gm Q15M PRN PO DECREASED GLUCOSE; Start 11/25/16 at 09:00 Glucose (Glutose) 22.5 gm Q15M PRN PO DECREASED GLUCOSE; Start 11/25/16 at 09: 00 Dextrose (D50w Syringe) 25 ml Q15M PRN IV DECREASED GLUCOSE; Start 11/25/16 at 09:00 Dextrose (D50w Syringe) 50 ml Q15M PRN IV DECREASED GLUCOSE; Start 11/25/16 at 09:00 Glucagon (Glucagen) 1 mg Q15M PRN IM DECREASED GLUCOSE; Start 11/25/16 at 09:00 Glucose 15 gm 15 gm Q15M PRN BUCCAL DECREASED GLUCOSE; Start 11/25/16 at 09:00 Phenylephrine HCl 40 mg/Dextrose 500 ml @ 75 mls/hr TITRATE IV ; Start at 12:00 Meropenem (Merrem 1 Gm/100 ml (Pmx)) 100 ml @ 200 mls/hr Q12 IVPB Last administered on 11/28/16 09:13; Admin Dose 200 MLS/HR; Start 11/25/16 at 11:00 Ethambutol HCl (Myambutol) 400 mg DAILY GTB Last administered on 11/28/16 09: 43; Admin Dose 400 MG; Start 11/25/16 at 10:30 Pyridoxine HCl (Vitamin B6) 50 mg DAILY GTB Last administered on 11/28/16 09: 13; Admin Dose 50 MG; Start 11/25/16 at 10:30 Rifampin (Rifampin) 600 mg DAILY PEG Last administered on 11/28/16 09:13; Admin Dose 600 MG; Start 11/25/16 at 10:30 Isoniazid (Isoniazid) 300 mg DAILY GTB Last administered on 11/28/16 09:13; Admin Dose 300 MG; Start 11/26/16 at 09:00 Famotidine 20 mg 20 mg DAILY IV Last administered on 11/28/16 09:13; Admin Dose 20 MG; Start 11/27/16 at 09:00 Norepinephrine/ Dextrose (Levophed/D5W) 500 ml @ 1.87 mls/hr TITRATE IV Last administered on 11/27/16 18:20; Admin Dose 5.62 MLS/HR; Start 11/26/16 at 22:00 Aspirin (Aspirin) 81 mg DAILY PO Last administered on 11/28/16 09:13; Admin Dose 81 MG; Start 11/28/16 at 09:00 Atorvastatin Calcium 20 mg 20 mg HS PO Last administered on 11/27/16 20:52; Admin Dose 20 MG; Start 11/27/16 at 21:00 Vancomycin HCl/ Sodium Chloride (Vancocin/NS) 150 ml @ 100 mls/hr Q12H IVPB Last administered on 11/28/16t 12:11; Admin Dose 100 MLS/HR; Start 11/28/16 at 12:00 SAMPSON GUERRERO Nov 28, 2016 17:58
[2016-11-28] MEDS: ACETAMINOPHEN 650MG/20.3ML CUP PO PRN (21:19)
[2016-11-28] MEDS: ATORVASTATIN 20 MG TAB PO SCH (21:19)
[2016-11-29] VITALS (50 sets, daily range): BP systolic 78–135; BP diastolic 54–111; PULSE 90–180; RESP 20–34
[2016-11-29] MEDS: VANCOMYCIN 600 MG in SOD CHLORIDE 0.9% 150 ML IVPB SCH ×2 (00:50→12:20)
[2016-11-29] MEDS: INSULIN ASPART [NOVOLOG] 3 ML PEN SC SCH ×4 (01:04→12:22)
[2016-11-29] MEDS: LEVALBUTEROL (NEB) 0.31 MG/3 ML AMP HHN SCH ×2 (01:49→08:24)
[2016-11-29 05:31] LABS: ADD SCAN DIFF NO
[2016-11-29 05:37] LABS: BASOPHILS % 0.2 % (0.0-2.0); HEMATOCRIT 23.8 % (42.0-52.0); HEMOGLOBIN 7.9 g/dl (14.0-18.0); LYMPHOCYTES # 1.5 10^3/ul (0.8-2.9); LYMPHOCYTES % 13.8 % (15.0-51.0); MEAN CORPUSCULAR HEMOGLOBIN 32.6 pg (29.0-33.0); MEAN CORPUSCULAR HGB CONC 33.2 g/dl (32.0-37.0); MEAN CORPUSCULAR VOLUME 98.3 fl (82.0-101.0); MEAN PLATELET VOLUME 9.9 fl (7.4-10.4); MONOCYTE # 0.8 10^3/ul (0.3-0.9); NEUTROPHIL # 7.8 10^3/ul (1.6-7.5); NEUTROPHILS % 74.5 % (39.0-77.0); PLATELET COUNT 308 10^3/UL (140-415); RED BLOOD COUNT 2.42 10^6/ul (4.70-6.10); RED CELL DISTRIBUTION WIDTH 14.8 % (11.5-14.5); WHITE BLOOD COUNT 10.5 10^3/ul (4.8-10.8)
[2016-11-29] MEDS: SOD CHLORIDE 0.9% 1,000 ML IV SCH (05:42)
[2016-11-29 05:57] LABS: CALCIUM 8.2 mg/dl (8.4-10.2); CREATININE 0.77 mg/dl (0.61-1.24); MAGNESIUM 2.1 mg/dl (1.7-2.5); PHOSPHORUS 1.7 mg/dl (2.5-4.9); POTASSIUM 3.4 mmol/L (3.5-5.1)
[2016-11-29 08:02] LABS: AADO2 Arterial 400.8 mmHg (7.0-24.0); Allen Test ACCEPTAB; Arterial Base Excess -0.7 mmol/L (-3.0-3); Arterial COHb 0.2 % (0.0-3.0); Arterial Fraction of Oxyhgb 92.7 % (93.0-99.0); Arterial HCO3 21.8 mmol/L (22.0-26.0); Arterial MetHb 0.6 % (0.0-1.5); Arterial Total Hemglobin 8.2 g/dl (12.0-18.0); MODE HFNC
[2016-11-29] MEDS: ETHAMBUTOL 400 MG TAB GTB SCH (09:07)
[2016-11-29] MEDS: MEROPENEM 1 GM/100 ML (PMX) 100 ML IVPB SCH (09:07)
[2016-11-29] MEDS: FAMOTIDINE 20 MG INJ IV SCH (09:07)
[2016-11-29] MEDS: RIFAMPIN 300 MG CAP PEG SCH (09:07)
[2016-11-29] MEDS: ISONIAZID 300 MG TAB GTB SCH (09:07)
[2016-11-29] MEDS: PYRIDOXINE 50 MG TAB GTB SCH (09:07)
[2016-11-29] MEDS: ASPIRIN 81 MG TAB PO SCH (09:07)
--- NOTE | 2016-11-29 09:13 | RADRPT ---
PROCEDURE: XR Chest. CLINICAL INDICATION: pna chf TECHNIQUE: Single frontal view of the chest was obtained. COMPARISON: None. FINDINGS: There are stable multifocal patchy opacities in the left greater than right lungs. The aortic arch is calcified. Heart size is within normal limits. There is a stable retrocardiac opacity due to atelectasis, infiltrate, and / or a small effusion. There is decreased osseous mineralization. IMPRESSION: No significant interval change. RPTAT: EE Physician [place] Date Time Electronically viewed and signed by Sam Mcgrath Physician on 11/29/2016 09:13 RA/
[2016-11-29] MEDS ORDERED: DILTIAZEM 25 MG INJ IV ONE (10:00)
--- NOTE | 2016-11-29 10:20 | CONS ---
Date/Time of Note Date/Time of Note DATE: 11/29/16 TIME: 10:14 Consult Date/Type/Reason Admit Date/Time Nov 24, 2016 at 23:51 Type of Consultation: pulmonary ICU Subjective Patient continues high flow oxygen intermittent tachypnea with labored breathing Intermittent tachycardia consistent with atrial fibrillation with rapid ventricular rate Objective Vital Signs Date Time Temp Pulse Resp B/P Pulse Ox O2 Delivery O2 Flow Rate FiO2 11/29/16 09:00 117 31 116/95 99 High Flow Nasal Cannula 11/29/16 08:29 70 11/29/16 08:00 97.8 11/27/16 11:50 15.0 Intake and Output 11/28/16 11/28/16 11/29/16 14:59 22:59 06:59 Intake Total 480 ml 260 ml 310 ml Output Total 430 ml 360 ml 290 ml Balance 50 ml -100 ml 20 ml Exam GENERAL: Elderly gentleman on high flow oxygen VITAL SIGNS: per chart NECK: Supple. No JVD or lymphadenopathy. CARDIAC EXAM: S1, S2. No added sounds or murmurs. CHEST: Diminished air entry bilaterally with few rales ABDOMEN: Soft, nontender. No guarding or rebound. EXTREMITIES: No cyanosis, clubbing or edema. NEUROLOGIC: Generalized weakness. No focal deficits. Results/Medications Result Diagram: 11/29/16 0455 11/29/16 0455 Results 24 hrs Chest x-ray No change in her extensive bilateral infiltrates Laboratory Tests Test 11/28/16 12:10 11/28/16 13:24 11/28/16 17:29 11/28/16 21:20 Bedside Glucose 187 152 161 129 Test 11/29/16 00:52 11/29/16 04:55 11/29/16 05:41 11/29/16 07:00 Bedside Glucose 155 164 White Blood Count 10.5 Red Blood Count 2.42 L Hemoglobin 7.9 L Hematocrit 23.8 L Mean Corpuscular Volume 98.3 Mean Corpuscular Hemoglobin 32.6 Mean Corpuscular Hemoglobin Concent 33.2 Red Cell Distribution Width 14.8 H Platelet Count 308 # Mean Platelet Volume 9.9 Neutrophils % 74.5 Lymphocytes % 13.8 L Monocytes % 8.0 Eosinophils % 0.0 Basophils % 0.2 Nucleated Red Blood Cells % 0.0 Neutrophils # 7.8 H Lymphocytes # 1.5 Monocytes # 0.8 Eosinophils # 0.0 Basophils # 0.0 Nucleated Red Blood Cells # 0.0 Sodium Level 151 H Potassium Level 3.4 L Chloride Level 122 H Carbon Dioxide Level 24 Anion Gap 8 Blood Urea Nitrogen 28 H Creatinine 0.77 Glucose Level 166 Calcium Level 8.2 L Phosphorus Level 1.7 L Magnesium Level 2.1 Blood Gas Specimen Source Blood arterial Arterial Blood Date Drawn 11/29/2016 7:28:43 AM Arterial Blood pH (Temp corrected) 7.514 H Arterial Blood pCO2 (Temp correct) 27.7 L Arterial Blood pO2 (Temp corrected) 68.5 L Arterial Blood HCO3 21.8 L Arterial Blood Base Excess -0.7 Arterial Blood Oxygen Saturation 93.4 L Rolando Test ACCEPTAB Arterial Blood Gas Puncture Site Right Radial Arterial Blood Carboxyhemoglobin 0.2 Arterial Blood Methemoglobin 0.6 Blood Gas A-a O2 Differential 400.8 H Oxyhemoglobin Percent 92.7 L Total Hemoglobin 8.2 L Blood Gas Temperature 37.0 Blood Gas Modality HFNC FiO2 70.0 Blood Gas Notified Whom JLD Blood Gas Notified Time 11/29/2016 8:02:12 AM Test 11/29/16 09:06 Bedside Glucose 174 Medications Current Medications Sodium Chloride (NS) 1,000 ml @ 20 mls/hr Q24H IV Last administered on 05:42; Admin Dose 20 MLS/HR; Start 11/25/16 at 01:53 Metoclopramide HCl (Reglan) 10 mg Q6H PRN IV NAUSEA AND/OR VOMITING; Start at 02:00 Acetaminophen (Tylenol Liquid) 650 mg Q6H PRN PO PAIN LEVEL 1-3 OR FEVER Last administered on 11/28/16 21:19; Admin Dose 650 MG; Start 11/25/16 at 02:00 Morphine Sulfate (morphine) 2 mg Q4H PRN IV PAIN LEVEL 7-10 Last administered on 11/27/16 05:21; Admin Dose 2 MG; Start 11/25/16 at 02:00 Insulin Aspart (Novolog Insulin Pen) NOVOLOG *MILD* ALGORI... Q4 SC Last administered on 11/29/16 09:08; Admin Dose 1 UNIT; Start 11/25/16 at 09:00 Miscellaneous Information 1 ea NOTE XX ; Start 11/25/16 at 09:00 Glucose (Glutose) 15 gm Q15M PRN PO DECREASED GLUCOSE; Start 11/25/16 at 09:00 Glucose (Glutose) 22.5 gm Q15M PRN PO DECREASED GLUCOSE; Start 11/25/16 at 09: 00 Dextrose (D50w Syringe) 25 ml Q15M PRN IV DECREASED GLUCOSE; Start 11/25/16 at 09:00 Dextrose (D50w Syringe) 50 ml Q15M PRN IV DECREASED GLUCOSE; Start 11/25/16 at 09:00 Glucagon (Glucagen) 1 mg Q15M PRN IM DECREASED GLUCOSE; Start 11/25/16 at 09:00 Glucose 15 gm 15 gm Q15M PRN BUCCAL DECREASED GLUCOSE; Start 11/25/16 at 09:00 Phenylephrine HCl 40 mg/Dextrose 500 ml @ 75 mls/hr TITRATE IV ; Start at 12:00 Meropenem (Merrem 1 Gm/100 ml (Pmx)) 100 ml @ 200 mls/hr Q12 IVPB Last administered on 11/29/16 09:07; Admin Dose 200 MLS/HR; Start 11/25/16 at 11:00 Ethambutol HCl (Myambutol) 400 mg DAILY GTB Last administered on 11/29/16 09: 07; Admin Dose 400 MG; Start 11/25/16 at 10:30 Pyridoxine HCl (Vitamin B6) 50 mg DAILY GTB Last administered on 11/29/16 09: 07; Admin Dose 50 MG; Start 11/25/16 at 10:30 Rifampin (Rifampin) 600 mg DAILY PEG Last administered on 11/29/16 09:07; Admin Dose 600 MG; Start 11/25/16 at 10:30 Isoniazid (Isoniazid) 300 mg DAILY GTB Last administered on 11/29/16 09:07; Admin Dose 300 MG; Start 11/26/16 at 09:00 Famotidine 20 mg 20 mg DAILY IV Last administered on 11/29/16 09:07; Admin Dose 20 MG; Start 11/27/16 at 09:00 Norepinephrine/ Dextrose (Levophed/D5W) 500 ml @ 1.87 mls/hr TITRATE IV Last administered on 11/27/16 18:20; Admin Dose 5.62 MLS/HR; Start 11/26/16 at 22:00 Aspirin (Aspirin) 81 mg DAILY PO Last administered on 11/29/16 09:07; Admin Dose 81 MG; Start 11/28/16 at 09:00 Atorvastatin Calcium 20 mg 20 mg HS PO Last administered on 11/28/16 21:19; Admin Dose 20 MG; Start 11/27/16 at 21:00 Vancomycin HCl 600 mg/Sodium Chloride 150 ml @ 100 mls/hr Q12H IVPB Last administered on 11/29/16 00:50; Admin Dose 100 MLS/HR; Start 11/28/16 at 12:00 Potassium Chloride/Dextrose (KCl/D5W) 1,015 ml @ 100 mls/hr Q10H9M IV ; Start 11/29/16 at 11:30 Assessment/Plan Chief Complaint/Hosp Course IMPRESSION: 1. 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 2. Status post septic shock likely secondary to pneumonia 3. History of pulmonary TB, on treatment. 4. Gm+ bacteremia--likely line-related 5. Anemia likely of chronic disease 6. Hypernatremia likely prerenal RECOMMENDATIONS: 1. Antibiotic coverage, as per ID recommendations. 2. Strict aspiration precautions. 3. Continue supplemental O2 4. Continue antibiotics 5. Discuss with primary care physician agree with palliative care consult as overall prognosis very poor Disposition Continue ICU Critical care time 40 minutes Problems: DESHAUN SALGADO MD, [facility] Nov 29, 2016 10:20
[2016-11-29] MEDS ORDERED: AMIODARONE 150MG/D5W BOLUS 100 ML IV ONE (10:30)
[2016-11-29] MEDS ORDERED: SOD CHLORIDE 0.9% 1,000 ML IV ONE (10:30)
[2016-11-29] MEDS ORDERED: AMIODARONE 900 MG in DEXTROSE 5% 482 ML IV SCH (10:30)
[2016-11-29] MEDS ORDERED: POTASSIUM CHLORIDE 30 MEQ in DEXTROSE 5% 1,000 ML IV SCH (11:30)
[2016-11-29] MEDS ORDERED: DIGOXIN 500 MCG INJ IV ONE ×2 (12:30→18:30)
--- NOTE | 2016-11-29 12:56 | CONS ---
Date/Time of Note Date/Time of Note DATE: 11/29/16 TIME: 12:54 Assessment/Plan Assessment/Plan Additional Assessment/Plan Sepsis Respiratory failure Pulmonary tuberculosis Pneumonia Mildly elevated troponin Preserved ejection fraction Moderate pulmonary hypertension Tricuspid regurgitation Paroxysmal atrial fibrillation/flutter -Telemetry reviewed with episodes of atrial fibrillation and possibly atrial flutter versus sinus tachycardia. Currently being loaded with IV amiodarone. Maintain potassium above 4.0 and magnesium above 2.0. In discussion with primary physician, patient undergoing hospice evaluation. Antibiotics as per infectious disease. Consultation Date/Type/Reason Admit Date/Time Nov 24, 2016 at 23:51 Type of Consultation: cv 24 HR Interval Summary Free Text/Dictation Patient seen and examined. Episode of atrial fibrillation rapid ventricular rates, and discussion with nursing staff and hospitalist, patient going towards hospice care Exam/Review of Systems Vital Signs Vitals Vital Signs Date Time Temp Pulse Resp B/P Pulse Ox O2 Delivery O2 Flow Rate FiO2 11/29/16 12:30 158 26 93/79 96 11/29/16 12:00 98.2 High Flow Nasal Cannula 11/29/16 08:29 70 11/27/16 11:50 15.0 Intake and Output 11/28/16 11/28/16 11/29/16 15:00 23:00 07:00 Intake Total 500 ml 260 ml 290 ml Output Total 485 ml 355 ml 240 ml Balance 15 ml -95 ml 50 ml Exam Dyspneic Constitutional: alert Head: normocephalic Respiratory: crackles/rales, other Cardiovascular: other (S1-S2 heard), regular rate and rhythm (Tachycardic) Gastrointestinal: bowel sounds, non-tender, soft Extremities: edema Results Result Diagram: 11/29/16 0455 11/29/16 0455 Results 24 hrs Laboratory Tests Test 11/28/16 13:24 11/28/16 17:29 11/28/16 21:20 11/29/16 00:52 Bedside Glucose 152 161 129 155 Test 11/29/16 04:55 11/29/16 05:41 11/29/16 07:00 11/29/16 09:06 White Blood Count 10.5 Red Blood Count 2.42 L Hemoglobin 7.9 L Hematocrit 23.8 L Mean Corpuscular Volume 98.3 Mean Corpuscular Hemoglobin 32.6 Mean Corpuscular Hemoglobin Concent 33.2 Red Cell Distribution Width 14.8 H Platelet Count 308 # Mean Platelet Volume 9.9 Neutrophils % 74.5 Lymphocytes % 13.8 L Monocytes % 8.0 Eosinophils % 0.0 Basophils % 0.2 Nucleated Red Blood Cells % 0.0 Neutrophils # 7.8 H Lymphocytes # 1.5 Monocytes # 0.8 Eosinophils # 0.0 Basophils # 0.0 Nucleated Red Blood Cells # 0.0 Sodium Level 151 H Potassium Level 3.4 L Chloride Level 122 H Carbon Dioxide Level 24 Anion Gap 8 Blood Urea Nitrogen 28 H Creatinine 0.77 Glucose Level 166 Calcium Level 8.2 L Phosphorus Level 1.7 L Magnesium Level 2.1 Bedside Glucose 164 174 Blood Gas Specimen Source Blood arterial Arterial Blood Date Drawn 11/29/2016 7:28:43 AM Arterial Blood pH (Temp corrected) 7.514 H Arterial Blood pCO2 (Temp correct) 27.7 L Arterial Blood pO2 (Temp corrected) 68.5 L Arterial Blood HCO3 21.8 L Arterial Blood Base Excess -0.7 Arterial Blood Oxygen Saturation 93.4 L Rolando Test ACCEPTAB Arterial Blood Gas Puncture Site Right Radial Arterial Blood Carboxyhemoglobin 0.2 Arterial Blood Methemoglobin 0.6 Blood Gas A-a O2 Differential 400.8 H Oxyhemoglobin Percent 92.7 L Total Hemoglobin 8.2 L Blood Gas Temperature 37.0 Blood Gas Modality HFNC FiO2 70.0 Blood Gas Notified Whom JLD Blood Gas Notified Time 11/29/2016 8:02:12 AM Test 11/29/16 12:21 Bedside Glucose 157 Medications Medications Current Medications Sodium Chloride (NS) 1,000 ml @ 20 mls/hr Q24H IV Last administered on 05:42; Admin Dose 20 MLS/HR; Start 11/25/16 at 01:53 Metoclopramide HCl (Reglan) 10 mg Q6H PRN IV NAUSEA AND/OR VOMITING; Start at 02:00 Acetaminophen (Tylenol Liquid) 650 mg Q6H PRN PO PAIN LEVEL 1-3 OR FEVER Last administered on 11/28/16 21:19; Admin Dose 650 MG; Start 11/25/16 at 02:00 Morphine Sulfate (morphine) 2 mg Q4H PRN IV PAIN LEVEL 7-10 Last administered on 11/27/16 05:21; Admin Dose 2 MG; Start 11/25/16 at 02:00 Insulin Aspart (Novolog Insulin Pen) NOVOLOG *MILD* ALGORI... Q4 SC Last administered on 11/29/16 12:22; Admin Dose 1 UNIT; Start 11/25/16 at 09:00 Miscellaneous Information 1 ea NOTE XX ; Start 11/25/16 at 09:00 Glucose (Glutose) 15 gm Q15M PRN PO DECREASED GLUCOSE; Start 11/25/16 at 09:00 Glucose (Glutose) 22.5 gm Q15M PRN PO DECREASED GLUCOSE; Start 11/25/16 at 09: 00 Dextrose (D50w Syringe) 25 ml Q15M PRN IV DECREASED GLUCOSE; Start 11/25/16 at 09:00 Dextrose (D50w Syringe) 50 ml Q15M PRN IV DECREASED GLUCOSE; Start 11/25/16 at 09:00 Glucagon (Glucagen) 1 mg Q15M PRN IM DECREASED GLUCOSE; Start 11/25/16 at 09:00 Glucose 15 gm 15 gm Q15M PRN BUCCAL DECREASED GLUCOSE; Start 11/25/16 at 09:00 Phenylephrine HCl 40 mg/Dextrose 500 ml @ 75 mls/hr TITRATE IV ; Start at 12:00 Meropenem (Merrem 1 Gm/100 ml (Pmx)) 100 ml @ 200 mls/hr Q12 IVPB Last administered on 11/29/16 09:07; Admin Dose 200 MLS/HR; Start 11/25/16 at 11:00 Ethambutol HCl (Myambutol) 400 mg DAILY GTB Last administered on 11/29/16 09: 07; Admin Dose 400 MG; Start 11/25/16 at 10:30 Pyridoxine HCl (Vitamin B6) 50 mg DAILY GTB Last administered on 11/29/16 09: 07; Admin Dose 50 MG; Start 11/25/16 at 10:30 Rifampin (Rifampin) 600 mg DAILY PEG Last administered on 11/29/16 09:07; Admin Dose 600 MG; Start 11/25/16 at 10:30 Isoniazid (Isoniazid) 300 mg DAILY GTB Last administered on 11/29/16 09:07; Admin Dose 300 MG; Start 11/26/16 at 09:00 Famotidine 20 mg 20 mg DAILY IV Last administered on 11/29/16 09:07; Admin Dose 20 MG; Start 11/27/16 at 09:00 Norepinephrine/ Dextrose (Levophed/D5W) 500 ml @ 1.87 mls/hr TITRATE IV Last administered on 11/27/16 18:20; Admin Dose 5.62 MLS/HR; Start 11/26/16 at 22:00 Aspirin (Aspirin) 81 mg DAILY PO Last administered on 11/29/16 09:07; Admin Dose 81 MG; Start 11/28/16 at 09:00 Atorvastatin Calcium 20 mg 20 mg HS PO Last administered on 11/28/16 21:19; Admin Dose 20 MG; Start 11/27/16 at 21:00 Vancomycin HCl 600 mg/Sodium Chloride 150 ml @ 100 mls/hr Q12H IVPB Last administered on 11/29/16 12:20; Admin Dose 100 MLS/HR; Start 11/28/16 at 12:00 Potassium Chloride 30 meq/ Dextrose 1,015 ml @ 100 mls/hr Q10H9M IV Last administered on 11/29/16 11:21; Admin Dose 100 MLS/HR; Start 11/29/16 at 11:30 Amiodarone HCl/ Dextrose (Cordarone Iv/ D5W) 500 ml @ 0 mls/hr Q0M IV Last administered on 11/29/16 11:21; Admin Dose 33.4 MLS/HR; Start 11/29/16 at 10:30 ; Stop 11/30/16 at 10:29 Miscellaneous Information (*Rx Drug Level Order Reminder*) VANCOMYCIN TROUGH AT 2300 ONCE ONCE XX ; Start 11/29/16 at 23:00; Stop 11/29/16 at 23:01 Digoxin (Digoxin) 250 mcg ONCE ONCE IV ; Start 11/29/16 at 18:30; Stop at 18:31 Oscar Maradiaga DO Nov 29, 2016 12:55
[2016-11-29] MEDS ORDERED: LEVALBUTEROL (NEB) 0.31 MG/3 ML AMP HHN SCH (14:00)
[2016-11-29] MEDS ORDERED: ATROPINE 1% 5 ML OPH SL PRN (14:30)
[2016-11-29] MEDS ORDERED: ONDANSETRON 4 MG INJ IV PRN (14:30)
[2016-11-29] MEDS ORDERED: DIMETHICONE STICK TOP PRN (14:30)
[2016-11-29] MEDS ORDERED: ALBUTEROL/IPRATROPIUM (NEB) 3 ML AMP HHN PRN (14:30)
[2016-11-29] MEDS ORDERED: ARTIFICIAL TEARS 15 ML OPH BOTH EYES PRN (14:30)
[2016-11-29] MEDS ORDERED: morphine (DRIP) 100 MG/100 ML 100 ML IV SCH (14:30)
[2016-11-29] MEDS ORDERED: LORAZEPAM 2 MG INJ IV PRN (14:30)
[2016-11-29] MEDS ORDERED: ACETAMINOPHEN 325 MG TAB PEG PRN (14:30)
--- NOTE | 2016-11-29 16:25 | CONS ---
Date/Time of Note Date/Time of Note DATE: 11/29/16 TIME: 16:21 Assessment/Plan Assessment/Plan Chief Complaint/Hosp Course ID PROGRESS NOTE CURRENT ABX DAY #5 => Vanco IV + Merrem Pulmonary MTB Rx: Rifampin+ INH + Ethambutol + Pyridoxine [NOTE: [facility] TB DC 'D PYRAZINAMIDE]. 24H INTERVAL SUMMARY * Slightly more alert today, on supplemental O2 via NC, (+)SVT HR 160's * Appears weak w/dyspnea + sternal retractions, opens eyes, non-verbal, arousable, does not speak == poor quality of life * CXR 11/29/16: There are stable multifocal patchy opacities in the left greater than right lungs. There is a stable retrocardiac opacity due to atelectasis, infiltrate, and / or a small effusion. PHYSICAL EXAMINATION: GENERAL: Chronic ill, 81 yo M, more stable on O2 via NC HEENT: FM secure NECK: Supple, trachea midline. 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 Sepsis on admission with, fevers >104.+, hypotension, severe lactic acidosis , (+)Troponin leak = IMPROVED * BCx (+)GPC =STAPH 1/2 bottles = PICC LINE SEPSIS ON ADMIT = PICC DC'd in ED * FEM-TLC was placed in ED on 11/24/16 2. 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 SVT: HR 160's 4. COPD Emphysema/reactive airway w/wheezing exacerbation on chronic pulmonary fibrosis * Hx of long-term + recent tobacco 4. (+)Recent Dx MTB work up completed at [facility]-> Due to his refusal to take PO Meds, NGT was placed for [facility] TB compliance. * Anti-TB meds initiated end of AUG/Early SEP; however patient did not start daily ABX until SEP, 2016 5. Acute encephalopathy on chronic Psych debility + microvascular dementia w/ refusal to take PO Meds at [facility], requiring PEG 6. Dehydration w/Cachexia => hx of refusal of PO intake requiring NGT/eventual PEG placement in past 7. DMT2 w/suspected complication of DM autonomic neuropathies: Gastroparesis/ Neurogenic bladder 8. s/p recent Acute renal failure due to meds + sepsis + dehydration -> S.Creatinine improved this admission 9. Hx of UTIs with urinary retention requiring Leal ?BPH vs Neurogenic bladder 10.GERD 11. Anemia chronic (-)MRSA Nares 11/11/16 INVASIVES: R-FEM TLC, FC, Peg ABX ALLERGY: KNDA CURRENT ABX: #5 => Vanco IV + Merrem * Pulmonary MTB Rx: Rifampin+ INH + Ethambutol + Pyridoxine ID RECOMMENDATIONS 1. Continue current ABX 2. Further recs per clinical response . . Problems: Consultation Date/Type/Reason Admit Date/Time Nov 24, 2016 at 23:51 Type of Consultation: cv Exam/Review of Systems Vital Signs Vitals Vital Signs Date Time Temp Pulse Resp B/P Pulse Ox O2 Delivery O2 Flow Rate FiO2 11/29/16 15:55 154 104/67 90 11/29/16 13:25 70 11/29/16 12:30 26 11/29/16 12:00 98.2 High Flow Nasal Cannula 11/27/16 11:50 15.0 Intake and Output 11/28/16 11/28/16 11/29/16 15:00 23:00 07:00 Intake Total 500 ml 260 ml 290 ml Output Total 485 ml 355 ml 240 ml Balance 15 ml -95 ml 50 ml Results Result Diagram: 11/29/16 0455 11/29/16 0455 Results 24 hrs Laboratory Tests Test 11/28/16 17:29 11/28/16 21:20 11/29/16 00:52 11/29/16 04:55 Bedside Glucose 161 129 155 White Blood Count 10.5 Red Blood Count 2.42 L Hemoglobin 7.9 L Hematocrit 23.8 L Mean Corpuscular Volume 98.3 Mean Corpuscular Hemoglobin 32.6 Mean Corpuscular Hemoglobin Concent 33.2 Red Cell Distribution Width 14.8 H Platelet Count 308 # Mean Platelet Volume 9.9 Neutrophils % 74.5 Lymphocytes % 13.8 L Monocytes % 8.0 Eosinophils % 0.0 Basophils % 0.2 Nucleated Red Blood Cells % 0.0 Neutrophils # 7.8 H Lymphocytes # 1.5 Monocytes # 0.8 Eosinophils # 0.0 Basophils # 0.0 Nucleated Red Blood Cells # 0.0 Sodium Level 151 H Potassium Level 3.4 L Chloride Level 122 H Carbon Dioxide Level 24 Anion Gap 8 Blood Urea Nitrogen 28 H Creatinine 0.77 Glucose Level 166 Calcium Level 8.2 L Phosphorus Level 1.7 L Magnesium Level 2.1 Test 11/29/16 05:41 11/29/16 07:00 11/29/16 09:06 11/29/16 12:21 Bedside Glucose 164 174 157 Blood Gas Specimen Source Blood arterial Arterial Blood Date Drawn 11/29/2016 7:28:43 AM Arterial Blood pH (Temp corrected) 7.514 H Arterial Blood pCO2 (Temp correct) 27.7 L Arterial Blood pO2 (Temp corrected) 68.5 L Arterial Blood HCO3 21.8 L Arterial Blood Base Excess -0.7 Arterial Blood Oxygen Saturation 93.4 L Rolando Test ACCEPTAB Arterial Blood Gas Puncture Site Right Radial Arterial Blood Carboxyhemoglobin 0.2 Arterial Blood Methemoglobin 0.6 Blood Gas A-a O2 Differential 400.8 H Oxyhemoglobin Percent 92.7 L Total Hemoglobin 8.2 L Blood Gas Temperature 37.0 Blood Gas Modality HFNC FiO2 70.0 Blood Gas Notified Whom JLD Blood Gas Notified Time 11/29/2016 8:02:12 AM Test 11/29/16 12:25 Urine Osmolality 543 Urine Random Sodium 54 Medications Medications Current Medications Acetaminophen 650 mg 650 mg Q6H PRN PO PAIN LEVEL 1-3 OR FEVER Last administered on 11/28/16 21:19; Admin Dose 650 MG; Start 11/25/16 at 02:00 Morphine Sulfate/ Sodium Chloride (morphine) 100 ml @ 1 mls/hr TITRATE IV Last administered on 11/29/16 15:54; Admin Dose 1 MLS/HR; Start 11/29/16 at 14:30 Acetaminophen (Tylenol Tab) 650 mg Q4H PRN PEG MILD DISCOMFORT OR TEMP>99.5F; Start 11/29/16 at 14:30 Lorazepam (Ativan) 1 mg Q4H PRN IV ANXIETY/SEIZURES; Start 11/29/16 at 14:30 Ondansetron HCl (Zofran Inj) 4 mg Q4H PRN IV NAUSEA AND/OR VOMITING; Start at 14:30 Atropine Sulfate (Atropine 1% Oph) 2 drop Q2H PRN SL TERMINAL CONGESTION; Start 11/29/16 at 14:30 PALMIRA ALFARO NP Nov 29, 2016 16:25
--- NOTE | 2016-11-30 05:55 | HP ---
DATE OF ADMISSION: 11/24/2016 LEVEL OF CARE: GIP ____ acute respiratory failure due to healthcare-associated pneumonia, comorbid restrictive and possibly obstructive lung disease, anemia. CHIEF COMPLAINT AND HISTORY OF PRESENT ILLNESS: History has been obtained from medical record and a lso discussion with nursing staff. The patient is an 81-year-old gentleman who has history of COPD, chronic encephalopathy, history of tuberculosis and status post treatment with RIPE. The patient w as admitted at [facility] on 11/24/2016 due to fever, hypotension. Chest x-ray re vealed multifocal airspace opacity bilaterally. White count was 6.5, hemoglobin was 8.2. Lactic ac id was 5.1. Troponin peaked at 0.53. The patient was diagnosed with hypoxemic respiratory failure secondary to multifocal aspiration versus healthcare-associated pneumonia in a patient with underlyi ng existing restrictive and possibly obstructive lung disease. The patient was in septic shock. Th e patient was treated with vasopressor, high-flow oxygen and multiple IV antibiotics. The patient w as seen by Dr. Kathleen from infectious disease standpoint, Dr. Gutierrez from pulmonary standpoint. Th e patient's blood culture grew gram-positive cocci possibly due to line sepsis. The patient had a P ICC line prior to admission which was subsequently discontinued. The patient was resumed on rifampi n, INH, ethambutol and ____ and was started on IV vancomycin and Zosyn. The patient has underlying severe dementia, and therefore, due to poor quality of life and worsening condition, patient was ref erred to hospice. The patient was deemed hospice appropriate and is being admitted to provide comfo rt care. REVIEW OF SYSTEMS: Could not obtain as patient is nonverbal. The patient apparently was on high fl ow-oxygen, but family requested to discontinue high-flow oxygen. Therefore, the patient will be vishnu estelita on 2 L nasal cannula. The patient did not have any fever today. No reported vomiting, no repor kami seizure, no reported bleeding from any site, no reported acute skin rash. ALLERGIES: NONE. SOCIAL HISTORY: Could not obtain. FAMILY HISTORY: Could not obtain. PHYSICAL EXAMINATION: GENERAL: The patient is lethargic, opens eyes intermittently on stimuli. VITAL SIGNS: Temperature 98.2, pulse 163, respirations 28, blood pressure 135/108, O2 saturation 96 %. HEENT: Atraumatic, normocephalic. Conjunctivae and lids normal. Extraocular movement could not be tested. Nose and ears normal externally. NECK: No mass. CHEST: Coarse breath sounds and diminished air entry bilaterally. CARDIOVASCULAR: S1, S2 normal. No murmur. Sinus tachycardia. ABDOMEN: Soft, nondistended, nontender. G-tube in place. EXTREMITIES: Edematous. GENITOURINARY: Leal catheter in place with clear urine. NEUROLOGIC: Examination was limited as the patient was nonverbal. LABORATORY DATA: WBC 10.5, hemoglobin ____. Sodium 151, potassium 3.4, BUN 28, creatinine 0.7. IMPRESSION: 1. Acute hypoxemic respiratory failure due to healthcare facility-acquired pneumonia/aspiration pne umonia. 2. Dementia. 3. Anemia. 4. Recent non-ST elevation myocardial infarction. PLAN: The patient admitted on medical floor. The patient will be started on IV morphine drip, supp lemental oxygen, breathing treatments, atropine drops and IV Zofran. Will continue to optimize comf ort care. Plan of care discussed with Bismark Cardona as well as nursing staff at [facility]. Dictated By: GERDA JOHNSON/PITER Conf#: [id number] DID#: [id number]
--- NOTE | 2016-11-30 08:48 | DS ---
DATE OF ADMISSION: 11/24/2016 DATE OF DISCHARGE: 11/30/2016 DISCHARGE DIAGNOSES: 1. Septic shock secondary to healthcare-associated pneumonia, now off pressors. The patient is nelia ng transferred to inpatient hospice. 2. Acute respiratory failure secondary to pneumonia, now on hospice. 3. Non-ST elevation myocardial infarction, type 2, secondary to sepsis. 4. History of tuberculosis status post treatment in the past. 5. Severe dementia with dysphagia, being transferred to inpatient hospice. HOSPITAL COURSE: The patient is an 81-year-old male with history of severe dementia, TB infection, and dysphagia status post PEG tube placement. The patient presents from SNF for hypertension and si gns of sepsis. The patient was found to have healthcare-associated pneumonia. The patient was seen by pulmonology as well as ID, cardiology for the non-STEMI secondary to sepsis. The patient does h ave severe dementia and is nonverbal. Family decided to pursue comfort care considering his poor pr ognosis. The patient was seen by [facility] and was transferred to inpatient hospice. CONDITION ON DISCHARGE: Poor. DISPOSITION: To inpatient hospice. MEDICATIONS: Per hospice. FOLLOWUP: The patient is to follow up with physician and nurses of [facility]. Greater than 30 minutes were spent coordinating discharge of patient. Dictated By: SAMPSON GUERRERO MD BS/NTS Conf#: [id number] DID#: [id number]
--- NOTE | 2016-11-30 17:13 | RADRPT ---
Vent Rate: 174 bpm RR Interval: 0 msec [place] Interval: 0 msec QRS Duration: 84 msec QT Interval: 260 msec QTC Interval: 442 msec P-R-T [place]: 0 - 11 - 0 degrees Supraventricular tachycardia Marked ST abnormality, possible inferior subendocardial injury Abnormal ECG Electronically Signed By: Oscar Maradiaga [id number]
== END 2016-11-30 02:45 | disposition expired | DRG 871 ==
LOC: E/R 21:42 → ICU 23:51 → PP2 11-29 18:57
PROVIDERS: ADMIT Family Medicine; ATTEND Internal Medicine
PROC: 06HY33Z Insertion of Infusion Device into Lower Vein, Percutaneous Approach (ICD-10-PCS; principal; 2016-11-24)
PROC: 5A09357 Assistance with Respiratory Ventilation, Less than 24 Consecutive Hours, Continuous Positive Airway Pressure (ICD-10-PCS; 2016-11-27)
DX: A41.9 Sepsis, unspecified organism (principal); R65.21 Severe sepsis with septic shock; J96.01 Acute respiratory failure with hypoxia; I21.4 Non-ST elevation (NSTEMI) myocardial infarction; G93.49 Other encephalopathy; J18.9 Pneumonia, unspecified organism; R64 Cachexia; R13.10 Dysphagia, unspecified; I48.0 Paroxysmal atrial fibrillation; E87.6 Hypokalemia; I10 Essential (primary) hypertension; D64.9 Anemia, unspecified; E86.0 Dehydration; F03.90 Unspecified dementia, unspecified severity, without behavioral disturbance, psychotic disturbance, mood disturbance, and anxiety; J43.9 Emphysema, unspecified; E11.9 Type 2 diabetes mellitus without complications; Z86.11 Personal history of tuberculosis; I07.1 Rheumatic tricuspid insufficiency; Y95 Nosocomial condition; K21.9 Gastro-esophageal reflux disease without esophagitis; Z93.1 Gastrostomy status; Z79.4 Long term (current) use of insulin; Z68.21 Body mass index [BMI] 21.0-21.9, adult
CPT/HCPCS: 36415; 36600; 71010; 71250; 80048; 80053; 80202; 81001; 81003; 82550; 82553; 82803; 82962; 83605; 83615; 83735; 83935; 84100; 84132; 84300; 84484; 85025; 85610; 85730; 87040; 87081; 87086; 93005; 93306; 94640; 94660; 94664; 96365; 96375; 96376; J1940; J0282; J1644; J1815; J2185; J2270; J2543; J3370; J3475; J3480; J7030; J7060; J7070